=== PATIENT | female | born 1975 | race Caucasian/White ===

== ENCOUNTER → 2017-05-27 | Outpatient (CLI) | payer OTHER ==
[2014-06-23 10:00] VITALS: BP 110/68
[~2017-05-27] MED LIST: LANS30CA66 PO; METH-37 PO; OXYC-328 PO; TIZA4TAB PO
--- NOTE | 2017-05-27 13:50 | RAD ---
MRCP, 05/27/2017: History: Abdominal pain postcholecystectomy Imaging was performed in axial and coronal planes utilizing a variety of imaging sequences including T2 weighted, fat suppressed T2 weighted and opposed phase gradient echo sequences. 2-D and 3-D MRCP sequences were also performed with 3-D reconstructions produced. The gallbladder is surgically absent. The bile ducts are not dilated. There is no evidence of a common duct calculus. The distal common bile duct tapers normally at the ampulla. The pancreatic duct shows no abnormality. No hepatic abnormality is detected. The pancreas is unremarkable. No splenic or renal abnormality is identified. IMPRESSION: 1. Status post cholecystectomy. 2. No significant biliary tract abnormality is identified.
== END | disposition home or self-care (01) ==
LOC: MRI 11:41
PROVIDERS: ATTEND Internal Medicine Gastroenterology
DX: R10.9 Unspecified abdominal pain (principal); Z90.49 Acquired absence of other specified parts of digestive tract
CPT/HCPCS: 74181

== ENCOUNTER 2018-12-27 05:54 | Inpatient (IN) | payer MEDICAID, OTHER ==
[2018-12-27] VITALS (19 sets, daily range): BP systolic 90–113; BP diastolic 57–86
[~2018-12-27] VITALS: Ht 167.6 cm; Wt 69.9 kg
[~2018-12-27 05:54] MED LIST changes: -OXYC-328 PO; +OXYC1TAB22 PO
[2018-12-27] MEDS ORDERED: IV NORMAL SALINE 500ML BAG 500 ML IV ONE ×2 (06:30→17:30)
--- NOTE | 2018-12-27 06:46 | PDOC ---
Provider Note Provider Note [id number] acute resp fail acute bronchitis encephalopathy see orders REYNALDO PETERS MD Dec 27, 2018 06:46
--- NOTE | 2018-12-27 07:00 | NUR ---
Pt transferred to room 105 from [facility] ER. Pt intubated/sedated. Dr. Kc called for admit orders. Dr. Mckay here to see pt. Chest Xray seen by Dr. Mckay and confirmed ETTube placement and OG tube placement. Vent settings Ac 20, tv 500, peep 5, 80%. Unger to dd, placed at [facility] with clear yellow urine. was not present at admit, was at [facility]. Full history not obtained.
--- NOTE | 2018-12-27 07:58 | CONS ---
DATE OF CONSULTATION: 12/27/2018 I was asked to see this 43-year-old lady for acute respiratory failure. HISTORY OF PRESENT ILLNESS: The patient is currently on the ventilator and is sedated. All of the information was obtained from chart and nursing staff. She has significant history of smoking. She had fever and chills. She took pain medication and drench went to bed. Per , she has had a fever and cough for the past few days. She has chronic back pain and is on narcotics. She was taken to [facility]. She was intubated for airway protection. She was not responsive. ABG: pH 7.24, pCO2 of 56, pO2 44 on arrival on room air. She is currently on assist control rate of 20, tidal volume 500, PEEP of 5, FiO2 80% with O2 saturation of 100%. She is intubated and sedated on propofol. PAST MEDICAL HISTORY: Seizure, back pain, bronchitis. ALLERGIES: BUPRENORPHINE, TEGASEROD. MEDICATIONS: Currently, she is on Rocephin, azithromycin, Solu-Medrol and Propofol. SOCIAL HISTORY: Significant history of smoking. Details are not known. REVIEW OF SYSTEMS: Unable to obtain. The patient is on the ventilator and sedated. REVIEW OF SYSTEMS: As mentioned as above. I have discussed the patient with RN, other systems otherwise negative. PHYSICAL EXAMINATION: GENERAL: A well-developed lady. VITAL SIGNS: Her O2 saturation on 80% FiO2 is 100%, respiratory rate 20, heart rate 82, blood pressure 99/67, temperature 98.6. HEENT: Normocephalic, atraumatic. Pupils equal, round, reactive to light. Throat, she is orally intubated. Nose is clear. NECK: There is no JVD, lymphadenopathy or thyromegaly. CARDIOVASCULAR: Regular rate and rhythm. PMI is nondisplaced. CHEST: Inspection is normal. LUNGS: Clear to auscultation and percussion is within normal limit. ABDOMEN: Soft. Bowel sounds are good. There is no mass. EXTREMITIES: There is no edema. LYMPHATICS: There is no lymphadenopathy. NEUROLOGIC: Sedated on the ventilator. SKIN: Warm. I reviewed the following lab data: ABG as mentioned as above was before intubation in [place], WBC 11.3, hemoglobin 14.6, platelet 246. Urine drug screen positive for opioids. INR 0.9, BUN 10, creatinine 1. Total bilirubin 0.3, AST 43, ALT 30. Sodium 139, potassium 4.2. Troponin less than 0.01. BNP is 644. Lactic acid 0.8. IMPRESSION: 1. Acute hypoxemic hypercarbic respiratory failure secondary to over sedation, acute bronchitis versus pneumonia, cannot rule out sepsis versus others. 2. Acute bronchitis. 3. Smoking, probable chronic obstructive pulmonary disease. 4. Encephalopathy. 5. History of fever? sepsis. 6. Tobacco habituation. PLAN AND RECOMMENDATIONS: 1. Titrate FiO2 to keep O2 saturation 94%. 2. Stat ABG and portable chest x-ray. 3. Continue Rocephin and azithromycin. 4. Sputum for Gram stain and culture. 5. Nasal swab for influenza A and B. 6. Blood cultures done at [facility]. 7. Continue Rocephin and azithromycin. 8. Continue Solu-Medrol. 9. Lactic acid. 10. Procalcitonin. 11. Review labs when available. 12. Lovenox for DVT prophylaxis. 13. Pepcid for stress ulcer prophylaxis. 14. Monitor respiratory status very closely in ICU. 15. Elevate head of bed. 16. The findings and recommendations were discussed with RN. Thank you very much for allowing me to participate in care of this very nice lady. REYNALDO PETERS M.D. : KATIE/dyana JOB#: [id number] / [id number]
--- NOTE | 2018-12-27 08:01 | RAD ---
PORTABLE CHEST 1V Clinical History: POST INTUBATION, OG TUBE PLACEMENT Technique: AP view of the chest was obtained at 12/27/2018 6:42 AM. Comparison: 3:45 AM. Findings: The cardiomediastinal silhouette is normal. The pulmonary vasculature is normal. Linear opacities in the left lung base are likely discoid atelectasis. The intrarenal tube and NG tube are well placed and unchanged. Impression: Stable appearance of the chest. Electronically signed by: Bradley Harding III, MD (12/27/2018 7:58 AM) [facility]
[2018-12-27] MEDS: MULTIVIT INFUSN,ADULT 4,VIT K 10 ML, THIAMINE INJ 100 MG, FOLIC ACID INJ 1 MG in IV NOR... IV SCH (08:18)
[2018-12-27] MEDS: FAMOTIDINE 20 MG/2 ML VIAL IVP SCH ×2 (08:19→20:45)
[2018-12-27] MEDS: ENOXAPARIN 40 MG/0.4 ML SYRINGE. SQ SCH (08:20)
[2018-12-27] MEDS: IV NORMAL SALINE 1000ML BAG 1,000 ML IV SCH ×2 (08:23→20:45)
[2018-12-27 09:02] LABS: BASE EXCESS ABG 0 mmol/L (-3-3); HCO3 ABG 23 mmol/L (21-28); PCO2 ABG 31 mmHg (35-46); PO2 ABG 109 mmHg (75-108); SAT O2 ABG 98 % (92-99)
[2018-12-27] MEDS: PROPOFOL 100 ML IV PRN ×2 (09:16→17:00)
--- NOTE | 2018-12-27 10:48 | HP ---
ADMIT DATE: 12/27/2018 HISTORY OF PRESENT ILLNESS: The patient is a 43-year-old female patient who was seen at the Emergency Room of [facility] with a complaint of altered mental status. She apparently has cold, started having fevers and chills. She apparently took a couple of pain medication and also a couple of alcohol drinks and by the time she arrived to the Emergency Room, she appeared to be over sedated. She has bilateral rhonchi and crackles and she was hypoxic on room air and it was felt that she has an overdose of her pain medication with alcohol. She also had a fever with 3-4 days of cough per her . She does continue to smoke; however, she requires noxious stimuli to respond and according to her , she continues to smoke and is known to have chronic back pain and an attempt was made to treat her with the BiPAP but apparently according to the ER physician, continued to be hypoxic and she ended up being intubated. As her blood gases showed worsening of her acidosis, the pH of 7.26, pCO2 of 56, pO2 44 and oxygen saturation was 72% and therefore, she was intubated, sedated and was transferred to [facility] ICU to continue with mechanical ventilation, wean as tolerated. While at [facility], she did receive IV Zithromax and Rocephin. PAST MEDICAL HISTORY: Significant for COPD and seizure disorder as well as chronic back pain since as well as essential tremors. PAST SURGICAL HISTORY: Significant for cholecystectomy and left shoulder surgery. ALLERGIES: She is allergic to BUPRENORPHINE and TEGASEROD. MEDICATIONS: She apparently was on following medications: She is on methocarbamol (Robaxin) 500 mg every 8 hours, tizanidine 4 mg every 8 hours, oxycodone/APAP 10/325 one tablet every 6 hours and lansoprazole (Prevacid) 30 mg once a day. FAMILY HISTORY: Unobtainable. SOCIAL HISTORY: She is and lives with her . She apparently continued to smoke and drinks alcohol. No other information available. REVIEW OF SYSTEMS: Unobtainable. PHYSICAL EXAMINATION: GENERAL: When I saw her in the ICU, she was intubated, mechanically ventilated and sedated. VITAL SIGNS: Her heart rate was 86, blood pressure was 95/67, temperature was 98.6, respiratory rate was 20 and oxygen saturation 100% and FiO2 of 80%. HEAD, EARS, NOSE AND THROAT: Normocephalic, atraumatic. She has orotracheal and orogastric tube in place. NECK: Supple. HEART: Showed normal first and second sounds without murmur. CHEST: Clear to auscultation. No crepitation or rhonchi. ABDOMEN: Distended, soft and nontender. NEUROLOGICAL: She is sedated, intubated and mechanically ventilated. LABORATORY DATA: On arrival to the Emergency Room showed her white cell count of 11,300; hemoglobin 14.6; hematocrit 43.8; MCV 102 and platelet count of 246,000 with normal manual differential. Her arterial blood gases showed a pH of 7.26, pCO2 of 56, pO2 of 44, bicarbonate 26 and oxygen saturation was 72% on FiO2 of 21%. ASSESSMENT AND PLAN: In summary, this is a 43-year-old female patient who was seen at [facility] with altered mental status and said that she probably overdosed on her chronic pain medication as well as alcohol and was found to be in acute hypoxic hypercapnic respiratory failure and in an attempt to use bilevel positive airway pressure is her hypoxia worsened and she ended up being intubated, mechanically ventilated and was transferred to [facility] to continue with mechanical ventilation and wean as tolerated. The patient is known to have chronic back pain. She is known to have chronic obstructive pulmonary disease and apparently continued to smoke and drink alcohol. The plan is obviously to continue with mechanical ventilation, wean as tolerated. Continue with steroids and IV antibiotic. Continue with bronchodilator. Her chemistry showed that her serum sodium was 139, potassium 4.2, chloride 102, bicarbonate 30, anion gap of 7, glucose was 109, BUN 10, creatinine 1 and estimated GFR was 60 mL per minute. Her sodium was 139 and potassium 4.2. Total bilirubin, AST, ALT, alkaline phosphatase are all normal. CK was 332. Troponin was less than 0.017. Her prothrombin time was 9.3, INR of 1 and aPTT was 27. D-dimer was 0.75 mg/dL. We will obviously consult the it administrative assistant. We will also start her on alcohol withdrawal protocol, although her toxic screen showed that her blood alcohol level was only 10 mg/dL and she was positive for opiates and negative for all other drugs. TEODORO THAPA MD DR: Galindo JOB#: [id number] / [id number]
[2018-12-27 10:56] LABS: ALBUMIN 2.8 g/dL (3.4-5.0); ALBUMIN/GLOBULIN RATIO 0.8 (1.0-1.7); CALCIUM 8.2 mg/dL (8.5-10.1); CREATININE 0.8 mg/dL (0.6-1.0); GFR 77.9; POTASSIUM 4.1 mmol/L (3.5-5.1); TOTAL BILIRUBIN 0.1 mg/dL (0.2-1.0); TOTAL PROTEIN 6.2 g/dL (6.4-8.2)
[2018-12-27 11:03] LABS: HEMATOCRIT 40.3 % (36.0-47.0); HEMOGLOBIN 13.1 g/dL (12.0-15.5); RED BLOOD COUNT 3.95 x10^6/uL (3.50-5.40); RED CELL DISTRIBUTION WIDTH 13.5 % (11.5-14.5)
[2018-12-27 11:14] LABS: U PREG PATIENT NEGATIVE (NEG)
[2018-12-27 11:54] LABS: INFLUENZA A PATIENT NEGATIVE (NEGATIVE); INFLUENZA B PATIENT NEGATIVE (NEGATIVE)
[2018-12-27] MEDS: methylPREDNISolone SOD SUCC PF 40 MG/ML VIAL. IV SCH ×2 (14:00→21:33)
[2018-12-27] MEDS ORDERED: ACETAMINOPHEN 650 MG/20.3 ML SOLUTION. PEG PRN (19:15)
[2018-12-28] VITALS (24 sets, daily range): BP systolic 87–137; BP diastolic 58–80
[2018-12-28] MEDS: PROPOFOL 100 ML IV PRN ×4 (02:26→23:28)
[2018-12-28] MEDS: IV NORMAL SALINE 1000ML BAG 1,000 ML IV SCH ×3 (03:13→16:46)
[2018-12-28] MEDS ORDERED: IV NORMAL SALINE 500ML BAG 500 ML IV ONE (03:15)
[2018-12-28] MEDS: methylPREDNISolone SOD SUCC PF 40 MG/ML VIAL. IV SCH ×2 (06:01→21:21)
[2018-12-28 06:44] LABS: HEMATOCRIT 37.4 % (36.0-47.0); HEMOGLOBIN 12.6 g/dL (12.0-15.5); RED BLOOD COUNT 3.68 x10^6/uL (3.50-5.40); RED CELL DISTRIBUTION WIDTH 13.7 % (11.5-14.5); WHITE BLOOD COUNT 7.3 x10^3/uL (4.0-11.0)
[2018-12-28 06:57] LABS: ALBUMIN 2.6 g/dL (3.4-5.0); ALBUMIN/GLOBULIN RATIO 0.8 (1.0-1.7); CALCIUM 7.5 mg/dL (8.5-10.1); CREATININE 0.6 mg/dL (0.6-1.0); GFR 108.6; POTASSIUM 3.2 mmol/L (3.5-5.1); TOTAL BILIRUBIN 0.1 mg/dL (0.2-1.0); TOTAL PROTEIN 5.9 g/dL (6.4-8.2)
[2018-12-28 08:31] LABS: BASE EXCESS ABG -6 mmol/L (-3-3); HCO3 ABG 19 mmol/L (21-28); PCO2 ABG 34 mmHg (35-46); PO2 ABG 63 mmHg (75-108); SAT O2 ABG 92 % (92-99)
[2018-12-28 08:33] LABS: FIO2 ABG 40
[2018-12-28] MEDS: AZITHROMYCIN 250 MG in IV NORMAL SALINE 250ML 250 ML IV SCH (08:52)
[2018-12-28] MEDS: FAMOTIDINE 20 MG/2 ML VIAL IVP SCH ×2 (08:52→21:21)
[2018-12-28] MEDS: ENOXAPARIN 40 MG/0.4 ML SYRINGE. SQ SCH (08:52)
[2018-12-28] MEDS: cefTRIAXone IV Push 1 GM VIAL. IVP SCH (08:52)
[2018-12-28] MEDS: MULTIVIT INFUSN,ADULT 4,VIT K 10 ML, THIAMINE INJ 100 MG, FOLIC ACID INJ 1 MG in IV NOR... IV SCH (08:53)
[2018-12-28] MEDS: POTASSIUM CHLORIDE 20 MEQ/15 ML ORAL LIQUID. PEG SCH ×2 (09:14→21:21)
[2018-12-28] MEDS ORDERED: POTASSIUM CHLORIDE 20 MEQ/15 ML ORAL LIQUID. PEG ONE (09:30)
--- NOTE | 2018-12-28 09:41 | PDOC ---
PULMONARY PROGRESS NOTES Subjective Pt. remains on vent. at 40 %overnight without asynchrony. nursing reports minimal white secretions. Pt. is afebrile overnight. Pt. is currently sedated but opening eyes. Vitals Laboratory Tests Test 12/27/18 11:00 12/27/18 11:15 12/28/18 06:15 12/28/18 08:00 Urine Test Negative Influenza Type A Antigen Negative Influenza Type B Antigen Negative White Blood Count 7.3 x10^3/uL Red Blood Count 3.68 x10^6/uL Hemoglobin 12.6 g/dL Hematocrit 37.4 % Mean Corpuscular Volume 102 fL Mean Corpuscular Hemoglobin 34 pg Mean Corpuscular Hemoglobin Concent 34 g/dL Red Cell Distribution Width 13.7 % Platelet Count 214 x10^3/uL Sodium Level 142 mmol/L Potassium Level 3.2 mmol/L Chloride Level 110 mmol/L Carbon Dioxide Level 22 mmol/L Anion Gap 10 Blood Urea Nitrogen 9 mg/dL Creatinine 0.6 mg/dL Estimated GFR (Cockcroft-Gault) 108.6 BUN/Creatinine Ratio 15 Glucose Level 132 mg/dL Calcium Level 7.5 mg/dL Total Bilirubin 0.1 mg/dL Aspartate Amino Transf (AST/SGOT) 17 U/L Alanine Aminotransferase (ALT/SGPT) 31 U/L Alkaline Phosphatase 104 U/L Total Protein 5.9 g/dL Albumin 2.6 g/dL Albumin/Globulin Ratio 0.8 O2 Saturation 92 % Arterial Blood pH 7.36 Arterial Blood pCO2 at Patient Temp 34 mmHg Arterial Blood pO2 at Patient Temp 63 mmHg Arterial Blood HCO3 19 mmol/L Arterial Blood Base Excess -6 mmol/L FiO2 40 Current Medications Medications (Trade) Dose Ordered Sig/Orion Route PRN Reason Start Time Stop Time Status Last Admin Dose Admin Sodium Chloride 500 ml @ 500 mls/hr 1X ONCE IV 12/27/18 06:30 12/27/18 07:29 DC 12/27/18 06:39 Multivitamins 10 ml/Thiamine HCl 100 mg/Folic Acid 1 mg/Sodium Chloride 1,011.2 ml @ 125 mls/ hr DAILY IV 12/27/18 09:00 12/31/18 17:06 12/28/18 08:53 Methylprednisolone Sodium Succinate (SOLU-Medrol 40MG VIAL) 40 mg Q8HRS IV 12/27/18 14:00 12/28/18 06:01 Ceftriaxone Sodium (Rocephin) 1 gm Q24H IVP 12/28/18 09:00 12/28/18 08:52 Azithromycin 250 mg/Sodium Chloride 250 ml @ 250 mls/hr Q24H IV 12/28/18 09:00 12/28/18 08:52 Sodium Chloride 1,000 ml @ 150 mls/hr Q6H40M IV 12/27/18 11:00 12/28/18 09:09 Propofol 100 ml @ 1.041 mls/ hr CONT PRN IV SEE I/O RECORD 12/27/18 06:45 12/28/18 08:54 Enoxaparin Sodium (Lovenox 40mg Syringe) 40 mg Q24H SQ 12/27/18 09:00 12/28/18 08:52 Famotidine (Pepcid Vial) 20 mg BID IVP 12/27/18 09:00 12/28/18 08:52 Fentanyl Citrate 30 ml @ 0 mls/hr CONT PRN PRN IV PER PROTOCOL 12/27/18 08:15 12/28/18 00:29 Sodium Chloride 500 ml @ 500 mls/hr 1X ONCE IV 12/27/18 17:30 12/27/18 18:29 DC 12/27/18 17:08 Nystatin (Nystatin Oral Susp) 5 ml Q6HRS SWSW 12/28/18 19:00 Acetaminophen (Tylenol) 650 mg PRN Q6HRS PRN PEG MILD PAIN / TEMP 12/27/18 19:15 Sodium Chloride 500 ml @ 500 mls/hr 1X ONCE IV 12/28/18 03:15 12/28/18 04:14 DC 12/28/18 03:21 Potassium Chloride (KCl Oral Soln) 40 meq BID PEG 12/28/18 09:00 12/28/18 09:14 Vital Signs Date Time Temp Pulse Resp B/P (MAP) Pulse Ox O2 Delivery O2 Flow Rate FiO2 12/28/18 09:00 49 16 125/68 (87) 97 Ventilator 12/28/18 07:00 98.4 98.4 Comments unable to obtain ROS Pt. is intubated/sedated General: Alert HEENT: Other (pupils 4mm) Lungs: Clear Cardiovascular: S1 Abdomen: Non-tender Extremities: No Edema Skin: Warm, Dry, No Rashes Impression Labs Laboratory Tests Test 12/27/18 11:00 12/27/18 11:15 12/28/18 06:15 12/28/18 08:00 Urine Test Negative Influenza Type A Antigen Negative Influenza Type B Antigen Negative White Blood Count 7.3 x10^3/uL Red Blood Count 3.68 x10^6/uL Hemoglobin 12.6 g/dL Hematocrit 37.4 % Mean Corpuscular Volume 102 fL Mean Corpuscular Hemoglobin 34 pg Mean Corpuscular Hemoglobin Concent 34 g/dL Red Cell Distribution Width 13.7 % Platelet Count 214 x10^3/uL Sodium Level 142 mmol/L Potassium Level 3.2 mmol/L Chloride Level 110 mmol/L Carbon Dioxide Level 22 mmol/L Anion Gap 10 Blood Urea Nitrogen 9 mg/dL Creatinine 0.6 mg/dL Estimated GFR (Cockcroft-Gault) 108.6 BUN/Creatinine Ratio 15 Glucose Level 132 mg/dL Calcium Level 7.5 mg/dL Total Bilirubin 0.1 mg/dL Aspartate Amino Transf (AST/SGOT) 17 U/L Alanine Aminotransferase (ALT/SGPT) 31 U/L Alkaline Phosphatase 104 U/L Total Protein 5.9 g/dL Albumin 2.6 g/dL Albumin/Globulin Ratio 0.8 O2 Saturation 92 % Arterial Blood pH 7.36 Arterial Blood pCO2 at Patient Temp 34 mmHg Arterial Blood pO2 at Patient Temp 63 mmHg Arterial Blood HCO3 19 mmol/L Arterial Blood Base Excess -6 mmol/L FiO2 40 Current Medications Medications (Trade) Dose Ordered Sig/Orion Route PRN Reason Start Time Stop Time Status Last Admin Dose Admin Sodium Chloride 500 ml @ 500 mls/hr 1X ONCE IV 12/27/18 06:30 12/27/18 07:29 DC 12/27/18 06:39 Multivitamins 10 ml/Thiamine HCl 100 mg/Folic Acid 1 mg/Sodium Chloride 1,011.2 ml @ 125 mls/ hr DAILY IV 12/27/18 09:00 12/31/18 17:06 12/28/18 08:53 Methylprednisolone Sodium Succinate (SOLU-Medrol 40MG VIAL) 40 mg Q8HRS IV 12/27/18 14:00 12/28/18 06:01 Ceftriaxone Sodium (Rocephin) 1 gm Q24H IVP 12/28/18 09:00 12/28/18 08:52 Azithromycin 250 mg/Sodium Chloride 250 ml @ 250 mls/hr Q24H IV 12/28/18 09:00 12/28/18 08:52 Sodium Chloride 1,000 ml @ 150 mls/hr Q6H40M IV 12/27/18 11:00 12/28/18 09:09 Propofol 100 ml @ 1.041 mls/ hr CONT PRN IV SEE I/O RECORD 12/27/18 06:45 12/28/18 08:54 Enoxaparin Sodium (Lovenox 40mg Syringe) 40 mg Q24H SQ 12/27/18 09:00 12/28/18 08:52 Famotidine (Pepcid Vial) 20 mg BID IVP 12/27/18 09:00 12/28/18 08:52 Fentanyl Citrate 30 ml @ 0 mls/hr CONT PRN PRN IV PER PROTOCOL 12/27/18 08:15 12/28/18 00:29 Sodium Chloride 500 ml @ 500 mls/hr 1X ONCE IV 12/27/18 17:30 12/27/18 18:29 DC 12/27/18 17:08 Nystatin (Nystatin Oral Susp) 5 ml Q6HRS SWSW 12/28/18 19:00 Acetaminophen (Tylenol) 650 mg PRN Q6HRS PRN PEG MILD PAIN / TEMP 12/27/18 19:15 Sodium Chloride 500 ml @ 500 mls/hr 1X ONCE IV 12/28/18 03:15 12/28/18 04:14 DC 12/28/18 03:21 Potassium Chloride (KCl Oral Soln) 40 meq BID PEG 12/28/18 09:00 12/28/18 09:14 Laboratory Tests Test 12/27/18 07:30 12/27/18 09:00 12/27/18 11:00 12/27/18 11:15 White Blood Count 12.0 x10^3/uL (4.0-11.0) Red Blood Count 3.95 x10^6/uL (3.50-5.40) Hemoglobin 13.1 g/dL (12.0-15.5) Hematocrit 40.3 % (36.0-47.0) Mean Corpuscular Volume 102 fL (79-100) Mean Corpuscular Hemoglobin 33 pg (25-35) Mean Corpuscular Hemoglobin Concent 33 g/dL (31-37) Red Cell Distribution Width 13.5 % (11.5-14.5) Platelet Count 207 x10^3/uL (140-400) Sodium Level 135 mmol/L (136-145) Potassium Level 4.1 mmol/L (3.5-5.1) Chloride Level 105 mmol/L (98-107) Carbon Dioxide Level 25 mmol/L (21-32) Anion Gap 5 (6-14) Blood Urea Nitrogen 10 mg/dL (7-20) Creatinine 0.8 mg/dL (0.6-1.0) Estimated GFR (Cockcroft-Gault) 77.9 BUN/Creatinine Ratio 13 (6-20) Glucose Level 118 mg/dL (70-99) Lactic Acid Level 1.8 mmol/L (0.4-2.0) Calcium Level 8.2 mg/dL (8.5-10.1) Total Bilirubin 0.1 mg/dL (0.2-1.0) Aspartate Amino Transf (AST/SGOT) 31 U/L (15-37) Alanine Aminotransferase (ALT/SGPT) 31 U/L (14-59) Alkaline Phosphatase 115 U/L (46-116) Total Protein 6.2 g/dL (6.4-8.2) Albumin 2.8 g/dL (3.4-5.0) Albumin/Globulin Ratio 0.8 (1.0-1.7) Procalcitonin < 0.10 ng/mL (0.00-0.10) O2 Saturation 98 % (92-99) Arterial Blood pH 7.48 (7.35-7.45) Arterial Blood pCO2 at Patient Temp 31 mmHg (35-46) Arterial Blood pO2 at Patient Temp 109 mmHg (75-108) Arterial Blood HCO3 23 mmol/L (21-28) Arterial Blood Base Excess 0 mmol/L (-3-3) FiO2 80% vent Urine Test Negative (NEG) Influenza Type A Antigen Negative (NEGATIVE) Influenza Type B Antigen Negative (NEGATIVE) Test 12/28/18 06:15 12/28/18 08:00 White Blood Count 7.3 x10^3/uL (4.0-11.0) Red Blood Count 3.68 x10^6/uL (3.50-5.40) Hemoglobin 12.6 g/dL (12.0-15.5) Hematocrit 37.4 % (36.0-47.0) Mean Corpuscular Volume 102 fL (79-100) Mean Corpuscular Hemoglobin 34 pg (25-35) Mean Corpuscular Hemoglobin Concent 34 g/dL (31-37) Red Cell Distribution Width 13.7 % (11.5-14.5) Platelet Count 214 x10^3/uL (140-400) Sodium Level 142 mmol/L (136-145) Potassium Level 3.2 mmol/L (3.5-5.1) Chloride Level 110 mmol/L (98-107) Carbon Dioxide Level 22 mmol/L (21-32) Anion Gap 10 (6-14) Blood Urea Nitrogen 9 mg/dL (7-20) Creatinine 0.6 mg/dL (0.6-1.0) Estimated GFR (Cockcroft-Gault) 108.6 BUN/Creatinine Ratio 15 (6-20) Glucose Level 132 mg/dL (70-99) Calcium Level 7.5 mg/dL (8.5-10.1) Total Bilirubin 0.1 mg/dL (0.2-1.0) Aspartate Amino Transf (AST/SGOT) 17 U/L (15-37) Alanine Aminotransferase (ALT/SGPT) 31 U/L (14-59) Alkaline Phosphatase 104 U/L (46-116) Total Protein 5.9 g/dL (6.4-8.2) Albumin 2.6 g/dL (3.4-5.0) Albumin/Globulin Ratio 0.8 (1.0-1.7) O2 Saturation 92 % (92-99) Arterial Blood pH 7.36 (7.35-7.45) Arterial Blood pCO2 at Patient Temp 34 mmHg (35-46) Arterial Blood pO2 at Patient Temp 63 mmHg (75-108) Arterial Blood HCO3 19 mmol/L (21-28) Arterial Blood Base Excess -6 mmol/L (-3-3) FiO2 40 Laboratory Tests Test 12/27/18 11:00 12/27/18 11:15 12/28/18 06:15 12/28/18 08:00 Urine Test Negative (NEG) Influenza Type A Antigen Negative (NEGATIVE) Influenza Type B Antigen Negative (NEGATIVE) White Blood Count 7.3 x10^3/uL (4.0-11.0) Red Blood Count 3.68 x10^6/uL (3.50-5.40) Hemoglobin 12.6 g/dL (12.0-15.5) Hematocrit 37.4 % (36.0-47.0) Mean Corpuscular Volume 102 fL (79-100) Mean Corpuscular Hemoglobin 34 pg (25-35) Mean Corpuscular Hemoglobin Concent 34 g/dL (31-37) Red Cell Distribution Width 13.7 % (11.5-14.5) Platelet Count 214 x10^3/uL (140-400) Sodium Level 142 mmol/L (136-145) Potassium Level 3.2 mmol/L (3.5-5.1) Chloride Level 110 mmol/L (98-107) Carbon Dioxide Level 22 mmol/L (21-32) Anion Gap 10 (6-14) Blood Urea Nitrogen 9 mg/dL (7-20) Creatinine 0.6 mg/dL (0.6-1.0) Estimated GFR (Cockcroft-Gault) 108.6 BUN/Creatinine Ratio 15 (6-20) Glucose Level 132 mg/dL (70-99) Calcium Level 7.5 mg/dL (8.5-10.1) Total Bilirubin 0.1 mg/dL (0.2-1.0) Aspartate Amino Transf (AST/SGOT) 17 U/L (15-37) Alanine Aminotransferase (ALT/SGPT) 31 U/L (14-59) Alkaline Phosphatase 104 U/L (46-116) Total Protein 5.9 g/dL (6.4-8.2) Albumin 2.6 g/dL (3.4-5.0) Albumin/Globulin Ratio 0.8 (1.0-1.7) O2 Saturation 92 % (92-99) Arterial Blood pH 7.36 (7.35-7.45) Arterial Blood pCO2 at Patient Temp 34 mmHg (35-46) Arterial Blood pO2 at Patient Temp 63 mmHg (75-108) Arterial Blood HCO3 19 mmol/L (21-28) Arterial Blood Base Excess -6 mmol/L (-3-3) FiO2 40 Medications Active Scripts Medications Dose Route/Sig Max Daily Dose Days Date Category Robaxin (Methocarbamol) 500 Mg Tablet 500 Mg PO Q8HRS PRN 10/15/14 Reported Tizanidine Hcl 4 Mg Tablet 4 Mg PO Q8HRS PRN 06/22/14 Reported Prevacid (Lansoprazole) 30 Mg Capsule.dr 30 Mg PO DAILY 06/22/14 Reported Percocet 10-325 Mg Tablet (Oxycodone/Acetaminophen) 1 Each Tablet 1 Tab PO Q6HRS 06/22/14 Reported Active Scripts Medications Dose Route/Sig Max Daily Dose Days Date Category Robaxin (Methocarbamol) 500 Mg Tablet 500 Mg PO Q8HRS PRN 06/22/14 Reported Tizanidine Hcl 4 Mg Tablet 4 Mg PO Q8HRS PRN 06/22/14 Reported Prevacid (Lansoprazole) 30 Mg Capsule.dr 30 Mg PO DAILY 06/22/14 Reported Percocet 10-325 Mg Tablet (Oxycodone/Acetaminophen) 1 Each Tablet 1 Tab PO Q6HRS 06/22/14 Reported Impression . Acute Hypoxic/hypercarbic respiratory Failure:improving Unintentional Overdose Tobaccoism Alcoholism Hypokalemia Plan . plan for sedation vacation SBT PS 5/5 planned for this afternoon Supplemental Titrate FiO2 to keep O2 saturation 92%. Follow ABG/CXR Continue Rocephin and azithromycin, plan to deescalate Procalcitonin low Replace potassium, monitor PT/OT/ST follow cultures Continue Solu-Medrol with taper Monitor respiratory status very closely in ICU. Elevate head of bed 30 degrees The findings and recommendations were discussed with RN. CCT 30 MIN CHELLE MELVIN MD Dec 28, 2018 09:41
--- NOTE | 2018-12-28 11:15 | NUR ---
pt o2 sat in the high 80's. suctioned pt with only a small amout of salmeron sputum. pt placed on 100% for 2 minutes and sat went to 93% but then drifted back to the 80's. rt working with pt and o2% increased to 45%. dr arreola aware.
--- NOTE | 2018-12-28 13:04 | RAD ---
Portable chest x-ray compared to similar study dated 12/27/2018 for respiratory failure. FINDINGS: Endotracheal tubes and enteric tubes are unchanged. Lungs remain well aerated. Left retrocardiac density is less conspicuous today, and may reflect a hiatal hernia. PA and lateral chest x-ray when clinically feasible is advised. No new lung parenchymal abnormalities. Heart size within normal limits. IMPRESSION: 1. Stable chest x-ray. There is a left retrocardiac density which may reflect a small hiatal hernia. This could be better evaluated with PA and lateral chest x-ray when clinically feasible. Electronically signed by: Sander Edwards MD (12/28/2018 1:01 PM) [id number]
[2018-12-28] MEDS ORDERED: TOPI100T8 PO (13:40)
[2018-12-28] MEDS ORDERED: DULO30CA2 PO (13:40)
[2018-12-28] MEDS ORDERED: OLAN5TAB9 PO (13:40)
[2018-12-28] MEDS ORDERED: LINZESS290 MCG PO (13:40)
[2018-12-28] MEDS ORDERED: RANI300C PO (13:40)
[2018-12-28] MEDS ORDERED: GABA300C9 PO (13:51)
[2018-12-28] MEDS ORDERED: RIZA10TA PO (13:51)
[2018-12-28] MEDS ORDERED: ALBU2.5V8 INH (13:51)
[2018-12-28] MEDS ORDERED: LIDO700A39 TP (13:51)
[2018-12-28] MEDS ORDERED: CHOL10003 PO (13:51)
[2018-12-28] MEDS ORDERED: BUDE10.2 IH (13:51)
[2018-12-28] MEDS ORDERED: VIT100TA2 PO (13:51)
[2018-12-28] MEDS ORDERED: POTA10TA17 PO (13:53)
--- NOTE | 2018-12-28 16:05 | NUR ---
SS following for discharge planning. SS reviewed pt chart. Pt is from home with spouse and is currently on the vent. No discharge needs noted at this time. SS will continue to follow for pending discharge needs.
[2018-12-28] MEDS: NYSTATIN 100,000 UNITS/ML 5 ML ORAL.SUSP. SWSW SCH (17:33)
[2018-12-29] VITALS (24 sets, daily range): BP systolic 90–140; BP diastolic 59–82
[2018-12-29] MEDS: NYSTATIN 100,000 UNITS/ML 5 ML ORAL.SUSP. SWSW SCH ×5 (00:24→23:40)
--- NOTE | 2018-12-29 03:16 | PN ---
DATE: 12/28/2018 SUBJECTIVE: The patient is resting, slightly propped up, continued to be sedated, intubated and mechanically ventilated. She is on propofol and fentanyl. PHYSICAL EXAMINATION: GENERAL: When I examined her, she looked pale, but no jaundice, cyanosis, or thyromegaly. No jugular venous distention. No lower limb edema. VITAL SIGNS: Her heart rate was 48, blood pressure 137/80, temperature was 98.4, respiratory rate was 16, and oxygen saturation was 96% on FiO2 of 40%. HEAD, EYES, EARS, NOSE AND THROAT: Showed normocephalic, atraumatic. She has orotracheal and orogastric tube in place. NECK: Supple. HEART: Showed normal first and second heart sounds. No gallop, rub or murmur. CHEST: Clear to auscultation. No crepitation or rhonchi. ABDOMEN: Distended, soft, nontender. NEUROLOGIC: She is obviously heavily sedated. Her intake and output are incompletely recorded. LABORATORY DATA: Showed her blood gases with a pH of 7.36, pCO2 of 34, pO2 of 63, bicarbonate 19 and oxygen saturation was 92% on FiO2 of 40%. Her white cell count is down to 7300, hemoglobin 13, hematocrit 37, MCV 102 and platelet count 214,000. Her chemistry showed a serum sodium 142, potassium 3.2, chloride 110, bicarbonate 22, anion gap of 10, BUN 9, creatinine 0.6, estimated GFR was 180 mL per minute. Her glucose 132, calcium was 7.1. Total bilirubin, AST, ALT, alkaline phosphatase were normal. Total protein was 5.9, albumin was 2.6. ASSESSMENT: 1. Acute altered mental status, probably an overdose in her chronic pain medication as well as alcohol. 2. Acute hypoxic hypercapnic respiratory failure. Initiate attempt to treat with BiPAP; however, her hypoxia worsened and she was intubated, mechanically ventilated, the patient was transferred to [facility]. Other medical problems include hypokalemia with potassium of 3.2. PLAN: To continue with mechanical ventilation, wean as tolerated. Continue with IV fluid, continue with the banana bag and alcohol withdrawal protocol. We will replenish her potassium and started on 40 mEq per the NG tube twice a day and continue with IV antibiotic as well as steroids. TEODORO THAPA MD DR: Galindo JOB#: [id number] / [id number]
[2018-12-29 06:32] LABS: CALCIUM 7.3 mg/dL (8.5-10.1); CREATININE 0.5 mg/dL (0.6-1.0)
[2018-12-29] MEDS: PROPOFOL 100 ML IV PRN ×2 (07:55→13:47)
[2018-12-29] MEDS: POTASSIUM CHLORIDE 20 MEQ/15 ML ORAL LIQUID. PEG SCH ×2 (08:04→21:03)
[2018-12-29] MEDS: ENOXAPARIN 40 MG/0.4 ML SYRINGE. SQ SCH (08:05)
[2018-12-29] MEDS: methylPREDNISolone SOD SUCC PF 40 MG/ML VIAL. IV SCH ×2 (08:05→21:04)
[2018-12-29] MEDS: FAMOTIDINE 20 MG/2 ML VIAL IVP SCH ×2 (08:05→21:04)
[2018-12-29] MEDS: MULTIVIT INFUSN,ADULT 4,VIT K 10 ML, THIAMINE INJ 100 MG, FOLIC ACID INJ 1 MG in IV NOR... IV SCH ×2 (08:06→09:30)
[2018-12-29] MEDS: cefTRIAXone IV Push 1 GM VIAL. IVP SCH (08:06)
[2018-12-29 08:47] LABS: BASE EXCESS ABG -8 mmol/L (-3-3); HCO3 ABG 18 mmol/L (21-28); PCO2 ABG 36 mmHg (35-46); PO2 ABG 62 mmHg (75-108); SAT O2 ABG 90 % (92-99)
[2018-12-29 08:53] LABS: FIO2 ABG 40
[2018-12-29] MEDS ORDERED: IV NORMAL SALINE 500ML BAG 500 ML IV PRN (09:00)
[2018-12-29] MEDS ORDERED: ATROPINE 0.5 MG/5 ML DISP.SYRINGE. IV PRN (09:00)
--- NOTE | 2018-12-29 09:22 | RAD ---
CHEST AP ONLY History: ET TUBE. Comparison with December 28, 2018. Endotracheal tube identified with tip about 4 cm above the rosa. The endogastric tube is stable in position extending to the left upper quadrant. Mild opacity in the left lung base medially is again seen. Cardiomediastinal silhouette stable. No evidence of pneumothorax, pleural effusion or infiltrate. Regional skeleton appears grossly intact. IMPRESSION: Stable exam, no new consolidating infiltrate. Electronically signed by: Alek Hallman MD (12/29/2018 9:19 AM) [id number]
[2018-12-29] MEDS: DEXMEDETOMIDINE 200 MCG in IV NORMAL SALINE 50ML 48 ML IV PRN ×2 (09:30→18:35)
[2018-12-29] MEDS ORDERED: MAGNESIUM SULFATE 1GM 100 ML IV ONE (09:30)
--- NOTE | 2018-12-29 09:37 | PDOC ---
PULMONARY PROGRESS NOTES Subjective Pt. remains on vent. at 40 %overnight without asynchrony. nursing reports minimal white secretions. Pt. is afebrile overnight. Pt. is agitated this am, and has pulled he ET tube. Nursing reports she is hard to sedated. Vitals Laboratory Tests Test 12/29/18 05:45 12/29/18 07:40 Sodium Level 146 mmol/L Potassium Level 4.0 mmol/L Chloride Level 114 mmol/L Carbon Dioxide Level 20 mmol/L Anion Gap 12 Blood Urea Nitrogen 12 mg/dL Creatinine 0.5 mg/dL Estimated GFR (Cockcroft-Gault) 134.0 Glucose Level 121 mg/dL Calcium Level 7.3 mg/dL O2 Saturation 90 % Arterial Blood pH 7.31 Arterial Blood pCO2 at Patient Temp 36 mmHg Arterial Blood pO2 at Patient Temp 62 mmHg Arterial Blood HCO3 18 mmol/L Arterial Blood Base Excess -8 mmol/L FiO2 40 Current Medications Medications (Trade) Dose Ordered Sig/Orion Route PRN Reason Start Time Stop Time Status Last Admin Dose Admin Sodium Chloride 500 ml @ 500 mls/hr 1X ONCE IV 12/27/18 06:30 12/27/18 07:29 DC 12/27/18 06:39 Multivitamins 10 ml/Thiamine HCl 100 mg/Folic Acid 1 mg/Sodium Chloride 1,011.2 ml @ 125 mls/ hr DAILY IV 12/27/18 09:00 12/31/18 17:06 12/29/18 08:06 Methylprednisolone Sodium Succinate (SOLU-Medrol 40MG VIAL) 40 mg Q8HRS IV 12/27/18 14:00 12/28/18 09:45 DC 12/28/18 06:01 Ceftriaxone Sodium (Rocephin) 1 gm Q24H IVP 12/28/18 09:00 12/29/18 08:06 Azithromycin 250 mg/Sodium Chloride 250 ml @ 250 mls/hr Q24H IV 12/28/18 09:00 12/28/18 08:52 Sodium Chloride 1,000 ml @ 75 mls/hr [id number] IV 12/27/18 11:00 12/29/18 08:51 DC 12/28/18 16:46 Propofol 100 ml @ 1.041 mls/ hr CONT PRN IV SEE I/O RECORD 12/27/18 06:45 12/29/18 07:55 Enoxaparin Sodium (Lovenox 40mg Syringe) 40 mg Q24H SQ 12/27/18 09:00 12/29/18 08:05 Famotidine (Pepcid Vial) 20 mg BID IVP 12/27/18 09:00 12/29/18 08:05 Fentanyl Citrate 30 ml @ 0 mls/hr CONT PRN PRN IV PER PROTOCOL 12/27/18 08:15 12/29/18 06:48 Sodium Chloride 500 ml @ 500 mls/hr 1X ONCE IV 12/27/18 17:30 12/27/18 18:29 DC 12/27/18 17:08 Nystatin (Nystatin Oral Susp) 5 ml Q6HRS SWSW 12/28/18 19:00 12/29/18 05:59 Acetaminophen (Tylenol) 650 mg PRN Q6HRS PRN PEG MILD PAIN / TEMP 12/27/18 19:15 Sodium Chloride 500 ml @ 500 mls/hr 1X ONCE IV 12/28/18 03:15 12/28/18 04:14 DC 12/28/18 03:21 Potassium Chloride (KCl Oral Soln) 40 meq BID PEG 12/28/18 09:00 12/29/18 08:04 Potassium Chloride (KCl Oral Soln) 40 meq 1X ONCE PEG 12/28/18 09:30 12/28/18 09:31 UNV Methylprednisolone Sodium Succinate (SOLU-Medrol 40MG VIAL) 30 mg Q12HR IV 12/28/18 21:00 12/29/18 08:05 Potassium Chloride/Dextrose/ Sod Cl 1,000 ml @ 75 mls/hr [id number] IV 12/29/18 09:30 Dexmedetomidine HCl 200 mcg/ Sodium Chloride 50 ml @ 0 mls/hr CONT PRN IV PER PROTOCOL 12/29/18 09:00 Sodium Chloride 500 ml @ 500 mls/hr 1X PRN PRN IV SEE COMMENTS 12/29/18 09:00 Atropine Sulfate (ATROPINE 0.5mg SYRINGE) 0.5 mg PRN Q5MIN PRN IV SEE COMMENTS 12/29/18 09:00 Magnesium Sulfate/ Dextrose 100 ml @ 100 mls/hr 1X ONCE IV 12/29/18 09:30 12/29/18 10:29 Vital Signs Date Time Temp Pulse Resp B/P (MAP) Pulse Ox O2 Delivery O2 Flow Rate FiO2 12/29/18 08:00 Mechanical Ventilator 12/29/18 06:48 16 12/29/18 06:00 48 104/74 (84) 100 12/29/18 04:00 99.7 99.7 Comments unable to obtain ROS Pt. is intubated/sedated HEENT: Other (pupils 4mm) Lungs: Clear Cardiovascular: S1 Abdomen: Non-tender Extremities: No Edema Skin: Warm, Dry, No Rashes Impression Labs Laboratory Tests Test 12/29/18 05:45 12/29/18 07:40 Sodium Level 146 mmol/L Potassium Level 4.0 mmol/L Chloride Level 114 mmol/L Carbon Dioxide Level 20 mmol/L Anion Gap 12 Blood Urea Nitrogen 12 mg/dL Creatinine 0.5 mg/dL Estimated GFR (Cockcroft-Gault) 134.0 Glucose Level 121 mg/dL Calcium Level 7.3 mg/dL O2 Saturation 90 % Arterial Blood pH 7.31 Arterial Blood pCO2 at Patient Temp 36 mmHg Arterial Blood pO2 at Patient Temp 62 mmHg Arterial Blood HCO3 18 mmol/L Arterial Blood Base Excess -8 mmol/L FiO2 40 Current Medications Medications (Trade) Dose Ordered Sig/Orion Route PRN Reason Start Time Stop Time Status Last Admin Dose Admin Sodium Chloride 500 ml @ 500 mls/hr 1X ONCE IV 12/27/18 06:30 12/27/18 07:29 DC 12/27/18 06:39 Multivitamins 10 ml/Thiamine HCl 100 mg/Folic Acid 1 mg/Sodium Chloride 1,011.2 ml @ 125 mls/ hr DAILY IV 12/27/18 09:00 12/31/18 17:06 12/29/18 08:06 Methylprednisolone Sodium Succinate (SOLU-Medrol 40MG VIAL) 40 mg Q8HRS IV 12/27/18 14:00 12/28/18 09:45 DC 12/28/18 06:01 Ceftriaxone Sodium (Rocephin) 1 gm Q24H IVP 12/28/18 09:00 12/29/18 08:06 Azithromycin 250 mg/Sodium Chloride 250 ml @ 250 mls/hr Q24H IV 12/28/18 09:00 12/28/18 08:52 Sodium Chloride 1,000 ml @ 75 mls/hr [id number] IV 12/27/18 11:00 12/29/18 08:51 DC 12/28/18 16:46 Propofol 100 ml @ 1.041 mls/ hr CONT PRN IV SEE I/O RECORD 12/27/18 06:45 12/29/18 07:55 Enoxaparin Sodium (Lovenox 40mg Syringe) 40 mg Q24H SQ 12/27/18 09:00 12/29/18 08:05 Famotidine (Pepcid Vial) 20 mg BID IVP 12/27/18 09:00 12/29/18 08:05 Fentanyl Citrate 30 ml @ 0 mls/hr CONT PRN PRN IV PER PROTOCOL 12/27/18 08:15 12/29/18 06:48 Sodium Chloride 500 ml @ 500 mls/hr 1X ONCE IV 12/27/18 17:30 12/27/18 18:29 DC 12/27/18 17:08 Nystatin (Nystatin Oral Susp) 5 ml Q6HRS SWSW 12/28/18 19:00 12/29/18 05:59 Acetaminophen (Tylenol) 650 mg PRN Q6HRS PRN PEG MILD PAIN / TEMP 12/27/18 19:15 Sodium Chloride 500 ml @ 500 mls/hr 1X ONCE IV 12/28/18 03:15 12/28/18 04:14 DC 12/28/18 03:21 Potassium Chloride (KCl Oral Soln) 40 meq BID PEG 12/28/18 09:00 12/29/18 08:04 Potassium Chloride (KCl Oral Soln) 40 meq 1X ONCE PEG 12/28/18 09:30 12/28/18 09:31 UNV Methylprednisolone Sodium Succinate (SOLU-Medrol 40MG VIAL) 30 mg Q12HR IV 12/28/18 21:00 12/29/18 08:05 Potassium Chloride/Dextrose/ Sod Cl 1,000 ml @ 75 mls/hr [id number] IV 12/29/18 09:30 Dexmedetomidine HCl 200 mcg/ Sodium Chloride 50 ml @ 0 mls/hr CONT PRN IV PER PROTOCOL 12/29/18 09:00 Sodium Chloride 500 ml @ 500 mls/hr 1X PRN PRN IV SEE COMMENTS 12/29/18 09:00 Atropine Sulfate (ATROPINE 0.5mg SYRINGE) 0.5 mg PRN Q5MIN PRN IV SEE COMMENTS 12/29/18 09:00 Magnesium Sulfate/ Dextrose 100 ml @ 100 mls/hr 1X ONCE IV 12/29/18 09:30 12/29/18 10:29 Laboratory Tests Test 12/27/18 11:00 12/27/18 11:15 12/28/18 06:15 12/28/18 08:00 Urine Test Negative (NEG) Influenza Type A Antigen Negative (NEGATIVE) Influenza Type B Antigen Negative (NEGATIVE) White Blood Count 7.3 x10^3/uL (4.0-11.0) Red Blood Count 3.68 x10^6/uL (3.50-5.40) Hemoglobin 12.6 g/dL (12.0-15.5) Hematocrit 37.4 % (36.0-47.0) Mean Corpuscular Volume 102 fL (79-100) Mean Corpuscular Hemoglobin 34 pg (25-35) Mean Corpuscular Hemoglobin Concent 34 g/dL (31-37) Red Cell Distribution Width 13.7 % (11.5-14.5) Platelet Count 214 x10^3/uL (140-400) Sodium Level 142 mmol/L (136-145) Potassium Level 3.2 mmol/L (3.5-5.1) Chloride Level 110 mmol/L (98-107) Carbon Dioxide Level 22 mmol/L (21-32) Anion Gap 10 (6-14) Blood Urea Nitrogen 9 mg/dL (7-20) Creatinine 0.6 mg/dL (0.6-1.0) Estimated GFR (Cockcroft-Gault) 108.6 BUN/Creatinine Ratio 15 (6-20) Glucose Level 132 mg/dL (70-99) Calcium Level 7.5 mg/dL (8.5-10.1) Magnesium Level 1.7 mg/dL (1.8-2.4) Total Bilirubin 0.1 mg/dL (0.2-1.0) Aspartate Amino Transf (AST/SGOT) 17 U/L (15-37) Alanine Aminotransferase (ALT/SGPT) 31 U/L (14-59) Alkaline Phosphatase 104 U/L (46-116) Total Protein 5.9 g/dL (6.4-8.2) Albumin 2.6 g/dL (3.4-5.0) Albumin/Globulin Ratio 0.8 (1.0-1.7) O2 Saturation 92 % (92-99) Arterial Blood pH 7.36 (7.35-7.45) Arterial Blood pCO2 at Patient Temp 34 mmHg (35-46) Arterial Blood pO2 at Patient Temp 63 mmHg (75-108) Arterial Blood HCO3 19 mmol/L (21-28) Arterial Blood Base Excess -6 mmol/L (-3-3) FiO2 40 Test 12/29/18 05:45 12/29/18 07:40 Sodium Level 146 mmol/L (136-145) Potassium Level 4.0 mmol/L (3.5-5.1) Chloride Level 114 mmol/L (98-107) Carbon Dioxide Level 20 mmol/L (21-32) Anion Gap 12 (6-14) Blood Urea Nitrogen 12 mg/dL (7-20) Creatinine 0.5 mg/dL (0.6-1.0) Estimated GFR (Cockcroft-Gault) 134.0 Glucose Level 121 mg/dL (70-99) Calcium Level 7.3 mg/dL (8.5-10.1) O2 Saturation 90 % (92-99) Arterial Blood pH 7.31 (7.35-7.45) Arterial Blood pCO2 at Patient Temp 36 mmHg (35-46) Arterial Blood pO2 at Patient Temp 62 mmHg (75-108) Arterial Blood HCO3 18 mmol/L (21-28) Arterial Blood Base Excess -8 mmol/L (-3-3) FiO2 40 Laboratory Tests Test 12/29/18 05:45 12/29/18 07:40 Sodium Level 146 mmol/L (136-145) Potassium Level 4.0 mmol/L (3.5-5.1) Chloride Level 114 mmol/L (98-107) Carbon Dioxide Level 20 mmol/L (21-32) Anion Gap 12 (6-14) Blood Urea Nitrogen 12 mg/dL (7-20) Creatinine 0.5 mg/dL (0.6-1.0) Estimated GFR (Cockcroft-Gault) 134.0 Glucose Level 121 mg/dL (70-99) Calcium Level 7.3 mg/dL (8.5-10.1) O2 Saturation 90 % (92-99) Arterial Blood pH 7.31 (7.35-7.45) Arterial Blood pCO2 at Patient Temp 36 mmHg (35-46) Arterial Blood pO2 at Patient Temp 62 mmHg (75-108) Arterial Blood HCO3 18 mmol/L (21-28) Arterial Blood Base Excess -8 mmol/L (-3-3) FiO2 40 Medications Active Scripts Medications Dose Route/Sig Max Daily Dose Days Date Category Potassium Citrate 10 Meq Tablet.er 99 Mg PO DAILY 12/28/18 Reported Sm Natural Balanced B-100 Tab (Vit B Complex 100 Cmb #2/Herbs) 100 Mg Tablet 100 Mg PO DAILY 12/28/18 Reported Vitamin D3 (Cholecalciferol (Vitamin D3)) 1,000 Unit Tablet 1,250 Mg PO DAILY 12/28/18 Reported Proair Hfa Inhaler (Albuterol Sulfate) 8.5 Gm Hfa.aer.ad 1 Puff INH PRN Q6HRS PRN 12/28/18 Reported Gabapentin 300 Mg Capsule 600 Mg PO TID 12/28/18 Reported Symbicort 160-4.5 Mcg Inhaler (Budesonide/Formoterol Fumarate) 10.2 Gm Hfa.aer.ad 2 Puff IH BID 12/28/18 Reported Maxalt (Rizatriptan Benzoate) 10 Mg Tablet 10 Mg PO PRN PRN 12/28/18 Reported Lidocaine 1 Each Adh..patch 1 Each TP PRN DAILY PRN 12/28/18 Reported Topiramate 100 Mg Tablet 1 Tab PO BID 12/28/18 Reported Linzess (Linaclotide) 290 Mcg Capsule 290 Mcg PO DAILY07 12/28/18 Reported Cymbalta (Duloxetine Hcl) 30 Mg Capsule.dr 1 Cap PO DAILY 12/28/18 Reported Ranitidine Hcl 300 Mg Capsule 1 Cap PO DAILY 12/28/18 Reported Olanzapine 5 Mg Tablet 1 Tab PO QHS 12/28/18 Reported Robaxin (Methocarbamol) 500 Mg Tablet 750 Mg PO TID PRN 06/22/14 Reported Tizanidine Hcl 4 Mg Tablet 4 Mg PO TID PRN 06/22/14 Reported Percocet 10-325 Mg Tablet (Oxycodone/Acetaminophen) 1 Each Tablet 1 Tab PO TID 06/22/14 Reported Active Scripts Medications Dose Route/Sig Max Daily Dose Days Date Category Robaxin (Methocarbamol) 500 Mg Tablet 500 Mg PO Q8HRS PRN 06/22/14 Reported Tizanidine Hcl 4 Mg Tablet 4 Mg PO Q8HRS PRN 06/22/14 Reported Prevacid (Lansoprazole) 30 Mg Capsule.dr 30 Mg PO DAILY 06/22/14 Reported Percocet 10-325 Mg Tablet (Oxycodone/Acetaminophen) 1 Each Tablet 1 Tab PO Q6HRS 06/22/14 Reported Active Scripts Medications Dose Route/Sig Max Daily Dose Days Date Category Robaxin (Methocarbamol) 500 Mg Tablet 500 Mg PO Q8HRS PRN 06/22/14 Reported Tizanidine Hcl 4 Mg Tablet 4 Mg PO Q8HRS PRN 06/22/14 Reported Prevacid (Lansoprazole) 30 Mg Capsule.dr 30 Mg PO DAILY 06/22/14 Reported Percocet 10-325 Mg Tablet (Oxycodone/Acetaminophen) 1 Each Tablet 1 Tab PO Q6HRS 06/22/14 Reported Impression . Acute Hypoxic/hypercarbic respiratory Failure:improving Unintentional Overdose Tobaccoism Alcoholism Hypokalemia Plan . Acute Hypoxic/hypercarbic respiratory Failure * Supplemental Titrate FiO2 to keep O2 saturation 92%. * start Precedex for sedation * mixed acidosis, will monitor for increase metabolic acidosis * follow ABG/CXR * cont. bronchodilators/steroids with taper * Continue Rocephin and azithromycin, plan to deescalate Procalcitonin low Unintentional Overdose * on chronic pain medications * cont. to monitor Tobaccoism * encourage cessation Alcoholism * MVI * banana bag X5 days Hypokalemia:resolved Hypomagnesemia * replace * monitor Bradycardia * ECHO, consider cardiology consult if not improved * atropine if needed * caution with sedation * monitor closely The findings and recommendations were discussed with MEHUL. CHELLE MELVIN MD Dec 29, 2018 09:36
[2018-12-29] MEDS: AZITHROMYCIN 250 MG in IV NORMAL SALINE 250ML 250 ML IV SCH (10:00)
[2018-12-29] MEDS: POTASSIUM CL 20MEQ D5-0.2%NACL 1,000 ML IV SCH ×2 (10:01→23:38)
--- NOTE | 2018-12-29 13:21 | CARD ---
MR#: [id number] Date of Study: 12/29/2018 Ordering Physician: CHELLE MELVIN, Referring Physician: TEODORO THAPA Tech: Akiko Brady RDCS APPROVED REPORT EXAM: Two-dimensional and M-mode echocardiogram with Doppler and color Doppler. Other Information Quality : Good INDICATION Bradycardia 2D DIMENSIONS RVDd2.1 (2.9-3.5cm)Left Atrium(2D)2.8 (1.6-4.0cm) IVSd0.8 (0.7-1.1cm)Aortic Root(2D)2.7 (2.0-3.7cm) LVDd4.4 (3.9-5.9cm)LVOT Diameter2.0 (1.8-2.4cm) PWd0.8 (0.7-1.1cm)LVDs3.2 (2.5-4.0cm) FS (%) 28.6 %SV49.7 ml LVEF(%)55.4 (>50%) Aortic Valve AoV Peak Santos.141.6cm/sAoV VTI34.7cm AO Peak GR.8.0mmHgLVOT VTI 17.25cm AO Mean GR.4mmHg Mitral Valve MV E Xylvchum25.9cm/sMV DECEL [id number] MV A Jmsnykof42.1cm/sE/A Ratio1.6 TDI Lateral E' P. V5.02cm/sMedial E' P. V4.93cm/s E/Lateral E'17.9E/Medial E'18.2 Tricuspid Valve TR P. [id number]/sRAP [id number] TR Peak Gr.82etUyPPYC55qjRz Pulmonary Vein S1 Oovrimzp56.2cm/sS2 Eyorfbtu88.55cm/s D2 Fzcxpboq50.6cm/s LEFT VENTRICLE The left ventricle is normal size. There is normal left ventricular wall thickness. The left ventricu lar systolic function is normal. The Ejection Fraction is 55-60%. There is normal LV segmental wall m otion. The left ventricular diastolic function and filling is normal for age. RIGHT VENTRICLE The right ventricle is normal size. The right ventricular systolic function is normal. ATRIA The left atrium size is normal. The right atrium size is normal. The interatrial septum is intact wit h no evidence for an atrial septal defect or patent foramen ovale as noted on 2-D or Doppler imaging. AORTIC VALVE The aortic valve is normal in structure and function. Doppler and Color Flow revealed trace aortic re gurgitation. There is no significant aortic valvular stenosis. MITRAL VALVE The mitral valve is normal in structure and function. There is no evidence of mitral valve prolapse. There is no mitral valve stenosis. Doppler and Color-flow revealed mild mitral regurgitation. TRICUSPID VALVE The tricuspid valve is normal in structure and function. Doppler and Color Flow revealed mild tricusp id regurgitation. The PA pressure was estimated at 30 mmHg. There is no tricuspid valve stenosis. PULMONIC VALVE The pulmonic valve is not well visualized. Doppler and Color Flow revealed no pulmonic valvular regur gitation. There is no pulmonic valvular stenosis. GREAT VESSELS The aortic root is normal in size. The ascending aorta is normal in size. The IVC is normal in size a nd collapses >50% with inspiration. PERICARDIAL EFFUSION There is no evidence of significant pericardial effusion. Critical Notification Critical Value: No <Conclusion> The left ventricular systolic function is normal. The Ejection Fraction is 55-60%. There is normal LV segmental wall motion. Mild mitral regurgitation. Mild tricuspid regurgitation. The PA pressure was estimated at 30 mmHg. There is no evidence of significant pericardial effusion. Signed by : Omar Martinez, Electronically Approved : 12/29/2018 13:21:12
--- NOTE | 2018-12-29 18:36 | NUR ---
This morning patient was very restless and constantly moving. Patient was moving head restlessly as well. A new chest x ray was ordered and per Astrid WYNN with Dr. Michel to confirm placement of ET tube. It was recommended that ET tube be advanced 1 centimeter. Et tube was advanced 1 cm by RT. Precedex was also added to EMAR to releive patient's anxiety. After addition of precedex, patient was able to rest peacefully for the duration of the shift.
--- NOTE | 2018-12-29 21:42 | PN ---
DATE: 12/29/2018 SUBJECTIVE: The patient is resting, slightly propped up, still intubated, sedated, mechanically ventilated, though she is restless. OBJECTIVE: GENERAL: On examining her, she looked well and was clearly in no apparent respiratory distress. No pallor, jaundice, cyanosis or thyromegaly. No jugular venous distension. No lower limb edema. VITAL SIGNS: Her heart rate was 110, blood pressure is 108/68, temperature was 96.4, respiratory rate was 16 and oxygen saturation was 100% on FiO2 of 40%. HEAD, EYES, EARS, NOSE AND THROAT: Normocephalic and atraumatic. She has orogastric and/or orotracheal tube. NECK: Supple. HEART: Showed normal first and second heart sounds. No gallop or murmur. CHEST: Clear to auscultation. No crepitation or rhonchi. ABDOMEN: Distended, soft and nontender. NEUROLOGICAL: She is sedated, somewhat restless. She is already on fentanyl and propofol. Her intake over the last 24 hours was 4900 and output was 1772. LABORATORY DATA: This morning showed a serum sodium 146, potassium 4, chloride 114, bicarbonate 20, anion gap 12, BUN 12, creatinine 0.5, estimated GFR was 134 mL per minute, her glucose 121, calcium was 7.3 and magnesium was 1.7. Her white cell count was 7300; hemoglobin 13; hematocrit 37; MCV 102 and platelet count 214,000. ASSESSMENT: 1. Altered mental status, probably an overdose on her chronic pain medication as well as alcohol. 2. Acute hypoxic hypercapnic respiratory failure for which she is intubated, mechanically ventilated and sedated. 3. She has multiple other medical problems including: A. Chronic back pain. B. Chronic obstructive pulmonary disease. C. Seizure disorder. D. Essential tremors. PLAN: To continue with mechanical ventilation, wean as tolerated. Continue with the pain management. She continued with alcohol withdrawal protocol. Her potassium has improved from 3.2 to 4 mEq, however, his sodium is up. We will increase her water flushes. TEODORO THAPA MD DR: MARY JANE/dyana JOB#: [id number] / [id number]
[2018-12-30] VITALS (24 sets, daily range): BP systolic 112–154; BP diastolic 44–88
[2018-12-30] MEDS: PROPOFOL 100 ML IV PRN ×2 (01:58→10:19)
[2018-12-30] MEDS: NYSTATIN 100,000 UNITS/ML 5 ML ORAL.SUSP. SWSW SCH ×3 (05:43→18:04)
[2018-12-30 05:52] LABS: HEMATOCRIT 39.5 % (36.0-47.0); HEMOGLOBIN 12.7 g/dL (12.0-15.5); RED BLOOD COUNT 3.87 x10^6/uL (3.50-5.40); RED CELL DISTRIBUTION WIDTH 13.8 % (11.5-14.5); WHITE BLOOD COUNT 11.4 x10^3/uL (4.0-11.0)
[2018-12-30 06:02] LABS: CALCIUM 8.1 mg/dL (8.5-10.1); CREATININE 0.5 mg/dL (0.6-1.0); POTASSIUM 4.3 mmol/L (3.5-5.1)
[2018-12-30] MEDS: FAMOTIDINE 20 MG/2 ML VIAL IVP SCH ×2 (08:02→20:45)
[2018-12-30] MEDS: methylPREDNISolone SOD SUCC PF 40 MG/ML VIAL. IV SCH ×2 (08:02→20:45)
[2018-12-30] MEDS: ENOXAPARIN 40 MG/0.4 ML SYRINGE. SQ SCH (08:03)
[2018-12-30] MEDS: POTASSIUM CHLORIDE 20 MEQ/15 ML ORAL LIQUID. PEG SCH (08:03)
[2018-12-30] MEDS: DEXMEDETOMIDINE 200 MCG in IV NORMAL SALINE 50ML 48 ML IV PRN ×5 (08:17→20:45)
[2018-12-30 08:58] LABS: BASE EXCESS ABG -4 mmol/L (-3-3); HCO3 ABG 21 mmol/L (21-28); PCO2 ABG 40 mmHg (35-46); PO2 ABG 62 mmHg (75-108); SAT O2 ABG 91 % (92-99)
[2018-12-30] MEDS: AZITHROMYCIN 250 MG in IV NORMAL SALINE 250ML 250 ML IV SCH (09:15)
[2018-12-30] MEDS: cefTRIAXone IV Push 1 GM VIAL. IVP SCH (09:19)
[2018-12-30] MEDS ORDERED: fentaNYL PF VIAL 100 MCG/2 ML VIAL ONE (10:17)
--- NOTE | 2018-12-30 10:30 | NUR ---
Prop and Fent turned off for waening trial and precedex increased however pt bebame very restless and Duran decreased to 85 on CPAP trial. Trial lasted about 20 min then back on vent incomplete. Fent inj given since gtt had been off with good results. ETTube retaped.
--- NOTE | 2018-12-30 10:53 | PDOC ---
PULMONARY PROGRESS NOTES Subjective DID NOT DO WELL ON TRIAL THIS AM RE SEDATED Vitals Vital Signs Date Time Temp Pulse Resp B/P (MAP) Pulse Ox O2 Delivery O2 Flow Rate FiO2 12/30/18 10:23 96 12/30/18 09:00 48 16 139/85 (103) Ventilator 12/30/18 04:00 99.9 99.9 Comments unable to obtain ROS Pt. is intubated/sedated HEENT: Other (pupils 4mm) Lungs: Clear Cardiovascular: S1 Abdomen: Non-tender Extremities: No Edema Skin: Warm, Dry, No Rashes Impression Labs Laboratory Tests Test 12/29/18 05:45 12/29/18 07:40 12/30/18 05:15 Sodium Level 146 mmol/L (136-145) 139 mmol/L (136-145) Potassium Level 4.0 mmol/L (3.5-5.1) 4.3 mmol/L (3.5-5.1) Chloride Level 114 mmol/L (98-107) 110 mmol/L (98-107) Carbon Dioxide Level 20 mmol/L (21-32) 21 mmol/L (21-32) Anion Gap 12 (6-14) 8 (6-14) Blood Urea Nitrogen 12 mg/dL (7-20) 11 mg/dL (7-20) Creatinine 0.5 mg/dL (0.6-1.0) 0.5 mg/dL (0.6-1.0) Estimated GFR (Cockcroft-Gault) 134.0 134.0 Glucose Level 121 mg/dL (70-99) 174 mg/dL (70-99) Calcium Level 7.3 mg/dL (8.5-10.1) 8.1 mg/dL (8.5-10.1) O2 Saturation 90 % (92-99) Arterial Blood pH 7.31 (7.35-7.45) Arterial Blood pCO2 at Patient Temp 36 mmHg (35-46) Arterial Blood pO2 at Patient Temp 62 mmHg (75-108) Arterial Blood HCO3 18 mmol/L (21-28) Arterial Blood Base Excess -8 mmol/L (-3-3) FiO2 40 White Blood Count 11.4 x10^3/uL (4.0-11.0) Red Blood Count 3.87 x10^6/uL (3.50-5.40) Hemoglobin 12.7 g/dL (12.0-15.5) Hematocrit 39.5 % (36.0-47.0) Mean Corpuscular Volume 102 fL (79-100) Mean Corpuscular Hemoglobin 33 pg (25-35) Mean Corpuscular Hemoglobin Concent 32 g/dL (31-37) Red Cell Distribution Width 13.8 % (11.5-14.5) Platelet Count 232 x10^3/uL (140-400) Magnesium Level 2.0 mg/dL (1.8-2.4) Laboratory Tests Test 12/30/18 05:15 White Blood Count 11.4 x10^3/uL (4.0-11.0) Red Blood Count 3.87 x10^6/uL (3.50-5.40) Hemoglobin 12.7 g/dL (12.0-15.5) Hematocrit 39.5 % (36.0-47.0) Mean Corpuscular Volume 102 fL (79-100) Mean Corpuscular Hemoglobin 33 pg (25-35) Mean Corpuscular Hemoglobin Concent 32 g/dL (31-37) Red Cell Distribution Width 13.8 % (11.5-14.5) Platelet Count 232 x10^3/uL (140-400) Sodium Level 139 mmol/L (136-145) Potassium Level 4.3 mmol/L (3.5-5.1) Chloride Level 110 mmol/L (98-107) Carbon Dioxide Level 21 mmol/L (21-32) Anion Gap 8 (6-14) Blood Urea Nitrogen 11 mg/dL (7-20) Creatinine 0.5 mg/dL (0.6-1.0) Estimated GFR (Cockcroft-Gault) 134.0 Glucose Level 174 mg/dL (70-99) Calcium Level 8.1 mg/dL (8.5-10.1) Magnesium Level 2.0 mg/dL (1.8-2.4) Medications Active Scripts Medications Dose Route/Sig Max Daily Dose Days Date Category Potassium Citrate 10 Meq Tablet.er 99 Mg PO DAILY 12/28/18 Reported Sm Natural Balanced B-100 Tab (Vit B Complex 100 Cmb #2/Herbs) 100 Mg Tablet 100 Mg PO DAILY 12/28/18 Reported Vitamin D3 (Cholecalciferol (Vitamin D3)) 1,000 Unit Tablet 1,250 Mg PO DAILY 12/28/18 Reported Proair Hfa Inhaler (Albuterol Sulfate) 8.5 Gm Hfa.aer.ad 1 Puff INH PRN Q6HRS PRN 12/28/18 Reported Gabapentin 300 Mg Capsule 600 Mg PO TID 12/28/18 Reported Symbicort 160-4.5 Mcg Inhaler (Budesonide/Formoterol Fumarate) 10.2 Gm Hfa.aer.ad 2 Puff IH BID 12/28/18 Reported Maxalt (Rizatriptan Benzoate) 10 Mg Tablet 10 Mg PO PRN PRN 12/28/18 Reported Lidocaine 1 Each Adh..patch 1 Each TP PRN DAILY PRN 12/28/18 Reported Topiramate 100 Mg Tablet 1 Tab PO BID 12/28/18 Reported Linzess (Linaclotide) 290 Mcg Capsule 290 Mcg PO DAILY07 12/28/18 Reported Cymbalta (Duloxetine Hcl) 30 Mg Capsule. 1 Cap PO DAILY 12/28/18 Reported Ranitidine Hcl 300 Mg Capsule 1 Cap PO DAILY 12/28/18 Reported Olanzapine 5 Mg Tablet 1 Tab PO QHS 12/28/18 Reported Robaxin (Methocarbamol) 500 Mg Tablet 750 Mg PO TID PRN 06/22/14 Reported Tizanidine Hcl 4 Mg Tablet 4 Mg PO TID PRN 06/22/14 Reported Percocet 10-325 Mg Tablet (Oxycodone/Acetaminophen) 1 Each Tablet 1 Tab PO TID 06/22/14 Reported Active Scripts Medications Dose Route/Sig Max Daily Dose Days Date Category Robaxin (Methocarbamol) 500 Mg Tablet 500 Mg PO Q8HRS PRN 06/22/14 Reported Tizanidine Hcl 4 Mg Tablet 4 Mg PO Q8HRS PRN 06/22/14 Reported Prevacid (Lansoprazole) 30 Mg Capsule.dr 30 Mg PO DAILY 06/22/14 Reported Percocet 10-325 Mg Tablet (Oxycodone/Acetaminophen) 1 Each Tablet 1 Tab PO Q6HRS 06/22/14 Reported Active Scripts Medications Dose Route/Sig Max Daily Dose Days Date Category Robaxin (Methocarbamol) 500 Mg Tablet 500 Mg PO Q8HRS PRN 06/22/14 Reported Tizanidine Hcl 4 Mg Tablet 4 Mg PO Q8HRS PRN 06/22/14 Reported Prevacid (Lansoprazole) 30 Mg Capsule.dr 30 Mg PO DAILY 06/22/14 Reported Percocet 10-325 Mg Tablet (Oxycodone/Acetaminophen) 1 Each Tablet 1 Tab PO Q6HRS 06/22/14 Reported Impression . Acute Hypoxic/hypercarbic respiratory Failure:improving Unintentional Overdose Tobaccoism Alcoholism Hypokalemia Plan . Acute Hypoxic/hypercarbic respiratory Failure DID NOT DO WELL ON TRIAL THIS AM MAY NEED ADDITIONAL 2 DAY PRIOR TO EXTUBATION * Supplemental Titrate FiO2 to keep O2 saturation 92%. * start Precedex for sedation WILL ADD HALDOL * mixed acidosis, will monitor for increase metabolic acidosis * follow ABG/CXR * cont. bronchodilators/steroids with taper * Continue Rocephin and azithromycin, plan to deescalate Procalcitonin low Unintentional Overdose * on chronic pain medications * cont. to monitor Tobaccoism * encourage cessation Alcoholism * MVI * banana bag X5 days Hypokalemia:resolved Hypomagnesemia * replace * monitor Bradycardia * ECHO, consider cardiology consult if not improved * atropine if needed * caution with sedation * monitor closely D/W AND RN CCT 30 MIN CHELLE MELVIN MD Dec 30, 2018 10:53
--- NOTE | 2018-12-30 12:04 | RAD ---
Portable chest compared to similar study dated 12/29/2018 for intubation, respiratory failure. FINDINGS: Endotracheal tube and enteric tubes are appropriately positioned and unchanged. Opacity in left lung base appears worse, and may reflect atelectasis and/or infiltrate with superimposed pleural effusion. Right lung remains clear. Heart size within normal limits. IMPRESSION: 1. Worsening airspace disease and associated layering effusion at the left lung base. Electronically signed by: Sander Edwards MD (12/30/2018 12:01 PM) [id number]
[2018-12-30] MEDS: POTASSIUM CL 20MEQ D5-0.2%NACL 1,000 ML IV SCH (13:21)
--- NOTE | 2018-12-30 14:04 | PN ---
DATE: 12/30/2018 SUBJECTIVE: The patient continues to be sedated, intubated and mechanically ventilated. She apparently continues to be somewhat relatively hypoxic with oxygen saturation of 92% on FiO2 of 40%. PHYSICAL EXAMINATION: GENERAL: When I examined her, she looked pale, but no jaundice, cyanosis or thyromegaly. No jugular venous distention. No limb edema. VITAL SIGNS: Her heart rate was 43, blood pressure was 129/80, temperature was 99.9, respiratory rate was 16, and oxygen saturation was 98%. HEAD, EYES, EARS, NOSE AND THROAT: Showed normocephalic, atraumatic. She has orotracheal and orogastric tube in place. NECK: Supple. HEART: Showed normal first and second heart sounds. No gallop, rub or murmur. CHEST: Clear to auscultation. No crepitation or rhonchi. ABDOMEN: Distended, soft, nontender. No guarding or rigidity. No organomegaly. All hernial orifices intact. Bowel sounds normal. NEUROLOGIC: She was sedated. She does move her extremities spontaneously. INS AND OUTS: Her intake over the last 24 hours was 5940, output was 645. LABORATORY DATA: This morning showed a serum sodium 139, potassium 4.3, chloride 110, bicarbonate 21, anion gap of 8, BUN 11, creatinine was 0.5, estimated GFR was 134 mL per minute, her glucose 174, calcium was 8, magnesium was 2. Her white cell count was 11,400, hemoglobin 12.7, hematocrit 39, MCV 102 and platelet count of 232,000. So far her sputum culture has shown no growth after 48 hours. Her chest x-ray showed that she has mild opacity in the left lung base medially. Today's report of chest x-ray is still pending at the time of this dictation. ASSESSMENT: 1. Altered mental status, probably an overdose of her chronic pain medication as well as alcohol. 2. Acute hypoxic hypercapnic respiratory failure for which she is intubated, mechanically ventilated and continues to be sedated. 3. She has multiple other medical problems including: A. Chronic back pain. B. Chronic obstructive pulmonary disease. C. Seizure disorder. D. Essential tremors. PLAN: To continue mechanical ventilation, wean as tolerated. Continue with pain management. Continue with alcohol withdrawal protocol. Her potassium has finally improved as well as her sodium as we have increased her water flushes. TEODORO THAPA MD DR: MARY JANE/dyana JOB#: [id number] / [id number]
--- NOTE | 2018-12-30 14:33 | NUR ---
Tried weaning trial earlier this shift. Patient did not do well. She become extremely anxious, and repeatedly tried to self-extubate. O2 sats stayed in low 80's. For large amount of weaning trial.
[2018-12-30 14:35] LABS: FIO2 ABG 40
[2018-12-31] VITALS (25 sets, daily range): BP systolic 102–182; BP diastolic 47–110
[2018-12-31] MEDS: NYSTATIN 100,000 UNITS/ML 5 ML ORAL.SUSP. SWSW SCH ×5 (00:40→22:18)
[2018-12-31] MEDS: PROPOFOL 100 ML IV PRN ×2 (00:58→05:31)
[2018-12-31] MEDS: POTASSIUM CL 20MEQ D5-0.2%NACL 1,000 ML IV SCH (03:18)
[2018-12-31 04:32] LABS: HEMATOCRIT 37.9 % (36.0-47.0); HEMOGLOBIN 12.6 g/dL (12.0-15.5); RED BLOOD COUNT 3.74 x10^6/uL (3.50-5.40); RED CELL DISTRIBUTION WIDTH 13.9 % (11.5-14.5); WHITE BLOOD COUNT 9.2 x10^3/uL (4.0-11.0)
[2018-12-31] MEDS: DEXMEDETOMIDINE 200 MCG in IV NORMAL SALINE 50ML 48 ML IV PRN ×8 (04:33→22:18)
[2018-12-31 04:43] LABS: CALCIUM 8.2 mg/dL (8.5-10.1); CREATININE 0.5 mg/dL (0.6-1.0); POTASSIUM 4.4 mmol/L (3.5-5.1)
--- NOTE | 2018-12-31 06:00 | NUR ---
At approx 0300, pt was noted flailing arms and that ET tube had been displaced to 22cm at the lip. RN paged RT. RT replaced tube back to 25 cm at the lip and secured ET tube in jenkins. Pts VSS, SPO2 98%. Pt was given a bolus of Propofol for sedation. LCTA. No further concerns to report at this time.
[2018-12-31 07:08] LABS: BASE EXCESS ABG 0 mmol/L (-3-3); HCO3 ABG 24 mmol/L (21-28); PCO2 ABG 38 mmHg (35-46); PO2 ABG 71 mmHg (75-108); SAT O2 ABG 94 % (92-99)
[2018-12-31] MEDS: HALOPERIDOL LACTATE 5 MG/ML VIAL. IVP PRN (08:09)
[2018-12-31 08:10] LABS: FIO2 ABG 40%
[2018-12-31] MEDS: ENOXAPARIN 40 MG/0.4 ML SYRINGE. SQ SCH (08:10)
[2018-12-31] MEDS: cefTRIAXone IV Push 1 GM VIAL. IVP SCH (08:10)
[2018-12-31] MEDS: methylPREDNISolone SOD SUCC PF 40 MG/ML VIAL. IV SCH ×2 (08:14→22:15)
[2018-12-31] MEDS: FAMOTIDINE 20 MG/2 ML VIAL IVP SCH ×2 (08:15→22:15)
[2018-12-31] MEDS: MULTIVIT INFUSN,ADULT 4,VIT K 10 ML, THIAMINE INJ 100 MG, FOLIC ACID INJ 1 MG in IV NOR... IV SCH (09:10)
--- NOTE | 2018-12-31 09:15 | PDOC ---
PULMONARY PROGRESS NOTES Subjective DID NOT DO WELL ON TRIAL THIS AM RE SEDATED Vitals Vital Signs Date Time Temp Pulse Resp B/P (MAP) Pulse Ox O2 Delivery O2 Flow Rate FiO2 12/31/18 09:00 57 16 116/75 (89) 97 Ventilator 12/31/18 08:00 99.3 99.3 Comments unable to obtain ROS Pt. is intubated/sedated HEENT: Other Lungs: Clear Cardiovascular: S1, S2 Abdomen: Soft, Non-tender Extremities: No Edema Skin: Warm, Dry, No Rashes Impression Labs Laboratory Tests Test 12/30/18 05:15 12/30/18 08:50 12/31/18 04:10 12/31/18 07:05 White Blood Count 11.4 x10^3/uL (4.0-11.0) 9.2 x10^3/uL (4.0-11.0) Red Blood Count 3.87 x10^6/uL (3.50-5.40) 3.74 x10^6/uL (3.50-5.40) Hemoglobin 12.7 g/dL (12.0-15.5) 12.6 g/dL (12.0-15.5) Hematocrit 39.5 % (36.0-47.0) 37.9 % (36.0-47.0) Mean Corpuscular Volume 102 fL (79-100) 101 fL (79-100) Mean Corpuscular Hemoglobin 33 pg (25-35) 34 pg (25-35) Mean Corpuscular Hemoglobin Concent 32 g/dL (31-37) 33 g/dL (31-37) Red Cell Distribution Width 13.8 % (11.5-14.5) 13.9 % (11.5-14.5) Platelet Count 232 x10^3/uL (140-400) 225 x10^3/uL (140-400) Sodium Level 139 mmol/L (136-145) 146 mmol/L (136-145) Potassium Level 4.3 mmol/L (3.5-5.1) 4.4 mmol/L (3.5-5.1) Chloride Level 110 mmol/L (98-107) 111 mmol/L (98-107) Carbon Dioxide Level 21 mmol/L (21-32) 25 mmol/L (21-32) Anion Gap 8 (6-14) 10 (6-14) Blood Urea Nitrogen 11 mg/dL (7-20) 12 mg/dL (7-20) Creatinine 0.5 mg/dL (0.6-1.0) 0.5 mg/dL (0.6-1.0) Estimated GFR (Cockcroft-Gault) 134.0 134.0 Glucose Level 174 mg/dL (70-99) 137 mg/dL (70-99) Calcium Level 8.1 mg/dL (8.5-10.1) 8.2 mg/dL (8.5-10.1) Magnesium Level 2.0 mg/dL (1.8-2.4) O2 Saturation 91 % (92-99) 94 % (92-99) Arterial Blood pH 7.34 (7.35-7.45) 7.43 (7.35-7.45) Arterial Blood pCO2 at Patient Temp 40 mmHg (35-46) 38 mmHg (35-46) Arterial Blood pO2 at Patient Temp 62 mmHg (75-108) 71 mmHg (75-108) Arterial Blood HCO3 21 mmol/L (21-28) 24 mmol/L (21-28) Arterial Blood Base Excess -4 mmol/L (-3-3) 0 mmol/L (-3-3) FiO2 40 40% Laboratory Tests Test 12/31/18 04:10 12/31/18 07:05 White Blood Count 9.2 x10^3/uL (4.0-11.0) Red Blood Count 3.74 x10^6/uL (3.50-5.40) Hemoglobin 12.6 g/dL (12.0-15.5) Hematocrit 37.9 % (36.0-47.0) Mean Corpuscular Volume 101 fL (79-100) Mean Corpuscular Hemoglobin 34 pg (25-35) Mean Corpuscular Hemoglobin Concent 33 g/dL (31-37) Red Cell Distribution Width 13.9 % (11.5-14.5) Platelet Count 225 x10^3/uL (140-400) Sodium Level 146 mmol/L (136-145) Potassium Level 4.4 mmol/L (3.5-5.1) Chloride Level 111 mmol/L (98-107) Carbon Dioxide Level 25 mmol/L (21-32) Anion Gap 10 (6-14) Blood Urea Nitrogen 12 mg/dL (7-20) Creatinine 0.5 mg/dL (0.6-1.0) Estimated GFR (Cockcroft-Gault) 134.0 Glucose Level 137 mg/dL (70-99) Calcium Level 8.2 mg/dL (8.5-10.1) O2 Saturation 94 % (92-99) Arterial Blood pH 7.43 (7.35-7.45) Arterial Blood pCO2 at Patient Temp 38 mmHg (35-46) Arterial Blood pO2 at Patient Temp 71 mmHg (75-108) Arterial Blood HCO3 24 mmol/L (21-28) Arterial Blood Base Excess 0 mmol/L (-3-3) FiO2 40% Medications Active Scripts Medications Dose Route/Sig Max Daily Dose Days Date Category Potassium Citrate 10 Meq Tablet.er 99 Mg PO DAILY 12/28/18 Reported Sm Natural Balanced B-100 Tab (Vit B Complex 100 Cmb #2/Herbs) 100 Mg Tablet 100 Mg PO DAILY 12/28/18 Reported Vitamin D3 (Cholecalciferol (Vitamin D3)) 1,000 Unit Tablet 1,250 Mg PO DAILY 12/28/18 Reported Proair Hfa Inhaler (Albuterol Sulfate) 8.5 Gm Hfa.aer.ad 1 Puff INH PRN Q6HRS PRN 12/28/18 Reported Gabapentin 300 Mg Capsule 600 Mg PO TID 12/28/18 Reported Symbicort 160-4.5 Mcg Inhaler (Budesonide/Formoterol Fumarate) 10.2 Gm Hfa.aer.ad 2 Puff IH BID 12/28/18 Reported Maxalt (Rizatriptan Benzoate) 10 Mg Tablet 10 Mg PO PRN PRN 12/28/18 Reported Lidocaine 1 Each Adh..patch 1 Each TP PRN DAILY PRN 12/28/18 Reported Topiramate 100 Mg Tablet 1 Tab PO BID 12/28/18 Reported Linzess (Linaclotide) 290 Mcg Capsule 290 Mcg PO DAILY07 12/28/18 Reported Cymbalta (Duloxetine Hcl) 30 Mg Capsule.dr 1 Cap PO DAILY 12/28/18 Reported Ranitidine Hcl 300 Mg Capsule 1 Cap PO DAILY 12/28/18 Reported Olanzapine 5 Mg Tablet 1 Tab PO QHS 12/28/18 Reported Robaxin (Methocarbamol) 500 Mg Tablet 750 Mg PO TID PRN 06/22/14 Reported Tizanidine Hcl 4 Mg Tablet 4 Mg PO TID PRN 06/22/14 Reported Percocet 10-325 Mg Tablet (Oxycodone/Acetaminophen) 1 Each Tablet 1 Tab PO TID 06/22/14 Reported Active Scripts Medications Dose Route/Sig Max Daily Dose Days Date Category Robaxin (Methocarbamol) 500 Mg Tablet 500 Mg PO Q8HRS PRN 06/22/14 Reported Tizanidine Hcl 4 Mg Tablet 4 Mg PO Q8HRS PRN 06/22/14 Reported Prevacid (Lansoprazole) 30 Mg Capsule.dr 30 Mg PO DAILY 06/22/14 Reported Percocet 10-325 Mg Tablet (Oxycodone/Acetaminophen) 1 Each Tablet 1 Tab PO Q6HRS 06/22/14 Reported Active Scripts Medications Dose Route/Sig Max Daily Dose Days Date Category Robaxin (Methocarbamol) 500 Mg Tablet 500 Mg PO Q8HRS PRN 06/22/14 Reported Tizanidine Hcl 4 Mg Tablet 4 Mg PO Q8HRS PRN 06/22/14 Reported Prevacid (Lansoprazole) 30 Mg Capsule.dr 30 Mg PO DAILY 06/22/14 Reported Percocet 10-325 Mg Tablet (Oxycodone/Acetaminophen) 1 Each Tablet 1 Tab PO Q6HRS 06/22/14 Reported Impression . Acute Hypoxic/hypercarbic respiratory Failure:improving Unintentional Overdose Tobaccoism Alcoholism Hypokalemia Pneumonia POA gram negative suspected <Conclusion> The left ventricular systolic function is normal. The Ejection Fraction is 55-60%. There is normal LV segmental wall motion. Mild mitral regurgitation. Mild tricuspid regurgitation. The PA pressure was estimated at 30 mmHg. There is no evidence of significant pericardial effusion. Plan . Acute Hypoxic/hypercarbic respiratory Failure DID NOT DO WELL ON TRIAL SPOKE WITH AT BEDSIDE * Supplemental Titrate FiO2 to keep O2 saturation 92%. * start Precedex for sedation WILL ADD HALDOL * mixed acidosis, will monitor for increase metabolic acidosis * follow ABG/CXR * cont. bronchodilators/steroids with taper * Continue Rocephin Unintentional Overdose * on chronic pain medications * cont. to monitor Tobaccoism * encourage cessation Alcoholism * MVI * banana bag Hypokalemia:resolved Hypomagnesemia * replace * monitor Bradycardia * ECHO REPORT NOTED D/W AND RN CCT 30 MIN CHELLE MELVIN MD Dec 31, 2018 09:15
--- NOTE | 2018-12-31 11:00 | NUR ---
SS following up with discharge planning. Pt continues on the vent. Weaning trials being attempted. Pt unstable at this time. SS will continue to follow for discharge planning.
--- NOTE | 2018-12-31 11:02 | RAD ---
Examination: PORTABLE CHEST 1V History: respiratory failure Comparison/Correlation: 12/30/2018 AP view of the chest Findings: Portable semiupright frontal view chest was obtained. Endotracheal tube terminates approximately 1 cm from the rosa. Enteric tube in place. Heart size is normal. Left infrahilar retrocardiac opacification again seen. Decreased left pleural effusion suggested but this may be due to differences in positioning. Pulmonary vasculature congestion noted. No pneumothorax. Impression: Decreased left basilar effusion. Left infrahilar and retrocardiac infiltrates are improving interval. Electronically signed by: Elan Garcia MD (12/31/2018 10:59 AM) [facility]
--- NOTE | 2018-12-31 11:56 | NUR ---
9 am. Tried weaning patient this AM. Patient could not stay calm and O2 sats kept dropping. We turned up precedex to try to stabilize patient. She is now alert and following commands. We are trying a weaning trial again shortly.
--- NOTE | 2018-12-31 17:20 | PN ---
DATE: 12/31/2018 SUBJECTIVE: The patient continues to be sedated, intubated and mechanically ventilated. She failed her weaning trial this morning and very restless, agitated. By the time I saw her, her sedation was restarted, and she was resting slightly propped up in bed, in no apparent respiratory distress. OBJECTIVE: GENERAL: She was slightly pale, but no jaundice, cyanosis or thyromegaly. No jugular venous distension. No lower limb edema. VITAL SIGNS: Her heart rate was 50, blood pressure 112/69, temperature was 99.3, respiratory rate was 16 and oxygen saturation was 98%. HEAD, EYES, EARS, NOSE AND THROAT: Showed normocephalic, atraumatic, with orotracheal and orogastric tube in place. NECK: Supple. CARDIAC: Normal first and second heart sounds. No gallop, rub or murmur. CHEST: Clear to auscultation. No crepitation or rhonchi. ABDOMEN: Distended, soft, nontender. NEUROLOGIC: She is sedated; however, she does move all her extremities spontaneously. Her intake over the last 24 hours was 7300, output was 2775. LABORATORY DATA: Her chemistry showed a serum sodium 146, potassium 4.4, chloride 111, bicarbonate 25, anion gap of 10, BUN 12, creatinine 0.5, estimated GFR was 134 mL per minute. Her glucose 137, calcium was 8.2. Her white cell count was 9200, hemoglobin 12.6, hematocrit 37.9, MCV 101, and platelet count of 225,000. Her blood gas this morning showed a pH of 7.43, pCO2 of 37, pO2 of 71, bicarbonate 24 and oxygen saturation was 94% on FiO2 of 50%. ASSESSMENT: 1. Altered mental status, probably an overdose of her chronic pain medication as well as alcohol. 2. Acute hypoxic hypercapnic respiratory failure, for which she continues to be intubated, mechanically ventilated. Continue to require sedation. She failed her weaning trial this morning. 3. She has multiple other medical problems including: A. Chronic back pain. B. Chronic obstructive pulmonary disease. C. Seizure disorder. D. Essential tremors. PLAN: To continue with mechanical ventilation, wean as tolerated. Continue with pain management, continue with alcohol withdrawal protocol. We will increase her water flushes as her sodium is going up. TEODORO THAPA MD DR: Galindo JOB#: [id number] / [id number]
--- NOTE | 2018-12-31 20:30 | NUR ---
noted patient having a seizure. arms stiff and shaking, eyes rolling. Called Dr Kc- orders received for Ativan. Keppra and neuro consult. Dr Oneal called received orders for a CT head. All orders completed
[2018-12-31] MEDS: levETIRAcetam 500 MG in IV DEXTROSE 5% 100ML 100 ML IV SCH (20:46)
--- NOTE | 2018-12-31 21:59 | RAD ---
CT Head W/O Contrast: History: seizure Comparison: February 23, 2018 Axial images were obtained without contrast. The stap[place] and white matter appears normal and symmetrical for the patients age. There is no mass effect, extraaxial fluid collections or hydrocephalus. There is no gross bleed. There is hyperattenuation the stap[place] and white matter of the parasagittal parietal lobes posteriorly left worse than right. This was not present previously. There is fluid in the ethmoid air cells and mid comparison thickening posteriorly in the maxillary sinuses. Impression: 1. Posterior parasagittal parietal lobe lesions bilaterally were not present previously and suggests subacute or old strokes. 2. Mild sinus disease not seen previously. PQRS Compliance Statement: One or more of the following individualized dose reduction techniques were utilized for this examination: 1. Automated exposure control 2. Adjustment of the mA and/or kV according to patient size 3. Use of iterative reconstruction technique Electronically signed by: Bradley Harding III, MD (12/31/2018 9:57 PM) [facility]
[2019-01-01] VITALS (24 sets, daily range): BP systolic 103–168; BP diastolic 59–92
[2019-01-01] MEDS: DEXMEDETOMIDINE 200 MCG in IV NORMAL SALINE 50ML 48 ML IV PRN ×11 (00:39→22:38)
[2019-01-01] MEDS: NYSTATIN 100,000 UNITS/ML 5 ML ORAL.SUSP. SWSW SCH ×4 (05:50→18:00)
[2019-01-01 06:08] LABS: CALCIUM 8.5 mg/dL (8.5-10.1); CREATININE 0.6 mg/dL (0.6-1.0); GFR 108.6; POTASSIUM 3.5 mmol/L (3.5-5.1)
[2019-01-01] MEDS ORDERED: MAGNESIUM SULFATE 2GM 50 ML IV ONE (07:45)
[2019-01-01] MEDS: methylPREDNISolone SOD SUCC PF 40 MG/ML VIAL. IV SCH ×2 (08:24→20:41)
[2019-01-01] MEDS: cefTRIAXone IV Push 1 GM VIAL. IVP SCH (08:25)
[2019-01-01] MEDS: levETIRAcetam 500 MG in IV DEXTROSE 5% 100ML 100 ML IV SCH ×2 (08:25→20:41)
[2019-01-01] MEDS: FAMOTIDINE 20 MG/2 ML VIAL IVP SCH ×2 (08:25→20:40)
[2019-01-01] MEDS: ENOXAPARIN 40 MG/0.4 ML SYRINGE. SQ SCH (08:28)
--- NOTE | 2019-01-01 08:41 | RAD ---
Examination: PORTABLE CHEST 1V History: VENT Comparison/Correlation: 12/31/2018 portable chest x-ray exam Findings: Portable upright frontal view chest was obtained. Endotracheal tube terminates 1.6 cm from the rosa. Heart size is normal. No pneumothorax. Minimal retrocardiac linear atelectasis is present. Impression: No new infiltrate. Mild improvement in the retrocardiac region suggested. Electronically signed by: Elan Garcia MD (01/01/2019 8:38 AM) [facility]
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
[2019-01-01] MEDS ORDERED: ACETAMINOPHEN 325 MG TABLET. PO PRN (08:45)
[2019-01-01] MEDS ORDERED: ASPIRIN RECTAL 300 MG SUPP. PR PRN (08:45)
[2019-01-01] MEDS ORDERED: ACETAMINOPHEN 650 MG SUPP.RECT. PR PRN (08:45)
[2019-01-01 09:04] LABS: BASE EXCESS ABG 3 mmol/L (-3-3); HCO3 ABG 26 mmol/L (21-28); PCO2 ABG 31 mmHg (35-46); PO2 ABG 70 mmHg (75-108); SAT O2 ABG 95 % (92-99)
[2019-01-01 09:05] LABS: FIO2 ABG 40
[2019-01-01] MEDS: ASPIRIN ENTERIC COATED 325 MG TABLET.DR. PO SCH (09:31)
--- NOTE | 2019-01-01 10:35 | NUR ---
Unable to preform NIH scale. Patient sedated on vent.
--- NOTE | 2019-01-01 11:41 | PDOC ---
PULMONARY PROGRESS NOTES Subjective BEING EVALUATED FOR SEIZURES SEDATED Vitals Vital Signs Date Time Temp Pulse Resp B/P (MAP) Pulse Ox O2 Delivery O2 Flow Rate FiO2 01/01/19 11:24 93 Ventilator 01/01/19 11:00 73 16 123/91 (102) 01/01/19 08:00 98.4 98.4 Comments unable to obtain ROS Pt. is intubated/sedated HEENT: Other Lungs: Clear Cardiovascular: S1, S2 Abdomen: Soft, Non-tender Extremities: No Edema Skin: Warm, Dry, No Rashes Impression Labs Laboratory Tests Test 12/31/18 04:10 12/31/18 07:05 01/01/19 05:15 01/01/19 09:00 White Blood Count 9.2 x10^3/uL (4.0-11.0) Red Blood Count 3.74 x10^6/uL (3.50-5.40) Hemoglobin 12.6 g/dL (12.0-15.5) Hematocrit 37.9 % (36.0-47.0) Mean Corpuscular Volume 101 fL (79-100) Mean Corpuscular Hemoglobin 34 pg (25-35) Mean Corpuscular Hemoglobin Concent 33 g/dL (31-37) Red Cell Distribution Width 13.9 % (11.5-14.5) Platelet Count 225 x10^3/uL (140-400) Sodium Level 146 mmol/L (136-145) 138 mmol/L (136-145) Potassium Level 4.4 mmol/L (3.5-5.1) 3.5 mmol/L (3.5-5.1) Chloride Level 111 mmol/L (98-107) 101 mmol/L (98-107) Carbon Dioxide Level 25 mmol/L (21-32) 28 mmol/L (21-32) Anion Gap 10 (6-14) 9 (6-14) Blood Urea Nitrogen 12 mg/dL (7-20) 11 mg/dL (7-20) Creatinine 0.5 mg/dL (0.6-1.0) 0.6 mg/dL (0.6-1.0) Estimated GFR (Cockcroft-Gault) 134.0 108.6 Glucose Level 137 mg/dL (70-99) 170 mg/dL (70-99) Calcium Level 8.2 mg/dL (8.5-10.1) 8.5 mg/dL (8.5-10.1) O2 Saturation 94 % (92-99) 95 % (92-99) Arterial Blood pH 7.43 (7.35-7.45) 7.53 (7.35-7.45) Arterial Blood pCO2 at Patient Temp 38 mmHg (35-46) 31 mmHg (35-46) Arterial Blood pO2 at Patient Temp 71 mmHg (75-108) 70 mmHg (75-108) Arterial Blood HCO3 24 mmol/L (21-28) 26 mmol/L (21-28) Arterial Blood Base Excess 0 mmol/L (-3-3) 3 mmol/L (-3-3) FiO2 40% 40 Magnesium Level 1.6 mg/dL (1.8-2.4) Laboratory Tests Test 01/01/19 05:15 01/01/19 09:00 Sodium Level 138 mmol/L (136-145) Potassium Level 3.5 mmol/L (3.5-5.1) Chloride Level 101 mmol/L (98-107) Carbon Dioxide Level 28 mmol/L (21-32) Anion Gap 9 (6-14) Blood Urea Nitrogen 11 mg/dL (7-20) Creatinine 0.6 mg/dL (0.6-1.0) Estimated GFR (Cockcroft-Gault) 108.6 Glucose Level 170 mg/dL (70-99) Calcium Level 8.5 mg/dL (8.5-10.1) Magnesium Level 1.6 mg/dL (1.8-2.4) O2 Saturation 95 % (92-99) Arterial Blood pH 7.53 (7.35-7.45) Arterial Blood pCO2 at Patient Temp 31 mmHg (35-46) Arterial Blood pO2 at Patient Temp 70 mmHg (75-108) Arterial Blood HCO3 26 mmol/L (21-28) Arterial Blood Base Excess 3 mmol/L (-3-3) FiO2 40 Medications Active Scripts Medications Dose Route/Sig Max Daily Dose Days Date Category Potassium Citrate 10 Meq Tablet.er 99 Mg PO DAILY 12/28/18 Reported Sm Natural Balanced B-100 Tab (Vit B Complex 100 Cmb #2/Herbs) 100 Mg Tablet 100 Mg PO DAILY 12/28/18 Reported Vitamin D3 (Cholecalciferol (Vitamin D3)) 1,000 Unit Tablet 1,250 Mg PO DAILY 12/28/18 Reported Proair Hfa Inhaler (Albuterol Sulfate) 8.5 Gm Hfa.aer.ad 1 Puff INH PRN Q6HRS PRN 12/28/18 Reported Gabapentin 300 Mg Capsule 600 Mg PO TID 12/28/18 Reported Symbicort 160-4.5 Mcg Inhaler (Budesonide/Formoterol Fumarate) 10.2 Gm Hfa.aer.ad 2 Puff IH BID 12/28/18 Reported Maxalt (Rizatriptan Benzoate) 10 Mg Tablet 10 Mg PO PRN PRN 12/28/18 Reported Lidocaine 1 Each Adh..patch 1 Each TP PRN DAILY PRN 12/28/18 Reported Topiramate 100 Mg Tablet 1 Tab PO BID 12/28/18 Reported Linzess (Linaclotide) 290 Mcg Capsule 290 Mcg PO DAILY07 12/28/18 Reported Cymbalta (Duloxetine Hcl) 30 Mg Capsule. 1 Cap PO DAILY 12/28/18 Reported Ranitidine Hcl 300 Mg Capsule 1 Cap PO DAILY 12/28/18 Reported Olanzapine 5 Mg Tablet 1 Tab PO QHS 12/28/18 Reported Robaxin (Methocarbamol) 500 Mg Tablet 750 Mg PO TID PRN 06/22/14 Reported Tizanidine Hcl 4 Mg Tablet 4 Mg PO TID PRN 06/22/14 Reported Percocet 10-325 Mg Tablet (Oxycodone/Acetaminophen) 1 Each Tablet 1 Tab PO TID 06/22/14 Reported Active Scripts Medications Dose Route/Sig Max Daily Dose Days Date Category Robaxin (Methocarbamol) 500 Mg Tablet 500 Mg PO Q8HRS PRN 06/22/14 Reported Tizanidine Hcl 4 Mg Tablet 4 Mg PO Q8HRS PRN 06/22/14 Reported Prevacid (Lansoprazole) 30 Mg Capsule. 30 Mg PO DAILY 06/22/14 Reported Percocet 10-325 Mg Tablet (Oxycodone/Acetaminophen) 1 Each Tablet 1 Tab PO Q6HRS 06/22/14 Reported Active Scripts Medications Dose Route/Sig Max Daily Dose Days Date Category Robaxin (Methocarbamol) 500 Mg Tablet 500 Mg PO Q8HRS PRN 06/22/14 Reported Tizanidine Hcl 4 Mg Tablet 4 Mg PO Q8HRS PRN 06/22/14 Reported Prevacid (Lansoprazole) 30 Mg Capsule.dr 30 Mg PO DAILY 06/22/14 Reported Percocet 10-325 Mg Tablet (Oxycodone/Acetaminophen) 1 Each Tablet 1 Tab PO Q6HRS 06/22/14 Reported Impression . 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 The Ejection Fraction is 55-60%. There is normal LV segmental wall motion. Mild mitral regurgitation. Mild tricuspid regurgitation. The PA pressure was estimated at 30 mmHg. There is no evidence of significant pericardial effusion. Plan . FOLLOW NEURO INPUT NOT SURE OF ETIOLOGY OF RPLS, MAG WAS LOW SPOKE WITH AT BEDSIDE CONTINUE SUPPORT FOR NOW REVIEWED LABS CCT 30 MIN CHELLE MELVIN MD Jan 01, 2019 11:41
[2019-01-01] MEDS ORDERED: VECURONIUM BOLUS 10 MG VIAL. IV ONE (11:45)
--- NOTE | 2019-01-01 13:30 | RAD ---
MRI of the brain without contrast 01/01/2019 Clinical History: Seizures. Low-attenuation areas seen on CT scan of the head. MRI was recommended for further evaluation. Technique: Unenhanced T1-weighted sagittal and axial, T2-weighted axial and coronal and FLAIR, gradient echo and diffusion-weighted axial images of the brain were obtained. Findings: Comparison is made to patient's CT scan of the head dated 12/31/2018. The ventricles are within normal limits in size and configuration. Fairly symmetric areas of vasogenic edema are seen involving the occipital and parietal lobes extending to involve the frontoparietal lobes bilaterally along with the left cerebellar hemisphere. This appearance is consistent most likely with posterior reversible encephalopathy syndrome (PRES). No focal area of hemorrhage is seen. There is no MRI evidence of acute ischemia/infarction. A 4 cm arachnoid cyst is seen posterior to the cerebellar vermis. There is no significant mass effect. No acute extra-axial fluid collection is seen. Moderate mucosal thickening is seen scattered throughout the paranasal sinuses. A small fluid level seen involving the sphenoid sinus. Moderate bilateral mastoid effusions are seen. Normal flow voids are seen within the major vascular structures surrounding the brain parenchyma. 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 The patient's nurse was notified of this finding. Electronically signed by: Duane Mason MD (01/01/2019 1:27 PM) [id number]
[2019-01-01] MEDS: PROPOFOL 100 ML IV PRN ×2 (17:02→22:38)
[2019-01-02] VITALS (24 sets, daily range): BP systolic 116–163; BP diastolic 63–87
[2019-01-02] MEDS: NYSTATIN 100,000 UNITS/ML 5 ML ORAL.SUSP. SWSW SCH ×5 (00:18→23:14)
[2019-01-02] MEDS: DEXMEDETOMIDINE 200 MCG in IV NORMAL SALINE 50ML 48 ML IV PRN ×7 (00:19→23:16)
--- NOTE | 2019-01-02 02:12 | PN ---
DATE: 01/01/2019 SUBJECTIVE: The patient continues to be sedated with Precedex and fentanyl. She is intubated, mechanically ventilated and apparently had had what seemed to be tonic-clonic seizures last night and I did start her on Keppra 500 mg IV twice a day. She apparently had a CT scan of the head, which showed that she had posterior parasagittal parietal lobe lesion bilaterally, were not present previously and suggests a subacute or old stroke. She has mild sinus disease, not seen previously. The stapleton and white matter appeared normal and symmetrical for the patient's age. There is no mass effect, extraaxial fluid collection or hydrocephalus. There is no gross bleeding. There is fluid in the ethmoid air cells and mild thickening of the medullary sinuses. PHYSICAL EXAMINATION: GENERAL: When I examined her this morning, she was resting slightly propped up in bed, in no apparent distress. She was pale, not jaundiced or cyanosed from thyromegaly. No jugular venous distention. No limb edema. VITAL SIGNS: Her heart rate was 64, blood pressure 152/81, temperature was 98.6, respiratory rate was 16 and oxygen saturation was 100% on FiO2 of 40%. HEAD, EYES, EARS, NOSE AND THROAT: Showed normocephalic, atraumatic. NECK: Supple. HEART: Normal first and second sounds. No gallop, rub or murmur. CHEST: Clear to auscultation. No crepitation or rhonchi. ABDOMEN: Distended, soft, nontender. NEUROLOGIC: She is heavily sedated and her intake over the last 24 hours was 7427 and output was 3625. LABORATORY DATA: Her lab work as of this morning showed a serum sodium 138, potassium 3.5, chloride 101, bicarbonate 28, anion gap of 9, BUN 11, creatinine 0.6, estimated GFR was 108 mL per minute. Her glucose was 170, calcium was 8.5, magnesium was 1.6. ASSESSMENT: 1. Altered mental status, probably an overdose of her chronic pain medication as well as alcohol. 2. Acute hypoxic hypercapnic respiratory failure, which the patient continues to be intubated, mechanically ventilated. She can continue to be on Precedex and fentanyl. She has failed weaning trial yesterday morning. 3. She has multiple other medical problems including: A. Chronic back pain. B. Chronic obstructive pulmonary disease. C. Seizure disorder. D. Essential tremors. 4. She had had breakthrough seizures yesterday for which I did start her on Keppra and we did consult the neurologist for evaluation and treatment. PLAN: My plan is to obviously continue with Keppra for now and await the neurologist evaluation. Continue with nutritional support in the form of tube feeding. Continue with the Precedex as well as fentanyl. Continue with IV antibiotic. Continue DVT prophylaxis. TEODORO THAPA MD DR: MARY JANE/dyana JOB#: [id number] / [id number]
[2019-01-02] MEDS: PROPOFOL 100 ML IV PRN ×3 (04:58→20:56)
[2019-01-02 05:08] LABS: HEMOGLOBIN 11.5 g/dL (12.0-15.5); RED BLOOD COUNT 3.51 x10^6/uL (3.50-5.40); RED CELL DISTRIBUTION WIDTH 13.3 % (11.5-14.5); WHITE BLOOD COUNT 11.4 x10^3/uL (4.0-11.0)
[2019-01-02 05:32] LABS: CALCIUM 8.4 mg/dL (8.5-10.1); CREATININE 0.5 mg/dL (0.6-1.0); POTASSIUM 3.9 mmol/L (3.5-5.1)
[2019-01-02 05:49] LABS: CHOLESTEROL/HDL RATIO 4.3
[2019-01-02] MEDS: FAMOTIDINE 20 MG/2 ML VIAL IVP SCH ×2 (07:44→20:55)
[2019-01-02] MEDS: methylPREDNISolone SOD SUCC PF 40 MG/ML VIAL. IV SCH ×2 (07:44→20:55)
[2019-01-02] MEDS: ASPIRIN ENTERIC COATED 325 MG TABLET.DR. PO SCH (07:44)
[2019-01-02] MEDS: levETIRAcetam 500 MG in IV DEXTROSE 5% 100ML 100 ML IV SCH ×2 (07:45→20:56)
[2019-01-02] MEDS: ENOXAPARIN 40 MG/0.4 ML SYRINGE. SQ SCH (07:45)
[2019-01-02] MEDS: cefTRIAXone IV Push 1 GM VIAL. IVP SCH (07:45)
[2019-01-02 08:45] LABS: BASE EXCESS ABG 5 mmol/L (-3-3); HCO3 ABG 29 mmol/L (21-28); PCO2 ABG 42 mmHg (35-46); PO2 ABG 77 mmHg (75-108); SAT O2 ABG 95 % (92-99)
[2019-01-02 08:54] LABS: FIO2 ABG 60
--- NOTE | 2019-01-02 08:59 | RAD ---
Carotid doppler ultrasound History: CVA Multiple grayscale, color, and duplex spectral analysis waveform sonographic images were acquired of the carotid, subclavian, and vertebral arteries. Comparison: None Findings: RIGHT: PSV cm/sec EDV cm/sec Common carotid artery 93 22 Maximal internal carotid artery 75 23 External carotid artery 119 Vertebral artery 38 ICA/CCA ratio 0.81 LEFT: PSV cm/sec EDV cm/sec Common carotid artery 91 26 Maximum internal carotid artery 69 30 External carotid artery 92 Vertebral artery 51 ICA/CCA ratio 0.76 Velocities used to determine stenosis are known to correlate with NASCET angiographic criteria. There is antegrade flow in the bilateral vertebral arteries. There is minimal eccentric plaque of the carotid bifurcations bilaterally. No significant focal stenosis is demonstrated on grayscale or color images. Impression: 1. There is no evidence of a hemodynamically significant stenosis. Electronically signed by: Estrada Swain MD (01/02/2019 8:56 AM) [facility]
--- NOTE | 2019-01-02 11:13 | PDOC ---
PULMONARY PROGRESS NOTES Subjective NO SEIZURES OVERNIGHT SEDATED Vitals Vital Signs Date Time Temp Pulse Resp B/P (MAP) Pulse Ox O2 Delivery O2 Flow Rate FiO2 01/02/19 10:00 49 16 163/80 (107) 95 Ventilator 01/02/19 08:00 97.6 97.6 Comments unable to obtain ROS Pt. is intubated/sedated Lungs: Clear Cardiovascular: S1, S2 Abdomen: Soft, Non-tender Extremities: No Edema Skin: Warm, Dry, No Rashes Impression Labs Laboratory Tests Test 01/01/19 05:15 01/01/19 09:00 01/02/19 04:30 01/02/19 08:45 Sodium Level 138 mmol/L (136-145) 140 mmol/L (136-145) Potassium Level 3.5 mmol/L (3.5-5.1) 3.9 mmol/L (3.5-5.1) Chloride Level 101 mmol/L (98-107) 102 mmol/L (98-107) Carbon Dioxide Level 28 mmol/L (21-32) 33 mmol/L (21-32) Anion Gap 9 (6-14) 5 (6-14) Blood Urea Nitrogen 11 mg/dL (7-20) 16 mg/dL (7-20) Creatinine 0.6 mg/dL (0.6-1.0) 0.5 mg/dL (0.6-1.0) Estimated GFR (Cockcroft-Gault) 108.6 134.0 Glucose Level 170 mg/dL (70-99) 140 mg/dL (70-99) Calcium Level 8.5 mg/dL (8.5-10.1) 8.4 mg/dL (8.5-10.1) Magnesium Level 1.6 mg/dL (1.8-2.4) 2.0 mg/dL (1.8-2.4) O2 Saturation 95 % (92-99) 95 % (92-99) Arterial Blood pH 7.53 (7.35-7.45) 7.46 (7.35-7.45) Arterial Blood pCO2 at Patient Temp 31 mmHg (35-46) 42 mmHg (35-46) Arterial Blood pO2 at Patient Temp 70 mmHg (75-108) 77 mmHg (75-108) Arterial Blood HCO3 26 mmol/L (21-28) 29 mmol/L (21-28) Arterial Blood Base Excess 3 mmol/L (-3-3) 5 mmol/L (-3-3) FiO2 40 60 White Blood Count 11.4 x10^3/uL (4.0-11.0) Red Blood Count 3.51 x10^6/uL (3.50-5.40) Hemoglobin 11.5 g/dL (12.0-15.5) Hematocrit 35.0 % (36.0-47.0) Mean Corpuscular Volume 100 fL (79-100) Mean Corpuscular Hemoglobin 33 pg (25-35) Mean Corpuscular Hemoglobin Concent 33 g/dL (31-37) Red Cell Distribution Width 13.3 % (11.5-14.5) Platelet Count 232 x10^3/uL (140-400) Triglycerides Level 161 mg/dL (0-150) Cholesterol Level 153 mg/dL (0-200) LDL Cholesterol, Calculated 85 mg/dL (0-100) VLDL Cholesterol, Calculated 32 mg/dL (0-40) Non-HDL Cholesterol Calculated 117 mg/dL (0-129) HDL Cholesterol 36 mg/dL (40-60) Cholesterol/HDL Ratio 4.3 Laboratory Tests Test 01/02/19 04:30 01/02/19 08:45 White Blood Count 11.4 x10^3/uL (4.0-11.0) Red Blood Count 3.51 x10^6/uL (3.50-5.40) Hemoglobin 11.5 g/dL (12.0-15.5) Hematocrit 35.0 % (36.0-47.0) Mean Corpuscular Volume 100 fL (79-100) Mean Corpuscular Hemoglobin 33 pg (25-35) Mean Corpuscular Hemoglobin Concent 33 g/dL (31-37) Red Cell Distribution Width 13.3 % (11.5-14.5) Platelet Count 232 x10^3/uL (140-400) Sodium Level 140 mmol/L (136-145) Potassium Level 3.9 mmol/L (3.5-5.1) Chloride Level 102 mmol/L (98-107) Carbon Dioxide Level 33 mmol/L (21-32) Anion Gap 5 (6-14) Blood Urea Nitrogen 16 mg/dL (7-20) Creatinine 0.5 mg/dL (0.6-1.0) Estimated GFR (Cockcroft-Gault) 134.0 Glucose Level 140 mg/dL (70-99) Calcium Level 8.4 mg/dL (8.5-10.1) Magnesium Level 2.0 mg/dL (1.8-2.4) Triglycerides Level 161 mg/dL (0-150) Cholesterol Level 153 mg/dL (0-200) LDL Cholesterol, Calculated 85 mg/dL (0-100) VLDL Cholesterol, Calculated 32 mg/dL (0-40) Non-HDL Cholesterol Calculated 117 mg/dL (0-129) HDL Cholesterol 36 mg/dL (40-60) Cholesterol/HDL Ratio 4.3 O2 Saturation 95 % (92-99) Arterial Blood pH 7.46 (7.35-7.45) Arterial Blood pCO2 at Patient Temp 42 mmHg (35-46) Arterial Blood pO2 at Patient Temp 77 mmHg (75-108) Arterial Blood HCO3 29 mmol/L (21-28) Arterial Blood Base Excess 5 mmol/L (-3-3) FiO2 60 Medications Active Scripts Medications Dose Route/Sig Max Daily Dose Days Date Category Potassium Citrate 10 Meq Tablet.er 99 Mg PO DAILY 12/28/18 Reported Sm Natural Balanced B-100 Tab (Vit B Complex 100 Cmb #2/Herbs) 100 Mg Tablet 100 Mg PO DAILY 12/28/18 Reported Vitamin D3 (Cholecalciferol (Vitamin D3)) 1,000 Unit Tablet 1,250 Mg PO DAILY 12/28/18 Reported Proair Hfa Inhaler (Albuterol Sulfate) 8.5 Gm Hfa.aer.ad 1 Puff INH PRN Q6HRS PRN 12/28/18 Reported Gabapentin 300 Mg Capsule 600 Mg PO TID 12/28/18 Reported Symbicort 160-4.5 Mcg Inhaler (Budesonide/Formoterol Fumarate) 10.2 Gm Hfa.aer.ad 2 Puff IH BID 12/28/18 Reported Maxalt (Rizatriptan Benzoate) 10 Mg Tablet 10 Mg PO PRN PRN 12/28/18 Reported Lidocaine 1 Each Adh..patch 1 Each TP PRN DAILY PRN 12/28/18 Reported Topiramate 100 Mg Tablet 1 Tab PO BID 12/28/18 Reported Linzess (Linaclotide) 290 Mcg Capsule 290 Mcg PO DAILY07 12/28/18 Reported Cymbalta (Duloxetine Hcl) 30 Mg Capsule.dr 1 Cap PO DAILY 12/28/18 Reported Ranitidine Hcl 300 Mg Capsule 1 Cap PO DAILY 12/28/18 Reported Olanzapine 5 Mg Tablet 1 Tab PO QHS 12/28/18 Reported Robaxin (Methocarbamol) 500 Mg Tablet 750 Mg PO TID PRN 06/22/14 Reported Tizanidine Hcl 4 Mg Tablet 4 Mg PO TID PRN 06/22/14 Reported Percocet 10-325 Mg Tablet (Oxycodone/Acetaminophen) 1 Each Tablet 1 Tab PO TID 06/22/14 Reported Active Scripts Medications Dose Route/Sig Max Daily Dose Days Date Category Robaxin (Methocarbamol) 500 Mg Tablet 500 Mg PO Q8HRS PRN 06/22/14 Reported Tizanidine Hcl 4 Mg Tablet 4 Mg PO Q8HRS PRN 06/22/14 Reported Prevacid (Lansoprazole) 30 Mg Capsule.dr 30 Mg PO DAILY 06/22/14 Reported Percocet 10-325 Mg Tablet (Oxycodone/Acetaminophen) 1 Each Tablet 1 Tab PO Q6HRS 06/22/14 Reported Active Scripts Medications Dose Route/Sig Max Daily Dose Days Date Category Robaxin (Methocarbamol) 500 Mg Tablet 500 Mg PO Q8HRS PRN 06/22/14 Reported Tizanidine Hcl 4 Mg Tablet 4 Mg PO Q8HRS PRN 06/22/14 Reported Prevacid (Lansoprazole) 30 Mg Capsule. 30 Mg PO DAILY 06/22/14 Reported Percocet 10-325 Mg Tablet (Oxycodone/Acetaminophen) 1 Each Tablet 1 Tab PO Q6HRS 06/22/14 Reported Impression . 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 The Ejection Fraction is 55-60%. There is normal LV segmental wall motion. Mild mitral regurgitation. Mild tricuspid regurgitation. The PA pressure was estimated at 30 mmHg. There is no evidence of significant pericardial effusion. Plan . AC MODE FOR NOW NO WEANING BANANA BAG TUBE FEEDING FOLLOW NEURO INPUT NOT SURE OF ETIOLOGY OF RPLS, MAG WAS LOW SPOKE WITH AT BEDSIDE CONTINUE SUPPORT FOR NOW REVIEWED LABS CCT 30 MIN CHELLE MELVIN MD Jan 02, 2019 11:13
--- NOTE | 2019-01-02 15:14 | PDOC ---
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 Carotid Doppler studies Echocardiogram Aspirin Rehabilitation evaluations Subjective intubated Objective Vital Signs Date Time Temp Pulse Resp B/P (MAP) Pulse Ox O2 Delivery O2 Flow Rate FiO2 01/02/19 15:00 55 16 146/83 (104) 96 Ventilator 01/02/19 12:00 97.7 97.7 Intake and Output 01/02/19 07:00 Intake Total 4936.44 ml Output Total 4950 ml Balance -13.56 ml IV Total 1123.44 ml Tube Feeding 3513 ml Other 300 ml Output Urine Total 4950 ml PHYSICAL EXAM Physical Examination General: intubated HEENT: Normocephalic andatraumatic. Temporal arteriespulsatile and nontender. Neck: Supple without bruit, no meningismus Neurological: Mental Status: Intubated and sedated in the intensive care unit. Cranial Nerves:Pupils equal and reactive to light, extraocular movements areintact, There is no facial asymmetry. Vestibulo-ocular reflex is intact. Palate elevates and tongue protrudes in midline. All other cranial related problems are negative except as mentioned before.Reflexes:2+ and symmetric with flexor plantar responses. Motor:Moves all extremities, normal tone and bulk. Coordination:Not able. Gait:Not tested. Review of Relevant I have reviewed the following items katherine (where applicable) has been applied. Labs Laboratory Tests Test 01/01/19 05:15 01/01/19 09:00 01/02/19 04:30 01/02/19 08:45 Sodium Level 138 mmol/L (136-145) 140 mmol/L (136-145) Potassium Level 3.5 mmol/L (3.5-5.1) 3.9 mmol/L (3.5-5.1) Chloride Level 101 mmol/L (98-107) 102 mmol/L (98-107) Carbon Dioxide Level 28 mmol/L (21-32) 33 mmol/L (21-32) Anion Gap 9 (6-14) 5 (6-14) Blood Urea Nitrogen 11 mg/dL (7-20) 16 mg/dL (7-20) Creatinine 0.6 mg/dL (0.6-1.0) 0.5 mg/dL (0.6-1.0) Estimated GFR (Cockcroft-Gault) 108.6 134.0 Glucose Level 170 mg/dL (70-99) 140 mg/dL (70-99) Calcium Level 8.5 mg/dL (8.5-10.1) 8.4 mg/dL (8.5-10.1) Magnesium Level 1.6 mg/dL (1.8-2.4) 2.0 mg/dL (1.8-2.4) O2 Saturation 95 % (92-99) 95 % (92-99) Arterial Blood pH 7.53 (7.35-7.45) 7.46 (7.35-7.45) Arterial Blood pCO2 at Patient Temp 31 mmHg (35-46) 42 mmHg (35-46) Arterial Blood pO2 at Patient Temp 70 mmHg (75-108) 77 mmHg (75-108) Arterial Blood HCO3 26 mmol/L (21-28) 29 mmol/L (21-28) Arterial Blood Base Excess 3 mmol/L (-3-3) 5 mmol/L (-3-3) FiO2 40 60 White Blood Count 11.4 x10^3/uL (4.0-11.0) Red Blood Count 3.51 x10^6/uL (3.50-5.40) Hemoglobin 11.5 g/dL (12.0-15.5) Hematocrit 35.0 % (36.0-47.0) Mean Corpuscular Volume 100 fL (79-100) Mean Corpuscular Hemoglobin 33 pg (25-35) Mean Corpuscular Hemoglobin Concent 33 g/dL (31-37) Red Cell Distribution Width 13.3 % (11.5-14.5) Platelet Count 232 x10^3/uL (140-400) Triglycerides Level 161 mg/dL (0-150) Cholesterol Level 153 mg/dL (0-200) LDL Cholesterol, Calculated 85 mg/dL (0-100) VLDL Cholesterol, Calculated 32 mg/dL (0-40) Non-HDL Cholesterol Calculated 117 mg/dL (0-129) HDL Cholesterol 36 mg/dL (40-60) Cholesterol/HDL Ratio 4.3 Laboratory Tests Test 01/02/19 04:30 01/02/19 08:45 White Blood Count 11.4 x10^3/uL (4.0-11.0) Red Blood Count 3.51 x10^6/uL (3.50-5.40) Hemoglobin 11.5 g/dL (12.0-15.5) Hematocrit 35.0 % (36.0-47.0) Mean Corpuscular Volume 100 fL (79-100) Mean Corpuscular Hemoglobin 33 pg (25-35) Mean Corpuscular Hemoglobin Concent 33 g/dL (31-37) Red Cell Distribution Width 13.3 % (11.5-14.5) Platelet Count 232 x10^3/uL (140-400) Sodium Level 140 mmol/L (136-145) Potassium Level 3.9 mmol/L (3.5-5.1) Chloride Level 102 mmol/L (98-107) Carbon Dioxide Level 33 mmol/L (21-32) Anion Gap 5 (6-14) Blood Urea Nitrogen 16 mg/dL (7-20) Creatinine 0.5 mg/dL (0.6-1.0) Estimated GFR (Cockcroft-Gault) 134.0 Glucose Level 140 mg/dL (70-99) Calcium Level 8.4 mg/dL (8.5-10.1) Magnesium Level 2.0 mg/dL (1.8-2.4) Triglycerides Level 161 mg/dL (0-150) Cholesterol Level 153 mg/dL (0-200) LDL Cholesterol, Calculated 85 mg/dL (0-100) VLDL Cholesterol, Calculated 32 mg/dL (0-40) Non-HDL Cholesterol Calculated 117 mg/dL (0-129) HDL Cholesterol 36 mg/dL (40-60) Cholesterol/HDL Ratio 4.3 O2 Saturation 95 % (92-99) Arterial Blood pH 7.46 (7.35-7.45) Arterial Blood pCO2 at Patient Temp 42 mmHg (35-46) Arterial Blood pO2 at Patient Temp 77 mmHg (75-108) Arterial Blood HCO3 29 mmol/L (21-28) Arterial Blood Base Excess 5 mmol/L (-3-3) FiO2 60 Microbiology 12/27/18 - Final, Complete 12/27/18 - Final, Complete 12/27/18 - Final, Complete 12/27/18 Gram Stain Evaluation - Final, Complete 12/27/18 Sputum Culture - Final, Complete 12/27/18 Sputum Result 1 - Final, Complete Medications Current Medications Sodium Chloride 500 ml @ 500 mls/hr 1X ONCE IV Last administered on 12/27/18at 06:39; Start 12/27/18 at 06:30; Stop 12/27/18 at 07:29; Status DC Multivitamins 10 ml/Thiamine HCl 100 mg/Folic Acid 1 mg/Sodium Chloride 1,011.2 ml @ 125 mls/ hr DAILY IV Last administered on 12/31/18at 09:10; Start 12/27/18 at 09:00; Stop 12/31/18 at 17:06; Status DC Methylprednisolone Sodium Succinate (SOLU-Medrol 40MG VIAL) 40 mg Q8HRS IV Last administered on 12/28/18at 06:01; Start 12/27/18 at 14:00; Stop 12/28/18 at 09:45; Status DC Ceftriaxone Sodium (Rocephin) 1 gm Q24H IVP Last administered on 01/02/19at 07:45; Start 12/28/18 at 09:00 Azithromycin 250 mg/Sodium Chloride 250 ml @ 250 mls/hr Q24H IV Last administered on 12/30/18at 09:15; Start 12/28/18 at 09:00; Stop 12/31/18 at 08:47; Status DC Sodium Chloride 1,000 ml @ 75 mls/hr [id number] IV Last administered on 12/28/18at 16:46; Start 12/27/18 at 11:00; Stop 12/29/18 at 08:51; Status DC Propofol 100 ml @ 1.041 mls/ hr CONT PRN IV SEE I/O RECORD Last administered on 01/02/19at 10:59; Start 12/27/18 at 06:45 Enoxaparin Sodium (Lovenox 40mg Syringe) 40 mg Q24H SQ Last administered on 01/02/19at 07:45; Start 12/27/18 at 09:00 Famotidine (Pepcid Vial) 20 mg BID IVP Last administered on 01/02/19at 07:44; Start 12/27/18 at 09:00 Fentanyl Citrate 30 ml @ 0 mls/hr CONT PRN PRN IV PER PROTOCOL Last administered on 01/02/19at 12:58; Start 12/27/18 at 08:15 Sodium Chloride 500 ml @ 500 mls/hr 1X ONCE IV Last administered on 12/27/18at 17:08; Start 12/27/18 at 17:30; Stop 12/27/18 at 18:29; Status DC Nystatin (Nystatin Oral Susp) 5 ml Q6HRS SWSW Last administered on 01/02/19at 12:41; Start 12/28/18 at 19:00 Acetaminophen (Tylenol) 650 mg PRN Q6HRS PRN PEG MILD PAIN / TEMP; Start 12/27/18 at 19:15 Sodium Chloride 500 ml @ 500 mls/hr 1X ONCE IV Last administered on 12/28/18at 03:21; Start 12/28/18 at 03:15; Stop 12/28/18 at 04:14; Status DC Potassium Chloride (KCl Oral Soln) 40 meq BID PEG Last administered on 12/30/18at 08:03; Start 12/28/18 at 09:00; Stop 12/30/18 at 14:56; Status DC Potassium Chloride (KCl Oral Soln) 40 meq 1X ONCE PEG ; Start 12/28/18 at 09:30; Stop 12/28/18 at 09:31; Status UNV Methylprednisolone Sodium Succinate (SOLU-Medrol 40MG VIAL) 30 mg Q12HR IV Last administered on 01/02/19at 07:44; Start 12/28/18 at 21:00 Potassium Chloride/Dextrose/ Sod Cl 1,000 ml @ 75 mls/hr [id number] IV Last administered on 12/31/18at 03:18; Start 12/29/18 at 09:30; Stop 12/31/18 at 08:47; Status DC Dexmedetomidine HCl 200 mcg/ Sodium Chloride 50 ml @ 0 mls/hr CONT PRN IV PER PROTOCOL Last administered on 01/02/19at 10:34; Start 12/29/18 at 09:00 Sodium Chloride 500 ml @ 500 mls/hr 1X PRN PRN IV SEE COMMENTS; Start 12/29/18 at 09:00 Atropine Sulfate (ATROPINE 0.5mg SYRINGE) 0.5 mg PRN Q5MIN PRN IV SEE COMMENTS; Start 12/29/18 at 09:00 Magnesium Sulfate/ Dextrose 100 ml @ 100 mls/hr 1X ONCE IV Last administered on 12/29/18 10:01; Start 12/29/18 at 09:30; Stop 12/29/18 at 10:29; Status DC Fentanyl Citrate (Fentanyl 2ml Vial) 100 mcg STK-MED ONCE .ROUTE ; Start 12/30/18 at 10:17; Stop 12/30/18 at 10:18; Status DC Haloperidol Lactate (Haldol Inj) 5 mg PRN Q6HRS PRN IVP AGITATION Last administered on 12/31/18 08:09; Start 12/30/18 at 16:30 Lorazepam (Ativan) 2 mg PRN Q2HR PRN IV ANXIETY. Last administered on 12/31/18at 20:46; Start 12/31/18 at 20:30 Levetiracetam 500 mg/Dextrose 105 ml @ 420 mls/hr Q12HR IV Last administered on 01/02/19 07:45; Start 12/31/18 at 21:00 Magnesium Sulfate 50 ml @ 25 mls/hr 1X ONCE IV Last administered on 01/01/19at 08:26; Start 01/01/19 at 07:45; Stop 01/01/19 at 09:44; Status DC Acetaminophen (Tylenol) 650 mg PRN Q6HRS PRN PO TEMP > 100.4F; Start 01/01/19 at 08:45 Acetaminophen (Tylenol Supp) 650 mg PRN Q4HRS PRN GA TEMP > 100.4F; Start 01/01/19 at 08:45 Aspirin (Ecotrin) 325 mg [id number] PO Last administered on 01/02/19at 07:44; Start 01/01/19 at 09:00 Aspirin (Aspirin) 300 mg PRN DAILY PRN GA IF UNABLE TO TAKE PO; Start 01/01/19 at 08:45 Vecuronium [place] (Norcuron Bolus) 10 mg 1X ONCE IV Last administered on 01/01/19at 11:47; Start 01/01/19 at 11:45; Stop 01/01/19 at 11:46; Status DC Multivitamins 10 ml/Thiamine HCl 100 mg/Folic Acid 1 mg/Sodium Chloride 1,011.2 ml @ 100 mls/ hr DAILY IV ; Start 01/02/19 at 15:30; Stop 01/06/19 at 19:07 Active Scripts Active Reported Potassium Citrate 10 Meq Tablet.er 99 Mg PO DAILY Sm Natural Balanced B-100 Tab (Vit B Complex 100 Cmb #2/Herbs) 100 Mg Tablet 100 Mg PO DAILY Vitamin D3 (Cholecalciferol (Vitamin D3)) 1,000 Unit Tablet 1,250 Mg PO DAILY Proair Hfa Inhaler (Albuterol Sulfate) 8.5 Gm Hfa.aer.ad 1 Puff INH PRN Q6HRS PRN Gabapentin 300 Mg Capsule 600 Mg PO TID Symbicort 160-4.5 Mcg Inhaler (Budesonide/Formoterol Fumarate) 10.2 Gm Hfa.aer.ad 2 Puff IH BID Maxalt (Rizatriptan Benzoate) 10 Mg Tablet 10 Mg PO PRN PRN Lidocaine 1 Each Adh..patch 1 Each TP PRN DAILY PRN Topiramate 100 Mg Tablet 1 Tab PO BID Linzess (Linaclotide) 290 Mcg Capsule 290 Mcg PO DAILY07 Cymbalta (Duloxetine Hcl) 30 Mg Capsule.dr 1 Cap PO DAILY Ranitidine Hcl 300 Mg Capsule 1 Cap PO DAILY Olanzapine 5 Mg Tablet 1 Tab PO QHS Robaxin (Methocarbamol) 500 Mg Tablet 750 Mg PO TID PRN Tizanidine Hcl 4 Mg Tablet 4 Mg PO TID PRN Percocet 10-325 Mg Tablet (Oxycodone/Acetaminophen) 1 Each Tablet 1 Tab PO TID Vitals/I & O Vital Sign - Last 24 Hours 01/01/19 01/01/19 01/01/19 01/01/19 16:00 16:00 17:00 17:15 Temp 99.4 99.4 Pulse 83 83 Resp 16 16 16 B/P (MAP) 114/70 (85) 147/83 (104) Pulse Ox 93 94 94 O2 Delivery Ventilator Mechanical Ventilator Ventilator Ventilator 01/01/19 01/01/19 01/01/19 01/01/19 17:39 18:00 19:00 19:57 Pulse 56 66 Resp 16 17 B/P (MAP) 125/72 (89) 143/78 (99) Pulse Ox 98 95 94 98 O2 Delivery Ventilator Ventilator Ventilator Ventilator 01/01/19 01/01/19 01/01/19 01/01/19 20:00 20:00 21:00 22:00 Temp 99.1 99.1 Pulse 76 56 76 Resp 17 17 17 B/P (MAP) 111/67 (82) 136/77 (96) 119/76 (90) Pulse Ox 94 94 94 O2 Delivery Ventilator Mechanical Ventilator Ventilator Ventilator 01/01/19 01/01/19 01/01/19 01/01/19 22:39 23:00 23:40 23:59 Temp 99.3 99.3 Pulse 55 55 Resp 20 17 17 B/P (MAP) 126/79 (95) 147/84 (105) Pulse Ox 94 94 98 95 O2 Delivery Ventilator Ventilator Ventilator Ventilator 01/01/19 01/01/19 01/02/19 01/02/19 23:59 23:59 01:00 01:03 Pulse 57 Resp 17 B/P (MAP) 150/87 (108) Pulse Ox 95 94 O2 Delivery Mechanical Ventilator Mechanical Ventilator Ventilator Ventilator 01/02/19 01/02/19 01/02/19 01/02/19 02:00 03:00 03:32 04:00 Temp 99.0 99.0 Pulse 54 54 59 Resp 17 17 17 B/P (MAP) 133/78 (96) 133/78 (96) 124/78 (93) Pulse Ox 95 95 95 94 O2 Delivery Ventilator Ventilator Ventilator Ventilator 01/02/19 01/02/19 01/02/19 01/02/19 04:00 05:00 05:43 06:00 Pulse 54 53 Resp 17 17 B/P (MAP) 133/79 (97) 145/81 (102) Pulse Ox 95 92 93 O2 Delivery Mechanical Ventilator Ventilator Ventilator Ventilator 01/02/19 01/02/19 01/02/19 01/02/19 07:00 07:43 08:00 08:00 Temp 97.6 97.6 Pulse 48 56 Resp 16 16 B/P (MAP) 149/82 (104) 138/80 (99) Pulse Ox 94 95 94 O2 Delivery Ventilator Ventilator Ventilator Mechanical Ventilator 01/02/19 01/02/19 01/02/19 01/02/19 09:00 09:28 10:00 11:00 Pulse 47 49 54 Resp 16 16 16 B/P (MAP) 116/63 (80) 163/80 (107) 154/71 (98) Pulse Ox 96 95 95 97 O2 Delivery Ventilator Ventilator Ventilator Ventilator 01/02/19 01/02/19 01/02/19 01/02/19 11:35 12:00 12:00 12:58 Temp 97.7 97.7 Pulse 50 Resp 16 16 B/P (MAP) 163/84 (110) Pulse Ox 96 96 96 O2 Delivery Ventilator Mechanical Ventilator Ventilator 01/02/19 01/02/19 01/02/19 01/02/19 13:00 13:28 14:00 15:00 Pulse 52 54 55 Resp 16 16 16 16 B/P (MAP) 137/70 (92) 146/83 (104) 146/83 (104) Pulse Ox 96 96 96 96 O2 Delivery Ventilator Ventilator Ventilator Ventilator Intake and Output 01/01/19 01/01/19 01/02/19 15:00 23:00 07:00 Intake Total 755 ml 1922.88 ml 2258.56 ml Output Total 2210 ml 1020 ml 1720 ml Balance -1455 ml 902.88 ml 538.56 ml MARS POST MD Jan 02, 2019 15:14
[2019-01-02] MEDS: MULTIVIT INFUSN,ADULT 4,VIT K 10 ML, THIAMINE INJ 100 MG, FOLIC ACID INJ 1 MG in IV NOR... IV SCH (17:30)
[2019-01-03] VITALS (23 sets, daily range): BP systolic 97–184; BP diastolic 64–87
[2019-01-03] MEDS: PROPOFOL 100 ML IV PRN ×5 (01:58→21:14)
[2019-01-03] MEDS: DEXMEDETOMIDINE 200 MCG in IV NORMAL SALINE 50ML 48 ML IV PRN ×8 (01:58→22:22)
[2019-01-03] MEDS: NYSTATIN 100,000 UNITS/ML 5 ML ORAL.SUSP. SWSW SCH ×4 (05:12→23:54)
[2019-01-03 05:24] LABS: HEMATOCRIT 34.4 % (36.0-47.0); HEMOGLOBIN 11.5 g/dL (12.0-15.5); RED BLOOD COUNT 3.4 x10^6/uL (3.50-5.40); RED CELL DISTRIBUTION WIDTH 13.3 % (11.5-14.5); WHITE BLOOD COUNT 15.3 x10^3/uL (4.0-11.0)
--- NOTE | 2019-01-03 05:41 | PN ---
DATE: SUBJECTIVE: The patient is resting slightly propped up in bed, continued to be sedated, intubated and mechanically ventilated. She apparently has had no more seizures. Nursing staff did not voice any concern and stated that she continued to require mechanical ventilation and sedation and anti-seizure medication. PHYSICAL EXAMINATION: GENERAL: When I examined her, she looked pale. No jaundice, cyanosis or thyromegaly. No jugular venous distention. No limb edema. VITAL SIGNS: Her heart rate was 52, blood pressure 137/70, temperature was 97.7, respiratory rate was 16, and oxygen saturation was 96% on FiO2 of 60%. HEAD, EYES, EARS, NOSE AND THROAT: Showed normocephalic, atraumatic. She has orotracheal and orogastric tube in place. NECK: Supple. HEART: Normal first and second heart sounds with no gallop, rub or murmur. CHEST: Clear to auscultation. No crepitation or rhonchi. ABDOMEN: Distended, soft, nontender. No guarding or rigidity. No organomegaly. All hernial orifices intact. Bowel sounds normal. NEUROLOGIC: She is heavily sedated. Her intake was 4936. Output was 5100. LABORATORY DATA: Her lab work [place] [address], hemoglobin 11.5, hematocrit 35, MCV 100, and platelet count 150441. Her serum sodium 140, potassium 3.9, chloride 102, bicarbonate 33, anion gap of 5, BUN 16, creatinine 0.5, estimated GFR was 134 mL per minute. Her calcium was 8.4, magnesium 2. ASSESSMENT: 1. Altered mental status, probably an overdose of her chronic pain medication, as well as alcohol. 2. Acute hypoxic hypercapnic respiratory failure. The patient continues to be mechanically ventilated. She is now on Precedex and propofol. She has failed weaning trials. 3. She has multiple other medical problems including: A. Chronic back pain B. Chronic obstructive pulmonary disease. C. Seizure disorder D. Essential tremors. 4. She had had breakthrough seizure yesterday, for which we started her on Keppra. We did consult the neurologist for evaluation and treatment. She apparently had brain MRI, which showed multiple areas of vasogenic edema, involving the occipito-parietal and frontoparietal lobes bilaterally along with the left cerebellar hemisphere consistent most likely with posterior reversible encephalopathy syndrome. PLAN: To continue with mechanical ventilation and wean as tolerated. Continue nutritional support. Continue with antiepileptic medication, continue the IV antibiotic, as well as IV steroids. TEODORO THAPA MD DR: MARY JANE/dyana JOB#: [id number] / [id number]
[2019-01-03 05:52] LABS: ALBUMIN 2.3 g/dL (3.4-5.0); ALBUMIN/GLOBULIN RATIO 0.7 (1.0-1.7); CALCIUM 8.4 mg/dL (8.5-10.1); CREATININE 0.4 mg/dL (0.6-1.0); GFR 173.4; POTASSIUM 3.8 mmol/L (3.5-5.1); TOTAL BILIRUBIN 0.2 mg/dL (0.2-1.0); TOTAL PROTEIN 5.8 g/dL (6.4-8.2)
[2019-01-03] MEDS: ENOXAPARIN 40 MG/0.4 ML SYRINGE. SQ SCH (07:57)
[2019-01-03] MEDS: levETIRAcetam 500 MG in IV DEXTROSE 5% 100ML 100 ML IV SCH ×2 (07:58→21:12)
[2019-01-03] MEDS: methylPREDNISolone SOD SUCC PF 40 MG/ML VIAL. IV SCH ×2 (07:58→21:10)
[2019-01-03] MEDS: cefTRIAXone IV Push 1 GM VIAL. IVP SCH (07:58)
[2019-01-03] MEDS: FAMOTIDINE 20 MG/2 ML VIAL IVP SCH ×2 (07:58→21:18)
[2019-01-03] MEDS: ASPIRIN ENTERIC COATED 325 MG TABLET.DR. PO SCH (07:58)
[2019-01-03 08:38] LABS: BASE EXCESS ABG 4 mmol/L (-3-3); HCO3 ABG 29 mmol/L (21-28); PCO2 ABG 44 mmHg (35-46); PO2 ABG 72 mmHg (75-108); SAT O2 ABG 93 % (92-99)
[2019-01-03 08:56] LABS: FIO2 ABG 60
[2019-01-03] MEDS: MULTIVIT INFUSN,ADULT 4,VIT K 10 ML, THIAMINE INJ 100 MG, FOLIC ACID INJ 1 MG in IV NOR... IV SCH (09:17)
--- NOTE | 2019-01-03 14:02 | PDOC ---
PULMONARY PROGRESS NOTES Subjective NO SEIZURES OVERNIGHT SEDATED ON AC MODE Vitals Vital Signs Date Time Temp Pulse Resp B/P (MAP) Pulse Ox O2 Delivery O2 Flow Rate FiO2 01/03/19 13:00 97.8 55 16 117/68 (84) 93 Ventilator 97.8 Comments unable to obtain ROS Pt. is intubated/sedated Lungs: Clear Cardiovascular: S1, S2 Abdomen: Soft, Non-tender Extremities: No Edema Skin: Warm, Dry, No Rashes Impression Labs Laboratory Tests Test 01/02/19 04:30 01/02/19 08:45 01/03/19 04:44 01/03/19 08:00 White Blood Count 11.4 x10^3/uL (4.0-11.0) 15.3 x10^3/uL (4.0-11.0) Red Blood Count 3.51 x10^6/uL (3.50-5.40) 3.40 x10^6/uL (3.50-5.40) Hemoglobin 11.5 g/dL (12.0-15.5) 11.5 g/dL (12.0-15.5) Hematocrit 35.0 % (36.0-47.0) 34.4 % (36.0-47.0) Mean Corpuscular Volume 100 fL (79-100) 101 fL (79-100) Mean Corpuscular Hemoglobin 33 pg (25-35) 34 pg (25-35) Mean Corpuscular Hemoglobin Concent 33 g/dL (31-37) 34 g/dL (31-37) Red Cell Distribution Width 13.3 % (11.5-14.5) 13.3 % (11.5-14.5) Platelet Count 232 x10^3/uL (140-400) 234 x10^3/uL (140-400) Sodium Level 140 mmol/L (136-145) 143 mmol/L (136-145) Potassium Level 3.9 mmol/L (3.5-5.1) 3.8 mmol/L (3.5-5.1) Chloride Level 102 mmol/L (98-107) 105 mmol/L (98-107) Carbon Dioxide Level 33 mmol/L (21-32) 31 mmol/L (21-32) Anion Gap 5 (6-14) 7 (6-14) Blood Urea Nitrogen 16 mg/dL (7-20) 18 mg/dL (7-20) Creatinine 0.5 mg/dL (0.6-1.0) 0.4 mg/dL (0.6-1.0) Estimated GFR (Cockcroft-Gault) 134.0 173.4 Glucose Level 140 mg/dL (70-99) 179 mg/dL (70-99) Calcium Level 8.4 mg/dL (8.5-10.1) 8.4 mg/dL (8.5-10.1) Magnesium Level 2.0 mg/dL (1.8-2.4) Triglycerides Level 161 mg/dL (0-150) Cholesterol Level 153 mg/dL (0-200) LDL Cholesterol, Calculated 85 mg/dL (0-100) VLDL Cholesterol, Calculated 32 mg/dL (0-40) Non-HDL Cholesterol Calculated 117 mg/dL (0-129) HDL Cholesterol 36 mg/dL (40-60) Cholesterol/HDL Ratio 4.3 O2 Saturation 95 % (92-99) 93 % (92-99) Arterial Blood pH 7.46 (7.35-7.45) 7.44 (7.35-7.45) Arterial Blood pCO2 at Patient Temp 42 mmHg (35-46) 44 mmHg (35-46) Arterial Blood pO2 at Patient Temp 77 mmHg (75-108) 72 mmHg (75-108) Arterial Blood HCO3 29 mmol/L (21-28) 29 mmol/L (21-28) Arterial Blood Base Excess 5 mmol/L (-3-3) 4 mmol/L (-3-3) FiO2 60 60 BUN/Creatinine Ratio 45 (6-20) Total Bilirubin 0.2 mg/dL (0.2-1.0) Aspartate Amino Transf (AST/SGOT) 20 U/L (15-37) Alanine Aminotransferase (ALT/SGPT) 45 U/L (14-59) Alkaline Phosphatase 89 U/L (46-116) Total Protein 5.8 g/dL (6.4-8.2) Albumin 2.3 g/dL (3.4-5.0) Albumin/Globulin Ratio 0.7 (1.0-1.7) Laboratory Tests Test 01/03/19 04:44 01/03/19 08:00 White Blood Count 15.3 x10^3/uL (4.0-11.0) Red Blood Count 3.40 x10^6/uL (3.50-5.40) Hemoglobin 11.5 g/dL (12.0-15.5) Hematocrit 34.4 % (36.0-47.0) Mean Corpuscular Volume 101 fL (79-100) Mean Corpuscular Hemoglobin 34 pg (25-35) Mean Corpuscular Hemoglobin Concent 34 g/dL (31-37) Red Cell Distribution Width 13.3 % (11.5-14.5) Platelet Count 234 x10^3/uL (140-400) Sodium Level 143 mmol/L (136-145) Potassium Level 3.8 mmol/L (3.5-5.1) Chloride Level 105 mmol/L (98-107) Carbon Dioxide Level 31 mmol/L (21-32) Anion Gap 7 (6-14) Blood Urea Nitrogen 18 mg/dL (7-20) Creatinine 0.4 mg/dL (0.6-1.0) Estimated GFR (Cockcroft-Gault) 173.4 BUN/Creatinine Ratio 45 (6-20) Glucose Level 179 mg/dL (70-99) Calcium Level 8.4 mg/dL (8.5-10.1) Total Bilirubin 0.2 mg/dL (0.2-1.0) Aspartate Amino Transf (AST/SGOT) 20 U/L (15-37) Alanine Aminotransferase (ALT/SGPT) 45 U/L (14-59) Alkaline Phosphatase 89 U/L (46-116) Total Protein 5.8 g/dL (6.4-8.2) Albumin 2.3 g/dL (3.4-5.0) Albumin/Globulin Ratio 0.7 (1.0-1.7) O2 Saturation 93 % (92-99) Arterial Blood pH 7.44 (7.35-7.45) Arterial Blood pCO2 at Patient Temp 44 mmHg (35-46) Arterial Blood pO2 at Patient Temp 72 mmHg (75-108) Arterial Blood HCO3 29 mmol/L (21-28) Arterial Blood Base Excess 4 mmol/L (-3-3) FiO2 60 Medications Active Scripts Medications Dose Route/Sig Max Daily Dose Days Date Category Potassium Citrate 10 Meq Tablet.er 99 Mg PO DAILY 12/28/18 Reported Sm Natural Balanced B-100 Tab (Vit B Complex 100 Cmb #2/Herbs) 100 Mg Tablet 100 Mg PO DAILY 12/28/18 Reported Vitamin D3 (Cholecalciferol (Vitamin D3)) 1,000 Unit Tablet 1,250 Mg PO DAILY 12/28/18 Reported Proair Hfa Inhaler (Albuterol Sulfate) 8.5 Gm Hfa.aer.ad 1 Puff INH PRN Q6HRS PRN 12/28/18 Reported Gabapentin 300 Mg Capsule 600 Mg PO TID 12/28/18 Reported Symbicort 160-4.5 Mcg Inhaler (Budesonide/Formoterol Fumarate) 10.2 Gm Hfa.aer.ad 2 Puff IH BID 12/28/18 Reported Maxalt (Rizatriptan Benzoate) 10 Mg Tablet 10 Mg PO PRN PRN 12/28/18 Reported Lidocaine 1 Each Adh..patch 1 Each TP PRN DAILY PRN 12/28/18 Reported Topiramate 100 Mg Tablet 1 Tab PO BID 12/28/18 Reported Linzess (Linaclotide) 290 Mcg Capsule 290 Mcg PO DAILY07 12/28/18 Reported Cymbalta (Duloxetine Hcl) 30 Mg Capsule. 1 Cap PO DAILY 12/28/18 Reported Ranitidine Hcl 300 Mg Capsule 1 Cap PO DAILY 12/28/18 Reported Olanzapine 5 Mg Tablet 1 Tab PO QHS 12/28/18 Reported Robaxin (Methocarbamol) 500 Mg Tablet 750 Mg PO TID PRN 06/22/14 Reported Tizanidine Hcl 4 Mg Tablet 4 Mg PO TID PRN 06/22/14 Reported Percocet 10-325 Mg Tablet (Oxycodone/Acetaminophen) 1 Each Tablet 1 Tab PO TID 06/22/14 Reported Active Scripts Medications Dose Route/Sig Max Daily Dose Days Date Category Robaxin (Methocarbamol) 500 Mg Tablet 500 Mg PO Q8HRS PRN 06/22/14 Reported Tizanidine Hcl 4 Mg Tablet 4 Mg PO Q8HRS PRN 06/22/14 Reported Prevacid (Lansoprazole) 30 Mg Capsule. 30 Mg PO DAILY 06/22/14 Reported Percocet 10-325 Mg Tablet (Oxycodone/Acetaminophen) 1 Each Tablet 1 Tab PO Q6HRS 06/22/14 Reported Active Scripts Medications Dose Route/Sig Max Daily Dose Days Date Category Robaxin (Methocarbamol) 500 Mg Tablet 500 Mg PO Q8HRS PRN 06/22/14 Reported Tizanidine Hcl 4 Mg Tablet 4 Mg PO Q8HRS PRN 06/22/14 Reported Prevacid (Lansoprazole) 30 Mg Capsule.dr 30 Mg PO DAILY 06/22/14 Reported Percocet 10-325 Mg Tablet (Oxycodone/Acetaminophen) 1 Each Tablet 1 Tab PO Q6HRS 06/22/14 Reported Impression . 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 The Ejection Fraction is 55-60%. There is normal LV segmental wall motion. Mild mitral regurgitation. Mild tricuspid regurgitation. The PA pressure was estimated at 30 mmHg. There is no evidence of significant pericardial effusion. Plan . HOLD SEDATION IN AM AND POSSIBLE TRIAL AC MODE BANANA BAG TUBE FEEDING FOLLOW NEURO INPUT NOT SURE OF ETIOLOGY OF RPLS, MAG WAS LOW SEVERAL DAYS AGO REPLACED CONTINUE SUPPORT FOR NOW REVIEWED LABS CCT 30 MIN CHELLE MELVIN MD Jan 03, 2019 14:02
--- NOTE | 2019-01-03 15:51 | PDOC ---
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 Carotid Doppler studies no evidence of a hemodynamically significant stenosis. Echocardiogram normal EF Aspirin continue medical management Subjective Intubated sedated. Objective Vital Signs Date Time Temp Pulse Resp B/P (MAP) Pulse Ox O2 Delivery O2 Flow Rate FiO2 01/03/19 15:38 96 Ventilator 01/03/19 15:00 52 16 152/78 (102) 01/03/19 13:00 97.8 97.8 Intake and Output 01/03/19 07:00 Intake Total 3529 ml Output Total 1680 ml Balance 1849 ml IV Total 2049 ml Tube Feeding 1480 ml Output Urine Total 1680 ml # Bowel Movements 1 PHYSICAL EXAM General: intubated HEENT: Normocephalic andatraumatic. Temporal arteriespulsatile and nontender. Neck: Supple without bruit, no meningismus Neurological: Mental Status: Intubated and sedated in the intensive care unit. Cranial Nerves:Pupils equal and reactive to light, extraocular movements areintact, There is no facial asymmetry. Vestibulo-ocular reflex is intact. Palate elevates and tongue protrudes in midline. All other cranial related problems are negative except as mentioned before. Reflexes:2+ and symmetric with flexor plantar responses. Motor:limited by sedation, normal tone and bulk. Coordination:Not able. Gait:Not able Review of Relevant I have reviewed the following items katherine (where applicable) has been applied. Labs Laboratory Tests Test 01/02/19 04:30 01/02/19 08:45 01/03/19 04:44 01/03/19 08:00 White Blood Count 11.4 x10^3/uL (4.0-11.0) 15.3 x10^3/uL (4.0-11.0) Red Blood Count 3.51 x10^6/uL (3.50-5.40) 3.40 x10^6/uL (3.50-5.40) Hemoglobin 11.5 g/dL (12.0-15.5) 11.5 g/dL (12.0-15.5) Hematocrit 35.0 % (36.0-47.0) 34.4 % (36.0-47.0) Mean Corpuscular Volume 100 fL (79-100) 101 fL (79-100) Mean Corpuscular Hemoglobin 33 pg (25-35) 34 pg (25-35) Mean Corpuscular Hemoglobin Concent 33 g/dL (31-37) 34 g/dL (31-37) Red Cell Distribution Width 13.3 % (11.5-14.5) 13.3 % (11.5-14.5) Platelet Count 232 x10^3/uL (140-400) 234 x10^3/uL (140-400) Sodium Level 140 mmol/L (136-145) 143 mmol/L (136-145) Potassium Level 3.9 mmol/L (3.5-5.1) 3.8 mmol/L (3.5-5.1) Chloride Level 102 mmol/L (98-107) 105 mmol/L (98-107) Carbon Dioxide Level 33 mmol/L (21-32) 31 mmol/L (21-32) Anion Gap 5 (6-14) 7 (6-14) Blood Urea Nitrogen 16 mg/dL (7-20) 18 mg/dL (7-20) Creatinine 0.5 mg/dL (0.6-1.0) 0.4 mg/dL (0.6-1.0) Estimated GFR (Cockcroft-Gault) 134.0 173.4 Glucose Level 140 mg/dL (70-99) 179 mg/dL (70-99) Calcium Level 8.4 mg/dL (8.5-10.1) 8.4 mg/dL (8.5-10.1) Magnesium Level 2.0 mg/dL (1.8-2.4) Triglycerides Level 161 mg/dL (0-150) Cholesterol Level 153 mg/dL (0-200) LDL Cholesterol, Calculated 85 mg/dL (0-100) VLDL Cholesterol, Calculated 32 mg/dL (0-40) Non-HDL Cholesterol Calculated 117 mg/dL (0-129) HDL Cholesterol 36 mg/dL (40-60) Cholesterol/HDL Ratio 4.3 O2 Saturation 95 % (92-99) 93 % (92-99) Arterial Blood pH 7.46 (7.35-7.45) 7.44 (7.35-7.45) Arterial Blood pCO2 at Patient Temp 42 mmHg (35-46) 44 mmHg (35-46) Arterial Blood pO2 at Patient Temp 77 mmHg (75-108) 72 mmHg (75-108) Arterial Blood HCO3 29 mmol/L (21-28) 29 mmol/L (21-28) Arterial Blood Base Excess 5 mmol/L (-3-3) 4 mmol/L (-3-3) FiO2 60 60 BUN/Creatinine Ratio 45 (6-20) Total Bilirubin 0.2 mg/dL (0.2-1.0) Aspartate Amino Transf (AST/SGOT) 20 U/L (15-37) Alanine Aminotransferase (ALT/SGPT) 45 U/L (14-59) Alkaline Phosphatase 89 U/L (46-116) Total Protein 5.8 g/dL (6.4-8.2) Albumin 2.3 g/dL (3.4-5.0) Albumin/Globulin Ratio 0.7 (1.0-1.7) Laboratory Tests Test 01/03/19 04:44 01/03/19 08:00 White Blood Count 15.3 x10^3/uL (4.0-11.0) Red Blood Count 3.40 x10^6/uL (3.50-5.40) Hemoglobin 11.5 g/dL (12.0-15.5) Hematocrit 34.4 % (36.0-47.0) Mean Corpuscular Volume 101 fL (79-100) Mean Corpuscular Hemoglobin 34 pg (25-35) Mean Corpuscular Hemoglobin Concent 34 g/dL (31-37) Red Cell Distribution Width 13.3 % (11.5-14.5) Platelet Count 234 x10^3/uL (140-400) Sodium Level 143 mmol/L (136-145) Potassium Level 3.8 mmol/L (3.5-5.1) Chloride Level 105 mmol/L (98-107) Carbon Dioxide Level 31 mmol/L (21-32) Anion Gap 7 (6-14) Blood Urea Nitrogen 18 mg/dL (7-20) Creatinine 0.4 mg/dL (0.6-1.0) Estimated GFR (Cockcroft-Gault) 173.4 BUN/Creatinine Ratio 45 (6-20) Glucose Level 179 mg/dL (70-99) Calcium Level 8.4 mg/dL (8.5-10.1) Total Bilirubin 0.2 mg/dL (0.2-1.0) Aspartate Amino Transf (AST/SGOT) 20 U/L (15-37) Alanine Aminotransferase (ALT/SGPT) 45 U/L (14-59) Alkaline Phosphatase 89 U/L (46-116) Total Protein 5.8 g/dL (6.4-8.2) Albumin 2.3 g/dL (3.4-5.0) Albumin/Globulin Ratio 0.7 (1.0-1.7) O2 Saturation 93 % (92-99) Arterial Blood pH 7.44 (7.35-7.45) Arterial Blood pCO2 at Patient Temp 44 mmHg (35-46) Arterial Blood pO2 at Patient Temp 72 mmHg (75-108) Arterial Blood HCO3 29 mmol/L (21-28) Arterial Blood Base Excess 4 mmol/L (-3-3) FiO2 60 Microbiology 12/27/18 - Final, Complete 12/27/18 - Final, Complete 12/27/18 - Final, Complete 12/27/18 Gram Stain Evaluation - Final, Complete 12/27/18 Sputum Culture - Final, Complete 12/27/18 Sputum Result 1 - Final, Complete Medications Current Medications Sodium Chloride 500 ml @ 500 mls/hr 1X ONCE IV Last administered on 12/27/18at 06:39; Start 12/27/18 at 06:30; Stop 12/27/18 at 07:29; Status DC Multivitamins 10 ml/Thiamine HCl 100 mg/Folic Acid 1 mg/Sodium Chloride 1,011.2 ml @ 125 mls/ hr DAILY IV Last administered on 12/31/18at 09:10; Start 12/27/18 at 09:00; Stop 12/31/18 at 17:06; Status DC Methylprednisolone Sodium Succinate (SOLU-Medrol 40MG VIAL) 40 mg Q8HRS IV Last administered on 12/28/18at 06:01; Start 12/27/18 at 14:00; Stop 12/28/18 at 09:45; Status DC Ceftriaxone Sodium (Rocephin) 1 gm Q24H IVP Last administered on 01/03/19at 07:58; Start 12/28/18 at 09:00 Azithromycin 250 mg/Sodium Chloride 250 ml @ 250 mls/hr Q24H IV Last administered on 12/30/18 09:15; Start 12/28/18 at 09:00; Stop 12/31/18 at 08:47; Status DC Sodium Chloride 1,000 ml @ 75 mls/hr [id number] IV Last administered on 12/28/18at 16:46; Start 12/27/18 at 11:00; Stop 12/29/18 at 08:51; Status DC Propofol 100 ml @ 1.041 mls/ hr CONT PRN IV SEE I/O RECORD Last administered on 01/03/19at 15:32; Start 12/27/18 at 06:45 Enoxaparin Sodium (Lovenox 40mg Syringe) 40 mg Q24H SQ Last administered on 01/03/19 07:57; Start 12/27/18 at 09:00 Famotidine (Pepcid Vial) 20 mg BID IVP Last administered on 01/03/19 07:58; Start 12/27/18 at 09:00 Fentanyl Citrate 30 ml @ 0 mls/hr CONT PRN PRN IV PER PROTOCOL Last administered on 01/03/19 09:58; Start 12/27/18 at 08:15 Sodium Chloride 500 ml @ 500 mls/hr 1X ONCE IV Last administered on 12/27/18 17:08; Start 12/27/18 at 17:30; Stop 12/27/18 at 18:29; Status DC Nystatin (Nystatin Oral Susp) 5 ml Q6HRS SWSW Last administered on 01/03/19at 13:38; Start 12/28/18 at 19:00 Acetaminophen (Tylenol) 650 mg PRN Q6HRS PRN PEG MILD PAIN / TEMP; Start 12/27/18 at 19:15 Sodium Chloride 500 ml @ 500 mls/hr 1X ONCE IV Last administered on 12/28/18 03:21; Start 12/28/18 at 03:15; Stop 12/28/18 at 04:14; Status DC Potassium Chloride (KCl Oral Soln) 40 meq BID PEG Last administered on 12/30/18 08:03; Start 12/28/18 at 09:00; Stop 12/30/18 at 14:56; Status DC Potassium Chloride (KCl Oral Soln) 40 meq 1X ONCE PEG ; Start 12/28/18 at 09:30; Stop 12/28/18 at 09:31; Status UNV Methylprednisolone Sodium Succinate (SOLU-Medrol 40MG VIAL) 30 mg Q12HR IV Last administered on 01/03/19 07:58; Start 12/28/18 at 21:00 Potassium Chloride/Dextrose/ Sod Cl 1,000 ml @ 75 mls/hr [id number] IV Last administered on 12/31/18 03:18; Start 12/29/18 at 09:30; Stop 12/31/18 at 08:47 ; Status DC Dexmedetomidine HCl 200 mcg/ Sodium Chloride 50 ml @ 0 mls/hr CONT PRN IV PER PROTOCOL Last administered on 01/03/19 13:38; Start 12/29/18 at 09:00 Sodium Chloride 500 ml @ 500 mls/hr 1X PRN PRN IV SEE COMMENTS; Start 12/29/18 at 09:00 Atropine Sulfate (ATROPINE 0.5mg SYRINGE) 0.5 mg PRN Q5MIN PRN IV SEE COMMENTS; Start 12/29/18 at 09:00 Magnesium Sulfate/ Dextrose 100 ml @ 100 mls/hr 1X ONCE IV Last administered on 12/29/18at 10:01; Start 12/29/18 at 09:30; Stop 12/29/18 at 10:29; Status DC Fentanyl Citrate (Fentanyl 2ml Vial) 100 mcg STK-MED ONCE .ROUTE ; Start 12/30/18 at 10:17; Stop 12/30/18 at 10:18; Status DC Haloperidol Lactate (Haldol Inj) 5 mg PRN Q6HRS PRN IVP AGITATION Last administered on 12/31/18 08:09; Start 12/30/18 at 16:30 Lorazepam (Ativan) 2 mg PRN Q2HR PRN IV ANXIETY. Last administered on 12/31/18 20:46; Start 12/31/18 at 20:30 Levetiracetam 500 mg/Dextrose 105 ml @ 420 mls/hr Q12HR IV Last administered on 01/03/19 07:58; Start 12/31/18 at 21:00 Magnesium Sulfate 50 ml @ 25 mls/hr 1X ONCE IV Last administered on 01/01/19 08:26; Start 01/01/19 at 07:45; Stop 01/01/19 at 09:44; Status DC Acetaminophen (Tylenol) 650 mg PRN Q6HRS PRN PO TEMP > 100.4F; Start 01/01/19 at 08:45 Acetaminophen (Tylenol Supp) 650 mg PRN Q4HRS PRN [place] TEMP > 100.4F; Start 01/01/19 at 08:45 Aspirin (Ecotrin) 325 mg [id number] PO Last administered on 01/03/19at 07:58; Start 01/01/19 at 09:00 Aspirin (Aspirin) 300 mg PRN DAILY PRN [place] IF UNABLE TO TAKE PO; Start 01/01/19 at 08:45 Vecuronium [place] (Norcuron Bolus) 10 mg 1X ONCE IV Last administered on 01/01/19at 11:47; Start 01/01/19 at 11:45; Stop 01/01/19 at 11:46; Status DC Multivitamins 10 ml/Thiamine HCl 100 mg/Folic Acid 1 mg/Sodium Chloride 1,011.2 ml @ 100 mls/ hr DAILY IV Last administered on 01/03/19at 09:17; Start 01/02/19 at 15:30; Stop 01/06/19 at 19:07 Active Scripts Active Reported Potassium Citrate 10 Meq Tablet.er 99 Mg PO DAILY Sm Natural Balanced B-100 Tab (Vit B Complex 100 Cmb #2/Herbs) 100 Mg Tablet 100 Mg PO DAILY Vitamin D3 (Cholecalciferol (Vitamin D3)) 1,000 Unit Tablet 1,250 Mg PO DAILY Proair Hfa Inhaler (Albuterol Sulfate) 8.5 Gm Hfa.aer.ad 1 Puff INH PRN Q6HRS PRN Gabapentin 300 Mg Capsule 600 Mg PO TID Symbicort 160-4.5 Mcg Inhaler (Budesonide/Formoterol Fumarate) 10.2 Gm Hfa.aer.ad 2 Puff IH BID Maxalt (Rizatriptan Benzoate) 10 Mg Tablet 10 Mg PO PRN PRN Lidocaine 1 Each Adh..patch 1 Each TP PRN DAILY PRN Topiramate 100 Mg Tablet 1 Tab PO BID Linzess (Linaclotide) 290 Mcg Capsule 290 Mcg PO DAILY07 Cymbalta (Duloxetine Hcl) 30 Mg Capsule.dr 1 Cap PO DAILY Ranitidine Hcl 300 Mg Capsule 1 Cap PO DAILY Olanzapine 5 Mg Tablet 1 Tab PO QHS Robaxin (Methocarbamol) 500 Mg Tablet 750 Mg PO TID PRN Tizanidine Hcl 4 Mg Tablet 4 Mg PO TID PRN Percocet 10-325 Mg Tablet (Oxycodone/Acetaminophen) 1 Each Tablet 1 Tab PO TID Vitals/I & O Vital Sign - Last 24 Hours 01/02/19 01/02/19 01/02/19 01/02/19 16:00 16:00 17:00 17:40 Temp 97.7 97.7 Pulse 53 51 Resp 16 16 B/P (MAP) 121/75 (90) 135/79 (97) Pulse Ox 93 93 93 O2 Delivery Mechanical Ventilator Ventilator Ventilator Ventilator 01/02/19 01/02/19 01/02/19 01/02/19 18:00 19:00 19:30 20:00 Temp 98.8 98.8 Pulse 53 77 59 Resp 16 16 16 B/P (MAP) 121/75 (90) 133/74 (93) 120/80 (93) Pulse Ox 95 97 96 97 O2 Delivery Ventilator Ventilator Ventilator Ventilator 01/02/19 01/02/19 01/02/19 01/02/19 20:00 21:00 22:00 22:32 Pulse 55 50 Resp 16 16 B/P (MAP) 143/82 (102) 151/85 (107) Pulse Ox 97 97 90 O2 Delivery Mechanical Ventilator Ventilator Ventilator Ventilator 01/02/19 01/02/19 01/02/19 01/02/19 23:00 23:17 23:47 23:59 Temp 98.7 98.7 Pulse 56 56 Resp 16 20 16 B/P (MAP) 147/81 (103) 131/82 (98) Pulse Ox 97 97 97 O2 Delivery Ventilator Ventilator Ventilator Ventilator 01/02/19 01/03/19 01/03/19 01/03/19 23:59 01:00 01:35 02:00 Pulse 51 87 Resp 16 16 B/P (MAP) 114/67 (83) 138/79 (98) Pulse Ox 97 96 97 O2 Delivery Mechanical Ventilator Ventilator Ventilator Ventilator 01/03/19 01/03/19 01/03/19 01/03/19 03:00 03:10 04:00 04:00 Temp 99.0 99.0 Pulse 52 57 Resp 16 16 B/P (MAP) 97/67 (77) 110/75 (87) Pulse Ox 96 94 97 O2 Delivery Ventilator Ventilator Mechanical Ventilator Ventilator 01/03/19 01/03/19 01/03/19 01/03/19 05:00 05:25 06:00 07:00 Pulse 50 48 47 Resp 16 16 16 B/P (MAP) 104/64 (77) 142/78 (99) 142/76 (98) Pulse Ox 96 97 99 97 O2 Delivery Ventilator Ventilator Ventilator Ventilator 01/03/19 01/03/19 01/03/19 01/03/19 08:00 08:00 08:21 09:00 Temp 97.7 97.7 Pulse 45 53 Resp 16 16 B/P (MAP) 131/68 (89) 127/71 (89) Pulse Ox 95 92 96 O2 Delivery Mechanical Ventilator Ventilator Ventilator Ventilator 01/03/19 01/03/19 01/03/19 01/03/19 09:58 10:00 10:28 11:00 Pulse 46 53 Resp 20 16 16 16 B/P (MAP) 147/82 (103) 155/82 (106) Pulse Ox 96 96 96 93 O2 Delivery Ventilator Ventilator 01/03/19 01/03/19 01/03/19 01/03/19 12:00 12:00 12:53 13:00 Temp 97.8 97.8 Pulse 56 55 Resp 16 16 B/P (MAP) 154/77 (102) 117/68 (84) Pulse Ox 95 95 93 O2 Delivery Ventilator Mechanical Ventilator Ventilator Ventilator 01/03/19 01/03/19 01/03/19 14:00 15:00 15:38 Pulse 62 52 Resp 16 16 B/P (MAP) 121/71 (88) 152/78 (102) Pulse Ox 96 96 96 O2 Delivery Ventilator Ventilator Ventilator Intake and Output 01/02/19 01/02/19 01/03/19 15:00 23:00 07:00 Intake Total 490 ml 991 ml 2048 ml Output Total 580 ml 550 ml 550 ml Balance -90 ml 441 ml 1498 ml MARS POST MD Jan 03, 2019 15:51
[2019-01-04] VITALS (25 sets, daily range): BP systolic 109–158; BP diastolic 57–100
[2019-01-04] MEDS: PROPOFOL 100 ML IV PRN ×2 (01:48→07:01)
[2019-01-04] MEDS: DEXMEDETOMIDINE 200 MCG in IV NORMAL SALINE 50ML 48 ML IV PRN ×4 (02:25→22:08)
[2019-01-04 05:24] LABS: HEMATOCRIT 40.6 % (36.0-47.0); HEMOGLOBIN 13.2 g/dL (12.0-15.5); RED BLOOD COUNT 4.01 x10^6/uL (3.50-5.40); WHITE BLOOD COUNT 11.1 x10^3/uL (4.0-11.0)
[2019-01-04] MEDS: NYSTATIN 100,000 UNITS/ML 5 ML ORAL.SUSP. SWSW SCH ×2 (05:29→11:54)
[2019-01-04 06:00] LABS: ALBUMIN 2.7 g/dL (3.4-5.0); ALBUMIN/GLOBULIN RATIO 0.7 (1.0-1.7); CALCIUM 9.1 mg/dL (8.5-10.1); CREATININE 0.5 mg/dL (0.6-1.0); POTASSIUM 4.1 mmol/L (3.5-5.1); TOTAL BILIRUBIN 0.3 mg/dL (0.2-1.0); TOTAL PROTEIN 6.7 g/dL (6.4-8.2)
--- NOTE | 2019-01-04 07:41 | PN ---
DATE: 01/03/2019 SUBJECTIVE: The patient continues to be sedated, intubated and mechanically ventilated, has had no further seizures. PHYSICAL EXAMINATION: GENERAL: When I examined her, she looked well and was clearly in no apparent respiratory distress, pale, but no jaundice, cyanosis or thyromegaly. No jugular venous distension. No lower limb edema. VITAL SIGNS: Her heart rate was 47, blood pressure was 142/76, temperature was 99, respiratory rate was 16 and oxygen saturation was 97% on FiO2 of 60%. HEAD, EYES, EARS, NOSE AND THROAT: Showed normocephalic, atraumatic. NECK: She has an orotracheal and orogastric tube in place. NECK: Supple. CARDIOVASCULAR: Showed normal first and second heart sounds. No gallop, rub or murmur. CHEST: Clear to auscultation. No crepitation or rhonchi. ABDOMEN: Distended, soft, nontender. NEUROLOGIC: She was heavily sedated. Her intake was 4900, output was 5100. LABORATORY DATA: As of this morning, her white cell count was 15,300, hemoglobin 11.5, hematocrit 34, MCV 101 and platelet count 234,000. Her chemistry showed a serum sodium 143, potassium 3.8, chloride 105, bicarbonate 31, anion gap of 7, BUN 18, creatinine 0.4, estimated GFR was 173 mL per minute. Her glucose was 179, calcium was 8.4. Total bilirubin, AST, ALT, alkaline phosphatase were normal. Total protein was 5.8, albumin 2.3. Her serum triglycerides 161, total cholesterol 153, LDL was 85, VLDL was 32, HDL cholesterol was 36 and the ratio was 4.3. 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 ASSESSMENT: 1. Altered mental status, felt initially to be due to an overdose of her chronic pain medication as well as alcohol. However, the MRI showed that she has a posterior reversible cerebral encephalopathy. 2. Acute hypoxic hypercapnic respiratory failure. The patient continued to be mechanically ventilated. She is now on Precedex, propofol and fentanyl 3. She has multiple other medical problems including: A. Chronic back pain. B. Chronic obstructive pulmonary disease. C. Seizure disorder. D. Essential tremors. 4. She had had breakthrough seizure, for which we started her on Keppra. PLAN: To obviously continue with mechanical ventilation, wean as tolerated. Continue nutritional support. Continue with the Keppra. Continue with steroids as well as IV ceftriaxone. TEODORO THAPA MD DR: MARY JANE/dyana JOB#: [id number] / [id number]
[2019-01-04 08:10] LABS: BASE EXCESS ABG 6 mmol/L (-3-3); HCO3 ABG 31 mmol/L (21-28); PCO2 ABG 46 mmHg (35-46); PO2 ABG 71 mmHg (75-108); SAT O2 ABG 94 % (92-99)
[2019-01-04 08:11] LABS: FIO2 ABG 60
[2019-01-04] MEDS: methylPREDNISolone SOD SUCC PF 40 MG/ML VIAL. IV SCH ×2 (08:33→20:45)
[2019-01-04] MEDS: FAMOTIDINE 20 MG/2 ML VIAL IVP SCH ×2 (08:33→20:44)
[2019-01-04] MEDS: ASPIRIN ENTERIC COATED 325 MG TABLET.DR. PO SCH (08:33)
[2019-01-04] MEDS: levETIRAcetam 500 MG in IV DEXTROSE 5% 100ML 100 ML IV SCH ×2 (08:34→20:46)
[2019-01-04] MEDS: ENOXAPARIN 40 MG/0.4 ML SYRINGE. SQ SCH (08:34)
[2019-01-04] MEDS: MULTIVIT INFUSN,ADULT 4,VIT K 10 ML, THIAMINE INJ 100 MG, FOLIC ACID INJ 1 MG in IV NOR... IV SCH (08:34)
[2019-01-04] MEDS: cefTRIAXone IV Push 1 GM VIAL. IVP SCH (08:34)
--- NOTE | 2019-01-04 09:25 | PDOC ---
PULMONARY PROGRESS NOTES Subjective PT DID WELL ON PS TRIAL AND T TUBE AWAKE AND ALERT Vitals Vital Signs Date Time Temp Pulse Resp B/P (MAP) Pulse Ox O2 Delivery O2 Flow Rate FiO2 01/04/19 07:45 98 Ventilator 01/04/19 06:00 68 16 138/82 (100) 01/04/19 04:00 98.6 98.6 General: Alert Lungs: Clear Cardiovascular: S1, S2 Abdomen: Soft, Non-tender Neuro Exam: Alert Extremities: No Edema Skin: Warm, Dry, No Rashes Impression Labs Laboratory Tests Test 01/03/19 04:44 01/03/19 08:00 01/04/19 04:30 01/04/19 08:00 White Blood Count 15.3 x10^3/uL (4.0-11.0) 11.1 x10^3/uL (4.0-11.0) Red Blood Count 3.40 x10^6/uL (3.50-5.40) 4.01 x10^6/uL (3.50-5.40) Hemoglobin 11.5 g/dL (12.0-15.5) 13.2 g/dL (12.0-15.5) Hematocrit 34.4 % (36.0-47.0) 40.6 % (36.0-47.0) Mean Corpuscular Volume 101 fL (79-100) 101 fL (79-100) Mean Corpuscular Hemoglobin 34 pg (25-35) 33 pg (25-35) Mean Corpuscular Hemoglobin Concent 34 g/dL (31-37) 33 g/dL (31-37) Red Cell Distribution Width 13.3 % (11.5-14.5) 14.0 % (11.5-14.5) Platelet Count 234 x10^3/uL (140-400) 302 x10^3/uL (140-400) Sodium Level 143 mmol/L (136-145) 146 mmol/L (136-145) Potassium Level 3.8 mmol/L (3.5-5.1) 4.1 mmol/L (3.5-5.1) Chloride Level 105 mmol/L (98-107) 105 mmol/L (98-107) Carbon Dioxide Level 31 mmol/L (21-32) 33 mmol/L (21-32) Anion Gap 7 (6-14) 8 (6-14) Blood Urea Nitrogen 18 mg/dL (7-20) 15 mg/dL (7-20) Creatinine 0.4 mg/dL (0.6-1.0) 0.5 mg/dL (0.6-1.0) Estimated GFR (Cockcroft-Gault) 173.4 134.0 BUN/Creatinine Ratio 45 (6-20) 30 (6-20) Glucose Level 179 mg/dL (70-99) 129 mg/dL (70-99) Calcium Level 8.4 mg/dL (8.5-10.1) 9.1 mg/dL (8.5-10.1) Total Bilirubin 0.2 mg/dL (0.2-1.0) 0.3 mg/dL (0.2-1.0) Aspartate Amino Transf (AST/SGOT) 20 U/L (15-37) 16 U/L (15-37) Alanine Aminotransferase (ALT/SGPT) 45 U/L (14-59) 47 U/L (14-59) Alkaline Phosphatase 89 U/L (46-116) 98 U/L (46-116) Total Protein 5.8 g/dL (6.4-8.2) 6.7 g/dL (6.4-8.2) Albumin 2.3 g/dL (3.4-5.0) 2.7 g/dL (3.4-5.0) Albumin/Globulin Ratio 0.7 (1.0-1.7) 0.7 (1.0-1.7) O2 Saturation 93 % (92-99) 94 % (92-99) Arterial Blood pH 7.44 (7.35-7.45) 7.45 (7.35-7.45) Arterial Blood pCO2 at Patient Temp 44 mmHg (35-46) 46 mmHg (35-46) Arterial Blood pO2 at Patient Temp 72 mmHg (75-108) 71 mmHg (75-108) Arterial Blood HCO3 29 mmol/L (21-28) 31 mmol/L (21-28) Arterial Blood Base Excess 4 mmol/L (-3-3) 6 mmol/L (-3-3) FiO2 60 60 Laboratory Tests Test 01/04/19 04:30 01/04/19 08:00 White Blood Count 11.1 x10^3/uL (4.0-11.0) Red Blood Count 4.01 x10^6/uL (3.50-5.40) Hemoglobin 13.2 g/dL (12.0-15.5) Hematocrit 40.6 % (36.0-47.0) Mean Corpuscular Volume 101 fL (79-100) Mean Corpuscular Hemoglobin 33 pg (25-35) Mean Corpuscular Hemoglobin Concent 33 g/dL (31-37) Red Cell Distribution Width 14.0 % (11.5-14.5) Platelet Count 302 x10^3/uL (140-400) Sodium Level 146 mmol/L (136-145) Potassium Level 4.1 mmol/L (3.5-5.1) Chloride Level 105 mmol/L (98-107) Carbon Dioxide Level 33 mmol/L (21-32) Anion Gap 8 (6-14) Blood Urea Nitrogen 15 mg/dL (7-20) Creatinine 0.5 mg/dL (0.6-1.0) Estimated GFR (Cockcroft-Gault) 134.0 BUN/Creatinine Ratio 30 (6-20) Glucose Level 129 mg/dL (70-99) Calcium Level 9.1 mg/dL (8.5-10.1) Total Bilirubin 0.3 mg/dL (0.2-1.0) Aspartate Amino Transf (AST/SGOT) 16 U/L (15-37) Alanine Aminotransferase (ALT/SGPT) 47 U/L (14-59) Alkaline Phosphatase 98 U/L (46-116) Total Protein 6.7 g/dL (6.4-8.2) Albumin 2.7 g/dL (3.4-5.0) Albumin/Globulin Ratio 0.7 (1.0-1.7) O2 Saturation 94 % (92-99) Arterial Blood pH 7.45 (7.35-7.45) Arterial Blood pCO2 at Patient Temp 46 mmHg (35-46) Arterial Blood pO2 at Patient Temp 71 mmHg (75-108) Arterial Blood HCO3 31 mmol/L (21-28) Arterial Blood Base Excess 6 mmol/L (-3-3) FiO2 60 Medications Active Scripts Medications Dose Route/Sig Max Daily Dose Days Date Category Potassium Citrate 10 Meq Tablet.er 99 Mg PO DAILY 12/28/18 Reported Sm Natural Balanced B-100 Tab (Vit B Complex 100 Cmb #2/Herbs) 100 Mg Tablet 100 Mg PO DAILY 12/28/18 Reported Vitamin D3 (Cholecalciferol (Vitamin D3)) 1,000 Unit Tablet 1,250 Mg PO DAILY 12/28/18 Reported Proair Hfa Inhaler (Albuterol Sulfate) 8.5 Gm Hfa.aer.ad 1 Puff INH PRN Q6HRS PRN 12/28/18 Reported Gabapentin 300 Mg Capsule 600 Mg PO TID 12/28/18 Reported Symbicort 160-4.5 Mcg Inhaler (Budesonide/Formoterol Fumarate) 10.2 Gm Hfa.aer.ad 2 Puff IH BID 12/28/18 Reported Maxalt (Rizatriptan Benzoate) 10 Mg Tablet 10 Mg PO PRN PRN 12/28/18 Reported Lidocaine 1 Each Adh..patch 1 Each TP PRN DAILY PRN 12/28/18 Reported Topiramate 100 Mg Tablet 1 Tab PO BID 12/28/18 Reported Linzess (Linaclotide) 290 Mcg Capsule 290 Mcg PO DAILY07 12/28/18 Reported Cymbalta (Duloxetine Hcl) 30 Mg Capsule. 1 Cap PO DAILY 12/28/18 Reported Ranitidine Hcl 300 Mg Capsule 1 Cap PO DAILY 12/28/18 Reported Olanzapine 5 Mg Tablet 1 Tab PO QHS 12/28/18 Reported Robaxin (Methocarbamol) 500 Mg Tablet 750 Mg PO TID PRN 06/22/14 Reported Tizanidine Hcl 4 Mg Tablet 4 Mg PO TID PRN 06/22/14 Reported Percocet 10-325 Mg Tablet (Oxycodone/Acetaminophen) 1 Each Tablet 1 Tab PO TID 06/22/14 Reported Active Scripts Medications Dose Route/Sig Max Daily Dose Days Date Category Robaxin (Methocarbamol) 500 Mg Tablet 500 Mg PO Q8HRS PRN 06/22/14 Reported Tizanidine Hcl 4 Mg Tablet 4 Mg PO Q8HRS PRN 06/22/14 Reported Prevacid (Lansoprazole) 30 Mg Capsule. 30 Mg PO DAILY 06/22/14 Reported Percocet 10-325 Mg Tablet (Oxycodone/Acetaminophen) 1 Each Tablet 1 Tab PO Q6HRS 10/15/14 Reported Active Scripts Medications Dose Route/Sig Max Daily Dose Days Date Category Robaxin (Methocarbamol) 500 Mg Tablet 500 Mg PO Q8HRS PRN 06/22/14 Reported Tizanidine Hcl 4 Mg Tablet 4 Mg PO Q8HRS PRN 06/22/14 Reported Prevacid (Lansoprazole) 30 Mg Capsule.dr 30 Mg PO DAILY 06/22/14 Reported Percocet 10-325 Mg Tablet (Oxycodone/Acetaminophen) 1 Each Tablet 1 Tab PO Q6HRS 06/22/14 Reported Impression . 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 The Ejection Fraction is 55-60%. There is normal LV segmental wall motion. Mild mitral regurgitation. Mild tricuspid regurgitation. The PA pressure was estimated at 30 mmHg. There is no evidence of significant pericardial effusion. Plan . EXTUBATE NEEDS SPEECH EVALUATION PRIOR TO FEEDING BANANA BAG FOLLOW NEURO INPUT NOT SURE OF ETIOLOGY OF RPLS, MAG WAS LOW SEVERAL DAYS AGO REPLACED CONTINUE SUPPORT FOR NOW REVIEWED LABS D/W AND RT CCT 30 MIN CHELLE MELVIN MD Jan 04, 2019 09:25
--- NOTE | 2019-01-04 09:31 | PDOC ---
PROGRESS NOTES Assessment Ingestion of pain pills and alcohol in combination Seizures, provoked, possible prior epilepsy, negative EEG last year, no clinical seizures now PRES Negative echo and carotids Toxic and metabolic encephalopathy, improving Chronic low back pain Migraines, takes topiramate Plan Continue levetiracetam, plan to switch back to her topiramate when taking orally Aspirin Hold on repeat EEG Continue medical management Discussed with Subjective Indicates no pain Objective Vital Signs Date Time Temp Pulse Resp B/P (MAP) Pulse Ox O2 Delivery O2 Flow Rate FiO2 01/04/19 07:45 98 Ventilator 01/04/19 06:00 68 16 138/82 (100) 01/04/19 04:00 98.6 98.6 Intake and Output 01/04/19 06:59 Intake Total 4063 ml Output Total 2775 ml Balance 1288 ml IV Total 2028 ml Tube Feeding 1735 ml Other 300 ml Output Urine Total 2775 ml # Bowel Movements 1 PHYSICAL EXAM Alert. Intubate, nods appropriate answers to question PERRL. EOMI. CN: no focal findings. Muscle tone: normal. Muscle strength: moves all extremities DTR: 1+ Plantar reflex: flexor Gait: not examined in bed. Sensory exam: no abnormal findings. Cerebellar: not cooperative Review of Relevant I have reviewed the following items katherine (where applicable) has been applied. Labs Laboratory Tests Test 01/03/19 04:44 01/03/19 08:00 01/04/19 04:30 01/04/19 08:00 White Blood Count 15.3 x10^3/uL (4.0-11.0) 11.1 x10^3/uL (4.0-11.0) Red Blood Count 3.40 x10^6/uL (3.50-5.40) 4.01 x10^6/uL (3.50-5.40) Hemoglobin 11.5 g/dL (12.0-15.5) 13.2 g/dL (12.0-15.5) Hematocrit 34.4 % (36.0-47.0) 40.6 % (36.0-47.0) Mean Corpuscular Volume 101 fL (79-100) 101 fL (79-100) Mean Corpuscular Hemoglobin 34 pg (25-35) 33 pg (25-35) Mean Corpuscular Hemoglobin Concent 34 g/dL (31-37) 33 g/dL (31-37) Red Cell Distribution Width 13.3 % (11.5-14.5) 14.0 % (11.5-14.5) Platelet Count 234 x10^3/uL (140-400) 302 x10^3/uL (140-400) Sodium Level 143 mmol/L (136-145) 146 mmol/L (136-145) Potassium Level 3.8 mmol/L (3.5-5.1) 4.1 mmol/L (3.5-5.1) Chloride Level 105 mmol/L (98-107) 105 mmol/L (98-107) Carbon Dioxide Level 31 mmol/L (21-32) 33 mmol/L (21-32) Anion Gap 7 (6-14) 8 (6-14) Blood Urea Nitrogen 18 mg/dL (7-20) 15 mg/dL (7-20) Creatinine 0.4 mg/dL (0.6-1.0) 0.5 mg/dL (0.6-1.0) Estimated GFR (Cockcroft-Gault) 173.4 134.0 BUN/Creatinine Ratio 45 (6-20) 30 (6-20) Glucose Level 179 mg/dL (70-99) 129 mg/dL (70-99) Calcium Level 8.4 mg/dL (8.5-10.1) 9.1 mg/dL (8.5-10.1) Total Bilirubin 0.2 mg/dL (0.2-1.0) 0.3 mg/dL (0.2-1.0) Aspartate Amino Transf (AST/SGOT) 20 U/L (15-37) 16 U/L (15-37) Alanine Aminotransferase (ALT/SGPT) 45 U/L (14-59) 47 U/L (14-59) Alkaline Phosphatase 89 U/L (46-116) 98 U/L (46-116) Total Protein 5.8 g/dL (6.4-8.2) 6.7 g/dL (6.4-8.2) Albumin 2.3 g/dL (3.4-5.0) 2.7 g/dL (3.4-5.0) Albumin/Globulin Ratio 0.7 (1.0-1.7) 0.7 (1.0-1.7) O2 Saturation 93 % (92-99) 94 % (92-99) Arterial Blood pH 7.44 (7.35-7.45) 7.45 (7.35-7.45) Arterial Blood pCO2 at Patient Temp 44 mmHg (35-46) 46 mmHg (35-46) Arterial Blood pO2 at Patient Temp 72 mmHg (75-108) 71 mmHg (75-108) Arterial Blood HCO3 29 mmol/L (21-28) 31 mmol/L (21-28) Arterial Blood Base Excess 4 mmol/L (-3-3) 6 mmol/L (-3-3) FiO2 60 60 Laboratory Tests Test 01/04/19 04:30 01/04/19 08:00 White Blood Count 11.1 x10^3/uL (4.0-11.0) Red Blood Count 4.01 x10^6/uL (3.50-5.40) Hemoglobin 13.2 g/dL (12.0-15.5) Hematocrit 40.6 % (36.0-47.0) Mean Corpuscular Volume 101 fL (79-100) Mean Corpuscular Hemoglobin 33 pg (25-35) Mean Corpuscular Hemoglobin Concent 33 g/dL (31-37) Red Cell Distribution Width 14.0 % (11.5-14.5) Platelet Count 302 x10^3/uL (140-400) Sodium Level 146 mmol/L (136-145) Potassium Level 4.1 mmol/L (3.5-5.1) Chloride Level 105 mmol/L (98-107) Carbon Dioxide Level 33 mmol/L (21-32) Anion Gap 8 (6-14) Blood Urea Nitrogen 15 mg/dL (7-20) Creatinine 0.5 mg/dL (0.6-1.0) Estimated GFR (Cockcroft-Gault) 134.0 BUN/Creatinine Ratio 30 (6-20) Glucose Level 129 mg/dL (70-99) Calcium Level 9.1 mg/dL (8.5-10.1) Total Bilirubin 0.3 mg/dL (0.2-1.0) Aspartate Amino Transf (AST/SGOT) 16 U/L (15-37) Alanine Aminotransferase (ALT/SGPT) 47 U/L (14-59) Alkaline Phosphatase 98 U/L (46-116) Total Protein 6.7 g/dL (6.4-8.2) Albumin 2.7 g/dL (3.4-5.0) Albumin/Globulin Ratio 0.7 (1.0-1.7) O2 Saturation 94 % (92-99) Arterial Blood pH 7.45 (7.35-7.45) Arterial Blood pCO2 at Patient Temp 46 mmHg (35-46) Arterial Blood pO2 at Patient Temp 71 mmHg (75-108) Arterial Blood HCO3 31 mmol/L (21-28) Arterial Blood Base Excess 6 mmol/L (-3-3) FiO2 60 Microbiology 12/27/18 - Final, Complete 12/27/18 - Final, Complete 12/27/18 - Final, Complete 12/27/18 Gram Stain Evaluation - Final, Complete 12/27/18 Sputum Culture - Final, Complete 12/27/18 Sputum Result 1 - Final, Complete Medications Current Medications Sodium Chloride 500 ml @ 500 mls/hr 1X ONCE IV Last administered on 12/27/18at 06:39; Start 12/27/18 at 06:30; Stop 12/27/18 at 07:29; Status DC Multivitamins 10 ml/Thiamine HCl 100 mg/Folic Acid 1 mg/Sodium Chloride 1,011.2 ml @ 125 mls/ hr DAILY IV Last administered on 12/31/18at 09:10; Start 12/27/18 at 09:00; Stop 12/31/18 at 17:06; Status DC Methylprednisolone Sodium Succinate (SOLU-Medrol 40MG VIAL) 40 mg Q8HRS IV Last administered on 12/28/18at 06:01; Start 12/27/18 at 14:00; Stop 12/28/18 at 09:45; Status DC Ceftriaxone Sodium (Rocephin) 1 gm Q24H IVP Last administered on 01/04/19at 08:34; Start 12/28/18 at 09:00 Azithromycin 250 mg/Sodium Chloride 250 ml @ 250 mls/hr Q24H IV Last administered on 12/30/18at 09:15; Start 12/28/18 at 09:00; Stop 12/31/18 at 08:47; Status DC Sodium Chloride 1,000 ml @ 75 mls/hr [id number] IV Last administered on 12/28/18at 16:46; Start 12/27/18 at 11:00; Stop 12/29/18 at 08:51; Status DC Propofol 100 ml @ 1.041 mls/ hr CONT PRN IV SEE I/O RECORD Last administered on 01/04/19 07:01; Start 12/27/18 at 06:45 Enoxaparin Sodium (Lovenox 40mg Syringe) 40 mg Q24H SQ Last administered on 08:34; Start 12/27/18 at 09:00 Famotidine (Pepcid Vial) 20 mg BID IVP Last administered on 01/04/19 08:33; Start 12/27/18 at 09:00 Fentanyl Citrate 30 ml @ 0 mls/hr CONT PRN PRN IV PER PROTOCOL Last administered on 01/03/19 21:16; Start 12/27/18 at 08:15 Sodium Chloride 500 ml @ 500 mls/hr 1X ONCE IV Last administered on 12/27/18 17:08; Start 12/27/18 at 17:30; Stop 12/27/18 at 18:29; Status DC Nystatin (Nystatin Oral Susp) 5 ml Q6HRS SWSW Last administered on 01/04/19at 05:29; Start 12/28/18 at 19:00 Acetaminophen (Tylenol) 650 mg PRN Q6HRS PRN PEG MILD PAIN / TEMP; Start 12/27/18 at 19:15 Sodium Chloride 500 ml @ 500 mls/hr 1X ONCE IV Last administered on 12/28/18 03:21; Start 12/28/18 at 03:15; Stop 12/28/18 at 04:14; Status DC Potassium Chloride (KCl Oral Soln) 40 meq BID PEG Last administered on 12/30/18 08:03; Start 12/28/18 at 09:00; Stop 12/30/18 at 14:56; Status DC Potassium Chloride (KCl Oral Soln) 40 meq 1X ONCE PEG ; Start 12/28/18 at 09:30; Stop 12/28/18 at 09:31; Status UNV Methylprednisolone Sodium Succinate (SOLU-Medrol 40MG VIAL) 30 mg Q12HR IV Last administered on 01/04/19 08:33; Start 12/28/18 at 21:00 Potassium Chloride/Dextrose/ Sod Cl 1,000 ml @ 75 mls/hr [id number] IV Last administered on 12/31/18at 03:18; Start 12/29/18 at 09:30; Stop 12/31/18 at 08:47; Status DC Dexmedetomidine HCl 200 mcg/ Sodium Chloride 50 ml @ 0 mls/hr CONT PRN IV PER PROTOCOL Last administered on 01/04/19at 08:43; Start 12/29/18 at 09:00 Sodium Chloride 500 ml @ 500 mls/hr 1X PRN PRN IV SEE COMMENTS; Start 12/29/18 at 09:00 Atropine Sulfate (ATROPINE 0.5mg SYRINGE) 0.5 mg PRN Q5MIN PRN IV SEE COMMENTS; Start 12/29/18 at 09:00 Magnesium Sulfate/ Dextrose 100 ml @ 100 mls/hr 1X ONCE IV Last administered on 12/29/18at 10:01; Start 12/29/18 at 09:30; Stop 12/29/18 at 10:29; Status DC Fentanyl Citrate (Fentanyl 2ml Vial) 100 mcg STK-MED ONCE .ROUTE ; Start 12/08 12/25 at 10:17; Stop 12/30/18 at 10:18; Status DC Haloperidol Lactate (Haldol Inj) 5 mg PRN Q6HRS PRN IVP AGITATION Last admini stered on 12/31/18at 08:09; Start 12/30/18 at 16:30 Lorazepam (Ativan) 2 mg PRN Q2HR PRN IV ANXIETY. Last administered on 12/31/18at 20:46; Start 12/31/18 at 20:30 Levetiracetam 500 mg/Dextrose 105 ml @ 420 mls/hr Q12HR IV Last administered on 01/04/19at 08:34; Start 12/31/18 at 21:00 Magnesium Sulfate 50 ml @ 25 mls/hr 1X ONCE IV Last administered on 01/01/19at 08:26; Start 01/01/19 at 07:45; Stop 01/01/19 at 09:44; Status DC Acetaminophen (Tylenol) 650 mg PRN Q6HRS PRN PO TEMP > 100.4F; Start 01/01/19 at 08:45 Acetaminophen (Tylenol Supp) 650 mg PRN Q4HRS PRN MI TEMP > 100.4F; Start 01/01/19 at 08:45 Aspirin (Ecotrin) 325 mg [id number] PO Last administered on 01/04/19at 08:33; Start 01/01/19 at 09:00 Aspirin (Aspirin) 300 mg PRN DAILY PRN MI IF UNABLE TO TAKE PO; Start 01/01/19 at 08:45 Vecuronium [place] (Norcuron Bolus) 10 mg 1X ONCE IV Last administered on 01/01/19at 11:47; Start 01/01/19 at 11:45; Stop 01/01/19 at 11:46; Status DC Multivitamins 10 ml/Thiamine HCl 100 mg/Folic Acid 1 mg/Sodium Chloride 1,011.2 ml @ 100 mls/ hr DAILY IV Last administered on 01/04/19at 08:34; Start 01/02/19 at 15:30; Stop 01/06/19 at 19:07 Active Scripts Active Reported Potassium Citrate 10 Meq Tablet.er 99 Mg PO DAILY Sm Natural Balanced B-100 Tab (Vit B Complex 100 Cmb #2/Herbs) 100 Mg Tablet 100 Mg PO DAILY Vitamin D3 (Cholecalciferol (Vitamin D3)) 1,000 Unit Tablet 1,250 Mg PO DAILY Proair Hfa Inhaler (Albuterol Sulfate) 8.5 Gm Hfa.aer.ad 1 Puff INH PRN Q6HRS PRN Gabapentin 300 Mg Capsule 600 Mg PO TID Symbicort 160-4.5 Mcg Inhaler (Budesonide/Formoterol Fumarate) 10.2 Gm Hfa.aer.ad 2 Puff IH BID Maxalt (Rizatriptan Benzoate) 10 Mg Tablet 10 Mg PO PRN PRN Lidocaine 1 Each Adh..patch 1 Each TP PRN DAILY PRN Topiramate 100 Mg Tablet 1 Tab PO BID Linzess (Linaclotide) 290 Mcg Capsule 290 Mcg PO DAILY07 Cymbalta (Duloxetine Hcl) 30 Mg Capsule.dr 1 Cap PO DAILY Ranitidine Hcl 300 Mg Capsule 1 Cap PO DAILY Olanzapine 5 Mg Tablet 1 Tab PO QHS Robaxin (Methocarbamol) 500 Mg Tablet 750 Mg PO TID PRN Tizanidine Hcl 4 Mg Tablet 4 Mg PO TID PRN Percocet 10-325 Mg Tablet (Oxycodone/Acetaminophen) 1 Each Tablet 1 Tab PO TID Vitals/I & O Vital Sign - Last 24 Hours 01/03/19 01/03/19 01/03/19 01/03/19 09:58 10:00 10:35 11:00 Pulse 46 53 Resp 20 16 16 B/P (MAP) 147/82 (103) 155/82 (106) Pulse Ox 96 96 98 93 O2 Delivery Ventilator Ventilator Ventilator 01/03/19 01/03/19 01/03/19 01/03/19 12:00 12:00 12:53 13:00 Temp 97.8 97.8 Pulse 56 55 Resp 16 16 B/P (MAP) 154/77 (102) 117/68 (84) Pulse Ox 95 95 93 O2 Delivery Ventilator Mechanical Ventilator Ventilator Ventilator 01/03/19 01/03/19 01/03/19 01/03/19 14:00 15:00 15:38 16:00 Temp 98.5 98.5 Pulse 62 52 53 Resp 16 16 16 B/P (MAP) 121/71 (88) 152/78 (102) 152/79 (103) Pulse Ox 96 96 96 97 O2 Delivery Ventilator Ventilator Ventilator Ventilator 01/03/19 01/03/19 01/03/19 01/03/19 16:00 17:00 17:57 18:00 Pulse 48 50 Resp 16 16 B/P (MAP) 155/81 (105) 153/79 (103) Pulse Ox 97 96 98 O2 Delivery Mechanical Ventilator Ventilator Ventilator Ventilator 01/03/19 01/03/19 01/03/19 01/03/19 19:00 19:35 20:00 20:00 Temp 97.8 97.8 Pulse 48 47 Resp 16 16 B/P (MAP) 179/86 (117) 184/85 (118) Pulse Ox 98 97 97 O2 Delivery Ventilator Ventilator Ventilator Mechanical Ventilator 01/03/19 01/03/19 01/03/19 01/03/19 21:00 21:16 21:46 22:00 Pulse 49 48 Resp 16 16 16 16 B/P (MAP) 182/87 (118) 148/66 (93) Pulse Ox 96 97 96 96 O2 Delivery Ventilator Ventilator Ventilator Ventilator 01/03/19 01/03/19 01/03/19 01/04/19 23:00 23:46 23:59 00:00 Temp 97.8 97.8 Pulse 49 51 Resp 16 16 B/P (MAP) 161/76 (104) 158/84 (108) Pulse Ox 95 94 94 O2 Delivery Ventilator Ventilator Mechanical Ventilator Ventilator 01/04/19 01/04/19 01/04/19 01/04/19 01:00 02:00 02:52 03:00 Pulse 50 51 68 Resp 16 16 16 B/P (MAP) 156/86 (109) 149/86 (107) 113/74 (87) Pulse Ox 96 98 94 98 O2 Delivery Ventilator Ventilator Ventilator Ventilator 01/04/19 01/04/19 01/04/19 01/04/19 04:00 04:00 04:00 05:00 Temp 98.6 98.6 Pulse 73 62 Resp 16 16 B/P (MAP) 113/74 (87) 125/80 (95) Pulse Ox 95 94 O2 Delivery Mechanical Ventilator Ventilator Ventilator 01/04/19 01/04/19 01/04/19 05:14 06:00 07:45 Pulse 68 Resp 16 B/P (MAP) 138/82 (100) Pulse Ox 94 98 98 O2 Delivery Ventilator Ventilator Ventilator Intake and Output 01/03/19 01/03/19 01/04/19 14:59 22:59 06:59 Intake Total 465 ml 2143 ml 1455 ml Output Total 720 ml 815 ml 1240 ml Balance -255 ml 1328 ml 215 ml MAGDI LANGSTON MD Jan 04, 2019 09:31
[2019-01-04 11:28] LABS: BASE EXCESS ABG 7 mmol/L (-3-3); HCO3 ABG 32 mmol/L (21-28); PCO2 ABG 48 mmHg (35-46); PO2 ABG 68 mmHg (75-108); SAT O2 ABG 93 % (92-99)
[2019-01-04 11:29] LABS: FIO2 ABG 60
--- NOTE | 2019-01-04 13:24 | NUR ---
Spontaneous breathing trial started at 1030, PS 10. ABG drawn, paged to Dr. Michel. 1300: Dr. Michel on unit, wanting pt placed on T tube trial. Pt on T-tube trial from [id number]. 1320: Pt extubated, placed on 50% mask. O2 sat 95%.
[2019-01-04] MEDS: fentaNYL PF VIAL 100 MCG/2 ML VIAL IV PRN ×2 (15:03→19:18)
[2019-01-04] MEDS: HALOPERIDOL LACTATE 5 MG/ML VIAL. IVP PRN (18:18)
[2019-01-04] MEDS ORDERED: diphenhydrAMINE 50 MG/ML VIAL IVP PRN (20:30)
[2019-01-04] MEDS ORDERED: HALOPERIDOL LACTATE 5 MG/ML VIAL. IVP ONE (21:00)
--- NOTE | 2019-01-04 22:30 | NUR ---
Patient pulling of Venti mask and oxygen saturation in the 70's, heart rate in the 140's. physician notified, orders for Bipap received. Patient continues to pull of Bipap mask and saturation dropping to 80's. Patient pulled out I.V and kicks nurse multiple times. Patient placed on Precedex at this time.
[2019-01-05] VITALS (24 sets, daily range): BP systolic 109–149; BP diastolic 59–92
--- NOTE | 2019-01-05 00:47 | PN ---
DATE: 01/04/2019 SUBJECTIVE: The patient is resting, slightly propped up, definitely more awake, alert; opens her eyes, tracks and follows command. Her sedation is being cut down. She is maintaining her oxygen saturations at 97% on FiO2 of 60%, with a plan to extubate her today. PHYSICAL EXAMINATION: GENERAL: When I saw her, she looked well and was clearly in no apparent respiratory distress, slightly pale, not jaundiced or cyanosed from thyromegaly. No jugular venous distention. No lower limb edema. VITAL SIGNS: Her heart rate was 68, blood pressure was 138/82, temperature was 98.6, respiratory rate was 16 and oxygen saturation was 98% on FiO2 of 60%. HEENT: Examination of the head, eyes, ears, nose and throat shows she is normocephalic, atraumatic. She has orotracheal and orogastric tube in place. NECK: Supple. CARDIAC: Normal first and second heart sounds. No gallop, rub or murmur. CHEST: Clear to auscultation. No crepitation or rhonchi. ABDOMEN: Distended, soft and nontender. No guarding or rigidity. No organomegaly. All hernial orifices intact and bowel sounds normal. NEUROLOGIC: She was definitely more awake, alert, opens eyes, tracks and moves her extremities without difficulty. She is following commands. Her intake over the last 24 hours was 3500, output was 1770. LABORATORY DATA: As of this morning, her white cell count was 11,000, hemoglobin 13, hematocrit 41, MCV 101 and platelet count 302,000. Her serum sodium 146, potassium 4.1, chloride 105, bicarbonate 33, anion gap of 8, BUN 15, creatinine 0.5, estimated GFR was 134 mL per minute, glucose 129 and calcium was 9.1. Total bilirubin, AST, ALT and alkaline phosphatase were normal. Total protein was 6.7. Albumin was 2.7. ASSESSMENT: 1. Altered mental status, felt initially to be due to overdose of her chronic pain medication as well as alcohol. However, MRI showed that she has reversible cerebral encephalopathy. 2. Acute hypoxic hypercapnic respiratory failure. The patient continued to be mechanically ventilated on Precedex, propofol and fentanyl. She is scheduled to be extubated today. 3. She has multiple other medical problems including: A. Chronic back pain. B. Chronic obstructive pulmonary disease. C. Seizure disorder. D. Essential tremors. 4. She has had breakthrough seizures for which she is now on Keppra. PLAN: The plan is to continue mechanical ventilation, wean as tolerated; continue with nutritional support; continue with Keppra and continue with steroids as well as IV ceftriaxone. TEODORO THAPA MD DR: MARY JANE/dyana JOB#: [id number] / [id number]
[2019-01-05] MEDS: fentaNYL PF VIAL 100 MCG/2 ML VIAL IV PRN ×4 (00:48→22:18)
[2019-01-05] MEDS: DEXMEDETOMIDINE 200 MCG in IV NORMAL SALINE 50ML 48 ML IV PRN ×2 (00:49→03:54)
[2019-01-05] MEDS: HALOPERIDOL LACTATE 5 MG/ML VIAL. IVP SCH ×3 (05:53→20:23)
[2019-01-05] MEDS: ASPIRIN ENTERIC COATED 325 MG TABLET.DR. PO SCH (08:00)
[2019-01-05] MEDS: MULTIVIT INFUSN,ADULT 4,VIT K 10 ML, THIAMINE INJ 100 MG, FOLIC ACID INJ 1 MG in IV NOR... IV SCH (09:04)
[2019-01-05] MEDS: cefTRIAXone IV Push 1 GM VIAL. IVP SCH (09:04)
[2019-01-05] MEDS: methylPREDNISolone SOD SUCC PF 40 MG/ML VIAL. IV SCH ×2 (09:04→20:23)
[2019-01-05] MEDS: FAMOTIDINE 20 MG/2 ML VIAL IVP SCH ×2 (09:04→20:22)
[2019-01-05] MEDS: ENOXAPARIN 40 MG/0.4 ML SYRINGE. SQ SCH (09:05)
[2019-01-05] MEDS: levETIRAcetam 500 MG in IV DEXTROSE 5% 100ML 100 ML IV SCH ×2 (09:05→20:23)
--- NOTE | 2019-01-05 09:13 | PDOC ---
PULMONARY PROGRESS NOTES Subjective EXTUBATED 01/04 NOW ON N/C Vitals Vital Signs Date Time Temp Pulse Resp B/P (MAP) Pulse Ox O2 Delivery O2 Flow Rate FiO2 01/05/19 06:00 67 36 126/76 (93) 100 BiPAP/CPAP 01/05/19 04:00 98.6 98.6 01/05/19 00:48 15.0 General: Alert Lungs: Clear Cardiovascular: S1, S2 Abdomen: Soft, Non-tender Neuro Exam: Alert Extremities: No Edema Skin: Warm, Dry, No Rashes Impression Labs Laboratory Tests Test 01/04/19 04:30 01/04/19 08:00 01/04/19 11:15 White Blood Count 11.1 x10^3/uL (4.0-11.0) Red Blood Count 4.01 x10^6/uL (3.50-5.40) Hemoglobin 13.2 g/dL (12.0-15.5) Hematocrit 40.6 % (36.0-47.0) Mean Corpuscular Volume 101 fL (79-100) Mean Corpuscular Hemoglobin 33 pg (25-35) Mean Corpuscular Hemoglobin Concent 33 g/dL (31-37) Red Cell Distribution Width 14.0 % (11.5-14.5) Platelet Count 302 x10^3/uL (140-400) Sodium Level 146 mmol/L (136-145) Potassium Level 4.1 mmol/L (3.5-5.1) Chloride Level 105 mmol/L (98-107) Carbon Dioxide Level 33 mmol/L (21-32) Anion Gap 8 (6-14) Blood Urea Nitrogen 15 mg/dL (7-20) Creatinine 0.5 mg/dL (0.6-1.0) Estimated GFR (Cockcroft-Gault) 134.0 BUN/Creatinine Ratio 30 (6-20) Glucose Level 129 mg/dL (70-99) Calcium Level 9.1 mg/dL (8.5-10.1) Total Bilirubin 0.3 mg/dL (0.2-1.0) Aspartate Amino Transf (AST/SGOT) 16 U/L (15-37) Alanine Aminotransferase (ALT/SGPT) 47 U/L (14-59) Alkaline Phosphatase 98 U/L (46-116) Total Protein 6.7 g/dL (6.4-8.2) Albumin 2.7 g/dL (3.4-5.0) Albumin/Globulin Ratio 0.7 (1.0-1.7) O2 Saturation 94 % (92-99) 93 % (92-99) Arterial Blood pH 7.45 (7.35-7.45) 7.45 (7.35-7.45) Arterial Blood pCO2 at Patient Temp 46 mmHg (35-46) 48 mmHg (35-46) Arterial Blood pO2 at Patient Temp 71 mmHg (75-108) 68 mmHg (75-108) Arterial Blood HCO3 31 mmol/L (21-28) 32 mmol/L (21-28) Arterial Blood Base Excess 6 mmol/L (-3-3) 7 mmol/L (-3-3) FiO2 60 60 Laboratory Tests Test 01/04/19 11:15 O2 Saturation 93 % (92-99) Arterial Blood pH 7.45 (7.35-7.45) Arterial Blood pCO2 at Patient Temp 48 mmHg (35-46) Arterial Blood pO2 at Patient Temp 68 mmHg (75-108) Arterial Blood HCO3 32 mmol/L (21-28) Arterial Blood Base Excess 7 mmol/L (-3-3) FiO2 60 Medications Active Scripts Medications Dose Route/Sig Max Daily Dose Days Date Category Potassium Citrate 10 Meq Tablet.er 99 Mg PO DAILY 12/28/18 Reported Sm Natural Balanced B-100 Tab (Vit B Complex 100 Cmb #2/Herbs) 100 Mg Tablet 100 Mg PO DAILY 12/28/18 Reported Vitamin D3 (Cholecalciferol (Vitamin D3)) 1,000 Unit Tablet 1,250 Mg PO DAILY 12/28/18 Reported Proair Hfa Inhaler (Albuterol Sulfate) 8.5 Gm Hfa.aer.ad 1 Puff INH PRN Q6HRS PRN 12/28/18 Reported Gabapentin 300 Mg Capsule 600 Mg PO TID 12/28/18 Reported Symbicort 160-4.5 Mcg Inhaler (Budesonide/Formoterol Fumarate) 10.2 Gm Hfa.aer.ad 2 Puff IH BID 12/28/18 Reported Maxalt (Rizatriptan Benzoate) 10 Mg Tablet 10 Mg PO PRN PRN 12/28/18 Reported Lidocaine 1 Each Adh..patch 1 Each TP PRN DAILY PRN 12/28/18 Reported Topiramate 100 Mg Tablet 1 Tab PO BID 12/28/18 Reported Linzess (Linaclotide) 290 Mcg Capsule 290 Mcg PO DAILY07 12/28/18 Reported Cymbalta (Duloxetine Hcl) 30 Mg Capsule. 1 Cap PO DAILY 12/28/18 Reported Ranitidine Hcl 300 Mg Capsule 1 Cap PO DAILY 12/28/18 Reported Olanzapine 5 Mg Tablet 1 Tab PO QHS 12/28/18 Reported Robaxin (Methocarbamol) 500 Mg Tablet 750 Mg PO TID PRN 06/22/14 Reported Tizanidine Hcl 4 Mg Tablet 4 Mg PO TID PRN 06/22/14 Reported Percocet 10-325 Mg Tablet (Oxycodone/Acetaminophen) 1 Each Tablet 1 Tab PO TID 06/22/14 Reported Active Scripts Medications Dose Route/Sig Max Daily Dose Days Date Category Robaxin (Methocarbamol) 500 Mg Tablet 500 Mg PO Q8HRS PRN 06/22/14 Reported Tizanidine Hcl 4 Mg Tablet 4 Mg PO Q8HRS PRN 06/22/14 Reported Prevacid (Lansoprazole) 30 Mg Capsule. 30 Mg PO DAILY 06/22/14 Reported Percocet 10-325 Mg Tablet (Oxycodone/Acetaminophen) 1 Each Tablet 1 Tab PO Q6HRS 06/22/14 Reported Active Scripts Medications Dose Route/Sig Max Daily Dose Days Date Category Robaxin (Methocarbamol) 500 Mg Tablet 500 Mg PO Q8HRS PRN 06/22/14 Reported Tizanidine Hcl 4 Mg Tablet 4 Mg PO Q8HRS PRN 06/22/14 Reported Prevacid (Lansoprazole) 30 Mg Capsule. 30 Mg PO DAILY 06/22/14 Reported Percocet 10-325 Mg Tablet (Oxycodone/Acetaminophen) 1 Each Tablet 1 Tab PO Q6HRS 06/22/14 Reported Impression . 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 The Ejection Fraction is 55-60%. There is normal LV segmental wall motion. Mild mitral regurgitation. Mild tricuspid regurgitation. The PA pressure was estimated at 30 mmHg. There is no evidence of significant pericardial effusion. Plan . PT /O PRN BIPAP SPEECH BANANA BAG FOLLOW NEURO INPUT NOT SURE OF ETIOLOGY OF RPLS, MAG WAS LOW SEVERAL DAYS AGO REPLACED CONTINUE SUPPORT FOR NOW REVIEWED LABS D/W AND RT CCT 30 MIN CHELLE MELVIN MD Jan 05, 2019 09:13
--- NOTE | 2019-01-05 10:18 | PDOC ---
PROGRESS NOTES Assessment Ingestion of pain pills and alcohol in combination Seizures, provoked, possible prior epilepsy, negative EEG last year, no clinical seizures now PRES Negative echo and carotids Toxic and metabolic encephalopathy, improving Chronic low back pain Migraines, takes topiramate Still combative, needing Precedex and Haldol Plan Continue levetiracetam, plan to switch back to her topiramate when taking orally Aspirin Hold on repeat EEG Continue medical management Subjective Has a mild headache Objective Vital Signs Date Time Temp Pulse Resp B/P (MAP) Pulse Ox O2 Delivery O2 Flow Rate FiO2 01/05/19 06:00 67 36 126/76 (93) 100 BiPAP/CPAP 01/05/19 04:00 98.6 98.6 01/05/19 00:48 15.0 Intake and Output 01/05/19 07:00 Intake Total 1519 ml Output Total 4835 ml Balance -3316 ml IV Total 1104 ml Tube Feeding 415 ml Output Urine Total 4835 ml Gastric Drainage Total 0 ml # Bowel Movements 2 PHYSICAL EXAM Alert. Extubated, answers questions and follows commands, does not know the date, knows that she's in the hospital [facility]. EOMI. CN: no focal findings. Muscle tone: normal. Muscle strength: moves all extremities, hands in mittens DTR: 1+ Plantar reflex: flexor Gait: not examined in bed. Sensory exam: no abnormal findings. Cerebellar: not cooperative Review of Relevant I have reviewed the following items katherine (where applicable) has been applied. Labs Laboratory Tests Test 01/04/19 04:30 01/04/19 08:00 01/04/19 11:15 White Blood Count 11.1 x10^3/uL (4.0-11.0) Red Blood Count 4.01 x10^6/uL (3.50-5.40) Hemoglobin 13.2 g/dL (12.0-15.5) Hematocrit 40.6 % (36.0-47.0) Mean Corpuscular Volume 101 fL (79-100) Mean Corpuscular Hemoglobin 33 pg (25-35) Mean Corpuscular Hemoglobin Concent 33 g/dL (31-37) Red Cell Distribution Width 14.0 % (11.5-14.5) Platelet Count 302 x10^3/uL (140-400) Sodium Level 146 mmol/L (136-145) Potassium Level 4.1 mmol/L (3.5-5.1) Chloride Level 105 mmol/L (98-107) Carbon Dioxide Level 33 mmol/L (21-32) Anion Gap 8 (6-14) Blood Urea Nitrogen 15 mg/dL (7-20) Creatinine 0.5 mg/dL (0.6-1.0) Estimated GFR (Cockcroft-Gault) 134.0 BUN/Creatinine Ratio 30 (6-20) Glucose Level 129 mg/dL (70-99) Calcium Level 9.1 mg/dL (8.5-10.1) Total Bilirubin 0.3 mg/dL (0.2-1.0) Aspartate Amino Transf (AST/SGOT) 16 U/L (15-37) Alanine Aminotransferase (ALT/SGPT) 47 U/L (14-59) Alkaline Phosphatase 98 U/L (46-116) Total Protein 6.7 g/dL (6.4-8.2) Albumin 2.7 g/dL (3.4-5.0) Albumin/Globulin Ratio 0.7 (1.0-1.7) O2 Saturation 94 % (92-99) 93 % (92-99) Arterial Blood pH 7.45 (7.35-7.45) 7.45 (7.35-7.45) Arterial Blood pCO2 at Patient Temp 46 mmHg (35-46) 48 mmHg (35-46) Arterial Blood pO2 at Patient Temp 71 mmHg (75-108) 68 mmHg (75-108) Arterial Blood HCO3 31 mmol/L (21-28) 32 mmol/L (21-28) Arterial Blood Base Excess 6 mmol/L (-3-3) 7 mmol/L (-3-3) FiO2 60 60 Laboratory Tests Test 01/04/19 11:15 O2 Saturation 93 % (92-99) Arterial Blood pH 7.45 (7.35-7.45) Arterial Blood pCO2 at Patient Temp 48 mmHg (35-46) Arterial Blood pO2 at Patient Temp 68 mmHg (75-108) Arterial Blood HCO3 32 mmol/L (21-28) Arterial Blood Base Excess 7 mmol/L (-3-3) FiO2 60 Microbiology 12/27/18 - Final, Complete 12/27/18 - Final, Complete 12/27/18 - Final, Complete 12/27/18 Gram Stain Evaluation - Final, Complete 12/27/18 Sputum Culture - Final, Complete 12/27/18 Sputum Result 1 - Final, Complete Medications Current Medications Sodium Chloride 500 ml @ 500 mls/hr 1X ONCE IV Last administered on 12/27/18at 06:39; Start 12/27/18 at 06:30; Stop 12/27/18 at 07:29; Status DC Multivitamins 10 ml/Thiamine HCl 100 mg/Folic Acid 1 mg/Sodium Chloride 1,011.2 ml @ 125 mls/ hr DAILY IV Last administered on 12/31/18at 09:10; Start 12/27/18 at 09:00; Stop 12/31/18 at 17:06; Status DC Methylprednisolone Sodium Succinate (SOLU-Medrol 40MG VIAL) 40 mg Q8HRS IV Last administered on 12/28/18at 06:01; Start 12/27/18 at 14:00; Stop 12/28/18 at 09:45; Status DC Ceftriaxone Sodium (Rocephin) 1 gm Q24H IVP Last administered on 01/05/19 09:04; Start 12/28/18 at 09:00 Azithromycin 250 mg/Sodium Chloride 250 ml @ 250 mls/hr Q24H IV Last administered on 12/30/18at 09:15; Start 12/28/18 at 09:00; Stop 12/31/18 at 08: 47; Status DC Sodium Chloride 1,000 ml @ 75 mls/hr [id number] IV Last administered on 12/28/18at 16:46; Start 12/27/18 at 11:00; Stop 12/29/18 at 08:51; Status DC Propofol 100 ml @ 1.041 mls/ hr CONT PRN IV SEE I/O RECORD Last administered on 01/04/19 07:01; Start 12/27/18 at 06:45; Stop 01/04/19 at 16:52; Status DC Enoxaparin Sodium (Lovenox 40mg Syringe) 40 mg Q24H SQ Last administered on 01/05/19at 09:05; Start 12/27/18 at 09:00 Famotidine (Pepcid Vial) 20 mg BID IVP Last administered on 01/05/19 09:04; Start 12/27/18 at 09:00 Fentanyl Citrate 30 ml @ 0 mls/hr CONT PRN PRN IV PER PROTOCOL Last administered on 01/03/19 21:16; Start 12/27/18 at 08:15; Stop 01/04/19 at 16:52; Status DC Sodium Chloride 500 ml @ 500 mls/hr 1X ONCE IV Last administered on 12/27/18at 17:08; Start 12/27/18 at 17:30; Stop 12/27/18 at 18:29; Status DC Nystatin (Nystatin Oral Susp) 5 ml Q6HRS SWSW Last administered on 01/04/19at 11:54; Start 12/28/18 at 19:00; Stop 01/04/19 at 16:52; Status DC Acetaminophen (Tylenol) 650 mg PRN Q6HRS PRN PEG MILD PAIN / TEMP; Start 12/27/18 at 19:15 Sodium Chloride 500 ml @ 500 mls/hr 1X ONCE IV Last administered on 12/28/18at 03:21; Start 12/28/18 at 03:15; Stop 12/28/18 at 04:14; Status DC Potassium Chloride (KCl Oral Soln) 40 meq BID PEG Last administered on 12/30/18at 08:03; Start 12/28/18 at 09:00; Stop 12/30/18 at 14:56; Status DC Potassium Chloride (KCl Oral Soln) 40 meq 1X ONCE PEG ; Start 12/28/18 at 09:30; Stop 12/28/18 at 09:31; Status UNV Methylprednisolone Sodium Succinate (SOLU-Medrol 40MG VIAL) 30 mg Q12HR IV Last administered on 01/05/19at 09:04; Start 12/28/18 at 21:00 Potassium Chloride/Dextrose/ Sod Cl 1,000 ml @ 75 mls/hr [id number] IV Last administered on 12/31/18 03:18; Start 12/29/18 at 09:30; Stop 12/31/18 at 08:47; Status DC Dexmedetomidine HCl 200 mcg/ Sodium Chloride 50 ml @ 0 mls/hr CONT PRN IV PER PROTOCOL Last administered on 01/05/19at 03:54; Start 12/29/18 at 09:00 Sodium Chloride 500 ml @ 500 mls/hr 1X PRN PRN IV SEE COMMENTS; Start 12/29/18 at 09:00 Atropine Sulfate (ATROPINE 0.5mg SYRINGE) 0.5 mg PRN Q5MIN PRN IV SEE COMMENTS; Start 12/29/18 at 09:00 Magnesium Sulfate/ Dextrose 100 ml @ 100 mls/hr 1X ONCE IV Last administered on 12/29/18at 10:01; Start 12/29/18 at 09:30; Stop 12/29/18 at 10:29; Status DC Fentanyl Citrate (Fentanyl 2ml Vial) 100 mcg STK-MED ONCE .ROUTE ; Start 12/30/18 at 10:17; Stop 12/30/18 at 10:18; Status DC Haloperidol Lactate (Haldol Inj) 5 mg PRN Q6HRS PRN IVP AGITATION Last administered on 01/04/19 18:18; Start 12/30/18 at 16:30 Lorazepam (Ativan) 2 mg PRN Q2HR PRN IV ANXIETY. Last administered on 01/05/19 03:55; Start 12/31/18 at 20:30 Levetiracetam 500 mg/Dextrose 105 ml @ 420 mls/hr Q12HR IV Last administered on 01/05/19 09:05; Start 12/31/18 at 21:00 Magnesium Sulfate 50 ml @ 25 mls/hr 1X ONCE IV Last administered on 01/01/19 08:26; Start 01/01/19 at 07:45; Stop 01/01/19 at 09:44; Status DC Acetaminophen (Tylenol) 650 mg PRN Q6HRS PRN PO TEMP > 100.4F; Start 01/01/19 at 08:45 Acetaminophen (Tylenol Supp) 650 mg PRN Q4HRS PRN MO TEMP > 100.4F; Start 01/01/19 at 08:45 Aspirin (Ecotrin) 325 mg [id number] PO Last administered on 01/04/19at 08:33; Start 01/01/19 at 09:00 Aspirin (Aspirin) 300 mg PRN DAILY PRN MO IF UNABLE TO TAKE PO Last administered on 01/05/19 09:03; Start 01/01/19 at 08:45 Vecuronium [place] (Norcuron Bolus) 10 mg 1X ONCE IV Last administered on 01/01/19at 11:47; Start 01/01/19 at 11:45; Stop 01/01/19 at 11:46; Status DC Multivitamins 10 ml/Thiamine HCl 100 mg/Folic Acid 1 mg/Sodium Chloride 1,011.2 ml @ 100 mls/ hr DAILY IV Last administered on 01/05/19at 09:04; Start 01/02/19 at 15:30; Stop 01/06/19 at 19:07 Fentanyl Citrate (Fentanyl 2ml Vial) 50 mcg PRN Q3HRS PRN IV PAIN Last administered on 01/05/19at 03:59; Start 01/04/19 at 15:00 Haloperidol Lactate (Haldol Inj) 10 mg Q8HRS IVP Last administered on 01/05/19at 05:53; Start 01/05/19 at 06:00 Haloperidol Lactate (Haldol Inj) 5 mg 1X ONCE IVP Last administered on 01/04/19at 20:45; Start 01/04/19 at 21:00; Stop 01/04/19 at 21:01; Status DC Diphenhydramine HCl (Benadryl) 25 mg PRN Q6HRS PRN IVP EPS symptoms Last administered on 01/04/19at 22:20; Start 01/04/19 at 20:30 Active Scripts Active Reported Potassium Citrate 10 Meq Tablet.er 99 Mg PO DAILY Sm Natural Balanced B-100 Tab (Vit B Complex 100 Cmb #2/Herbs) 100 Mg Tablet 100 Mg PO DAILY Vitamin D3 (Cholecalciferol (Vitamin D3)) 1,000 Unit Tablet 1,250 Mg PO DAILY Proair Hfa Inhaler (Albuterol Sulfate) 8.5 Gm Hfa.aer.ad 1 Puff INH PRN Q6HRS PRN Gabapentin 300 Mg Capsule 600 Mg PO TID Symbicort 160-4.5 Mcg Inhaler (Budesonide/Formoterol Fumarate) 10.2 Gm Hfa.aer.ad 2 Puff IH BID Maxalt (Rizatriptan Benzoate) 10 Mg Tablet 10 Mg PO PRN PRN Lidocaine 1 Each Adh..patch 1 Each TP PRN DAILY PRN Topiramate 100 Mg Tablet 1 Tab PO BID Linzess (Linaclotide) 290 Mcg Capsule 290 Mcg PO DAILY07 Cymbalta (Duloxetine Hcl) 30 Mg Capsule.dr 1 Cap PO DAILY Ranitidine Hcl 300 Mg Capsule 1 Cap PO DAILY Olanzapine 5 Mg Tablet 1 Tab PO QHS Robaxin (Methocarbamol) 500 Mg Tablet 750 Mg PO TID PRN Tizanidine Hcl 4 Mg Tablet 4 Mg PO TID PRN Percocet 10-325 Mg Tablet (Oxycodone/Acetaminophen) 1 Each Tablet 1 Tab PO TID Vitals/I & O Vital Sign - Last 24 Hours 01/04/19 01/04/19 01/04/19 01/04/19 10:30 11:00 11:25 12:00 Pulse 107 Resp 26 B/P (MAP) 128/68 (88) Pulse Ox 94 96 O2 Delivery Ventilator Ventilator Ventilator Mechanical Ventilator 01/04/19 01/04/19 01/04/19 01/04/19 12:00 12:05 13:00 13:00 Temp 99.5 99.5 Pulse 107 110 Resp 23 B/P (MAP) 121/76 (91) 146/86 (106) Pulse Ox 97 97 93 O2 Delivery Ventilator Ventilator Venturi Mask T-Tube O2 Flow Rate 10.0 01/04/19 01/04/19 01/04/19 01/04/19 13:22 14:00 15:00 15:03 Pulse 116 114 Resp B/P (MAP) 135/70 (91) 124/69 (87) Pulse Ox 95 96 97 O2 Delivery Aerosol Mask Venturi Mask Venturi Mask Venturi Mask O2 Flow Rate 10.0 01/04/19 01/04/19 01/04/19 01/04/19 16:00 16:00 17:00 18:00 Temp 98.6 98.6 Pulse 114 104 95 Resp 19 B/P (MAP) 132/73 (92) 140/77 (98) 121/82 (95) Pulse Ox 93 96 99 O2 Delivery Venturi Mask Venturi Mask Venturi Mask Venturi Mask O2 Flow Rate 15.0 01/04/19 01/04/19 01/04/19 01/04/19 19:00 19:18 19:48 20:00 Temp 98.8 98.8 Pulse 123 130 Resp 23 B/P (MAP) 119/57 (77) 138/69 (92) Pulse Ox 94 99 89 O2 Delivery Venturi Mask Venturi Mask Venturi Mask O2 Flow Rate 15.0 15.0 01/04/19 01/04/19 01/04/19 01/04/19 20:00 20:48 21:00 22:00 Pulse 124 115 Resp 33 36 B/P (MAP) 119/71 (87) 122/91 (101) Pulse Ox 94 94 94 O2 Delivery Venturi Mask BiPAP/CPAP Venturi Mask BiPAP/CPAP O2 Flow Rate 15.0 01/04/19 01/04/19 01/04/19 01/04/19 23:00 23:41 23:59 23:59 Temp 97.8 97.8 Pulse 125 94 Resp 21 21 B/P (MAP) 131/100 (110) 109/61 (77) Pulse Ox 97 96 97 O2 Delivery BiPAP/CPAP BiPAP/CPAP BiPAP/CPAP Bi-pap O2 Flow Rate 01/05/19 01/05/19 01/05/19 01/05/19 00:48 01:00 01:40 02:00 Pulse 75 72 Resp 20 21 36 B/P (MAP) 109/61 (77) 116/67 (83) Pulse Ox 97 100 100 98 O2 Delivery Venturi Mask BiPAP/CPAP BiPAP/CPAP BiPAP/CPAP O2 Flow Rate 15.0 01/05/19 01/05/19 01/05/19 01/05/19 03:00 03:30 03:59 04:00 Temp 98.6 98.6 Pulse 72 72 Resp 36 20 36 B/P (MAP) 123/71 (88) 121/67 (85) Pulse Ox 99 100 100 96 O2 Delivery BiPAP/CPAP BiPAP/CPAP BiPAP/CPAP BiPAP/CPAP 01/05/19 01/05/19 01/05/19 01/05/19 04:00 04:29 05:00 06:00 Pulse 62 67 Resp 18 36 36 B/P (MAP) 133/78 (96) 126/76 (93) Pulse Ox 96 99 100 O2 Delivery Bi-pap BiPAP/CPAP BiPAP/CPAP BiPAP/CPAP Intake and Output 01/04/19 01/04/19 01/05/19 15:00 23:00 07:00 Intake Total 520 ml 829 ml 170 ml Output Total 1785 ml 1620 ml 1430 ml Balance -1265 ml -791 ml -1260 ml MAGDI LANGSTON MD Jan 05, 2019 10:18
--- NOTE | 2019-01-05 13:13 | NUR ---
SW following. Pt is not ready for discharge today, has been extubated, and more alert. SW will continue to follow for discharge planning needs.
[2019-01-05] MEDS: diphenhydrAMINE 50 MG/ML VIAL IVP SCH ×2 (14:34→18:02)
[2019-01-05] MEDS: LACTOBACILLUS RHAMNOSUS GG 1 CAPSULE. PO SCH (20:23)
[2019-01-06] VITALS (16 sets, daily range): BP systolic 104–169; BP diastolic 69–105
[2019-01-06] MEDS: diphenhydrAMINE 50 MG/ML VIAL IVP SCH ×4 (00:55→18:31)
[2019-01-06 04:41] LABS: HEMATOCRIT 34.2 % (36.0-47.0); RED BLOOD COUNT 3.38 x10^6/uL (3.50-5.40); RED CELL DISTRIBUTION WIDTH 13.7 % (11.5-14.5); WHITE BLOOD COUNT 18.7 x10^3/uL (4.0-11.0)
[2019-01-06] MEDS: HALOPERIDOL LACTATE 5 MG/ML VIAL. IVP SCH ×3 (05:26→23:14)
[2019-01-06 05:36] LABS: ALBUMIN 3.4 g/dL (3.4-5.0); CALCIUM 9.1 mg/dL (8.5-10.1); CREATININE 0.5 mg/dL (0.6-1.0); POTASSIUM 3.6 mmol/L (3.5-5.1); TOTAL BILIRUBIN 0.5 mg/dL (0.2-1.0); TOTAL PROTEIN 6.7 g/dL (6.4-8.2)
[2019-01-06] MEDS: ASPIRIN ENTERIC COATED 325 MG TABLET.DR. PO SCH (08:00)
[2019-01-06] MEDS: LACTOBACILLUS RHAMNOSUS GG 1 CAPSULE. PO SCH ×2 (08:06→21:32)
[2019-01-06] MEDS: FAMOTIDINE 20 MG/2 ML VIAL IVP SCH ×2 (08:14→23:14)
[2019-01-06] MEDS: cefTRIAXone IV Push 1 GM VIAL. IVP SCH (08:15)
[2019-01-06] MEDS: ENOXAPARIN 40 MG/0.4 ML SYRINGE. SQ SCH (08:15)
[2019-01-06] MEDS: methylPREDNISolone SOD SUCC PF 40 MG/ML VIAL. IV SCH ×2 (08:15→23:13)
[2019-01-06] MEDS: levETIRAcetam 500 MG in IV DEXTROSE 5% 100ML 100 ML IV SCH ×2 (08:22→23:14)
[2019-01-06] MEDS: MULTIVIT INFUSN,ADULT 4,VIT K 10 ML, THIAMINE INJ 100 MG, FOLIC ACID INJ 1 MG in IV NOR... IV SCH (08:26)
[2019-01-06] MEDS: fentaNYL PF VIAL 100 MCG/2 ML VIAL IV PRN (09:24)
--- NOTE | 2019-01-06 10:13 | NUR ---
SS following up with discharge planning. Pt is from home and is currently requiring oxygen. PT/OT ordered. SS will await PT/OT evaluations and recommendations and will proceed accordingly with discharge planning.
--- NOTE | 2019-01-06 10:47 | PDOC ---
PROGRESS NOTES Assessment Ingestion of pain pills and alcohol in combination Seizures, provoked, possible prior epilepsy, negative EEG last year, no clinical seizures now PRES Negative echo and carotids Toxic and metabolic encephalopathy, improving Chronic low back pain Migraines, takes topiramate Still combative, off Precedex though Still NPO Plan Continue levetiracetam, plan to switch back to her topiramate when taking orally Aspirin Hold on repeat EEG Continue medical management D/C saba Transfer to floor Subjective No complaints, denies headache Objective Vital Signs Date Time Temp Pulse Resp B/P (MAP) Pulse Ox O2 Delivery O2 Flow Rate FiO2 01/06/19 09:24 94 Nasal Cannula 2.0 01/06/19 09:00 116 23 151/75 (100) 01/06/19 08:00 99.4 99.4 Intake and Output 01/06/19 06:59 Intake Total 841 ml Output Total 3350 ml Balance -2509 ml IV Total 841 ml Output Urine Total 3350 ml PHYSICAL EXAM Alert. Answers questions and follows commands, does not know the date, knows that she's in the hospital PER[facility]. EOMI. CN: no focal findings. Muscle tone: normal. Muscle strength: moves all extremities, hands in mittens DTR: 1+ Plantar reflex: flexor Gait: not examined in bed. Sensory exam: no abnormal findings. Cerebellar: not cooperative Review of Relevant I have reviewed the following items katherine (where applicable) has been applied. Labs Laboratory Tests Test 01/04/19 11:15 01/06/19 03:10 O2 Saturation 93 % (92-99) Arterial Blood pH 7.45 (7.35-7.45) Arterial Blood pCO2 at Patient Temp 48 mmHg (35-46) Arterial Blood pO2 at Patient Temp 68 mmHg (75-108) Arterial Blood HCO3 32 mmol/L (21-28) Arterial Blood Base Excess 7 mmol/L (-3-3) FiO2 60 White Blood Count 18.7 x10^3/uL (4.0-11.0) Red Blood Count 3.38 x10^6/uL (3.50-5.40) Hemoglobin 11.0 g/dL (12.0-15.5) Hematocrit 34.2 % (36.0-47.0) Mean Corpuscular Volume 101 fL (79-100) Mean Corpuscular Hemoglobin 33 pg (25-35) Mean Corpuscular Hemoglobin Concent 32 g/dL (31-37) Red Cell Distribution Width 13.7 % (11.5-14.5) Platelet Count 335 x10^3/uL (140-400) Sodium Level 144 mmol/L (136-145) Potassium Level 3.6 mmol/L (3.5-5.1) Chloride Level 103 mmol/L (98-107) Carbon Dioxide Level 29 mmol/L (21-32) Anion Gap 12 (6-14) Blood Urea Nitrogen 14 mg/dL (7-20) Creatinine 0.5 mg/dL (0.6-1.0) Estimated GFR (Cockcroft-Gault) 134.0 BUN/Creatinine Ratio 28 (6-20) Glucose Level 120 mg/dL (70-99) Calcium Level 9.1 mg/dL (8.5-10.1) Total Bilirubin 0.5 mg/dL (0.2-1.0) Aspartate Amino Transf (AST/SGOT) 31 U/L (15-37) Alanine Aminotransferase (ALT/SGPT) 48 U/L (14-59) Alkaline Phosphatase 97 U/L (46-116) Total Protein 6.7 g/dL (6.4-8.2) Albumin 3.4 g/dL (3.4-5.0) Albumin/Globulin Ratio 1.0 (1.0-1.7) Laboratory Tests Test 01/06/19 03:10 White Blood Count 18.7 x10^3/uL (4.0-11.0) Red Blood Count 3.38 x10^6/uL (3.50-5.40) Hemoglobin 11.0 g/dL (12.0-15.5) Hematocrit 34.2 % (36.0-47.0) Mean Corpuscular Volume 101 fL (79-100) Mean Corpuscular Hemoglobin 33 pg (25-35) Mean Corpuscular Hemoglobin Concent 32 g/dL (31-37) Red Cell Distribution Width 13.7 % (11.5-14.5) Platelet Count 335 x10^3/uL (140-400) Sodium Level 144 mmol/L (136-145) Potassium Level 3.6 mmol/L (3.5-5.1) Chloride Level 103 mmol/L (98-107) Carbon Dioxide Level 29 mmol/L (21-32) Anion Gap 12 (6-14) Blood Urea Nitrogen 14 mg/dL (7-20) Creatinine 0.5 mg/dL (0.6-1.0) Estimated GFR (Cockcroft-Gault) 134.0 BUN/Creatinine Ratio 28 (6-20) Glucose Level 120 mg/dL (70-99) Calcium Level 9.1 mg/dL (8.5-10.1) Total Bilirubin 0.5 mg/dL (0.2-1.0) Aspartate Amino Transf (AST/SGOT) 31 U/L (15-37) Alanine Aminotransferase (ALT/SGPT) 48 U/L (14-59) Alkaline Phosphatase 97 U/L (46-116) Total Protein 6.7 g/dL (6.4-8.2) Albumin 3.4 g/dL (3.4-5.0) Albumin/Globulin Ratio 1.0 (1.0-1.7) Microbiology 12/27/18 - Final, Complete 12/27/18 - Final, Complete 12/27/18 - Final, Complete 12/27/18 Gram Stain Evaluation - Final, Complete 12/27/18 Sputum Culture - Final, Complete 12/27/18 Sputum Result 1 - Final, Complete Medications Current Medications Sodium Chloride 500 ml @ 500 mls/hr 1X ONCE IV Last administered on 12/27/18at 06:39; Start 12/27/18 at 06:30; Stop 12/27/18 at 07:29; Status DC Multivitamins 10 ml/Thiamine HCl 100 mg/Folic Acid 1 mg/Sodium Chloride 1,011.2 ml @ 125 mls/ hr DAILY IV Last administered on 12/31/18at 09:10; Start 12/27/18 at 09:00; Stop 12/31/18 at 17:06; Status DC Methylprednisolone Sodium Succinate (SOLU-Medrol 40MG VIAL) 40 mg Q8HRS IV Last administered on 12/28/18at 06:01; Start 12/27/18 at 14:00; Stop 12/28/18 at 09:45; Status DC Ceftriaxone Sodium (Rocephin) 1 gm Q24H IVP Last administered on 01/06/19at 08:15; Start 12/28/18 at 09:00 Azithromycin 250 mg/Sodium Chloride 250 ml @ 250 mls/hr Q24H IV Last administered on 12/30/18 09:15; Start 12/28/18 at 09:00; Stop 12/31/18 at 08:47; Status DC Sodium Chloride 1,000 ml @ 75 mls/hr [id number] IV Last administered on 12/28/18 16:46; Start 12/27/18 at 11:00; Stop 12/29/18 at 08:51; Status DC Propofol 100 ml @ 1.041 mls/ hr CONT PRN IV SEE I/O RECORD Last administered on 01/04/19 07:01; Start 12/27/18 at 06:45; Stop 01/04/19 at 16:52; Status DC Enoxaparin Sodium (Lovenox 40mg Syringe) 40 mg Q24H SQ Last administered on 01/06/19 08:15; Start 12/27/18 at 09:00 Famotidine (Pepcid Vial) 20 mg BID IVP Last administered on 01/06/19 08:14; Start 12/27/18 at 09:00 Fentanyl Citrate 30 ml @ 0 mls/hr CONT PRN PRN IV PER PROTOCOL Last administered on 01/03/19 21:16; Start 12/27/18 at 08:15; Stop 01/04/19 at 16:52; Status DC Sodium Chloride 500 ml @ 500 mls/hr 1X ONCE IV Last administered on 12/27/18 17:08; Start 12/27/18 at 17:30; Stop 12/27/18 at 18:29; Status DC Nystatin (Nystatin Oral Susp) 5 ml Q6HRS SWSW Last administered on 01/04/19at 11:54; Start 12/28/18 at 19:00; Stop 01/04/19 at 16:52; Status DC Acetaminophen (Tylenol) 650 mg PRN Q6HRS PRN PEG MILD PAIN / TEMP; Start 12/27/18 at 19:15 Sodium Chloride 500 ml @ 500 mls/hr 1X ONCE IV Last administered on 12/28/18 03:21; Start 12/28/18 at 03:15; Stop 12/28/18 at 04:14; Status DC Potassium Chloride (KCl Oral Soln) 40 meq BID PEG Last administered on 12/30/18 08:03; Start 12/28/18 at 09:00; Stop 12/30/18 at 14:56; Status DC Potassium Chloride (KCl Oral Soln) 40 meq 1X ONCE PEG ; Start 12/28/18 at 09:30; Stop 12/28/18 at 09:31; Status UNV Methylprednisolone Sodium Succinate (SOLU-Medrol 40MG VIAL) 30 mg Q12HR IV Last administered on 01/06/19 08:15; Start 12/28/18 at 21:00 Potassium Chloride/Dextrose/ Sod Cl 1,000 ml @ 75 mls/hr [id number] IV Last administered on 12/31/18 03:18; Start 12/29/18 at 09:30; Stop 12/31/18 at 08:47; Status DC Dexmedetomidine HCl 200 mcg/ Sodium Chloride 50 ml @ 0 mls/hr CONT PRN IV PER PROTOCOL Last administered on 01/05/19 03:54; Start 12/29/18 at 09:00 Sodium Chloride 500 ml @ 500 mls/hr 1X PRN PRN IV SEE COMMENTS; Start 12/29/18 at 09:00 Atropine Sulfate (ATROPINE 0.5mg SYRINGE) 0.5 mg PRN Q5MIN PRN IV SEE COMMENTS; Start 12/29/18 at 09:00 Magnesium Sulfate/ Dextrose 100 ml @ 100 mls/hr 1X ONCE IV Last administered on 12/29/18at 10:01; Start 12/29/18 at 09:30; Stop 12/29/18 at 10:29; Status DC Fentanyl Citrate (Fentanyl 2ml Vial) 100 mcg STK-MED ONCE .ROUTE ; Start 12/30/18 at 10:17; Stop 12/30/18 at 10:18; Status DC Haloperidol Lactate (Haldol Inj) 5 mg PRN Q6HRS PRN IVP AGITATION Last administered on 01/04/19 18:18; Start 12/30/18 at 16:30 Lorazepam (Ativan) 2 mg PRN Q2HR PRN IV ANXIETY. Last administered on 01/05/19 22:18; Start 12/31/18 at 20:30 Levetiracetam 500 mg/Dextrose 105 ml @ 420 mls/hr Q12HR IV Last administered on 01/06/19 08:22; Start 12/31/18 at 21:00 Magnesium Sulfate 50 ml @ 25 mls/hr 1X ONCE IV Last administered on 01/01/19 08:26; Start 01/01/19 at 07:45; Stop 01/01/19 at 09:44; Status DC Acetaminophen (Tylenol) 650 mg PRN Q6HRS PRN PO TEMP > 100.4F; Start 01/01/19 at 08:45 Acetaminophen (Tylenol Supp) 650 mg PRN Q4HRS PRN RI TEMP > 100.4F; Start 01/01/19 at 08:45 Aspirin (Ecotrin) 325 mg [id number] PO Last administered on 01/04/19 08:33; Start 01/01/19 at 09:00 Aspirin (Aspirin) 300 mg PRN DAILY PRN RI IF UNABLE TO TAKE PO Last administered on 01/05/19 09:03; Start 01/01/19 at 08:45 Vecuronium [place] (Norcuron Bolus) 10 mg 1X ONCE IV Last administered on 01/01/19 11:47; Start 01/01/19 at 11:45; Stop 01/01/19 at 11:46; Status DC Multivitamins 10 ml/Thiamine HCl 100 mg/Folic Acid 1 mg/Sodium Chloride 1,011.2 ml @ 100 mls/ hr DAILY IV Last administered on 01/06/19 08:26; Start 01/02/19 at 15:30; Stop 01/06/19 at 19:07 Fentanyl Citrate (Fentanyl 2ml Vial) 50 mcg PRN Q3HRS PRN IV PAIN Last administered on 01/06/19 09:24; Start 01/04/19 at 15:00 Haloperidol Lactate (Haldol Inj) 10 mg Q8HRS IVP Last administered on 01/06/19 05:26; Start 01/05/19 at 06:00 Haloperidol Lactate (Haldol Inj) 5 mg 1X ONCE IVP Last administered on 01/04/19at 20:45; Start 01/04/19 at 21:00; Stop 01/04/19 at 21:01; Status DC Diphenhydramine HCl (Benadryl) 25 mg PRN Q6HRS PRN IVP EPS symptoms Last administered on 01/04/19at 22:20; Start 01/04/19 at 20:30; Stop 01/05/19 at 14:09; Status DC Diphenhydramine HCl (Benadryl) 25 mg Q6HRS IVP Last administered on 01/06/19at 05:26; Start 01/05/19 at 14:30 Lactobacillus Rhamnosus (Culturelle) 1 cap BID PO ; Start 01/05/19 at 21:00 Active Scripts Active Reported Potassium Citrate 10 Meq Tablet.er 99 Mg PO DAILY Sm Natural Balanced B-100 Tab (Vit B Complex 100 Cmb #2/Herbs) 100 Mg Tablet 100 Mg PO DAILY Vitamin D3 (Cholecalciferol (Vitamin D3)) 1,000 Unit Tablet 1,250 Mg PO DAILY Proair Hfa Inhaler (Albuterol Sulfate) 8.5 Gm Hfa.aer.ad 1 Puff INH PRN Q6HRS PRN Gabapentin 300 Mg Capsule 600 Mg PO TID Symbicort 160-4.5 Mcg Inhaler (Budesonide/Formoterol Fumarate) 10.2 Gm Hfa.aer.ad 2 Puff IH BID Maxalt (Rizatriptan Benzoate) 10 Mg Tablet 10 Mg PO PRN PRN Lidocaine 1 Each Adh..patch 1 Each TP PRN DAILY PRN Topiramate 100 Mg Tablet 1 Tab PO BID Linzess (Linaclotide) 290 Mcg Capsule 290 Mcg PO DAILY07 Cymbalta (Duloxetine Hcl) 30 Mg Capsule.dr 1 Cap PO DAILY Ranitidine Hcl 300 Mg Capsule 1 Cap PO DAILY Olanzapine 5 Mg Tablet 1 Tab PO QHS Robaxin (Methocarbamol) 500 Mg Tablet 750 Mg PO TID PRN Tizanidine Hcl 4 Mg Tablet 4 Mg PO TID PRN Percocet 10-325 Mg Tablet (Oxycodone/Acetaminophen) 1 Each Tablet 1 Tab PO TID Vitals/I & O Vital Sign - Last 24 Hours 01/05/19 01/05/19 01/05/19 01/05/19 11:00 12:00 12:00 12:00 Temp 98.7 98.7 Pulse 102 130 Resp 23 26 B/P (MAP) 143/79 (100) 137/68 (91) Pulse Ox 98 95 O2 Delivery Nasal Cannula Nasal Cannula Nasal Cannula O2 Flow Rate 3.0 2.0 2.0 2.0 01/05/19 01/05/19 01/05/19 01/05/19 12:19 13:00 14:00 15:00 Pulse 132 130 140 Resp 24 31 B/P (MAP) 114/71 (85) 131/78 (95) 127/76 (93) Pulse Ox 94 95 96 96 O2 Delivery Nasal Cannula Nasal Cannula Nasal Cannula Nasal Cannula O2 Flow Rate 2.0 2.0 2.0 2.0 01/05/19 01/05/19 01/05/19 01/05/19 16:00 16:00 16:00 17:00 Temp 98.6 98.6 Pulse 123 127 Resp 13 B/P (MAP) 126/59 (81) 137/76 (96) Pulse Ox 97 96 O2 Delivery Nasal Cannula Nasal Cannula Nasal Cannula O2 Flow Rate 2.0 2.0 2.0 2.0 01/05/19 01/05/19 01/05/19 01/05/19 18:00 19:00 20:00 20:00 Temp 98.3 98.3 Pulse 125 126 123 Resp B/P (MAP) 133/87 (102) 121/62 (81) 149/73 (98) Pulse Ox 94 96 96 O2 Delivery Nasal Cannula Nasal Cannula Nasal Cannula O2 Flow Rate 2.0 2.0 2.0 2.0 01/05/19 01/05/19 01/05/19 01/05/19 20:00 21:00 22:00 22:18 Pulse 131 131 Resp 20 B/P (MAP) 133/74 (93) 130/70 (90) Pulse Ox 97 97 97 O2 Delivery Nasal Cannula Nasal Cannula Nasal Cannula Nasal Cannula O2 Flow Rate 2.0 2.0 2.0 2.0 01/05/19 01/05/19 01/05/19 01/05/19 22:48 23:00 23:40 23:59 Pulse 109 Resp B/P (MAP) 149/70 (96) Pulse Ox 97 100 98 O2 Delivery Nasal Cannula Nasal Cannula BiPAP/CPAP Nasal Cannula O2 Flow Rate 2.0 2.0 2.0 01/05/19 01/06/19 01/06/19 01/06/19 23:59 00:56 01:00 02:00 Temp 98.4 98.4 Pulse 132 109 119 Resp 28 B/P (MAP) 129/92 (104) 129/92 (104) 153/74 (100) Pulse Ox 100 95 96 O2 Delivery Nasal Cannula Nasal Cannula Nasal Cannula O2 Flow Rate 2.0 2.0 2.0 2.0 01/06/19 01/06/19 01/06/19 01/06/19 03:00 04:00 04:00 04:00 Temp 98.0 98.0 Pulse 117 114 Resp B/P (MAP) 167/95 (119) 169/86 (113) Pulse Ox 96 96 O2 Delivery Nasal Cannula Nasal Cannula Nasal Cannula O2 Flow Rate 2.0 2.0 2.0 2.0 01/06/19 01/06/19 01/06/19 01/06/19 05:00 06:00 07:00 08:00 Pulse 130 125 104 Resp B/P (MAP) 153/105 (121) 108/69 (82) 104/93 (97) Pulse Ox 92 94 93 O2 Delivery Nasal Cannula Nasal Cannula Nasal Cannula Nasal Cannula O2 Flow Rate 2.0 2.0 2.0 2.0 01/06/19 01/06/19 01/06/19 08:00 09:00 09:24 Temp 99.4 99.4 Pulse 109 116 Resp B/P (MAP) 142/71 (94) 151/75 (100) Pulse Ox 96 94 94 O2 Delivery Nasal Cannula Nasal Cannula Nasal Cannula O2 Flow Rate 2.0 2.0 Intake and Output 01/05/19 01/05/19 01/06/19 14:59 22:59 06:59 Intake Total 841 ml Output Total 1240 ml 1210 ml 900 ml Balance -1240 ml -369 ml -900 ml MAGDI LANGSTON MD January 06, 2019 10:47
[2019-01-06] MEDS ORDERED: BARIUM SULFATE 40% (APPLE) 148 GM PWD. PO ONE (12:15)
--- NOTE | 2019-01-06 13:23 | RAD ---
Video dysphasia study, 01/06/2019: History: Dysphasia The swallowing mechanism was examined fluoroscopically in the lateral projection with the patient ingested a variety of food materials mixed with barium. 1.8 minutes of fluoroscopy time was utilized. One video fluoroscopic loop was recorded by a member of the speech Department. When ingesting the thin liquids there was one episode of laryngeal penetration with minimal lata aspiration. This did not elicit a cough reflex. When the nectar consistency and honey thickened liquids were utilized the laryngeal penetration abated. No further aspiration occurred. The patient ingested the pudding consistency material and the barium coated solids without difficulty. There was very little vallecular or pyriform sinus residue. IMPRESSION: Minimal intermittent aspiration of the thin liquid material which abated when the thicker materials were utilized.
--- NOTE | 2019-01-06 14:00 | NUR ---
Have received patient to room 532. Patient to bed, rails up. No visitors with patient at this time.
--- NOTE | 2019-01-06 14:35 | NUR ---
has called to check on patient, call also transfered to patient room, pt given phone, was able to speak with him.
--- NOTE | 2019-01-06 14:53 | PDOC ---
PULMONARY PROGRESS NOTES Subjective EXTUBATED 01/04 NOW ON N/C Vitals Vital Signs Date Time Temp Pulse Resp B/P (MAP) Pulse Ox O2 Delivery O2 Flow Rate FiO2 01/06/19 13:55 99.0 113 18 136/87 (103) 96 Nasal Cannula 2.0 99.0 General: Alert Lungs: Clear Cardiovascular: S1, S2 Abdomen: Soft, Non-tender Neuro Exam: Alert Extremities: No Edema Skin: Warm, Dry, No Rashes Impression Labs Laboratory Tests Test 01/06/19 03:10 White Blood Count 18.7 x10^3/uL (4.0-11.0) Red Blood Count 3.38 x10^6/uL (3.50-5.40) Hemoglobin 11.0 g/dL (12.0-15.5) Hematocrit 34.2 % (36.0-47.0) Mean Corpuscular Volume 101 fL (79-100) Mean Corpuscular Hemoglobin 33 pg (25-35) Mean Corpuscular Hemoglobin Concent 32 g/dL (31-37) Red Cell Distribution Width 13.7 % (11.5-14.5) Platelet Count 335 x10^3/uL (140-400) Sodium Level 144 mmol/L (136-145) Potassium Level 3.6 mmol/L (3.5-5.1) Chloride Level 103 mmol/L (98-107) Carbon Dioxide Level 29 mmol/L (21-32) Anion Gap 12 (6-14) Blood Urea Nitrogen 14 mg/dL (7-20) Creatinine 0.5 mg/dL (0.6-1.0) Estimated GFR (Cockcroft-Gault) 134.0 BUN/Creatinine Ratio 28 (6-20) Glucose Level 120 mg/dL (70-99) Calcium Level 9.1 mg/dL (8.5-10.1) Total Bilirubin 0.5 mg/dL (0.2-1.0) Aspartate Amino Transf (AST/SGOT) 31 U/L (15-37) Alanine Aminotransferase (ALT/SGPT) 48 U/L (14-59) Alkaline Phosphatase 97 U/L (46-116) Total Protein 6.7 g/dL (6.4-8.2) Albumin 3.4 g/dL (3.4-5.0) Albumin/Globulin Ratio 1.0 (1.0-1.7) Laboratory Tests Test 01/06/19 03:10 White Blood Count 18.7 x10^3/uL (4.0-11.0) Red Blood Count 3.38 x10^6/uL (3.50-5.40) Hemoglobin 11.0 g/dL (12.0-15.5) Hematocrit 34.2 % (36.0-47.0) Mean Corpuscular Volume 101 fL (79-100) Mean Corpuscular Hemoglobin 33 pg (25-35) Mean Corpuscular Hemoglobin Concent 32 g/dL (31-37) Red Cell Distribution Width 13.7 % (11.5-14.5) Platelet Count 335 x10^3/uL (140-400) Sodium Level 144 mmol/L (136-145) Potassium Level 3.6 mmol/L (3.5-5.1) Chloride Level 103 mmol/L (98-107) Carbon Dioxide Level 29 mmol/L (21-32) Anion Gap 12 (6-14) Blood Urea Nitrogen 14 mg/dL (7-20) Creatinine 0.5 mg/dL (0.6-1.0) Estimated GFR (Cockcroft-Gault) 134.0 BUN/Creatinine Ratio 28 (6-20) Glucose Level 120 mg/dL (70-99) Calcium Level 9.1 mg/dL (8.5-10.1) Total Bilirubin 0.5 mg/dL (0.2-1.0) Aspartate Amino Transf (AST/SGOT) 31 U/L (15-37) Alanine Aminotransferase (ALT/SGPT) 48 U/L (14-59) Alkaline Phosphatase 97 U/L (46-116) Total Protein 6.7 g/dL (6.4-8.2) Albumin 3.4 g/dL (3.4-5.0) Albumin/Globulin Ratio 1.0 (1.0-1.7) Medications Active Scripts Medications Dose Route/Sig Max Daily Dose Days Date Category Potassium Citrate 10 Meq Tablet.er 99 Mg PO DAILY 12/28/18 Reported Sm Natural Balanced B-100 Tab (Vit B Complex 100 Cmb #2/Herbs) 100 Mg Tablet 100 Mg PO DAILY 12/28/18 Reported Vitamin D3 (Cholecalciferol (Vitamin D3)) 1,000 Unit Tablet 1,250 Mg PO DAILY 12/28/18 Reported Proair Hfa Inhaler (Albuterol Sulfate) 8.5 Gm Hfa.aer.ad 1 Puff INH PRN Q6HRS PRN 12/28/18 Reported Gabapentin 300 Mg Capsule 600 Mg PO TID 12/28/18 Reported Symbicort 160-4.5 Mcg Inhaler (Budesonide/Formoterol Fumarate) 10.2 Gm Hfa.aer.ad 2 Puff IH BID 12/28/18 Reported Maxalt (Rizatriptan Benzoate) 10 Mg Tablet 10 Mg PO PRN PRN 12/28/18 Reported Lidocaine 1 Each Adh..patch 1 Each TP PRN DAILY PRN 12/28/18 Reported Topiramate 100 Mg Tablet 1 Tab PO BID 12/28/18 Reported Linzess (Linaclotide) 290 Mcg Capsule 290 Mcg PO DAILY07 12/28/18 Reported Cymbalta (Duloxetine Hcl) 30 Mg Capsule. 1 Cap PO DAILY 12/28/18 Reported Ranitidine Hcl 300 Mg Capsule 1 Cap PO DAILY 12/28/18 Reported Olanzapine 5 Mg Tablet 1 Tab PO QHS 12/28/18 Reported Robaxin (Methocarbamol) 500 Mg Tablet 750 Mg PO TID PRN 06/22/14 Reported Tizanidine Hcl 4 Mg Tablet 4 Mg PO TID PRN 06/22/14 Reported Percocet 10-325 Mg Tablet (Oxycodone/Acetaminophen) 1 Each Tablet 1 Tab PO TID 06/22/14 Reported Active Scripts Medications Dose Route/Sig Max Daily Dose Days Date Category Robaxin (Methocarbamol) 500 Mg Tablet 500 Mg PO Q8HRS PRN 06/22/14 Reported Tizanidine Hcl 4 Mg Tablet 4 Mg PO Q8HRS PRN 06/22/14 Reported Prevacid (Lansoprazole) 30 Mg Capsule.dr 30 Mg PO DAILY 06/22/14 Reported Percocet 10-325 Mg Tablet (Oxycodone/Acetaminophen) 1 Each Tablet 1 Tab PO Q6HRS 06/22/14 Reported Active Scripts Medications Dose Route/Sig Max Daily Dose Days Date Category Robaxin (Methocarbamol) 500 Mg Tablet 500 Mg PO Q8HRS PRN 06/22/14 Reported Tizanidine Hcl 4 Mg Tablet 4 Mg PO Q8HRS PRN 06/22/14 Reported Prevacid (Lansoprazole) 30 Mg Capsule.dr 30 Mg PO DAILY 06/22/14 Reported Percocet 10-325 Mg Tablet (Oxycodone/Acetaminophen) 1 Each Tablet 1 Tab PO Q6HRS 06/22/14 Reported Impression . 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 The Ejection Fraction is 55-60%. There is normal LV segmental wall motion. Mild mitral regurgitation. Mild tricuspid regurgitation. The PA pressure was estimated at 30 mmHg. There is no evidence of significant pericardial effusion. Plan . TRANSFER PT/OT PRN BIPAP SPEECH VIDEO TODAY BANANA BAG FOLLOW NEURO INPUT NOT SURE OF ETIOLOGY OF RPLS, MAG WAS LOW SEVERAL DAYS AGO REPLACED CONTINUE SUPPORT FOR NOW REVIEWED LABS D/W CHELLE COOK MD January 06, 2019 14:53
--- NOTE | 2019-01-06 15:32 | PN ---
DATE: 01/05/2019 SUBJECTIVE: The patient is resting slightly propped up in bed, somewhat restless. She was successfully extubated yesterday and she did very well up until around 6:00 in the evening when her left and she became very restless, agitated. She is still on Precedex and Haldol. She is on BiPAP machine, maintaining her oxygen saturation 100%. PHYSICAL EXAMINATION: GENERAL: When I examined her, she was pale, but no jaundice, cyanosis, or thyromegaly. No jugular venous distension. No lower limb edema. VITAL SIGNS: Her heart rate was 67, blood pressure 126/76, temperature was 98.6, respiratory rate was 36 and oxygen saturation was 100%. HEAD, EYES, EARS, NOSE AND THROAT: Normocephalic, atraumatic. NECK: Supple. HEART: Showed normal first and second heart sounds. No gallop, rub or murmur. CHEST: Clear to auscultation. No crepitation or rhonchi. ABDOMEN: Distended, soft, nontender. NEUROLOGIC: She is sleepy, but arousable. All her cranial nerves intact. She moves extremities without difficulty. Her intake over the last 24 hours was 4000, output was 2775. LABORATORY DATA: No lab work was done this morning. ASSESSMENT: 1. 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 2. Acute hypoxic hypercapnic respiratory failure. The patient was successfully extubated yesterday. 3. She has multiple other medical problems including: a. Chronic back pain. b. Chronic obstructive pulmonary disease. c. Seizure disorder. d. Essential tremors. 4. The patient has had breakthrough seizure for which she is now on Keppra and continue to monitor her oxygen. Continue with BiPAP machine and oxygen by nasal cannula. Continue with Keppra, continue IV ceftriaxone. We will consult speech therapist for swallowing evaluation as well as physical and occupational therapy. TEODORO THAPA MD DR: MARY JANE/dyana JOB#: [id number] / [id number]
--- NOTE | 2019-01-06 15:57 | NUR ---
Therapy has worked with patient, patient now up in chair with call light and phone in lap. Banana bag has been resumed. Patient appears to be in good spirits. Personal alarm in place.
[2019-01-07] MEDS: diphenhydrAMINE 50 MG/ML VIAL IVP SCH ×4 (00:13→17:46)
--- NOTE | 2019-01-07 00:42 | PN ---
DATE: 01/06/2019 SUBJECTIVE: The patient is resting, slightly propped up in bed, no apparent distress. She was successfully extubated. She is now on 2 liters of oxygen by nasal cannula, maintaining her oxygen saturation at 94%. Awake, alert, complaining of being thirsty. She is scheduled for video swallowing evaluation. Nursing staff did not voice any concern and stated that she had an uneventful night. PHYSICAL EXAMINATION: GENERAL: When I examined her, she looked pale, no jaundice, cyanosis, or thyromegaly. No jugular venous distension. No lower limb edema. VITAL SIGNS: Her heart rate was 107, blood pressure was 153/81, temperature was 99.4, respiratory rate was 19 and oxygen saturation was 99% on 2 liters of oxygen by nasal cannula. HEAD, EYES, EARS, NOSE AND THROAT: Showed normocephalic, atraumatic. NECK: Supple. HEART: Showed normal first and second heart sounds. No gallop, rub or murmur. CHEST: Clear to auscultation. No crepitation or rhonchi. ABDOMEN: Distended, soft, nontender. NEUROLOGIC: She is definitely more awake, alert, responding appropriately. All cranial nerves intact. She moves extremities without difficulty. Her intake over the last 24 hours was 1500, output was 4985. LABORATORY DATA: As of this morning, her white cell count is up to 18,700, hemoglobin 11, hematocrit 34, MCV 101 and platelet count 335,000. Her chemistry; however, showed a serum sodium 144, potassium 3.6, chloride 103, bicarbonate 29, anion gap of 12, BUN 14, creatinine 0.5, estimated GFR was 134 mL per minute. Her glucose was 120, calcium was 9.1. Total bilirubin, AST, ALT, alkaline phosphatase were normal. Her total protein was 6.7, albumin was 3.4. ASSESSMENT: 1. Altered mental status, felt initially to be due to overdose of her chronic pain medication as well as alcohol; however, MRI showed that she has reversible posterior cerebral encephalopathy. The patient is much improved. She is awake, alert, responding appropriately. 2. Acute hypoxic, hypercapnic, respiratory failure. The patient was successfully extubated, maintaining her oxygen saturations at 94% on 2 liters of oxygen by nasal cannula. 3. She has multiple other medical problems including: a. Chronic back pain. b. Chronic obstructive pulmonary disease. c. Seizure disorder. d. Essential tremors. 4. She did have a breakthrough seizure for which she is now on Keppra. PLAN: To continue with oxygen supplementation. The patient is scheduled for video swallowing evaluation. Continue with ceftriaxone and steroids. We will consult Physical and Occupational therapy and the patient can be transferred to a monitored bed if need be. TEODORO THAPA MD DR: MARY JANE/dyana JOB#: [id number] / [id number]
[2019-01-07 03:00] VITALS: BP 157/85
--- NOTE | 2019-01-07 05:28 | NUR ---
At 0400, fashion design professor found patient on floor reported she was lying on her back. Staff already present in room when this nurse returned from lunch. Patient on floor covered in loose yellow BM. Provided cares, change gown and linen. Assessment and vital signs completed. Patient noted to have an abrasion and bruising on her left elbow. Cleaned abrasion with saline and chlorhexidine swab then covered with foam. Notified melt house supervisor, Dr. Kc and patient's .
[2019-01-07] MEDS: HALOPERIDOL LACTATE 5 MG/ML VIAL. IVP SCH ×3 (06:14→22:34)
[2019-01-07 07:00] VITALS: BP 171/75
[2019-01-07 07:55] LABS: CREATININE 0.5 mg/dL (0.6-1.0); POTASSIUM 3.1 mmol/L (3.5-5.1)
[2019-01-07 07:58] LABS: HEMATOCRIT 34.3 % (36.0-47.0); HEMOGLOBIN 11.5 g/dL (12.0-15.5); RED BLOOD COUNT 3.39 x10^6/uL (3.50-5.40); RED CELL DISTRIBUTION WIDTH 13.4 % (11.5-14.5); WHITE BLOOD COUNT 15.3 x10^3/uL (4.0-11.0)
[2019-01-07] MEDS: ENOXAPARIN 40 MG/0.4 ML SYRINGE. SQ SCH (08:40)
[2019-01-07] MEDS: cefTRIAXone IV Push 1 GM VIAL. IVP SCH (08:40)
[2019-01-07] MEDS: FAMOTIDINE 20 MG/2 ML VIAL IVP SCH ×2 (08:41→20:32)
[2019-01-07] MEDS: methylPREDNISolone SOD SUCC PF 40 MG/ML VIAL. IV SCH (08:41)
[2019-01-07] MEDS: levETIRAcetam 500 MG in IV DEXTROSE 5% 100ML 100 ML IV SCH (08:42)
[2019-01-07] MEDS: ASPIRIN ENTERIC COATED 325 MG TABLET.DR. PO SCH (08:42)
[2019-01-07] MEDS: LACTOBACILLUS RHAMNOSUS GG 1 CAPSULE. PO SCH ×2 (09:00→20:32)
[2019-01-07 11:10] VITALS: BP 163/93
[2019-01-07] MEDS: fentaNYL PF VIAL 100 MCG/2 ML VIAL IV PRN ×3 (12:48→19:33)
[2019-01-07] MEDS: POTASSIUM CL 40MEQ D5-0.45NACL 1,000 ML IV SCH (12:49)
--- NOTE | 2019-01-07 14:11 | RAD ---
Portable chest, 01/07/2019: HISTORY: Shortness of breath Comparison is made to a study from 01/01/2019. The ET tube and NG tube have been removed. The heart size is normal. No pulmonary consolidation is seen. There is minimal linear atelectasis in the right base laterally. No pleural fluid is evident. IMPRESSION: Minimal right basilar linear atelectasis. Electronically signed by: Devin Gomez MD (01/07/2019 2:08 PM) [facility]
--- NOTE | 2019-01-07 14:16 | PDOC ---
PROGRESS NOTES Assessment Ingestion of pain pills and alcohol in combination Seizures, provoked, possible prior epilepsy, negative EEG last year, no clinical seizures now PRES Negative echo and carotids Toxic and metabolic encephalopathy, improving Chronic low back pain Migraines, takes topiramate Not combative, off Precedex Taking diet Plan Discontinue levetiracetam,switch back to her topiramate 100 mg twice a day Aspirin Hold on repeat EEG Continue medical management Resume home psychotropic medications per PCP Subjective Denies pain, no complaints Objective Vital Signs Date Time Temp Pulse Resp B/P (MAP) Pulse Ox O2 Delivery O2 Flow Rate FiO2 01/07/19 11:10 99.1 82 18 163/93 (116) 90 Room Air 99.1 01/07/19 08:00 2.0 Intake and Output 01/07/19 07:00 Intake Total 1596.2 ml Output Total 560 ml Balance 1036.2 ml Intake Oral 480 ml IV Total 1116.2 ml Output Urine Total 560 ml # Bowel Movements 2 PHYSICAL EXAM Alert. Answers questions and follows commands, does not know the date, knows that she's in the hospital [facility]. EOMI. CN: no focal findings. Muscle tone: normal. Muscle strength: moves all extremities, hands in mittens DTR: 1+ Plantar reflex: flexor Gait: not examined in bed. Sensory exam: no abnormal findings. Cerebellar: not cooperative Review of Relevant I have reviewed the following items katherine (where applicable) has been applied. Labs Laboratory Tests Test 01/06/19 03:10 01/07/19 07:30 White Blood Count 18.7 x10^3/uL (4.0-11.0) 15.3 x10^3/uL (4.0-11.0) Red Blood Count 3.38 x10^6/uL (3.50-5.40) 3.39 x10^6/uL (3.50-5.40) Hemoglobin 11.0 g/dL (12.0-15.5) 11.5 g/dL (12.0-15.5) Hematocrit 34.2 % (36.0-47.0) 34.3 % (36.0-47.0) Mean Corpuscular Volume 101 fL (79-100) 101 fL (79-100) Mean Corpuscular Hemoglobin 33 pg (25-35) 34 pg (25-35) Mean Corpuscular Hemoglobin Concent 32 g/dL (31-37) 34 g/dL (31-37) Red Cell Distribution Width 13.7 % (11.5-14.5) 13.4 % (11.5-14.5) Platelet Count 335 x10^3/uL (140-400) 301 x10^3/uL (140-400) Sodium Level 144 mmol/L (136-145) 142 mmol/L (136-145) Potassium Level 3.6 mmol/L (3.5-5.1) 3.1 mmol/L (3.5-5.1) Chloride Level 103 mmol/L (98-107) 103 mmol/L (98-107) Carbon Dioxide Level 29 mmol/L (21-32) 28 mmol/L (21-32) Anion Gap 12 (6-14) 11 (6-14) Blood Urea Nitrogen 14 mg/dL (7-20) 15 mg/dL (7-20) Creatinine 0.5 mg/dL (0.6-1.0) 0.5 mg/dL (0.6-1.0) Estimated GFR (Cockcroft-Gault) 134.0 134.0 BUN/Creatinine Ratio 28 (6-20) Glucose Level 120 mg/dL (70-99) 114 mg/dL (70-99) Calcium Level 9.1 mg/dL (8.5-10.1) 9.0 mg/dL (8.5-10.1) Total Bilirubin 0.5 mg/dL (0.2-1.0) Aspartate Amino Transf (AST/SGOT) 31 U/L (15-37) Alanine Aminotransferase (ALT/SGPT) 48 U/L (14-59) Alkaline Phosphatase 97 U/L (46-116) Total Protein 6.7 g/dL (6.4-8.2) Albumin 3.4 g/dL (3.4-5.0) Albumin/Globulin Ratio 1.0 (1.0-1.7) Laboratory Tests Test 01/07/19 07:30 White Blood Count 15.3 x10^3/uL (4.0-11.0) Red Blood Count 3.39 x10^6/uL (3.50-5.40) Hemoglobin 11.5 g/dL (12.0-15.5) Hematocrit 34.3 % (36.0-47.0) Mean Corpuscular Volume 101 fL (79-100) Mean Corpuscular Hemoglobin 34 pg (25-35) Mean Corpuscular Hemoglobin Concent 34 g/dL (31-37) Red Cell Distribution Width 13.4 % (11.5-14.5) Platelet Count 301 x10^3/uL (140-400) Sodium Level 142 mmol/L (136-145) Potassium Level 3.1 mmol/L (3.5-5.1) Chloride Level 103 mmol/L (98-107) Carbon Dioxide Level 28 mmol/L (21-32) Anion Gap 11 (6-14) Blood Urea Nitrogen 15 mg/dL (7-20) Creatinine 0.5 mg/dL (0.6-1.0) Estimated GFR (Cockcroft-Gault) 134.0 Glucose Level 114 mg/dL (70-99) Calcium Level 9.0 mg/dL (8.5-10.1) Microbiology 12/27/18 - Final, Complete 12/27/18 - Final, Complete 12/27/18 - Final, Complete 12/27/18 Gram Stain Evaluation - Final, Complete 12/27/18 Sputum Culture - Final, Complete 12/27/18 Sputum Result 1 - Final, Complete Medications Current Medications Sodium Chloride 500 ml @ 500 mls/hr 1X ONCE IV Last administered on 12/27/18at 06:39; Start 12/27/18 at 06:30; Stop 12/27/18 at 07:29; Status DC Multivitamins 10 ml/Thiamine HCl 100 mg/Folic Acid 1 mg/Sodium Chloride 1,011.2 ml @ 125 mls/ hr DAILY IV Last administered on 12/31/18at 09:10; Start 12/27/18 at 09:00; Stop 12/31/18 at 17:06; Status DC Methylprednisolone Sodium Succinate (SOLU-Medrol 40MG VIAL) 40 mg Q8HRS IV Last administered on 12/28/18at 06:01; Start 12/27/18 at 14:00; Stop 12/28/18 at 09:45; Status DC Ceftriaxone Sodium (Rocephin) 1 gm Q24H IVP Last administered on 01/07/19at 08:40; Start 12/28/18 at 09:00 Azithromycin 250 mg/Sodium Chloride 250 ml @ 250 mls/hr Q24H IV Last administered on 12/30/18 09:15; Start 12/28/18 at 09:00; Stop 12/31/18 at 08:47; Status DC Sodium Chloride 1,000 ml @ 75 mls/hr [id number] IV Last administered on 12/28/18at 16:46; Start 12/27/18 at 11:00; Stop 12/29/18 at 08:51; Status DC Propofol 100 ml @ 1.041 mls/ hr CONT PRN IV SEE I/O RECORD Last administered on 01/04/19at 07:01; Start 12/27/18 at 06:45; Stop 01/04/19 at 16:52; Status DC Enoxaparin Sodium (Lovenox 40mg Syringe) 40 mg Q24H SQ Last administered on 01/07/19 08:40; Start 12/27/18 at 09:00 Famotidine (Pepcid Vial) 20 mg BID IVP Last administered on 01/07/19 08:41; Start 12/27/18 at 09:00 Fentanyl Citrate 30 ml @ 0 mls/hr CONT PRN PRN IV PER PROTOCOL Last administered on 01/03/19at 21:16; Start 12/27/18 at 08:15; Stop 01/04/19 at 16:52; Status DC Sodium Chloride 500 ml @ 500 mls/hr 1X ONCE IV Last administered on 12/27/18at 17:08; Start 12/27/18 at 17:30; Stop 12/27/18 at 18:29; Status DC Nystatin (Nystatin Oral Susp) 5 ml Q6HRS SWSW Last administered on 01/04/19at 11:54; Start 12/28/18 at 19:00; Stop 01/04/19 at 16:52; Status DC Acetaminophen (Tylenol) 650 mg PRN Q6HRS PRN PEG MILD PAIN / TEMP; Start 12/27/18 at 19:15 Sodium Chloride 500 ml @ 500 mls/hr 1X ONCE IV Last administered on 12/28/18at 03:21; Start 12/28/18 at 03:15; Stop 12/28/18 at 04:14; Status DC Potassium Chloride (KCl Oral Soln) 40 meq BID PEG Last administered on 12/30/18 08:03; Start 12/28/18 at 09:00; Stop 12/30/18 at 14:56; Status DC Potassium Chloride (KCl Oral Soln) 40 meq 1X ONCE PEG ; Start 12/28/18 at 09:30; Stop 12/28/18 at 09:31; Status UNV Methylprednisolone Sodium Succinate (SOLU-Medrol 40MG VIAL) 30 mg Q12HR IV Last administered on 01/07/19at 08:41; Start 12/28/18 at 21:00; Stop 01/07/19 at 11:59; Status DC Potassium Chloride/Dextrose/ Sod Cl 1,000 ml @ 75 mls/hr [id number] IV Last administered on 12/31/18 03:18; Start 12/29/18 at 09:30; Stop 12/31/18 at 08:47; Status DC Dexmedetomidine HCl 200 mcg/ Sodium Chloride 50 ml @ 0 mls/hr CONT PRN IV PER PROTOCOL Last administered on 01/05/19at 03:54; Start 12/29/18 at 09:00; Stop 01/06/19 at 14:33; Status DC Sodium Chloride 500 ml @ 500 mls/hr 1X PRN PRN IV SEE COMMENTS; Start 12/29/18 at 09:00 Atropine Sulfate (ATROPINE 0.5mg SYRINGE) 0.5 mg PRN Q5MIN PRN IV SEE COMMENTS; Start 12/29/18 at 09:00 Magnesium Sulfate/ Dextrose 100 ml @ 100 mls/hr 1X ONCE IV Last administered on 12/29/18at 10:01; Start 12/29/18 at 09:30; Stop 12/29/18 at 10:29; Status DC Fentanyl Citrate (Fentanyl 2ml Vial) 100 mcg STK-MED ONCE .ROUTE ; Start 12/30/18 at 10:17; Stop 12/30/18 at 10:18; Status DC Haloperidol Lactate (Haldol Inj) 5 mg PRN Q6HRS PRN IVP AGITATION Last administered on 01/04/19at 18:18; Start 12/30/18 at 16:30 Lorazepam (Ativan) 2 mg PRN Q2HR PRN IV ANXIETY. Last administered on 01/05/19at 22:18; Start 12/31/18 at 20:30 Levetiracetam 500 mg/Dextrose 105 ml @ 420 mls/hr Q12HR IV Last administered on 01/07/19 08:42; Start 12/31/18 at 21:00 Magnesium Sulfate 50 ml @ 25 mls/hr 1X ONCE IV Last administered on 01/01/19 08:26; Start 01/01/19 at 07:45; Stop 01/01/19 at 09:44; Status DC Acetaminophen (Tylenol) 650 mg PRN Q6HRS PRN PO TEMP > 100.4F Last administered on 01/07/19 10:26; Start 01/01/19 at 08:45 Acetaminophen (Tylenol Supp) 650 mg PRN Q4HRS PRN MN TEMP > 100.4F; Start 01/01/19 at 08:45 Aspirin (Ecotrin) 325 mg [id number] PO Last administered on 01/07/19 08:42; Start 01/01/19 at 09:00 Aspirin (Aspirin) 300 mg PRN DAILY PRN MN IF UNABLE TO TAKE PO Last administered on 01/05/19 09:03; Start 01/01/19 at 08:45 Vecuronium Hammond (Norcuron Bolus) 10 mg 1X ONCE IV Last administered on 01/01/19 11:47; Start 01/01/19 at 11:45; Stop 01/01/19 at 11:46; Status DC Multivitamins 10 ml/Thiamine HCl 100 mg/Folic Acid 1 mg/Sodium Chloride 1,011.2 ml @ 100 mls/ hr DAILY IV Last administered on 01/06/19 08:26; Start 01/02/19 at 15:30; Stop 01/06/19 at 19:07; Status DC Fentanyl Citrate (Fentanyl 2ml Vial) 50 mcg PRN Q3HRS PRN IV PAIN Last administered on 01/07/19 12:48; Start 01/04/19 at 15:00 Haloperidol Lactate (Haldol Inj) 10 mg Q8HRS IVP Last administered on 01/07/19 06:14; Start 01/05/19 at 06:00 Haloperidol Lactate (Haldol Inj) 5 mg 1X ONCE IVP Last administered on 01/04/19 20:45; Start 01/04/19 at 21:00; Stop 01/04/19 at 21:01; Status DC Diphenhydramine HCl (Benadryl) 25 mg PRN Q6HRS PRN IVP EPS symptoms Last ad ministered on 01/04/19at 22:20; Start 01/04/19 at 20:30; Stop 01/05/19 at 14:09; Status DC Diphenhydramine HCl (Benadryl) 25 mg Q6HRS IVP Last administered on 01/07/19at 12:48; Start 01/05/19 at 14:30 Lactobacillus Rhamnosus (Culturelle) 1 cap BID PO Last administered on 01/06/19at 21:32; Start 01/05/19 at 21:00 Barium Sulfate (Varibar Thin Liquid Apple) 148 gm 1X ONCE PO Last administered on 01/06/19at 12:15; Start 01/06/19 at 12:15; Stop 01/06/19 at 12:16; Status DC Methylprednisolone Sodium Succinate (SOLU-Medrol 40MG VIAL) 40 mg DAILY IV ; Start 01/08/19 at 09:00 Potassium Chloride/Dextrose/ Sod Cl 1,000 ml @ 75 mls/hr [id number] IV Last administered on 01/07/19at 12:49; Start 01/07/19 at 12:00 Lidocaine (Lidoderm) 2 patch DAILY TD ; Start 01/08/19 at 09:00 Active Scripts Active Reported Potassium Citrate 10 Meq Tablet.er 99 Mg PO DAILY Sm Natural Balanced B-100 Tab (Vit B Complex 100 Cmb #2/Herbs) 100 Mg Tablet 100 Mg PO DAILY Vitamin D3 (Cholecalciferol (Vitamin D3)) 1,000 Unit Tablet 1,250 Mg PO DAILY Proair Hfa Inhaler (Albuterol Sulfate) 8.5 Gm Hfa.aer.ad 1 Puff INH PRN Q6HRS PRN Gabapentin 300 Mg Capsule 600 Mg PO TID Symbicort 160-4.5 Mcg Inhaler (Budesonide/Formoterol Fumarate) 10.2 Gm Hfa.aer.ad 2 Puff IH BID Maxalt (Rizatriptan Benzoate) 10 Mg Tablet 10 Mg PO PRN PRN Lidocaine 1 Each Adh..patch 1 Each TP PRN DAILY PRN Topiramate 100 Mg Tablet 1 Tab PO BID Linzess (Linaclotide) 290 Mcg Capsule 290 Mcg PO DAILY07 Cymbalta (Duloxetine Hcl) 30 Mg Capsule.dr 1 Cap PO DAILY Ranitidine Hcl 300 Mg Capsule 1 Cap PO DAILY Olanzapine 5 Mg Tablet 1 Tab PO QHS Robaxin (Methocarbamol) 500 Mg Tablet 750 Mg PO TID PRN Tizanidine Hcl 4 Mg Tablet 4 Mg PO TID PRN Percocet 10-325 Mg Tablet (Oxycodone/Acetaminophen) 1 Each Tablet 1 Tab PO TI D Vitals/I & O Vital Sign - Last 24 Hours 01/06/19 01/06/19 01/06/19 01/06/19 16:00 19:00 20:00 22:48 Temp 97.7 99.8 99.2 97.7 99.8 99.2 Pulse 104 90 82 Resp 18 17 18 B/P (MAP) 151/95 (113) 146/76 (99) 149/91 (110) Pulse Ox 95 97 96 O2 Delivery Room Air Nasal Cannula Nasal Cannula Nasal Cannula O2 Flow Rate 2.0 2.0 2.0 2.0 01/07/19 01/07/19 01/07/19 01/07/19 03:00 07:00 08:00 11:10 Temp 99.4 99.0 99.1 99.4 99.0 99.1 Pulse 88 81 82 Resp 17 17 18 B/P (MAP) 157/85 (109) 171/75 (107) 163/93 (116) Pulse Ox 96 93 90 O2 Delivery Nasal Cannula Nasal Cannula Nasal Cannula Room Air O2 Flow Rate 2.0 2.0 2.0 Intake and Output 01/06/19 01/06/19 01/07/19 15:00 23:00 07:00 Intake Total 0 ml 1596.2 ml Output Total 210 ml 250 ml 100 ml Balance -210 ml -250 ml 1496.2 ml MAGDI LANGSTON MD January 07, 2019 14:16
--- NOTE | 2019-01-07 14:58 | PDOC ---
SUBJECTIVE Subjective Low back pain OBJECTIVE Objective 43yo female C/O low back pain after admission 5 days ago with altered mental status. She presented at the [facility] emergency department and required intubation because of her excessive sedation. She has a history of seizures and no history of stroke. Now extubated and C/O low back pain. Vital Signs Vital Signs Date Time Temp Pulse Resp B/P (MAP) Pulse Ox O2 Delivery O2 Flow Rate FiO2 01/07/19 11:10 99.1 82 18 163/93 (116) 90 Room Air 99.1 01/07/19 08:00 Nasal Cannula 2.0 01/07/19 07:00 99.0 81 17 171/75 (107) 93 Nasal Cannula 2.0 99.0 01/07/19 03:00 99.4 88 17 157/85 (109) 96 Nasal Cannula 2.0 99.4 01/06/19 22:48 99.2 82 18 149/91 (110) 96 Nasal Cannula 2.0 99.2 01/06/19 20:00 Nasal Cannula 2.0 01/06/19 19:00 99.8 90 17 146/76 (99) 97 Nasal Cannula 2.0 99.8 01/06/19 16:00 97.7 104 18 151/95 (113) 95 Room Air 2.0 97.7 I & O Intake and Output 01/07/19 06:59 Intake Total 1596.2 ml Output Total 630 ml Balance 966.2 ml Intake Oral 480 ml IV Total 1116.2 ml Output Urine Total 630 ml # Bowel Movements 3 ASSESSMENT/PLAN Assessment/Plan Pt without W/U for low back pain. Suspect etilolgy of extended recumbency while on ventilator, but will need lumbar MRI to fully evaluate. REC: Restart pt. home medication-Oxycodone 10mg tid. IV Fentanyl ok for severe pain for now. PT eval for posture,ROM,conditioning. PMR eval as well for buttermaker continuous churn treatment. COMMENT Lab Laboratory Tests Test 01/07/19 07:30 White Blood Count 15.3 x10^3/uL (4.0-11.0) Red Blood Count 3.39 x10^6/uL (3.50-5.40) Hemoglobin 11.5 g/dL (12.0-15.5) Hematocrit 34.3 % (36.0-47.0) Mean Corpuscular Volume 101 fL (79-100) Mean Corpuscular Hemoglobin 34 pg (25-35) Mean Corpuscular Hemoglobin Concent 34 g/dL (31-37) Red Cell Distribution Width 13.4 % (11.5-14.5) Platelet Count 301 x10^3/uL (140-400) Sodium Level 142 mmol/L (136-145) Potassium Level 3.1 mmol/L (3.5-5.1) Chloride Level 103 mmol/L (98-107) Carbon Dioxide Level 28 mmol/L (21-32) Anion Gap 11 (6-14) Blood Urea Nitrogen 15 mg/dL (7-20) Creatinine 0.5 mg/dL (0.6-1.0) Estimated GFR (Cockcroft-Gault) 134.0 Glucose Level 114 mg/dL (70-99) Calcium Level 9.0 mg/dL (8.5-10.1) SANDRA PICKARD MD January 07, 2019 14:58
[2019-01-07 15:00] VITALS: BP 121/97
--- NOTE | 2019-01-07 15:03 | PDOC ---
PULMONARY PROGRESS NOTES Subjective EXTUBATED 01/04 NOW ON N/C Vitals Vital Signs Date Time Temp Pulse Resp B/P (MAP) Pulse Ox O2 Delivery O2 Flow Rate FiO2 01/07/19 11:10 99.1 82 18 163/93 (116) 90 Room Air 99.1 01/07/19 08:00 2.0 General: Alert, No acute distress Lungs: Clear Cardiovascular: S1, S2 Abdomen: Soft, Non-tender Neuro Exam: Alert Extremities: No Edema Skin: Warm, Dry, No Rashes Impression Labs Laboratory Tests Test 01/06/19 03:10 01/07/19 07:30 White Blood Count 18.7 x10^3/uL (4.0-11.0) 15.3 x10^3/uL (4.0-11.0) Red Blood Count 3.38 x10^6/uL (3.50-5.40) 3.39 x10^6/uL (3.50-5.40) Hemoglobin 11.0 g/dL (12.0-15.5) 11.5 g/dL (12.0-15.5) Hematocrit 34.2 % (36.0-47.0) 34.3 % (36.0-47.0) Mean Corpuscular Volume 101 fL (79-100) 101 fL (79-100) Mean Corpuscular Hemoglobin 33 pg (25-35) 34 pg (25-35) Mean Corpuscular Hemoglobin Concent 32 g/dL (31-37) 34 g/dL (31-37) Red Cell Distribution Width 13.7 % (11.5-14.5) 13.4 % (11.5-14.5) Platelet Count 335 x10^3/uL (140-400) 301 x10^3/uL (140-400) Sodium Level 144 mmol/L (136-145) 142 mmol/L (136-145) Potassium Level 3.6 mmol/L (3.5-5.1) 3.1 mmol/L (3.5-5.1) Chloride Level 103 mmol/L (98-107) 103 mmol/L (98-107) Carbon Dioxide Level 29 mmol/L (21-32) 28 mmol/L (21-32) Anion Gap 12 (6-14) 11 (6-14) Blood Urea Nitrogen 14 mg/dL (7-20) 15 mg/dL (7-20) Creatinine 0.5 mg/dL (0.6-1.0) 0.5 mg/dL (0.6-1.0) Estimated GFR (Cockcroft-Gault) 134.0 134.0 BUN/Creatinine Ratio 28 (6-20) Glucose Level 120 mg/dL (70-99) 114 mg/dL (70-99) Calcium Level 9.1 mg/dL (8.5-10.1) 9.0 mg/dL (8.5-10.1) Total Bilirubin 0.5 mg/dL (0.2-1.0) Aspartate Amino Transf (AST/SGOT) 31 U/L (15-37) Alanine Aminotransferase (ALT/SGPT) 48 U/L (14-59) Alkaline Phosphatase 97 U/L (46-116) Total Protein 6.7 g/dL (6.4-8.2) Albumin 3.4 g/dL (3.4-5.0) Albumin/Globulin Ratio 1.0 (1.0-1.7) Laboratory Tests Test 01/07/19 07:30 White Blood Count 15.3 x10^3/uL (4.0-11.0) Red Blood Count 3.39 x10^6/uL (3.50-5.40) Hemoglobin 11.5 g/dL (12.0-15.5) Hematocrit 34.3 % (36.0-47.0) Mean Corpuscular Volume 101 fL (79-100) Mean Corpuscular Hemoglobin 34 pg (25-35) Mean Corpuscular Hemoglobin Concent 34 g/dL (31-37) Red Cell Distribution Width 13.4 % (11.5-14.5) Platelet Count 301 x10^3/uL (140-400) Sodium Level 142 mmol/L (136-145) Potassium Level 3.1 mmol/L (3.5-5.1) Chloride Level 103 mmol/L (98-107) Carbon Dioxide Level 28 mmol/L (21-32) Anion Gap 11 (6-14) Blood Urea Nitrogen 15 mg/dL (7-20) Creatinine 0.5 mg/dL (0.6-1.0) Estimated GFR (Cockcroft-Gault) 134.0 Glucose Level 114 mg/dL (70-99) Calcium Level 9.0 mg/dL (8.5-10.1) Medications Active Scripts Medications Dose Route/Sig Max Daily Dose Days Date Category Potassium Citrate 10 Meq Tablet.er 99 Mg PO DAILY 12/28/18 Reported Sm Natural Balanced B-100 Tab (Vit B Complex 100 Cmb #2/Herbs) 100 Mg Tablet 100 Mg PO DAILY 12/28/18 Reported Vitamin D3 (Cholecalciferol (Vitamin D3)) 1,000 Unit Tablet 1,250 Mg PO DAILY 12/28/18 Reported Proair Hfa Inhaler (Albuterol Sulfate) 8.5 Gm Hfa.aer.ad 1 Puff INH PRN Q6HRS PRN 12/28/18 Reported Gabapentin 300 Mg Capsule 600 Mg PO TID 12/28/18 Reported Symbicort 160-4.5 Mcg Inhaler (Budesonide/Formoterol Fumarate) 10.2 Gm Hfa.aer.ad 2 Puff IH BID 12/28/18 Reported Maxalt (Rizatriptan Benzoate) 10 Mg Tablet 10 Mg PO PRN PRN 12/28/18 Reported Lidocaine 1 Each Adh..patch 1 Each TP PRN DAILY PRN 12/28/18 Reported Topiramate 100 Mg Tablet 1 Tab PO BID 12/28/18 Reported Linzess (Linaclotide) 290 Mcg Capsule 290 Mcg PO DAILY07 12/28/18 Reported Cymbalta (Duloxetine Hcl) 30 Mg Capsule. 1 Cap PO DAILY 12/28/18 Reported Ranitidine Hcl 300 Mg Capsule 1 Cap PO DAILY 12/28/18 Reported Olanzapine 5 Mg Tablet 1 Tab PO QHS 12/28/18 Reported Robaxin (Methocarbamol) 500 Mg Tablet 750 Mg PO TID PRN 06/22/14 Reported Tizanidine Hcl 4 Mg Tablet 4 Mg PO TID PRN 06/22/14 Reported Percocet 10-325 Mg Tablet (Oxycodone/Acetaminophen) 1 Each Tablet 1 Tab PO TID 06/22/14 Reported Active Scripts Medications Dose Route/Sig Max Daily Dose Days Date Category Robaxin (Methocarbamol) 500 Mg Tablet 500 Mg PO Q8HRS PRN 06/22/14 Reported Tizanidine Hcl 4 Mg Tablet 4 Mg PO Q8HRS PRN 06/22/14 Reported Prevacid (Lansoprazole) 30 Mg Capsule.dr Mendez Mg PO DAILY 06/22/14 Reported Percocet 10-325 Mg Tablet (Oxycodone/Acetaminophen) 1 Each Tablet 1 Tab PO Q6HRS 06/22/14 Reported Active Scripts Medications Dose Route/Sig Max Daily Dose Days Date Category Robaxin (Methocarbamol) 500 Mg Tablet 500 Mg PO Q8HRS PRN 06/22/14 Reported Tizanidine Hcl 4 Mg Tablet 4 Mg PO Q8HRS PRN 06/22/14 Reported Prevacid (Lansoprazole) 30 Mg Capsule.dr 30 Mg PO DAILY 06/22/14 Reported Percocet 10-325 Mg Tablet (Oxycodone/Acetaminophen) 1 Each Tablet 1 Tab PO Q6HRS 06/22/14 Reported Impression . Acute Hypoxic/hypercarbic respiratory Failure:improved Unintentional Overdose Tobaccoism Alcoholism Hypokalemia Pneumonia POA gram negative suspected, ABNORMAL MRI OF BRAIN DYSPHAGIA <Conclusion> The left ventricular systolic function is normal. The Ejection Fraction is 55-60%. There is normal LV segmental wall motion. Mild mitral regurgitation. Mild tricuspid regurgitation. The PA pressure was estimated at 30 mmHg. There is no evidence of significant pericardial effusion. Plan . STABLE PULMONARY STATUS CLEAR CXR 5/2 PT/OT PRN BIPAP SPEECH F/U FOLLOW NEURO INPUT D/W WILL SEE NEEDED. MARS PEARSON MD January 07, 2019 15:03
[2019-01-07 19:00] VITALS: BP 166/89
[2019-01-07] MEDS: TOPIRAMATE 100 MG TABLET. PO SCH (20:32)
[2019-01-07 23:00] VITALS: BP 149/87
[2019-01-08] MEDS: diphenhydrAMINE 50 MG/ML VIAL IVP SCH ×4 (00:27→18:05)
[2019-01-08] MEDS: POTASSIUM CL 40MEQ D5-0.45NACL 1,000 ML IV SCH ×2 (02:01→21:35)
[2019-01-08 03:00] VITALS: BP 143/89
--- NOTE | 2019-01-08 04:43 | PN ---
DATE: 01/07/2019 SUBJECTIVE: The patient is sitting comfortably in her recliner, definitely more awake, alert, was able to walk with a walker with standby assist. She is complaining of back pain. She apparently was followed at [facility] and has had injections at regular frequency and has been on oxycodone. She rated her pain this morning at 10/10 in severity and the Tylenol is not helping. PHYSICAL EXAMINATION: GENERAL: When I examined her, she looked pale. No jaundice, cyanosis, or thyromegaly. No jugular venous distension. No limb edema. VITAL SIGNS: Her heart rate was 82, blood pressure was 163/93, temperature was 99.1, respiratory rate was 18, and oxygen saturation was 90%. HEAD, EYES, EARS, NOSE AND THROAT: Normocephalic, atraumatic. NECK: Supple. HEART: Showed normal first and second sounds. No gallop, rub or murmur. CHEST: Clear to auscultation. No crepitation or rhonchi. ABDOMEN: Distended, soft, nontender. No guarding or rigidity. No organomegaly. All hernial orifices intact. Bowel sounds normal. NEUROLOGIC: She is definitely more awake, alert, responding appropriately. All cranial nerves intact. She moves extremities without difficulty. Her intake was 841, output was 3350. LABORATORY DATA: Her lab work this morning showed white cell count 15,300, hemoglobin 11.5, hematocrit 34, MCV 101 and platelet count 301,000. Serum sodium 142, potassium 3.1, chloride 103, bicarbonate 28, anion gap of 11, BUN 15, creatinine 0.5, estimated GFR was 134 mL per minute. ASSESSMENT: 1. Altered mental status, felt initially to be due to overdose of her chronic pain medication as well as alcohol; however, MRI showed that she has also reversible posterior cerebral encephalopathy. The patient is much improved. She is awake, alert, responding appropriately. 2. Acute hypoxic-hypercapnic respiratory failure. The patient was successfully extubated, maintaining her oxygen saturation at 94% on 2 liters of oxygen by nasal cannula. 3. She has multiple other medical problems including: a). Chronic back pain. b). Chronic obstructive pulmonary disease. c). Seizure disorder. d). Essential tremors. 4. She did have breakthrough seizures for which she is now on Keppra. PLAN: To continue the oxygen supplementation. She was seen by the speech therapist and has had video swallowing evaluation, which showed that the patient has minimal intermittent aspiration of thin liquid material, which abated when the thicker material . I will also cut down her steroids. Repeat a chest x-ray and consult the [facility]. TEODORO THAPA MD DR: MARY JANE/dyana JOB#: [id number] / [id number]
[2019-01-08] MEDS: HALOPERIDOL LACTATE 5 MG/ML VIAL. IVP SCH ×4 (06:13→22:20)
[2019-01-08 06:15] LABS: CALCIUM 8.8 mg/dL (8.5-10.1); CREATININE 0.6 mg/dL (0.6-1.0); GFR 108.6
[2019-01-08 07:00] VITALS: BP 120/84
[2019-01-08] MEDS ORDERED: ALBUTEROL SULFATE 2.5 MG/3 ML NEBU. INH PRN ×2 (09:00→09:57)
[2019-01-08] MEDS ORDERED: LIDOCAINE TP PRN (09:00)
[2019-01-08] MEDS ORDERED: NON FORMULARY ITEM (Ranitidine Hcl 1 CAP) PO SCH (09:00)
[2019-01-08] MEDS: TOPIRAMATE 100 MG TABLET. PO SCH ×2 (09:07→21:21)
[2019-01-08] MEDS: ASPIRIN ENTERIC COATED 325 MG TABLET.DR. PO SCH (09:07)
[2019-01-08] MEDS: LACTOBACILLUS RHAMNOSUS GG 1 CAPSULE. PO SCH ×2 (09:08→21:21)
[2019-01-08] MEDS: FAMOTIDINE 20 MG/2 ML VIAL IVP SCH ×2 (09:08→21:22)
[2019-01-08] MEDS: cefTRIAXone IV Push 1 GM VIAL. IVP SCH ×2 (09:09→09:14)
[2019-01-08] MEDS: ENOXAPARIN 40 MG/0.4 ML SYRINGE. SQ SCH (09:10)
[2019-01-08] MEDS: methylPREDNISolone SOD SUCC PF 40 MG/ML VIAL. IV SCH (09:15)
--- NOTE | 2019-01-08 10:23 | PDOC ---
PROGRESS NOTES Assessment Ingestion of pain pills and alcohol in combination Seizures, provoked, possible prior epilepsy, negative EEG last year, no clinical seizures now PRES Negative echo and carotids Toxic and metabolic encephalopathy, improving Chronic low back pain Migraines, takes topiramate Not combative, off Precedex Taking diet Plan Discontinued levetiracetam,switched back to her topiramate 100 mg twice a day Aspirin Hold on repeat EEG Continue medical management I resumed home psychiatric medications, But omitted sedatives such as gabapentin and tizanidine Discontinue Unger Taper off steroids per Dr. Kc Subjective Denies pain Objective Vital Signs Date Time Temp Pulse Resp B/P (MAP) Pulse Ox O2 Delivery O2 Flow Rate FiO2 01/08/19 07:00 98.2 77 18 120/84 (96) 96 Nasal Cannula 2.0 98.2 Intake and Output 01/08/19 07:00 Intake Total 0 ml Output Total 1900 ml Balance -1900 ml Intake Oral 0 ml Output Urine Total 1900 ml # Bowel Movements 1 PHYSICAL EXAM Alert. Answers questions and follows commands, does not know the date, knows that she's in the hospital. Depressed affect PERRL. EOMI. CN: no focal findings. Muscle tone: normal. Muscle strength: moves all extremities, hands in mittens DTR: 1+ Plantar reflex: flexor Gait: not examined in bed. Sensory exam: no abnormal findings. Cerebellar: not cooperative Review of Relevant I have reviewed the following items katherine (where applicable) has been applied. Labs Laboratory Tests Test 01/07/19 07:30 01/08/19 05:08 White Blood Count 15.3 x10^3/uL (4.0-11.0) Red Blood Count 3.39 x10^6/uL (3.50-5.40) Hemoglobin 11.5 g/dL (12.0-15.5) Hematocrit 34.3 % (36.0-47.0) Mean Corpuscular Volume 101 fL (79-100) Mean Corpuscular Hemoglobin 34 pg (25-35) Mean Corpuscular Hemoglobin Concent 34 g/dL (31-37) Red Cell Distribution Width 13.4 % (11.5-14.5) Platelet Count 301 x10^3/uL (140-400) Sodium Level 142 mmol/L (136-145) 141 mmol/L (136-145) Potassium Level 3.1 mmol/L (3.5-5.1) 3.0 mmol/L (3.5-5.1) Chloride Level 103 mmol/L (98-107) 104 mmol/L (98-107) Carbon Dioxide Level 28 mmol/L (21-32) 28 mmol/L (21-32) Anion Gap 11 (6-14) 9 (6-14) Blood Urea Nitrogen 15 mg/dL (7-20) 12 mg/dL (7-20) Creatinine 0.5 mg/dL (0.6-1.0) 0.6 mg/dL (0.6-1.0) Estimated GFR (Cockcroft-Gault) 134.0 108.6 Glucose Level 114 mg/dL (70-99) 129 mg/dL (70-99) Calcium Level 9.0 mg/dL (8.5-10.1) 8.8 mg/dL (8.5-10.1) Laboratory Tests Test 01/08/19 05:08 Sodium Level 141 mmol/L (136-145) Potassium Level 3.0 mmol/L (3.5-5.1) Chloride Level 104 mmol/L (98-107) Carbon Dioxide Level 28 mmol/L (21-32) Anion Gap 9 (6-14) Blood Urea Nitrogen 12 mg/dL (7-20) Creatinine 0.6 mg/dL (0.6-1.0) Estimated GFR (Cockcroft-Gault) 108.6 Glucose Level 129 mg/dL (70-99) Calcium Level 8.8 mg/dL (8.5-10.1) Microbiology 12/27/18 - Final, Complete 12/27/18 - Final, Complete 12/27/18 - Final, Complete 12/27/18 Gram Stain Evaluation - Final, Complete 12/27/18 Sputum Culture - Final, Complete 12/27/18 Sputum Result 1 - Final, Complete Medications Current Medications Sodium Chloride 500 ml @ 500 mls/hr 1X ONCE IV Last administered on 12/27/18at 06:39; Start 12/27/18 at 06:30; Stop 12/27/18 at 07:29; Status DC Multivitamins 10 ml/Thiamine HCl 100 mg/Folic Acid 1 mg/Sodium Chloride 1,011.2 ml @ 125 mls/ hr DAILY IV Last administered on 12/31/18 09:10; Start 12/27/18 at 09:00; Stop 12/31/18 at 17:06; Status DC Methylprednisolone Sodium Succinate (SOLU-Medrol 40MG VIAL) 40 mg Q8HRS IV Last administered on 12/28/18 06:01; Start 12/27/18 at 14:00; Stop 12/28/18 at 09:45; Status DC Ceftriaxone Sodium (Rocephin) 1 gm Q24H IVP Last administered on 01/08/19 09:14; Start 12/28/18 at 09:00 Azithromycin 250 mg/Sodium Chloride 250 ml @ 250 mls/hr Q24H IV Last administered on 12/30/18 09:15; Start 12/28/18 at 09:00; Stop 12/31/18 at 08:47; Status DC Sodium Chloride 1,000 ml @ 75 mls/hr [id number] IV Last administered on 12/28/18 16:46; Start 12/27/18 at 11:00; Stop 12/29/18 at 08:51; Status DC Propofol 100 ml @ 1.041 mls/ hr CONT PRN IV SEE I/O RECORD Last administered on 01/04/19 07:01; Start 12/27/18 at 06:45; Stop 01/04/19 at 16:52; Status DC Enoxaparin Sodium (Lovenox 40mg Syringe) 40 mg Q24H SQ Last administered on 01/08/19 09:10; Start 12/27/18 at 09:00 Famotidine (Pepcid Vial) 20 mg BID IVP Last administered on 01/08/19 09:08; Start 12/27/18 at 09:00 Fentanyl Citrate 30 ml @ 0 mls/hr CONT PRN PRN IV PER PROTOCOL Last administered on 01/03/19 21:16; Start 12/27/18 at 08:15; Stop 01/04/19 at 16:52; Status DC Sodium Chloride 500 ml @ 500 mls/hr 1X ONCE IV Last administered on 12/27/18 17:08; Start 12/27/18 at 17:30; Stop 12/27/18 at 18:29; Status DC Nystatin (Nystatin Oral Susp) 5 ml Q6HRS SWSW Last administered on 4/29/19at 11:54; Start 12/28/18 at 19:00; Stop 01/04/19 at 16:52; Status DC Acetaminophen (Tylenol) 650 mg PRN Q6HRS PRN PEG MILD PAIN / TEMP; Start 12/27/18 at 19:15 Sodium Chloride 500 ml @ 500 mls/hr 1X ONCE IV Last administered on 12/28/18at 03:21; Start 12/28/18 at 03:15; Stop 12/28/18 at 04:14; Status DC Potassium Chloride (KCl Oral Soln) 40 meq BID PEG Last administered on 12/30/18at 08:03; Start 12/28/18 at 09:00; Stop 12/30/18 at 14:56; Status DC Potassium Chloride (KCl Oral Soln) 40 meq 1X ONCE PEG ; Start 12/28/18 at 09:30; Stop 12/28/18 at 09:31; Status UNV Methylprednisolone Sodium Succinate (SOLU-Medrol 40MG VIAL) 30 mg Q12HR IV Last administered on 01/07/19at 08:41; Start 12/28/18 at 21:00; Stop 01/07/19 at 11:59; Status DC Potassium Chloride/Dextrose/ Sod Cl 1,000 ml @ 75 mls/hr [id number] IV Last administered on 12/31/18at 03:18; Start 12/29/18 at 09:30; Stop 12/31/18 at 08:47; Status DC Dexmedetomidine HCl 200 mcg/ Sodium Chloride 50 ml @ 0 mls/hr CONT PRN IV PER PROTOCOL Last administered on 01/05/19at 03:54; Start 12/29/18 at 09:00; Stop 01/06/19 at 14:33; Status DC Sodium Chloride 500 ml @ 500 mls/hr 1X PRN PRN IV SEE COMMENTS; Start 12/29/18 at 09:00 Atropine Sulfate (ATROPINE 0.5mg SYRINGE) 0.5 mg PRN Q5MIN PRN IV SEE COMMENTS; Start 12/29/18 at 09:00 Magnesium Sulfate/ Dextrose 100 ml @ 100 mls/hr 1X ONCE IV Last administered on 12/29/18at 10:01; Start 12/29/18 at 09:30; Stop 12/29/18 at 10:29; Status DC Fentanyl Citrate (Fentanyl 2ml Vial) 100 mcg STK-MED ONCE .ROUTE ; Start 12/30/18 at 10:17; Stop 12/30/18 at 10:18; Status DC Haloperidol Lactate (Haldol Inj) 5 mg PRN Q6HRS PRN IVP AGITATION Last administered on 01/04/19 18:18; Start 12/30/18 at 16:30 Lorazepam (Ativan) 2 mg PRN Q2HR PRN IV ANXIETY. Last administered on 01/05/19 22:18; Start 12/31/18 at 20:30 Levetiracetam 500 mg/Dextrose 105 ml @ 420 mls/hr Q12HR IV Last administered on 01/07/19 08:42; Start 12/31/18 at 21:00; Stop 01/07/19 at 14:15; Status DC Magnesium Sulfate 50 ml @ 25 mls/hr 1X ONCE IV Last administered on 01/01/19 08:26; Start 01/01/19 at 07:45; Stop 01/01/19 at 09:44; Status DC Acetaminophen (Tylenol) 650 mg PRN Q6HRS PRN PO TEMP > 100.4F Last administered on 01/07/19 10:26; Start 01/01/19 at 08:45 Acetaminophen (Tylenol Supp) 650 mg PRN Q4HRS PRN MS TEMP > 100.4F; Start 01/01/19 at 08:45 Aspirin (Ecotrin) 325 mg [id number] PO Last administered on 01/08/19 09:07; Start 01/01/19 at 09:00 Aspirin (Aspirin) 300 mg PRN DAILY PRN MS IF UNABLE TO TAKE PO Last administered on 01/05/19 09:03; Start 01/01/19 at 08:45 Vecuronium [place] (Norcuron Bolus) 10 mg 1X ONCE IV Last administered on 01/01/19 11:47; Start 01/01/19 at 11:45; Stop 01/01/19 at 11:46; Status DC Multivitamins 10 ml/Thiamine HCl 100 mg/Folic Acid 1 mg/Sodium Chloride 1,011.2 ml @ 100 mls/ hr DAILY IV Last administered on 01/06/19 08:26; Start 01/02/19 at 15:30; Stop 01/06/19 at 19:07; Status DC Fentanyl Citrate (Fentanyl 2ml Vial) 50 mcg PRN Q3HRS PRN IV PAIN Last administered on 01/07/19 19:33; Start 01/04/19 at 15:00 Haloperidol Lactate (Haldol Inj) 10 mg Q8HRS IVP Last administered on 01/08/19 06:13; Start 01/05/19 at 06:00 Haloperidol Lactate (Haldol Inj) 5 mg 1X ONCE IVP Last administered on 01/04/19 20:45; Start 01/04/19 at 21:00; Stop 01/04/19 at 21:01; Status DC Diphenhydramine HCl (Benadryl) 25 mg PRN Q6HRS PRN IVP EPS symptoms Last administered on 01/04/19 22:20; Start 01/04/19 at 20:30; Stop 01/05/19 at 14:09; Status DC Diphenhydramine HCl (Benadryl) 25 mg Q6HRS IVP Last administered on 01/08/19 06:13; Start 01/05/19 at 14:30 Lactobacillus Rhamnosus (Culturelle) 1 cap BID PO Last administered on 01/08/19 09:08; Start 01/05/19 at 21:00 Barium Sulfate (Varibar Thin Liquid Apple) 148 gm 1X ONCE PO Last administered on 01/06/19 12:15; Start 01/06/19 at 12:15; Stop 01/06/19 at 12:16; Status DC Methylprednisolone Sodium Succinate (SOLU-Medrol 40MG VIAL) 40 mg DAILY IV Last administered on 01/08/19 09:15; Start 01/08/19 at 09:00 Potassium Chloride/Dextrose/ Sod Cl 1,000 ml @ 75 mls/hr [id number] IV Last administered on 01/08/19 02:01; Start 01/07/19 at 12:00 Lidocaine (Lidoderm) 2 patch DAILY TD ; Start 01/08/19 at 09:00 Topiramate (Topamax) 100 mg BID PO Last administered on 01/08/19 09:07; Start 01/07/19 at 21:00 Albuterol Sulfate (Ventolin Neb Soln) 40 mg PRN Q6HRS PRN INH SHORTNESS OF BREATH; Start 01/08/19 at 09:00; Stop 01/08/19 at 09:57; Status DC Vitamin D (Vitamin D3) 2,000 unit DAILY PO ; Start 01/08/19 at 10:00 Duloxetine HCl (Cymbalta) 30 mg DAILY PO ; Start 01/08/19 at 10:00 Non-Formulary Medication (Lidocaine ) 1 each PRN DAILY PRN TP PAIN; Start 01/08/19 at 09:00; Status UNV Non-Formulary Medication (Linaclotide (Linzess)) 290 mcg DAILY07 PO ; Start 01/09/19 at 07:00; Status UNV Olanzapine (ZyPREXA) 5 mg QHS PO ; Start 01/08/19 at 21:00 Non-Formulary Medication (Ranitidine Hcl ) 1 cap DAILY PO ; Start 01/08/19 at 09:00; Status UNV Sumatriptan Succinate (Imitrex) 100 mg PRN Q2HR PRN PO MIGRAINE HEADACHE; Start 01/08/19 at 09:15 Vitamin B Complex (Anthony B) 1 tab DAILY PO ; Start 01/08/19 at 10:00 Potassium Chloride (Klor-Con) 20 meq TIDWMEALS PO ; Start 01/08/19 at 10:00 Oxycodone HCl (Roxicodone) 10 mg TID PO ; Start 01/08/19 at 10:00 Albuterol Sulfate (Ventolin Neb Soln) 2.5 mg PRN Q6HRS PRN INH SHORTNESS OF BREATH; Start 01/08/19 at 09:57 Active Scripts Active Reported Potassium Citrate 10 Meq Tablet.er 99 Mg PO DAILY Sm Natural Balanced B-100 Tab (Vit B Complex 100 Cmb #2/Herbs) 100 Mg Tablet 100 Mg PO DAILY Vitamin D3 (Cholecalciferol (Vitamin D3)) 1,000 Unit Tablet 1,250 Mg PO DAILY Proair Hfa Inhaler (Albuterol Sulfate) 8.5 Gm Hfa.aer.ad 1 Puff INH PRN Q6HRS PRN Gabapentin 300 Mg Capsule 600 Mg PO TID Symbicort 160-4.5 Mcg Inhaler (Budesonide/Formoterol Fumarate) 10.2 Gm Hfa.aer.ad 2 Puff IH BID Maxalt (Rizatriptan Benzoate) 10 Mg Tablet 10 Mg PO PRN PRN Lidocaine 1 Each Adh..patch 1 Each TP PRN DAILY PRN Topiramate 100 Mg Tablet 1 Tab PO BID Linzess (Linaclotide) 290 Mcg Capsule 290 Mcg PO DAILY07 Cymbalta (Duloxetine Hcl) 30 Mg Capsule.dr 1 Cap PO DAILY Ranitidine Hcl 300 Mg Capsule 1 Cap PO DAILY Olanzapine 5 Mg Tablet 1 Tab PO QHS Robaxin (Methocarbamol) 500 Mg Tablet 750 Mg PO TID PRN Tizanidine Hcl 4 Mg Tablet 4 Mg PO TID PRN Percocet 10-325 Mg Tablet (Oxycodone/Acetaminophen) 1 Each Tablet 1 Tab PO TID Vitals/I & O Vital Sign - Last 24 Hours 01/07/19 01/07/19 01/07/19 01/07/19 11:10 15:00 19:00 19:33 Temp 99.1 98.8 98.4 99.1 98.8 98.4 Pulse 82 85 67 Resp 18 18 17 16 B/P (MAP) 163/93 (116) 121/97 (105) 166/89 (114) Pulse Ox 90 91 95 91 O2 Delivery Room Air Nasal Cannula Nasal Cannula Nasal Cannula O2 Flow Rate 2.0 2.0 01/07/19 01/07/19 01/07/19 01/08/19 20:00 20:15 23:00 03:00 Temp 98.2 98.2 98.2 98.2 Pulse 71 76 Resp 15 17 17 B/P (MAP) 149/87 (107) 143/89 (107) Pulse Ox 91 96 96 O2 Delivery Nasal Cannula Nasal Cannula Nasal Cannula Nasal Cannula O2 Flow Rate 2.0 2.0 2.0 2.0 01/08/19 07:00 Temp 98.2 98.2 Pulse 77 Resp 18 B/P (MAP) 120/84 (96) Pulse Ox 96 O2 Delivery Nasal Cannula O2 Flow Rate 2.0 Intake and Output 01/07/19 01/07/19 01/08/19 15:00 23:00 07:00 Intake Total 0 ml 0 ml Output Total 1200 ml 700 ml Balance -1200 ml 0 ml -700 ml MAGDI LANGSTON MD January 08, 2019 10:23
--- NOTE | 2019-01-08 10:56 | NUR ---
SW following pt. Spoke with Pt about PT/OT recommendation for acute rehab. Pt agreeable with [facility]. MARY KAY phoned and faxed referral to [facility]. Pt acceptance admission pending. Will continue to follow.
[2019-01-08 11:00] VITALS: BP 153/85
--- NOTE | 2019-01-08 12:58 | NUR ---
Pt has been accepted at [facility]. Insurance auth pending. Will continue to follow.
--- NOTE | 2019-01-08 13:00 | RAD ---
CT LUMBAR SPINE WO CONTRAST Indication: Back pain after fall Technique: Noncontrast CT imaging was performed of the lumbar spine, multiplanar reconstruction images submitted. One or more of the following individualized dose reduction techniques were utilized for this examination: 1. Automated exposure control 2. Adjustment of the mA and/or kV according to patient size 3. Use of iterative reconstruction technique. Comparison: None Findings: Lumbar vertebral body stature is maintained. There is mild grade 1 anterior spondylolisthesis L4-5. Intervertebral disc spaces are overall maintained. There is unfused apophysis on the right of L1. No acute lumbar spine fracture is identified. There is multilevel facet degenerative change greatest L4-5 and L5-S1. There is mild narrowing of the far lateral recesses bilaterally at L4-5. Lumbar neural foramina are not significantly narrowed. There is mild atherosclerotic calcification of the abdominal aorta and iliac arteries. IMPRESSION: 1. No acute lumbar spine fracture is identified. 2. There is grade 1 anterior spondylolisthesis L4-5 at which there is facet degenerative change. There is suspected mild narrowing of the far lateral recesses bilaterally at L4-5. Electronically signed by: Estrada Swain MD (01/08/2019 12:57 PM) [id number]
[2019-01-08] MEDS: LIDOCAINE (700MG/PATCH) PATCH. TD SCH (13:18)
[2019-01-08] MEDS: CHOLECALCIFEROL (VITAMIN D3) 1,000 UNIT TABLET PO SCH (13:19)
[2019-01-08] MEDS: VITAMIN B COMPLEX TABLET. PO SCH (13:20)
[2019-01-08] MEDS: oxyCODONE IR 5 MG TABLET PO SCH ×3 (13:20→21:22)
[2019-01-08] MEDS: POTASSIUM CHLORIDE 20 MEQ TABLET.ER. PO SCH ×3 (13:20→19:00)
[2019-01-08] MEDS: DULoxetine HCL 30 MG CAPSULE.DR PO SCH (13:21)
[2019-01-08 15:10] VITALS: BP 136/76
[2019-01-08 19:55] VITALS: BP 148/92
[2019-01-08] MEDS: OLANZapine 5 MG TABLET PO SCH (21:21)
[2019-01-08 22:37] VITALS: BP 137/85
--- NOTE | 2019-01-09 00:50 | PN ---
DATE: 01/08/2019 SUBJECTIVE: The patient is resting, slightly propped up in bed, no apparent distress, awake, alert. On questioning her, she stated her pain is slightly better. The nursing staff stated that she is refusing to eat and drink. Her potassium anything is lower, which was surprising, but the nursing staff said that she has no bowel movement. She has no diarrhea. She has not been vomiting. She is not on any diuretics that might explain the drop. She is already on D5 half normal with 40 mEq of potassium chloride. PHYSICAL EXAMINATION: GENERAL: When I examined her, she was pale, no jaundice, cyanosis or thyromegaly. No jugular venous distension. No lower limb edema. VITAL SIGNS: Her heart rate was 77, blood pressure was 120/84, temperature was 98.2, respiratory rate was 18 and oxygen saturation was 96% on 2 liters of oxygen. HEAD, EYES, EARS, NOSE AND THROAT: Showed normocephalic, atraumatic. NECK: Supple. HEART: Showed normal first and second heart sounds. No gallop, rub or murmur. CHEST: Clear to auscultation. No crepitation or rhonchi. ABDOMEN: Scaphoid, soft, nontender. NEUROLOGIC: She is awake, alert, responding appropriately. All cranial nerves intact. She moves extremities without difficulty, though she is mostly bed bound. Her intake over the last 24 hours was 1600, output was 630. LABORATORY DATA: As of this morning, her serum sodium was 141, potassium 3, chloride 104, bicarbonate 28, anion gap of 9, BUN 12, creatinine 0.6, estimated GFR was 108 mL per minute. Her calcium was 8.8. As of yesterday, her white cell count was 15,300, hemoglobin 11.5, hematocrit 34, MCV 101 and platelet count 301,000. ASSESSMENT: 1. Altered mental status, initiated with the overdose of her chronic pain medication as well as alcohol; however, MRI also showed that she has findings consistent with posterior reversible encephalopathy syndrome. 2. Acute hypoxic hypercapnic respiratory failure. The patient was successfully extubated, maintaining her oxygen saturation at 94% on 2 liters oxygen by nasal cannula. 3. She has multiple other medical problems including: A. Chronic back pain. B. Chronic obstructive pulmonary disease. C. Seizure disorder. D. Essential tremors. E. She did have breakthrough seizures, for which she is now on Keppra. PLAN: To continue with oxygen supplementation. She was seen also by the speech therapist and has had video swallowing evaluation, which showed the patient has minimal intermittent aspiration with thin liquid material, which abated when thicker material was used. I cut down her steroids. I did consult Dr. Viral Dorantes, and we will arrange for an MRI of her lumbar spine. TEODORO THAPA MD DR: MARY JANE/dyana JOB#: [id number] / [id number]
[2019-01-09 03:48] VITALS: BP 131/79
[2019-01-09] MEDS: POTASSIUM CL 40MEQ D5-0.45NACL 1,000 ML IV SCH (03:51)
--- NOTE | 2019-01-09 03:51 | NUR ---
Pt schedule 0400 D5 1/2 NS with 40 meq KCL was not administered at this time as the current bag is still infusing. Will continue to monitor pt closely.
[2019-01-09] MEDS: diphenhydrAMINE 50 MG/ML VIAL IVP SCH ×4 (05:26→17:45)
[2019-01-09] MEDS: HALOPERIDOL LACTATE 5 MG/ML VIAL. IVP SCH ×3 (05:27→23:02)
--- NOTE | 2019-01-09 05:55 | NUR ---
RN called and spoke with Dr. Kc to verified orders that was received from day shift RN. Pt has been calm and cooperate through the night, okay from Dr. Kc to just monitor pt closely for now. Pt is calm and sleeping in bed at this time. Will continue to monitor pt closely.
[2019-01-09 07:00] VITALS: BP 132/87
[2019-01-09] MEDS: NON FORMULARY ITEM (Linaclotide (Linzess) 290 MCG) PO SCH (07:00)
[2019-01-09] MEDS: LIDOCAINE (700MG/PATCH) PATCH. TD SCH (07:51)
[2019-01-09] MEDS: CHOLECALCIFEROL (VITAMIN D3) 1,000 UNIT TABLET PO SCH (07:51)
[2019-01-09] MEDS: oxyCODONE IR 5 MG TABLET PO SCH ×3 (07:52→21:03)
[2019-01-09] MEDS: LACTOBACILLUS RHAMNOSUS GG 1 CAPSULE. PO SCH ×2 (07:52→21:03)
[2019-01-09] MEDS: TOPIRAMATE 100 MG TABLET. PO SCH ×2 (07:52→21:03)
[2019-01-09] MEDS: POTASSIUM CHLORIDE 20 MEQ TABLET.ER. PO SCH ×3 (07:53→17:45)
[2019-01-09] MEDS: DULoxetine HCL 30 MG CAPSULE.DR PO SCH (07:53)
[2019-01-09] MEDS: ASPIRIN ENTERIC COATED 325 MG TABLET.DR. PO SCH (07:53)
[2019-01-09] MEDS: FAMOTIDINE 20 MG/2 ML VIAL IVP SCH ×2 (07:54→21:04)
[2019-01-09] MEDS: methylPREDNISolone SOD SUCC PF 40 MG/ML VIAL. IV SCH (07:54)
[2019-01-09] MEDS: ENOXAPARIN 40 MG/0.4 ML SYRINGE. SQ SCH (07:55)
[2019-01-09] MEDS: VITAMIN B COMPLEX TABLET. PO SCH (07:58)
[2019-01-09 11:00] VITALS: BP 172/108
[2019-01-09 11:48] LABS: HEMOGLOBIN 12.8 g/dL (12.0-15.5); RED BLOOD COUNT 3.88 x10^6/uL (3.50-5.40); RED CELL DISTRIBUTION WIDTH 13.6 % (11.5-14.5); WHITE BLOOD COUNT 10.5 x10^3/uL (4.0-11.0)
[2019-01-09 12:26] LABS: CALCIUM 9.3 mg/dL (8.5-10.1); CREATININE 0.5 mg/dL (0.6-1.0); POTASSIUM 4.1 mmol/L (3.5-5.1)
[2019-01-09 12:31] LABS: ALBUMIN 3.6 g/dL (3.4-5.0); ALBUMIN/GLOBULIN RATIO 0.9 (1.0-1.7); MAGNESIUM 1.8 mg/dL (1.8-2.4); TOTAL BILIRUBIN 0.5 mg/dL (0.2-1.0); TOTAL PROTEIN 7.5 g/dL (6.4-8.2)
[2019-01-09 15:00] VITALS: BP 138/92
[2019-01-09 19:00] VITALS: BP 130/87
[2019-01-09] MEDS: OLANZapine 5 MG TABLET PO SCH (21:03)
[2019-01-09 23:00] VITALS: BP 116/75
--- NOTE | 2019-01-10 00:03 | NUR ---
Patient's haldol scheduled for 2200, given at 2300, patient somnolent, 5 mg given instead of the 10 mg ordered, to monitor.
[2019-01-10] MEDS: diphenhydrAMINE 50 MG/ML VIAL IVP SCH ×2 (00:18→06:23)
--- NOTE | 2019-01-10 01:30 | PN ---
DATE: 01/09/2019 SUBJECTIVE: The patient is sitting comfortably in her chair, in no apparent respiratory distress. She is definitely more awake, alert and interactive. has improved, has been ambulating; however, her appetite continued to be extremely poor. PHYSICAL EXAMINATION: GENERAL: When I examined her, she looked pale, cachectic, but no jaundice, cyanosis or thyromegaly. No jugular venous distension. No limb edema. VITAL SIGNS: Her heart rate was 72, her blood pressure was 131/79, temperature was 97.7, respiratory rate was 20 and oxygen saturation was 98% on 2 liters of oxygen. HEAD, EYES, EARS, NOSE AND THROAT: Normocephalic and atraumatic. NECK: Supple. HEART: Showed normal first and second heart sounds with no gallop, rub or murmur. CHEST: Clear to auscultation. No crepitation or rhonchi. ABDOMEN: Distended, soft and nontender. No guarding or rigidity. No organomegaly. All hernial orifices intact. Bowel sounds normal. NEUROLOGICAL: She is definitely more awake, alert, responding appropriately. All cranial nerves are intact. She moves extremities without difficulty. She ambulates without difficulty. Her intake was incompletely recorded, output was 1900. LABORATORY DATA: As of yesterday, her serum sodium was 141, potassium 3, chloride 104, bicarbonate 28, anion gap of 9, BUN 12, creatinine 0.6, estimated GFR was 180 mL per minute, her glucose 129 and calcium was 8.8. Her most recent white cell count was 15,000; hemoglobin 11.5; hematocrit 34; MCV 101 and platelet count 301,000. Today's labs are still pending at the time of this dictation. ASSESSMENT: 1. Altered mental status initially felt to be due to an overdose of her chronic pain medication as well as alcohol; however, MRI showed that she has findings consistent with posterior reversible encephalopathy syndrome. 2. Acute hypoxic hypercapnic respiratory failure. The patient was successfully extubated, maintaining her oxygen saturation at 96% on 2 liters of oxygen by nasal cannula. 3. She has multiple other medical problems including: A. Chronic back pain. B. Chronic obstructive pulmonary disease. C. Seizure disorder. D. Essential tremor. E. She did have breakthrough seizures for which she is now on Keppra. F. She has also hypokalemia. PLAN: My plan is to continue the oxygen supplementation. Continue with the IV fluid. I ordered an MRI; however, she apparently had had a CT scan of the lumbar spine, which showed that there is a grade 1 anterior spondylolisthesis at L4-L5 at which there is facet degenerative changes. There is suspected mild narrowing of the far lateral recess bilaterally at the L4-L5. The patient's pain medication was resumed and she is now on oxycodone immediate release 10 mg 3 times a day together with Lidoderm patches. TEODORO THAPA MD DR: MARY JANE/dyana JOB#: [id number] / [id number]
[2019-01-10 03:00] VITALS: BP 105/75
[2019-01-10 05:53] LABS: CALCIUM 9.5 mg/dL (8.5-10.1); CREATININE 0.6 mg/dL (0.6-1.0); GFR 108.6
[2019-01-10] MEDS: HALOPERIDOL LACTATE 5 MG/ML VIAL. IVP SCH (06:23)
[2019-01-10 07:00] VITALS: BP 115/77
[2019-01-10] MEDS: NON FORMULARY ITEM (Linaclotide (Linzess) 290 MCG) PO SCH (07:00)
[2019-01-10] MEDS: oxyCODONE IR 5 MG TABLET PO SCH ×3 (09:34→21:08)
[2019-01-10] MEDS: LACTOBACILLUS RHAMNOSUS GG 1 CAPSULE. PO SCH ×2 (09:34→21:08)
[2019-01-10] MEDS: DULoxetine HCL 30 MG CAPSULE.DR PO SCH (09:34)
[2019-01-10] MEDS: TOPIRAMATE 100 MG TABLET. PO SCH ×2 (09:34→21:08)
[2019-01-10] MEDS: ENOXAPARIN 40 MG/0.4 ML SYRINGE. SQ SCH (09:35)
[2019-01-10] MEDS: CHOLECALCIFEROL (VITAMIN D3) 1,000 UNIT TABLET PO SCH (09:35)
[2019-01-10] MEDS: POTASSIUM CHLORIDE 20 MEQ TABLET.ER. PO SCH ×3 (09:35→17:00)
[2019-01-10] MEDS: ASPIRIN ENTERIC COATED 325 MG TABLET.DR. PO SCH (09:35)
[2019-01-10] MEDS: LIDOCAINE (700MG/PATCH) PATCH. TD SCH (09:36)
[2019-01-10] MEDS: cefTRIAXone IV Push 1 GM VIAL. IVP SCH (09:36)
[2019-01-10] MEDS: VITAMIN B COMPLEX TABLET. PO SCH (09:39)
[2019-01-10] MEDS: FAMOTIDINE 20 MG/2 ML VIAL IVP SCH (09:39)
[2019-01-10 11:00] VITALS: BP 129/99
--- NOTE | 2019-01-10 12:05 | NUR ---
Wound intervention complete: pinpoint red area, to elbow. skin intact. d/c wound intervention.
[2019-01-10] MEDS: SUMAtriptan SUCCINATE 100 MG TABLET PO PRN ×2 (14:45→19:44)
[2019-01-10 15:00] VITALS: BP 135/85
[2019-01-10 19:00] VITALS: BP 105/68
[2019-01-10] MEDS: FAMOTIDINE 20 MG TABLET. PO SCH (21:08)
[2019-01-10] MEDS: OLANZapine 5 MG TABLET PO SCH (21:09)
[2019-01-10 23:00] VITALS: BP 128/85
--- NOTE | 2019-01-10 23:06 | PN ---
DATE: 01/10/2019 SUBJECTIVE: The patient is resting slightly propped up in bed, in no apparent distress, awake, alert. On questioning her, denied any complaint. The nursing staff did not voice any concern except that she is excessively sedated that she is on Haldol, lorazepam as well as Benadryl and actually would discontinue all this medication. Her said that she has been able to walk and has been walking in the corridors without difficulty. Her intake has also improved. Her potassium has normalized. He also wanted her to be admitted to [facility] as they live nearby and did not like to send her to rehab hospital of [place]. PHYSICAL EXAMINATION: GENERAL: When I examined her this morning, she looked pale but no jaundice, cyanosis or thyromegaly. No jugular venous distension. No lower limb edema. VITAL SIGNS: Her heart rate was 84, blood pressure 105/75, temperature was 98.2, respiratory rate was 18 and oxygen saturation was 91% on 2 liters oxygen by nasal cannula. HEAD, EYES, EARS, NOSE AND THROAT: Showed normocephalic and atraumatic. NECK: Supple. HEART: Showed normal first and second sounds. No gallop or murmur. CHEST: Clear to auscultation. No crepitation or rhonchi. ABDOMEN: Distended, soft and nontender. NEUROLOGICAL: She is awake, alert, responding appropriately. Cranial nerves intact. She moves extremities without difficulty. She ambulates without assistance or assistive devices. Her intake was incompletely recorded and output was 2350 as of yet. LABORATORY DATA: As of this morning, her serum sodium was 143, potassium 4, chloride 107, bicarbonate 24, anion gap 12, BUN 16, creatinine 0.6 and estimated GFR was 180 mL per minute. Her glucose was 92 and calcium was 9.5. White cell count was 10,500; hemoglobin 12.8; hematocrit 39; MCV 100 and platelet count 328,000. ASSESSMENT: 1. Altered mental status, initially felt to be due to an overdose of her chronic pain medication as well as alcohol; however, MRI showed also has findings consistent with posterior reversible encephalopathy syndrome. The patient is definitely more awake, alert, responding appropriately. 2. Acute hypoxic hypercapnic respiratory failure for which the patient was intubated, mechanically ventilated; however, she was successfully extubated. She is now maintaining her oxygen saturation at 96% on 2 liters oxygen by nasal cannula. 3. She has multiple other medical problems including: A. Chronic back pain. B. Chronic obstructive pulmonary disease. C. Seizure disorder. D. Essential tremors. E. She did have breakthrough seizure for which she is now on Keppra and she has also hypokalemia that has resolved. Her potassium today was 4 mEq per liter. PLAN: To continue with oxygen supplementation to continue with nutritional support. Continue with physical and occupational therapy. We will arrange for her to be discharged to [place] tomorrow to continue with the process of rehabilitation. TEODORO THAPA MD DR: MARY JANE/dyana JOB#: [id number] / [id number]
[2019-01-11 03:00] VITALS: BP 124/85
[2019-01-11 07:00] VITALS: BP 119/89
[2019-01-11] MEDS: POTASSIUM CHLORIDE 20 MEQ TABLET.ER. PO SCH ×2 (08:56→12:00)
[2019-01-11] MEDS: DULoxetine HCL 30 MG CAPSULE.DR PO SCH (08:56)
[2019-01-11] MEDS: ASPIRIN ENTERIC COATED 325 MG TABLET.DR. PO SCH (08:56)
[2019-01-11] MEDS: LACTOBACILLUS RHAMNOSUS GG 1 CAPSULE. PO SCH (08:56)
[2019-01-11] MEDS: FAMOTIDINE 20 MG TABLET. PO SCH (08:57)
[2019-01-11] MEDS: oxyCODONE IR 5 MG TABLET PO SCH (08:57)
[2019-01-11] MEDS: VITAMIN B COMPLEX TABLET. PO SCH (08:57)
[2019-01-11] MEDS: TOPIRAMATE 100 MG TABLET. PO SCH (08:57)
[2019-01-11] MEDS: ENOXAPARIN 40 MG/0.4 ML SYRINGE. SQ SCH (08:58)
[2019-01-11] MEDS: CHOLECALCIFEROL (VITAMIN D3) 1,000 UNIT TABLET PO SCH (08:58)
[2019-01-11] MEDS: LIDOCAINE (700MG/PATCH) PATCH. TD SCH (09:00)
[2019-01-11] MEDS ORDERED: OXYC10TA PO (09:40)
--- NOTE | 2019-01-11 09:50 | SNU/HH DC ---
DISCHARGE WITH HOME HEALTH DISCHARGE INFORMATION: Condition on Discharge: Stable CODE STATUS: Code Status: Full HOME HEALTH: Face to Face: I certify this patient is under my care and that I, or a nurse practitioner or physician's personalized living assistant working with me, had a face to face encounter that meets the physician face to face encounter requirements with this patient on 01/11/2019 Medical Complications: Other RN For Eval/Treatment: Yes Physical Therapy For: Evalulation/Treatment Occupational Therapy For: Evaluation/Treatment Pt Meets Homebound Status: Poor coordination w/ amb. POST DISCHARGE ORDERS: Activity Instructions for Disc: No restrictions, Resume previous activity Weight Bearing Status after Di: No restrictions DIET AFTER DISCHARGE: Regular FOLLOW-UP: PCP to follow Home Health: pcp TREATMENT/EQUIPMENT ORDERS: Adaptive Equipment Issued: None CERTIFICATION STATEMENT: Certification Statement: Certification Statement: Based on the above finding, I certify that this patient is confined to the home and needs intermittent fdc care, physical therapy and/or speech therapy, or continues to need occupational therapy.~ This patient is under my care, and I have initiated the establishment of the plan of care.~ This patient will be followed by myself or a community physician who will periodically review the plan of care. Home Meds Reported Medications Potassium Citrate (POTASSIUM CITRATE) 10 Meq Tablet.er, 99 MG PO DAILY for supplement, TAB.SR 12/28/18 Vit B Complex 100 Cmb #2/Herbs (SM NATURAL BALANCED B-100 TAB) 100 Mg Tablet, 100 MG PO DAILY for supplement, TAB 12/28/18 Cholecalciferol (Vitamin D3) (VITAMIN D3) 1,000 Unit Tablet, 1250 MG PO DAILY for supplement, TAB 12/28/18 Albuterol Sulfate (PROAIR HFA INHALER) 8.5 Gm Hfa.aer.ad, 1 PUFF INH PRN Q6HRS PRN for SHORTNESS OF BREATH, INHALER 0 Refills 12/28/18 Gabapentin (Gabapentin) 300 Mg Capsule, 600 MG PO TID for spasms, CAP 12/28/18 Budesonide/Formoterol Fumarate (SYMBICORT 160-4.5 MCG INHALER) 10.2 Gm Hfa.aer.ad, 2 PUFF IH BID for breathing, #10.6 GM 3 Refills 12/28/18 Rizatriptan Benzoate (MAXALT) 10 Mg Tablet, 10 MG PO PRN PRN for PAIN, TAB 12/28/18 Lidocaine (Lidocaine) 1 Each Adh..patch, 1 EACH TP PRN DAILY PRN for PAIN, PATCH 12/28/18 Topiramate (TOPIRAMATE) 100 Mg Tablet, 1 TAB PO BID for seizures, #60 TAB 1 Refill 12/28/18 Linaclotide (LINZESS) 290 Mcg Capsule, 290 MCG PO DAILY07 for IRRITABLE BOWEL, CAP 12/28/18 Duloxetine Hcl (CYMBALTA) 30 Mg Capsule.dr, 1 CAP PO DAILY for nerves, #30 CAP 5 Refills 12/28/18 Ranitidine Hcl (RANITIDINE HCL) 300 Mg Capsule, 1 CAP PO DAILY for stomach, #30 CAP 3 Refills 12/28/18 Olanzapine (OLANZAPINE) 5 Mg Tablet, 1 TAB PO QHS for nerves, #30 TAB 2 Refills 12/28/18 Methocarbamol (ROBAXIN) 500 Mg Tablet, 750 MG PO TID PRN for MUSCLE SPASMS, TAB 06/22/14 Tizanidine Hcl (TIZANIDINE HCL) 4 Mg Tablet, 4 MG PO TID PRN for MUSCLE SPASMS, TAB 06/22/14 Oxycodone/Apap 10-325 (PERCOCET 10-325 MG TABLET ) 1 Each Tablet, 1 TAB PO TID for PAIN, TAB 06/22/14 TEODORO THAPA MD January 11, 2019 09:50
[2019-01-11 11:00] VITALS: BP 117/80
[2019-01-11] MEDS: SUMAtriptan SUCCINATE 100 MG TABLET PO PRN (11:54)
--- NOTE | 2019-01-11 11:56 | PDOC ---
PROGRESS NOTES Assessment Ingestion of pain pills and alcohol in combination Seizures, provoked, possible prior epilepsy, negative EEG last year, no clinical seizures now PRES Negative echo and carotids Toxic and metabolic encephalopathy, improving Chronic low back pain Migraines, takes topiramate Not combative, off Precedex Taking diet Chronic low back pain, note CT lumbar spine performed earlier in the hospitalization showed degenerative changes Plan Discontinued levetiracetam,switched back to her topiramate 100 mg twice a day Aspirin Hold on repeat EEG Continue medical management Home psychiatric medications, But omitted sedatives such as gabapentin and tizanidine Taper off steroids per Dr. Kc Patient and prefer that she go to rehab in [place], for instance [facility] Subjective No complaints Objective Vital Signs Date Time Temp Pulse Resp B/P (MAP) Pulse Ox O2 Delivery O2 Flow Rate FiO2 01/11/19 11:00 98.6 107 18 117/80 (92) 92 Room Air 98.6 01/11/19 03:00 2.0 Intake and Output 01/11/19 07:00 Intake Total 560 ml Balance 560 ml Intake Oral 560 ml # Voids 2 # Bowel Movements 3 PHYSICAL EXAM Alert. Answers questions and follows commands, knows the date, knows that she's in the hospital. Depressed affect better PERRL. EOMI. CN: no focal findings. Muscle tone: normal. Muscle strength: 4/5 DTR: 1+ Plantar reflex: flexor Gait: not examined in bed. Sensory exam: no abnormal findings. Cerebellar: no abnormalities Review of Relevant I have reviewed the following items katherine (where applicable) has been applied. Labs Laboratory Tests Test 01/10/19 04:25 Sodium Level 143 mmol/L (136-145) Potassium Level 4.0 mmol/L (3.5-5.1) Chloride Level 107 mmol/L (98-107) Carbon Dioxide Level 24 mmol/L (21-32) Anion Gap 12 (6-14) Blood Urea Nitrogen 16 mg/dL (7-20) Creatinine 0.6 mg/dL (0.6-1.0) Estimated GFR (Cockcroft-Gault) 108.6 Glucose Level 92 mg/dL (70-99) Calcium Level 9.5 mg/dL (8.5-10.1) Microbiology 12/27/18 - Final, Complete 12/27/18 - Final, Complete 12/27/18 - Final, Complete 12/27/18 Gram Stain Evaluation - Final, Complete 12/27/18 Sputum Culture - Final, Complete 12/27/18 Sputum Result 1 - Final, Complete Medications Current Medications Sodium Chloride 500 ml @ 500 mls/hr 1X ONCE IV Last administered on 12/27/18at 06:39; Start 12/27/18 at 06:30; Stop 12/27/18 at 07:29; Status DC Multivitamins 10 ml/Thiamine HCl 100 mg/Folic Acid 1 mg/Sodium Chloride 1,011.2 ml @ 125 mls/ hr DAILY IV Last administered on 12/31/18at 09:10; Start 12/27/18 at 09:00; Stop 12/31/18 at 17:06; Status DC Methylprednisolone Sodium Succinate (SOLU-Medrol 40MG VIAL) 40 mg Q8HRS IV Last administered on 12/28/18at 06:01; Start 12/27/18 at 14:00; Stop 12/28/18 at 09:45; Status DC Ceftriaxone Sodium (Rocephin) 1 gm Q24H IVP Last administered on 01/10/19at 09:36; Start 12/28/18 at 09:00; Stop 01/11/19 at 07:46; Status DC Azithromycin 250 mg/Sodium Chloride 250 ml @ 250 mls/hr Q24H IV Last administered on 12/30/18 09:15; Start 12/28/18 at 09:00; Stop 12/31/18 at 08:47; Status DC Sodium Chloride 1,000 ml @ 75 mls/hr [id number] IV Last administered on 12/28/18at 16:46; Start 12/27/18 at 11:00; Stop 12/29/18 at 08:51; Status DC Propofol 100 ml @ 1.041 mls/ hr CONT PRN IV SEE I/O RECORD Last administered on 01/04/19at 07:01; Start 12/27/18 at 06:45; Stop 01/04/19 at 16:52; Status DC Enoxaparin Sodium (Lovenox 40mg Syringe) 40 mg Q24H SQ Last administered on 01/11/19at 08:58; Start 12/27/18 at 09:00 Famotidine (Pepcid Vial) 20 mg BID IVP Last administered on 5/5/19at 09:39; Start 12/27/18 at 09:00; Stop 01/10/19 at 11:26; Status DC Fentanyl Citrate 30 ml @ 0 mls/hr CONT PRN PRN IV PER PROTOCOL Last administered on 01/03/19 21:16; Start 12/27/18 at 08:15; Stop 01/04/19 at 16:52; Status DC Sodium Chloride 500 ml @ 500 mls/hr 1X ONCE IV Last administered on 12/27/18at 17:08; Start 12/27/18 at 17:30; Stop 12/27/18 at 18:29; Status DC Nystatin (Nystatin Oral Susp) 5 ml Q6HRS SWSW Last administered on 01/04/19at 11:54; Start 12/28/18 at 19:00; Stop 01/04/19 at 16:52; Status DC Acetaminophen (Tylenol) 650 mg PRN Q6HRS PRN PEG MILD PAIN / TEMP; Start at 19:15 Sodium Chloride 500 ml @ 500 mls/hr 1X ONCE IV Last administered on 12/28/18at 03:21; Start 12/28/18 at 03:15; Stop 12/28/18 at 04:14; Status DC Potassium Chloride (KCl Oral Soln) 40 meq BID PEG Last administered on 12/30/18 08:03; Start 12/28/18 at 09:00; Stop 12/30/18 at 14:56; Status DC Potassium Chloride (KCl Oral Soln) 40 meq 1X ONCE PEG ; Start 12/28/18 at 09:30; Stop 12/28/18 at 09:31; Status UNV Methylprednisolone Sodium Succinate (SOLU-Medrol 40MG VIAL) 30 mg Q12HR IV Last administered on 01/07/19 08:41; Start 12/28/18 at 21:00; Stop 01/07/19 at 11:59; Status DC Potassium Chloride/Dextrose/ Sod Cl 1,000 ml @ 75 mls/hr [id number] IV Last administered on 12/31/18 03:18; Start 12/29/18 at 09:30; Stop 12/31/18 at 08:47; Status DC Dexmedetomidine HCl 200 mcg/ Sodium Chloride 50 ml @ 0 mls/hr CONT PRN IV PER PROTOCOL Last administered on 01/05/19 03:54; Start 12/29/18 at 09:00; Stop 01/06/19 at 14:33; Status DC Sodium Chloride 500 ml @ 500 mls/hr 1X PRN PRN IV SEE COMMENTS; Start 12/29/18 at 09:00 Atropine Sulfate (ATROPINE 0.5mg SYRINGE) 0.5 mg PRN Q5MIN PRN IV SEE COMMENTS; Start 12/29/18 at 09:00; Stop 01/10/19 at 11:25; Status DC Magnesium Sulfate/ Dextrose 100 ml @ 100 mls/hr 1X ONCE IV Last administered on 12/29/18at 10:01; Start 12/29/18 at 09:30; Stop 12/29/18 at 10:29; Status DC Fentanyl Citrate (Fentanyl 2ml Vial) 100 mcg STK-MED ONCE .ROUTE ; Start 12/30/18 at 10:17; Stop 12/30/18 at 10:18; Status DC Haloperidol Lactate (Haldol Inj) 5 mg PRN Q6HRS PRN IVP AGITATION Last administered on 01/04/19at 18:18; Start 12/30/18 at 16:30; Stop 01/10/19 at 08:05; Status DC Lorazepam (Ativan) 2 mg PRN Q2HR PRN IV ANXIETY. Last administered on 01/09/19 09:37; Start 12/31/18 at 20:30; Stop 01/10/19 at 08:05; Status DC Levetiracetam 500 mg/Dextrose 105 ml @ 420 mls/hr Q12HR IV Last administered on 01/07/19at 08:42; Start 12/31/18 at 21:00; Stop 01/07/19 at 14:15; Status DC Magnesium Sulfate 50 ml @ 25 mls/hr 1X ONCE IV Last administered on 01/01/19at 08:26; Start 01/01/19 at 07:45; Stop 01/01/19 at 09:44; Status DC Acetaminophen (Tylenol) 650 mg PRN Q6HRS PRN PO TEMP > 100.4F Last administered on 01/07/19at 10:26; Start 01/01/19 at 08:45 Acetaminophen (Tylenol Supp) 650 mg PRN Q4HRS PRN MN TEMP > 100.4F; Start 01/01/19 at 08:45 Aspirin (Ecotrin) 325 mg [id number] PO Last administered on 01/11/19 08:56; Start 01/01/19 at 09:00 Aspirin (Aspirin) 300 mg PRN DAILY PRN MN IF UNABLE TO TAKE PO Last administered on 01/05/19 09:03; Start 01/01/19 at 08:45 Vecuronium Burton (Norcuron Bolus) 10 mg 1X ONCE IV Last administered on 01/01/19 11:47; Start 01/01/19 at 11:45; Stop 01/01/19 at 11:46; Status DC Multivitamins 10 ml/Thiamine HCl 100 mg/Folic Acid 1 mg/Sodium Chloride 1,011.2 ml @ 100 mls/ hr DAILY IV Last administered on 01/06/19 08:26; Start 01/02/19 at 15:30; Stop 01/06/19 at 19:07; Status DC Fentanyl Citrate (Fentanyl 2ml Vial) 50 mcg PRN Q3HRS PRN IV PAIN Last administered on 01/07/19 19:33; Start 01/04/19 at 15:00 Haloperidol Lactate (Haldol Inj) 10 mg Q8HRS IVP Last administered on 01/10/19 06:23; Start 01/05/19 at 06:00; Stop 01/10/19 at 08:03; Status DC Haloperidol Lactate (Haldol Inj) 5 mg 1X ONCE IVP Last administered on 01/04/19 20:45; Start 01/04/19 at 21:00; Stop 01/04/19 at 21:01; Status DC Diphenhydramine HCl (Benadryl) 25 mg PRN Q6HRS PRN IVP EPS symptoms Last administered on 01/04/19 22:20; Start 01/04/19 at 20:30; Stop 01/05/19 at 14:09; Status DC Diphenhydramine HCl (Benadryl) 25 mg Q6HRS IVP Last administered on 01/10/19 06:23; Start 01/05/19 at 14:30; Stop 01/10/19 at 08:03; Status DC Lactobacillus Rhamnosus (Culturelle) 1 cap BID PO Last administered on 01/10/19 21:08; Start 01/05/19 at 21:00 Barium Sulfate (Varibar Thin Liquid Apple) 148 gm 1X ONCE PO Last administered on 01/06/19at 12:15; Start 01/06/19 at 12:15; Stop 01/06/19 at 12:16; Status DC Methylprednisolone Sodium Succinate (SOLU-Medrol 40MG VIAL) 40 mg DAILY IV Last administered on 01/09/19at 07:54; Start 01/08/19 at 09:00; Stop 01/10/19 at 08:05; Status DC Potassium Chloride/Dextrose/ Sod Cl 1,000 ml @ 75 mls/hr [id number] IV Last administered on 01/08/19at 21:35; Start 01/07/19 at 12:00; Stop 01/09/19 at 12:35; Status DC Lidocaine (Lidoderm) 2 patch DAILY TD Last administered on 01/11/19at 09:00; Start 01/08/19 at 09:00 Topiramate (Topamax) 100 mg BID PO Last administered on 01/11/19at 08:57; Start 01/07/19 at 21:00 Albuterol Sulfate (Ventolin Neb Soln) 40 mg PRN Q6HRS PRN INH SHORTNESS OF BREATH; Start 01/08/19 at 09:00; Stop 01/08/19 at 09:57; Status DC Vitamin D (Vitamin D3) 2,000 unit DAILY PO Last administered on 01/11/19at 08:58; Start 01/08/19 at 10:00 Duloxetine HCl (Cymbalta) 30 mg DAILY PO Last administered on 01/11/19at 08:56; Start 01/08/19 at 10:00 Non-Formulary Medication (Lidocaine ) 1 each PRN DAILY PRN TP PAIN; Start 01/08/19 at 09:00; Status UNV Non-Formulary Medication (Linaclotide (Linzess)) 290 mcg DAILY07 PO ; Start 01/09/19 at 07:00; Stop 01/10/19 at 17:24; Status DC Olanzapine (ZyPREXA) 5 mg QHS PO Last administered on 01/10/19at 21:09; Start 01/08/19 at 21:00 Non-Formulary Medication (Ranitidine Hcl ) 1 cap DAILY PO ; Start 01/08/19 at 09:00; Status UNV Sumatriptan Succinate (Imitrex) 100 mg PRN Q2HR PRN PO MIGRAINE HEADACHE Last administered on 01/10/19 19:44; Start 01/08/19 at 09:15 Vitamin B Complex (Anthony B) 1 tab DAILY PO Last administered on 01/11/19 08:57; Start 01/08/19 at 10:00 Potassium Chloride (Klor-Con) 20 meq TIDWMEALS PO Last administered on 01/11/19 08:56; Start 01/08/19 at 10:00 Oxycodone HCl (Roxicodone) 10 mg TID PO Last administered on 01/11/19 08:57; Start 01/08/19 at 10:00 Albuterol Sulfate (Ventolin Neb Soln) 2.5 mg PRN Q6HRS PRN INH SHORTNESS OF BREATH; Start 01/08/19 at 09:57 Famotidine (Pepcid) 20 mg BID PO Last administered on 01/11/19 08:57; Start 01/10/19 at 21:00 Active Scripts Active Reported Potassium Citrate 10 Meq Tablet.er 99 Mg PO DAILY Sm Natural Balanced B-100 Tab (Vit B Complex 100 Cmb #2/Herbs) 100 Mg Tablet 100 Mg PO DAILY Vitamin D3 (Cholecalciferol (Vitamin D3)) 1,000 Unit Tablet 1,250 Mg PO DAILY Proair Hfa Inhaler (Albuterol Sulfate) 8.5 Gm Hfa.aer.ad 1 Puff INH PRN Q6HRS PRN Gabapentin 300 Mg Capsule 600 Mg PO TID Symbicort 160-4.5 Mcg Inhaler (Budesonide/Formoterol Fumarate) 10.2 Gm Hfa.aer.ad 2 Puff IH BID Maxalt (Rizatriptan Benzoate) 10 Mg Tablet 10 Mg PO PRN PRN Lidocaine 1 Each Adh..patch 1 Each TP PRN DAILY PRN Topiramate 100 Mg Tablet 1 Tab PO BID Linzess (Linaclotide) 290 Mcg Capsule 290 Mcg PO DAILY07 Cymbalta (Duloxetine Hcl) 30 Mg Capsule.dr 1 Cap PO DAILY Ranitidine Hcl 300 Mg Capsule 1 Cap PO DAILY Olanzapine 5 Mg Tablet 1 Tab PO QHS Robaxin (Methocarbamol) 500 Mg Tablet 750 Mg PO TID PRN Tizanidine Hcl 4 Mg Tablet 4 Mg PO TID PRN Percocet 10-325 Mg Tablet (Oxycodone/Acetaminophen) 1 Each Tablet 1 Tab PO TID Vitals/I & O Vital Sign - Last 24 Hours 01/10/19 01/10/19 01/10/19 01/10/19 14:45 15:00 19:00 20:03 Temp 98.0 98.7 98.0 98.7 Pulse 106 84 Resp 18 17 18 B/P (MAP) 135/85 (102) 105/68 (80) Pulse Ox 93 93 O2 Delivery Room Air Nasal Cannula Nasal Cannula Room Air O2 Flow Rate 2.0 2.0 01/10/19 01/10/19 01/10/19 01/11/19 21:08 22:08 23:00 03:00 Temp 98.8 98.9 98.8 98.9 Pulse 83 88 Resp 18 18 18 18 B/P (MAP) 128/85 (99) 124/85 (98) Pulse Ox 95 91 O2 Delivery Room Air Room Air Room Air O2 Flow Rate 2.0 2.0 01/11/19 01/11/19 01/11/19 01/11/19 07:00 08:00 08:57 09:57 Temp 98.7 98.7 Pulse 123 Resp 18 B/P (MAP) 119/89 (99) Pulse Ox 95 O2 Delivery Room Air Room Air Room Air Room Air 01/11/19 11:00 Temp 98.6 98.6 Pulse 107 Resp 18 B/P (MAP) 117/80 (92) Pulse Ox 92 O2 Delivery Room Air Intake and Output 01/10/19 01/10/19 01/11/19 15:00 23:00 07:00 Intake Total 460 ml 100 ml Balance 460 ml 100 ml MAGDI LANGSTON MD January 11, 2019 11:56
--- NOTE | 2019-01-11 12:48 | NUR ---
MARY KAY following pt. Pt wants to go home with home health. MARY KAY phoned and faxed orders to [facility] . A nurse will visit pt in the next 48 hours. Pt agreeable with plans and reported her will pick her up. RODRIGUE CARVER.
--- NOTE | 2019-01-11 14:58 | NUR ---
Discharge Note: ANGELICA WEBB [place]REM[place] Discharge instructions and discharge home medications reviewed with Patient and a copy given. All questions have been answered and understanding verbalized. The following instructions and handouts were given: patient visit report, medication information, detailed information re: honey thick liquids, education on dyspahsia diet and ARDS. Gave patient 4 honey thick juices and 3 honey thick packets to take home with her. Discontinued lines and drains: peripheral IV, tip intact. Patient discharged to home with home health via private vehicle.
--- NOTE | 2019-01-11 18:48 | DS ---
DATE OF DISCHARGE: 01/11/2019 HISTORY OF PRESENT ILLNESS: The patient is a 43-year-old female patient who was initially seen at [facility] Emergency Room with a complaint of altered mental status. She apparently has had cold, started having fevers and chills, took a couple of pain medications, also a couple of alcohol drinks and by the time she arrived to the Emergency Room, she appeared to be oversedated. She had bilateral rhonchi and crackles and she was hypoxic on room air and it was felt that she had an overdose of her pain medication with alcohol. She does continue to smoke; however, she requires noxious stimuli to respond and according to her , she continued to smoke and is known to have chronic back pain. An attempt was made to treat her with the BiPAP, but apparently according to ER physician, continued to be hypoxic and she ended up being intubated and as her blood gas showed worsening of her acidosis with a pH of 7.26, pCO2 of 56, pO2 of 44 and oxygen saturation was 72% and therefore, she was intubated, sedated and was transferred to [facility] ICU, was continued on mechanical ventilation. She was also found to have left lower lobe infiltrate for which she was started on Rocephin and Zithromax. She had a prolonged stay in the ICU as she was unable to be extubated and has been very restless, agitated and required sedation with propofol, Precedex and fentanyl. She had had an MRI done on 01/01/2019, which showed the patient has fairly symmetric areas of vasogenic edema are seen involving the occipital, parietal and frontoparietal lobes bilaterally along with the left cerebellar hemisphere consistent most likely with a posterior reversible encephalopathy syndrome. The patient's level of consciousness gradually improved and was successfully extubated. She did well on her video swallowing evaluation and also, her mobility has improved gradually, and she is now able to eat and drink and her ambulation started to improve. A decision was made to discharge her home with home health. She was seen in consultation by the pipe bowls paint trimmer and her oxycodone was resumed. Did have a CT scan of the lumbar spine, which did show that she has no acute lumbar spine fracture identified. There is a grade 1 anterior spondylolisthesis at L4-L5 at which there is facet degenerative changes. There is suspected mild narrowing of the far lateral recess bilaterally at L4-L5. PHYSICAL EXAMINATION: GENERAL: When I saw her today, she looked well and was clearly in no apparent respiratory distress. No pallor or jaundice, cyanosis or thyromegaly. No jugular venous distension. No lower limb edema. VITAL SIGNS: Her heart rate was 123, blood pressure was 119/89, temperature was 98.7, respiratory rate was 18 and oxygen saturation was 95% on room air. HEAD, EYES, EARS, NOSE AND THROAT: Showed normocephalic, atraumatic. NECK: Supple. HEART: Showed normal first and second sounds. No gallop, rub or murmur. CHEST: Clear to auscultation. No crepitation or rhonchi. ABDOMEN: Distended, soft, nontender. NEUROLOGIC: She is awake, alert, responding appropriately. All cranial nerves are intact. She moves extremities without difficulty. Her intake and output were incompletely recorded. LABORATORY DATA: Her most recent lab work showed a white cell count of 10,500, hemoglobin 13, hematocrit 39, MCV 100 and platelet count 328,000. Serum sodium was 143, potassium 4, chloride 107, bicarbonate 24, anion gap of 12, BUN 16, creatinine 0.6, estimated GFR was 180 mL per minute. Her glucose was 92, calcium was 9.5. Her influenza A and B were negative. Her nasal screen for MRSA with PCR was negative. DISCHARGE MEDICATIONS: She was discharged home to continue on following medications: Oxycodone immediate release 10 mg 3 times a day, albuterol sulfate 1 puff every 6 hours, Symbicort 2 puffs twice a day, cholecalciferol for vitamin D 1000 international units once a day, duloxetine for Cymbalta 30 mg once a day, gabapentin 600 mg 3 times a day, Lidoderm patch topically on for 12 hours and off for 12 hours. She is on linaclotide for Linzess 290 mcg daily, Robaxin 750 mg 3 times a day, olanzapine 5 mg at bedtime, potassium citrate 10 mEq daily, ranitidine 300 mg daily, rizatriptan for Maxalt 10 mg daily, topiramate 100 mg twice a day, vitamin B complex once a day. FINAL DISCHARGE DIAGNOSES: 1. Altered mental status, felt initially to be due to overdose of her chronic pain medication as well as alcohol; however, MRI showed that she has findings consistent with posterior reversible encephalopathy syndrome. The patient has made a remarkable improvement. She is now more awake, alert, responding appropriately. 2. Acute hypoxic hypercapnic respiratory failure for which the patient was intubated and mechanically ventilated; however, she was successfully extubated after a prolonged ventilation and she is now maintaining her oxygen saturation at 95% on room air. 3. She has multiple other medical problems including: A. Chronic back pain. B. Chronic obstructive pulmonary disease. C. Seizure disorder. D. Essential tremors. E. She did have breakthrough seizure for which she was started on Keppra that was discontinued and she was put back on her topiramate. F. Hypokalemia that has resolved. Her potassium is up to 4 mEq per liter. The patient will be discharged home with home health. TEODORO THAPA MD DR: MARY JANE/dyana JOB#: [id number] / [id number]
== END 2019-01-11 14:35 | disposition home health service (06) | DRG 870 ==
LOC: 1 WEST ICU 05:54 → 5 NORTH 01-06 13:42
PROVIDERS: ADMIT Internal Medicine; ATTEND Internal Medicine
PROC: 5A1955Z Respiratory Ventilation, Greater than 96 Consecutive Hours (ICD-10-PCS; principal; 2018-12-27)
PROC: 5A09357 Assistance with Respiratory Ventilation, Less than 24 Consecutive Hours, Continuous Positive Airway Pressure (ICD-10-PCS; 2018-12-27)
PROC: 5A09357 Assistance with Respiratory Ventilation, Less than 24 Consecutive Hours, Continuous Positive Airway Pressure (ICD-10-PCS; 2019-01-06)
PROC: 0BH17EZ Insertion of Endotracheal Airway into Trachea, Via Natural or Artificial Opening (ICD-10-PCS; 2019-01-07)
DX: A41.9 Sepsis, unspecified organism (principal); J18.9 Pneumonia, unspecified organism; J96.01 Acute respiratory failure with hypoxia; J96.02 Acute respiratory failure with hypercapnia; G92 Toxic encephalopathy; G93.6 Cerebral edema; I67.83 Posterior reversible encephalopathy syndrome; G40.89 Other seizures; J44.0 Chronic obstructive pulmonary disease with (acute) lower respiratory infection; F10.239 Alcohol dependence with withdrawal, unspecified; T50.991A Poisoning by other drugs, medicaments and biological substances, accidental (unintentional), initial encounter; G89.29 Other chronic pain; M54.5 Low back pain; G25.0 Essential tremor; F10.20 Alcohol dependence, uncomplicated; E87.6 Hypokalemia; F17.200 Nicotine dependence, unspecified, uncomplicated; G43.909 Migraine, unspecified, not intractable, without status migrainosus; J20.9 Acute bronchitis, unspecified; K21.9 Gastro-esophageal reflux disease without esophagitis; M43.16 Spondylolisthesis, lumbar region; R13.10 Dysphagia, unspecified; Z86.73 Personal history of transient ischemic attack (TIA), and cerebral infarction without residual deficits; Z90.710 Acquired absence of both cervix and uterus; Z91.410 Personal history of adult physical and sexual abuse; Z88.8 Allergy status to other drugs, medicaments and biological substances; Z90.49 Acquired absence of other specified parts of digestive tract; Z79.899 Other long term (current) drug therapy; Y92.89 Other specified places as the place of occurrence of the external cause; T51.0X1A Toxic effect of ethanol, accidental (unintentional), initial encounter
CPT/HCPCS: 36415; 36600; 70450; 70551; 71045; 72131; 74230; 80048; 80053; 80061; 81025; 82805; 83605; 83735; 84145; 85027; 87070; 87205; 87641; 87804; 93306; 93880; 94003; 94660; 94760; J0456; J0696; J1200; J1630; J1650; J1953; J2060; J2704; J2920; J3010; J3475; J3490; J7030; J7040; J7042; J7050; 92526; 92610; 92611; 97110; 97116; 97530; 97535

== ENCOUNTER → 2019-08-06 | Outpatient (CLI) | payer OTHER ==
[~2019-08-06] MED LIST changes: +ALBU2.5V8 INH; +BUDE10.2 IH; +CHOL10003 PO; +DULO30CA2 PO; +GABA300C9 PO; +LIDO700A21 TP; +LINZESS290 MCG PO; +OLAN5TAB9 PO; +OXYC10TA PO; +POTA10TA17 PO; +RANI300C PO; +RIZA10TA PO; -TIZA4TAB PO; +TIZA4TAB2 PO; +TOPI100T8 PO; +VIT100TA2 PO
--- NOTE | 2019-08-09 11:24 | EEG ---
DATE OF SERVICE: 08/06/2019 STUDY: Electroencephalogram. EEG NUMBER: [id number] OBJECTIVE: The patient is a 43-year-old female with history of seizure since childhood. DESCRIPTION: This is a digital study. Electrodes are placed according to international 10-20 system. Bipolar and referential montages are available. Activation procedures typically include hyperventilation and intermittent photic stimulation. INTERPRETATION: The waking background consists of 8-9 Hz, 50-100 microvolt activity, symmetrically distributed over parietooccipital regions and reactive to eye opening. Most of the record consists of stage 2 and stage 3 sleep with normal patterns. Computer identified abnormalities are all related to vertex sharp waves, which of course are physiological. Hyperventilation is poorly performed. Intermittent photic stimulation is noncontributory. IMPRESSION: This electroencephalogram with the patient awake, but mostly asleep, is within normal limits. There is no focal, paroxysmal, or epileptiform activity. Thank you for letting us help with the patient's care. MAGDI LANGSTON MD DR: OMAR/dyana JOB#: [id number] / [id number] Stephanie Hooks MD, AHMED MD
== END | disposition home or self-care (01) ==
LOC: EEG 12:54
PROVIDERS: ATTEND Internal Medicine Pulmonary Disease
DX: R56.9 Unspecified convulsions (principal)
CPT/HCPCS: 95816

== ENCOUNTER 2020-03-14 13:29 | Emergency (ER) | payer MEDICAID ==
[~2020-03-14] VITALS: Ht 162.6 cm; Wt 70.4 kg
[2020-03-14 13:58] VITALS: BP 125/79
--- NOTE | 2020-03-14 14:01 | PHYS DOC ---
Past Medical History Smoking Status: Current Every Day Smoker General Adult EDM: Chief Complaint: OTHER COMPLAINTS HPI: HPI: Patient is a 44 year old female who presents with patient was brought here today by her because he woke her up off of the couch and she got up but then decided she was so tired so she went and lay back down. She is here because the is worried that shes too sleepy. Patient was seen for this a year ago at and was admitted and they decided that it was due to all of her pain medication. Patient takes 10 mg of oxycodone code own 3 times a day, gabapentin, Robaxin of which she states is for her degenerative disc disease. She also supposed to wear oxygen at night which the says she did not wear for her COPD. Patient is a smoker. Patient states that she feels fine and has no complaints. Patient denies pain, nausea, vomiting, fever, abdominal pain, chest pain, shortness of breath, dizziness, headache, syncope, confusion, vision changes, numbness or tingling, focal weakness, generalized weakness. states that she is not acting normal for herself. Patient states that after the visit her doctor did reevaluate her pain medication readjusted it. Review of Systems: Review of Systems: Constitutional: Denies fever or chills. Sleepiness. [] Eyes: Denies change in visual acuity. [] HENT: Denies nasal congestion or sore throat. [] Respiratory: Denies cough or shortness of breath. [] Cardiovascular: Denies chest pain or edema. [] GI: Denies abdominal pain, nausea, vomiting, bloody stools or diarrhea. [] : Denies dysuria. [] Musculoskeletal: Denies back pain or joint pain. [] Integument: Denies rash. [] Neurologic: Denies headache, focal weakness or sensory changes. [] Endocrine: Denies polyuria or polydipsia. [] Lymphatic: Denies swollen glands. [] Psychiatric: Denies depression or anxiety. [] Heart Score: Risk Factors: Risk Factors: DM, Current or recent (<one month) smoker, HTN, HLP, family history of CAD, obesity. Risk Scores: Score 0 - 3: 2.5% MACE over next 6 weeks - Discharge Home Score 4 - 6: 20.3% MACE over next 6 weeks - Admit for Clinical Observation Score 7 - 10: 72.7% MACE over next 6 weeks - Early Invasive Strategies Allergies: Allergies: Allergies Coded Allergies Type Severity Reaction Last Updated Verified tegaserod Allergy Severe Swelling 12/29/18 Yes buprenorphine Allergy Intermediate Itching 12/29/18 Yes Physical Exam: PE: Constitutional: Well developed, well nourished, no acute distress, non-toxic appearance. [] HENT: Normocephalic, atraumatic, bilateral external ears normal, oropharynx moist, no oral exudates, nose normal. [] Eyes: PERRLA, EOMI, conjunctiva normal, no discharge. [] Neck: Normal range of motion, no tenderness, supple, no stridor. [] Cardiovascular:Heart rate regular rhythm, no murmur [] Lungs & Thorax: Bilateral breath sounds clear to auscultation [] Abdomen: Bowel sounds normal, soft, no tenderness, no masses, no pulsatile masses. [] Skin: Warm, dry, no erythema, no rash. [] Back: No tenderness, no CVA tenderness. [] Extremities: No tenderness, no cyanosis, no clubbing, ROM intact, no edema. [] Neurologic: Alert and oriented X 3, normal motor function, normal sensory function, no focal deficits noted. [] Psychologic: Affect normal, judgement normal, mood normal. Normal Physical Exam[] EKG: EK and read by Dr Gonsales as Sinus Rhythm and no STEMI] Radiology/Procedures: Radiology/Procedures: [] Impression: [facility] [address] [facility] [place], [place] [id number] IMAGING REPORT Signed PATIENT: YANE WEBB ACCOUNT: [id number] : 1975 LOCATION: ER AGE: 44 SEX: F EXAM STATUS: REG ER ORD. PHYSICIAN: MARIPOSA LAGOS APRN REASON: lethargy PROCEDURE: PORTABLE CHEST 1V AP chest. HISTORY: Lethargy AP view was taken of the chest. Lungs are clear. Heart is normal in size without heart failure. There is no effusion. IMPRESSION: 1. No acute chest disease. Electronically signed by: Marshall Araiza MD (03/14/2020 2:35 PM) [facility] DICTATED and SIGNED BY: MARSHALL ARAIZA MD DATE: 03/14/20 1435 Course & Med Decision Making: Course & Med Decision Making Pertinent Labs and Imaging studies reviewed. (See chart for details) Alert and oriented. Speaks in full complete sentences. Vital signs within normal limits. Lungs are clear to auscultation all lobes. Skin pink warm and dry. No extremity edema. Patient potassium was 2.7. She was given 60 p.o. potassium. After 45-minutes the medication been given a potassium was drawn and is 3.0. She also has a urinary tract infection. Patient will follow-up with her primary care provider and continue taking her potassium supplement. [] Dragon Disclaimer: Dragon Disclaimer: This electronic medical record was generated, in whole or in part, using a voice recognition dictation system. Departure Departure Impression: Primary Impression: Hypokalemia Additional Impression: UTI (urinary tract infection) Qualified Codes: N39.0 - Urinary tract infection, site not specified; R31.9 - Hematuria, unspecified Disposition: HOME, SELF-CARE Condition: STABLE Referrals: BONIFACIO FRAZIER (PCP) Patient Instructions: Hypokalemia, Urinary Tract Infection Additional Instructions: Follow-up with primary care provider soon as possible. Continue taking your potassium supplement. Take medication as prescribed. Scripts Cephalexin (KEFLEX) 500 Mg Capsule 1 CAP PO BID for 7 Days, #14 CAP 0 Refills Prov: MARIPOSA LAGOS APRN 03/14/20 Justicifation of Admission Dx: Justifications for Admission: Justification of Admission Dx: N/A MAIRPOSA LAGOS APRN Mar 14, 2020 14:01
--- NOTE | 2020-03-14 14:32 | EKG ---
[facility] [address] [place] [address] Test Date: 2020-03-14 Test Time: 14:02:39 Pat Name: YANE WEBB Department: Room: Gender: F Emergency Management Consultant: : 1975 Requested By: MARIPOSA LAGOS Order Number: [id number] Reading MD: Measurements Intervals Belt Rate: 62 P: 52 IA: 138 QRS: 42 QRSD: 82 T: 78 QT: 438 QTc: 447 Interpretive Statements SINUS RHYTHM NO SPECIFIC ECG ABNORMALITIES RI6.01 No previous ECG available for comparison
[2020-03-14 14:36] LABS: BASO # 0.1 x10^3/uL (0.0-0.2); BASO % 1 % (0-3); EOS # 0.1 x10^3/uL (0.0-0.7); EOS % 1 % (0-3); HEMATOCRIT 34.4 % (36.0-47.0); HEMOGLOBIN 11.7 g/dL (12.0-15.5); LYMPH # 2.9 x10^3/uL (1.0-4.8); LYMPH % 24 % (24-48); MEAN CORPUSCULAR HEMOGLOBIN 34 pg (25-35); MEAN CORPUSCULAR HGB CONC 34 g/dL (31-37); MEAN CORPUSCULAR VOLUME 100 fL (79-100); MONO % 8 % (0-9); NEUT # 7.9 x10^3/uL (1.8-7.7); NEUT % 66 % (31-73); PLATELET COUNT 252 x10^3/uL (140-400); RED BLOOD COUNT 3.44 x10^6/uL (3.50-5.40); RED CELL DISTRIBUTION WIDTH 13.9 % (11.5-14.5); WHITE BLOOD COUNT 11.9 x10^3/uL (4.0-11.0)
--- NOTE | 2020-03-14 14:38 | RAD ---
AP chest. HISTORY: Lethargy AP view was taken of the chest. Lungs are clear. Heart is normal in size without heart failure. There is no effusion. IMPRESSION: 1. No acute chest disease. Electronically signed by: Marshall Araiza MD (03/14/2020 2:35 PM) [facility]
[2020-03-14 14:45] LABS: PROTHROMBIN TIME PATIENT 12.5 SEC (11.7-14.0)
[2020-03-14 14:56] LABS: ALBUMIN/GLOBULIN RATIO 0.9 (1.0-1.7); CALCIUM 7.8 mg/dL (8.5-10.1); CREATININE 0.9 mg/dL (0.6-1.0); GFR 67.7; TOTAL BILIRUBIN 0.2 mg/dL (0.2-1.0); TOTAL PROTEIN 6.2 g/dL (6.4-8.2)
[2020-03-14 15:05] LABS: POTASSIUM 2.7 mmol/L (3.5-5.1)
[2020-03-14] MEDS ORDERED: ONDANSETRON PF 4 MG/2 ML VIAL. IVP ONE (15:30)
[2020-03-14] MEDS ORDERED: POTASSIUM CHLORIDE 20 MEQ TABLET.ER. PO ONE ×2 (15:30→15:45)
[2020-03-14] MEDS ORDERED: fentaNYL PF VIAL 100 MCG/2 ML VIAL IVP ONE (15:45)
[2020-03-14] MEDS ORDERED: POTASSIUM CHLORIDE 10MEQ 100 ML IV SCH (16:00)
[2020-03-14 16:07] LABS: BILIRUBIN,URINE NEGATIVE (NEG); CLARITY,URINE CLOUDY; COLOR,URINE YELLOW; NITRITE,URINE NEGATIVE (NEG); PROTEIN,URINE NEGATIVE (NEG-TRACE); UROBILINOGEN,URINE 0.2 mg/dL (0.2 mg/dL)
[2020-03-14 16:25] LABS: BACTERIA,URINE MODERATE /HPF (0-FEW); SQUAMOUS EPITHELIAL CELL,UR MOD /LPF
[2020-03-14] MEDS ORDERED: CEPH-264 PO (16:51)
== END 2020-03-14 17:40 | disposition home or self-care (01) ==
LOC: ER 13:29
DX: N39.0 Urinary tract infection, site not specified (principal); R31.9 Hematuria, unspecified; E87.6 Hypokalemia; F17.200 Nicotine dependence, unspecified, uncomplicated; Z88.8 Allergy status to other drugs, medicaments and biological substances
CPT/HCPCS: 36415; 71045; 80053; 81001; 84132; 84443; 84484; 85025; 85610; 87086; 93005; 96374; 99285; J2405

== ENCOUNTER 2020-06-11 14:19 | Emergency (ER) | payer MEDICAID ==
[~2020-06-11] VITALS: Ht 162.6 cm; Wt 70.4 kg
[~2020-06-11 14:19] MED LIST changes: +CEPH-264 PO
--- NOTE | 2020-06-11 15:04 | PHYS DOC ---
Past Medical History Past Medical History: COPD Additional Past Medical Histor: EPILEPSY, DDD Past Surgical History: Cholecystectomy, Hysterectomy, Other Additional Past Surgical Histo: L. SHOULDER Smoking Status: Current Every Day Smoker Additional Information: 0.5/PPD Alcohol Use: None General Adult EDM: Chief Complaint: FATIGUE HPI: HPI: Patient is a 44 year old female who presents to the emergency department today with complaints of feeling fatigued for the last 3 days. She reports that she also feels nauseated at this time. The patient states that she has a history of hypokalemia and that she feels this way when her potassium is low. She reports that she vomited 4 times yesterday but denies any vomiting today. She denies any fever, abdominal pain, diarrhea, shortness of breath, chest pain, palpitations, dizziness, or syncope. She currently complains of chronic back pain that she rates 8 out of 10 on the pain scale, patient states she has not taken her pain medication oxycodone 10/325 mg tablets since 8:00 this morning. Review of Systems: Review of Systems: Constitutional: Denies fever or chills. [] Eyes: Denies change in visual acuity. [] HENT: Denies nasal congestion or sore throat. [] Respiratory: Denies shortness of breath; reports chronic COPD cough, denies any changes Cardiovascular: Denies chest pain, palpitations, or edema. [] GI: See HPI : Denies dysuria. [] Musculoskeletal: Denies back pain or joint pain. [] Integument: Denies rash. [] Neurologic: Denies headache, focal weakness or sensory changes. [] Psychiatric: Denies depression or anxiety. [] Heart Score: Risk Factors: Risk Factors: DM, Current or recent (<one month) smoker, HTN, HLP, family history of CAD, obesity. Risk Scores: Score 0 - 3: 2.5% MACE over next 6 weeks - Discharge Home Score 4 - 6: 20.3% MACE over next 6 weeks - Admit for Clinical Observation Score 7 - 10: 72.7% MACE over next 6 weeks - Early Invasive Strategies Allergies: Allergies: Allergies Coded Allergies Type Severity Reaction Last Updated Verified tegaserod Allergy Severe Swelling 12/29/18 Yes buprenorphine Allergy Intermediate Itching 12/29/18 Yes Physical Exam: PE: Constitutional: Well developed, well nourished, no acute distress, non-toxic appearance. [] HENT: Normocephalic, atraumatic, bilateral external ears normal, nose normal. [] Eyes: PERRLA, EOMI, conjunctiva normal, no discharge. [] Neck: Normal range of motion, no stridor. [] Cardiovascular:Heart rate regular rhythm Lungs & Thorax: Respirations even and unlabored, no retractions, no respiratory distress Abdomen: soft, no tenderness Skin: Warm, dry, no erythema, no rash. [] Extremities: No cyanosis, ROM intact, no edema. [] Neurologic: Alert and oriented X 3, no focal deficits noted. [] Psychologic: Affect normal, judgement normal, mood normal. [] Current Patient Data: Vital Signs: Vital Signs Date Time Temp Pulse Resp B/P (MAP) Pulse Ox O2 Delivery O2 Flow Rate FiO2 06/11/20 14:45 98.1 71 12 143/85 (104) 96 Room Air 98.1 EKG: EKG: [] Radiology/Procedures: Radiology/Procedures: [] Course & Med Decision Making: Course & Med Decision Making Pertinent Labs and Imaging studies reviewed. (See chart for details) 44-year-old female presents emergency department with complaints of fatigue and nausea. CBC was unremarkable; CMP revealed a potassium of 3.3, chloride of 108, glucose 109, calcium of 8.4, otherwise unremarkable; UA revealed 1-4 white blood cells but moderate squames, patient denied any urinary symptoms. Patient was given 1 L normal saline and 4 mg of Zofran in the emergency department she was also given 110/325 mg of oxycodone for her chronic back pain. Patient's vital signs were stable throughout her emergency department visit. She reported feeling better after interventions. Encouraged patient to follow- up with her primary care doctor in the next 1 to 2 days return to the ER if symptoms worsen. Patient verbalized an understanding of home care, medications, follow-up, and return to ED instructions and was in agreement with the plan of care. [] Dragon Disclaimer: Dragon Disclaimer: This electronic medical record was generated, in whole or in part, using a voice recognition dictation system. Departure Departure Impression: Primary Impression: Hypokalemia Disposition: HOME, SELF-CARE Condition: STABLE Referrals: BONIFACIO FRAZIER (PCP) Patient Instructions: Hypokalemia-Brief, Potassium Content of Foods Additional Instructions: Diet as tolerated. Follow-up with your primary care doctor in 1 to 2 days for reevaluation. Return to the ER if symptoms worsen. SAWYER SHEPHERD APRN Jun 11, 2020 15:04
[2020-06-11] MEDS ORDERED: ONDANSETRON PF 4 MG/2 ML VIAL. IV ONE (15:30)
[2020-06-11] MEDS ORDERED: oxyCODONE/APAP 10/325 1 TAB TABLET PO ONE (15:30)
[2020-06-11] MEDS ORDERED: IV NORMAL SALINE 1000ML BAG 1,000 ML IV ONE (15:30)
[2020-06-11 15:45] LABS: BASO # 0.1 x10^3/uL (0.0-0.2); BASO % 1 % (0-3); EOS # 0.4 x10^3/uL (0.0-0.7); EOS % 3 % (0-3); HEMATOCRIT 44.3 % (36.0-47.0); HEMOGLOBIN 14.9 g/dL (12.0-15.5); LYMPH # 2.6 x10^3/uL (1.0-4.8); LYMPH % 25 % (24-48); MEAN CORPUSCULAR HEMOGLOBIN 33 pg (25-35); MEAN CORPUSCULAR HGB CONC 34 g/dL (31-37); MEAN CORPUSCULAR VOLUME 99 fL (79-100); MONO # 0.9 x10^3/uL (0.0-1.1); MONO % 9 % (0-9); NEUT # 6.5 x10^3/uL (1.8-7.7); NEUT % 62 % (31-73); PLATELET COUNT 295 x10^3/uL (140-400); RED CELL DISTRIBUTION WIDTH 13.7 % (11.5-14.5); WHITE BLOOD COUNT 10.5 x10^3/uL (4.0-11.0)
[2020-06-11 16:49] LABS: CALCIUM 8.4 mg/dL (8.5-10.1); CREATININE 0.7 mg/dL (0.6-1.0); GFR 90.5; POTASSIUM 3.3 mmol/L (3.5-5.1)
[2020-06-11 16:54] LABS: ALBUMIN 3.3 g/dL (3.4-5.0); TOTAL BILIRUBIN 0.3 mg/dL (0.2-1.0); TOTAL PROTEIN 6.6 g/dL (6.4-8.2)
[2020-06-11 18:08] LABS: BILIRUBIN,URINE NEGATIVE (NEG); CLARITY,URINE CLEAR; COLOR,URINE YELLOW; NITRITE,URINE NEGATIVE (NEG); PH,URINE 6.5 (<5.0-8.0); PROTEIN,URINE NEGATIVE (NEG-TRACE); UROBILINOGEN,URINE 0.2 mg/dL (0.2 mg/dL)
[2020-06-11 18:13] LABS: BACTERIA,URINE FEW /HPF (0-FEW); RBC,URINE 0 /HPF (0-2)
[2020-06-11 18:16] VITALS: BP 120/72
== END 2020-06-11 18:30 | disposition home or self-care (01) ==
LOC: ER 14:19
DX: E87.6 Hypokalemia (principal); R11.2 Nausea with vomiting, unspecified; G40.909 Epilepsy, unspecified, not intractable, without status epilepticus; J44.9 Chronic obstructive pulmonary disease, unspecified; Z90.49 Acquired absence of other specified parts of digestive tract; Z90.710 Acquired absence of both cervix and uterus; F17.200 Nicotine dependence, unspecified, uncomplicated; Z88.8 Allergy status to other drugs, medicaments and biological substances
CPT/HCPCS: 36415; 80053; 81001; 81025; 85025; 96361; 96374; 99285; J2405; J7030

== ENCOUNTER 2020-06-24 11:45 | Observation (INO) | payer MEDICAID ==
[~2020-06-24] VITALS: Ht 162.6 cm; Wt 66.0 kg
--- NOTE | 2020-06-24 11:50 | ED.ADGEN ---
Past Medical History Past Medical History: COPD Additional Past Medical Histor: EPILEPSY, DDD Past Surgical History: Cholecystectomy, Hysterectomy, Other Additional Past Surgical Histo: L. SHOULDER Smoking Status: Current Every Day Smoker Alcohol Use: None General Adult EDM: Chief Complaint: NAUSEA/VOMITING/DIARRHA HPI: HPI: Patient is a 44-year-old female with multiple medical problems who presents to the emergency room with multiple complaints. Patient is a poor historian. She states she is having lower abdominal pain which have been ongoing for several days. She has been having watery stools but feels like she is constipated. She states she has had some nausea and vomiting. She is on chronic medication for constipation at home. She is also on chronic narcotics. Review of Systems: Review of Systems: General: Denies fever, chills, sweats. Reports fatigue Eyes: Denies drainage, blurred vision, eye redness HENT: Denies rhinorrhea, sore throat, earache Respiratory: Denies cough, shortness of breath, wheezing Cardiac: Denies edema, palpitations, chest pain GI: Reports abdominal pain, Nausea, vomiting MSK: Denies back pain, neck pain Skin: Denies rash, jaundice Neuro: Denies headache, dizziness Psychiatric: Denies SI/HI Current Medications: Current Medications Medications (Trade) Dose Ordered Sig/Orion Start Time Stop Time Status Last Admin Dose Admin Magnesium Citrate (Citroma) 296 ml 1X ONCE 06/24/20 14:15 06/24/20 14:16 DC 06/24/20 15:20 296 ML Ondansetron HCl (Zofran) 4 mg 1X ONCE 06/24/20 15:00 06/24/20 15:01 DC 06/24/20 15:20 4 MG Allergies: Allergies: Allergies Coded Allergies Type Severity Reaction Last Updated Verified tegaserod Allergy Severe Swelling 12/29/18 Yes buprenorphine Allergy Intermediate Itching 12/29/18 Yes Physical Exam: PE: General: Lethargic, NAD. Well Nourished, well hydrated. Cooperative HEENT: Atraumatic, EOMI, PERRL, airway patent, moist oral mucosa Neck: Supple, trachea midline Respiratory: CTA bilaterally, normal effort, no wheezing/crackles CV: RRR, no murmur, cap refill <2 GI: Soft, nondistended, mild lower abdominal tenderness, no masses MSK: No obvious deformities Skin: Warm, dry, intact Neuro: A&O x3, speech NL, sensory and motor grossly intact, no focal deficits Psych: Normal affect, normal mood, not suicidal or homicidal Current Patient Data: Labs: Laboratory Tests Test 06/24/20 12:15 06/24/20 14:45 White Blood Count 13.7 x10^3/uL (4.0-11.0) H Red Blood Count 5.37 x10^6/uL (3.50-5.40) Hemoglobin 17.3 g/dL (12.0-15.5) H Hematocrit 52.4 % (36.0-47.0) H Mean Corpuscular Volume 98 fL (79-100) Mean Corpuscular Hemoglobin 32 pg (25-35) Mean Corpuscular Hemoglobin Concent 33 g/dL (31-37) Red Cell Distribution Width 14.1 % (11.5-14.5) Platelet Count 249 x10^3/uL (140-400) Neutrophils (%) (Auto) 60 % (31-73) Lymphocytes (%) (Auto) 28 % (24-48) Monocytes (%) (Auto) 10 % (0-9) H Eosinophils (%) (Auto) 2 % (0-3) Basophils (%) (Auto) 1 % (0-3) Neutrophils # (Auto) 8.2 x10^3/uL (1.8-7.7) H Lymphocytes # (Auto) 3.9 x10^3/uL (1.0-4.8) Monocytes # (Auto) 1.3 x10^3/uL (0.0-1.1) H Eosinophils # (Auto) 0.2 x10^3/uL (0.0-0.7) Basophils # (Auto) 0.1 x10^3/uL (0.0-0.2) Sodium Level 141 mmol/L (136-145) Potassium Level 3.3 mmol/L (3.5-5.1) L Chloride Level 100 mmol/L (98-107) Carbon Dioxide Level 28 mmol/L (21-32) Anion Gap 13 (6-14) Blood Urea Nitrogen 14 mg/dL (7-20) Creatinine 1.1 mg/dL (0.6-1.0) H Estimated GFR (Cockcroft-Gault) 53.7 Glucose Level 117 mg/dL (70-99) H Calcium Level 9.9 mg/dL (8.5-10.1) Magnesium Level 2.5 mg/dL (1.8-2.4) H Urine Collection Type Void Urine Color Yellow Urine Clarity Clear Urine pH 5.5 (<5.0-8.0) Urine Specific [place] 1.015 (1.000-1.030) Urine Protein Negative mg/dL (NEG-TRACE) Urine Glucose (UA) Negative mg/dL (NEG) Urine Ketones (Stick) Trace mg/dL (NEG) Urine Blood Negative (NEG) Urine Nitrite Negative (NEG) Urine Bilirubin Negative (NEG) Urine Urobilinogen Dipstick 0.2 mg/dL (0.2 mg/dL) Urine Leukocyte Esterase Moderate (NEG) Urine RBC 0 /HPF (0-2) Urine WBC 5-10 /HPF (0-4) Urine Squamous Epithelial Cells Many /LPF Urine Bacteria Mod /HPF (0-FEW) Urine Opiates Screen Neg (NEG) Urine Methadone Screen Neg (NEG) Urine Barbiturates Neg (NEG) Urine Phencyclidine Screen Neg (NEG) Urine Amphetamine/Methamphetamine Neg (NEG) Urine Benzodiazepines Screen Neg (NEG) Urine Cocaine Screen Neg (NEG) Urine Cannabinoids Screen Neg (NEG) Urine Ethyl Alcohol Neg (NEG) Laboratory Tests 06/24/20 12:15 Laboratory Tests 06/24/20 12:15 Vital Signs: Vital Signs Date Time Temp Pulse Resp B/P (MAP) Pulse Ox O2 Delivery O2 Flow Rate FiO2 06/24/20 11:52 98.8 84 18 138/94 (109) 92 Room Air 98.8 EKG: EKG: [] Heart Score: Risk Factors: Risk Factors: DM, Current or recent (<one month) smoker, HTN, HLP, family history of CAD, obesity. Risk Scores: Score 0 - 3: 2.5% MACE over next 6 weeks - Discharge Home Score 4 - 6: 20.3% MACE over next 6 weeks - Admit for Clinical Observation Score 7 - 10: 72.7% MACE over next 6 weeks - Early Invasive Strategies Radiology/Procedures: Radiology/Procedures: [] Course & Med Decision Making: Course & Med Decision Making Pertinent Labs and Imaging studies reviewed. (See chart for details) Patient is 44-year-old chronically ill female who presents to the emergency room with constipation with nausea vomiting. She has had this multiple times in the past. She is on chronic medications at home and has not tried anything additional. Acute abdominal series was done and shows constipation without impaction. She was given magnesium citrate. She continued to have abdominal pain and was lethargic. She was admitted to the hospital and a CT abdomen pe lvis was ordered. Dragon Disclaimer: Dragon Disclaimer: This electronic medical record was generated, in whole or in part, using a voice recognition dictation system. Departure Departure Impression: Primary Impression: Constipation Disposition: 09 ADMITTED INPT THIS HOSP Condition: IMPROVED Referrals: BONIFACIO FRAZIER (PCP) Patient Instructions: Constipation, Adult BRIAN DILL MD Jun 24, 2020 11:50
[2020-06-24 12:47] LABS: CALCIUM 9.9 mg/dL (8.5-10.1); CREATININE 1.1 mg/dL (0.6-1.0); GFR 53.7; MAGNESIUM 2.5 mg/dL (1.8-2.4); POTASSIUM 3.3 mmol/L (3.5-5.1)
[2020-06-24 12:49] LABS: BASO # 0.1 x10^3/uL (0.0-0.2); BASO % 1 % (0-3); EOS # 0.2 x10^3/uL (0.0-0.7); EOS % 2 % (0-3); HEMATOCRIT 52.4 % (36.0-47.0); HEMOGLOBIN 17.3 g/dL (12.0-15.5); LYMPH # 3.9 x10^3/uL (1.0-4.8); LYMPH % 28 % (24-48); MEAN CORPUSCULAR HEMOGLOBIN 32 pg (25-35); MEAN CORPUSCULAR HGB CONC 33 g/dL (31-37); MEAN CORPUSCULAR VOLUME 98 fL (79-100); MONO # 1.3 x10^3/uL (0.0-1.1); MONO % 10 % (0-9); NEUT # 8.2 x10^3/uL (1.8-7.7); NEUT % 60 % (31-73); PLATELET COUNT 249 x10^3/uL (140-400); RED BLOOD COUNT 5.37 x10^6/uL (3.50-5.40); RED CELL DISTRIBUTION WIDTH 14.1 % (11.5-14.5); WHITE BLOOD COUNT 13.7 x10^3/uL (4.0-11.0)
--- NOTE | 2020-06-24 12:52 | RAD ---
PROCEDURE: ACUTE ABDOMEN SERIES STUDY DATE: 06/24/2020 CLINICAL INDICATION / HISTORY: Reason: constipation . TECHNIQUE: Single AP image of the abdomen was obtained. Formed stool is present in the rectal vault. COMPARISON: No relevant comparisons currently available FINDINGS: The lung bases are not included. A nonobstructive bowel gas pattern is present. As the gas-filled loop of large bowel, likely the sigmoid colon projecting in the left upper quadrant abdomen. It appears nondistended. No organomegaly or pathologic calcifications are identified. No acute osseous abnormality. IMPRESSION: Formed stool in the rectal vault, compatible with constipation in the appropriate clinical context. Electronically signed by: Gianfranco Mitchell MD (06/24/2020 12:49 PM) [id number]
[2020-06-24] MEDS ORDERED: MAGNESIUM CITRATE 296 ML SOLUTION. PO ONE (14:15)
[2020-06-24] MEDS ORDERED: ONDANSETRON PF 4 MG/2 ML VIAL. IVP ONE (15:00)
[2020-06-24 15:17] LABS: BILIRUBIN,URINE NEGATIVE (NEG); CLARITY,URINE CLEAR; COLOR,URINE YELLOW; NITRITE,URINE NEGATIVE (NEG); PH,URINE 5.5 (<5.0-8.0); PROTEIN,URINE NEGATIVE (NEG-TRACE); UROBILINOGEN,URINE 0.2 mg/dL (0.2 mg/dL)
[2020-06-24 15:20] LABS: BARBITURATES NEG (NEG); BENZODIAZEPINES NEG (NEG); CANNABINOIDS NEG (NEG); COCAINE NEG (NEG); METHADONE NEG (NEG); OPIATES NEG (NEG); PHENCYCLIDINE NEG (NEG)
[2020-06-24 15:25] LABS: AMPHETAMINE/METHAMPHETAMINE NEG (NEG)
[2020-06-24 15:31] LABS: BACTERIA,URINE MOD /HPF (0-FEW); RBC,URINE 0 /HPF (0-2)
[2020-06-24] MEDS ORDERED: CONTRAST GIVEN. MC PRN (18:00)
[2020-06-24] MEDS ORDERED: IOHEXOL 240 MG/ML 50ML VIAL. PO ONE (18:00)
[2020-06-24] MEDS ORDERED: IOHEXOL 300 MG/ML 100ML VIAL. IV ONE (18:00)
--- NOTE | 2020-06-24 19:30 | RAD ---
CT scan of the abdomen and pelvis with contrast 06/24/2020 CLINICAL HISTORY: Abdominal pain. TECHNIQUE: After the oral and intravenous administration of contrast, contiguous, 5 mm axial sections were obtained through the abdomen and pelvis. 60 cc of Omnipaque 300 were administered intravenously during examination. One or more of the following individualized dose reduction techniques were utilized for this study: 1. Automated exposure control. 2. Adjustment of the mA and/or kV according to patient size. 3. Use of iterative reconstruction technique. FINDINGS: Images through the lung bases demonstrate minimal dependent subsegmental atelectasis bilaterally. A 9 mm calcified granuloma is seen involving the lateral aspect of the left lower lobe. The liver, spleen, pancreas, adrenal glands and kidneys are within normal limits. Atherosclerotic calcification of the abdominal aorta is seen. The abdominal aorta tapers normally. Surgical clips are seen within the gallbladder fossa consistent with a cholecystectomy. No free fluid or free air is seen within the abdomen. There is no evidence of bowel obstruction. The appendix is well-visualized and is within normal limits. Images through the pelvis demonstrate the urinary bladder to be contracted. Calcifications are seen within the pelvis consistent with phleboliths. No free fluid is seen. The patient appears to be post hysterectomy. No adnexal mass is noted. Very mild S-shaped curvature of the thoracolumbar spine is seen. IMPRESSION: No acute abnormality is seen. Electronically signed by: Duane Mason MD (06/24/2020 7:27 PM) [id number]
[2020-06-24 20:13] VITALS: BP 131/90
[2020-06-25] MEDS ORDERED: traMADol 50 MG TABLET PO PRN (20:30)
[2020-06-25] MEDS ORDERED: POTASSIUM CHLORIDE 10MEQ 100 ML IV SCH (20:30)
[2020-06-25] MEDS ORDERED: IV NORMAL SALINE 1000ML BAG 1,000 ML IV SCH (20:30)
[2020-06-25] MEDS ORDERED: hydrOXYzine 25 MG TABLET PO PRN (20:30)
[2020-06-25] MEDS ORDERED: IBUPROFEN 400 MG TABLET. PO PRN (20:45)
[2020-06-25] MEDS ORDERED: MAG HYDROX/ALUMINUM HYD/SIMETH 30 ML ORAL.SUSP PO PRN (20:45)
[2020-06-25] MEDS ORDERED: PROCHLORPERAZINE 10 MG/2 ML VIAL. IVP PRN (20:45)
[2020-06-25] MEDS ORDERED: PROCHLORPERAZINE 25 MG SUPP.RECT. PR PRN (20:45)
[2020-06-25] MEDS ORDERED: LIDOCAINE (700MG/PATCH) PATCH. TP PRN (20:45)
[2020-06-25] MEDS ORDERED: NICOTINE 21MG PATCH. TD PRN (20:45)
[2020-06-25] MEDS ORDERED: ONDANSETRON PF 4 MG/2 ML VIAL. IVP PRN (20:45)
[2020-06-25] MEDS ORDERED: METHOCARBAMOL 750 MG TABLET PO PRN (20:45)
[2020-06-25] MEDS ORDERED: MORPHINE SULFATE 2 MG/ML VIAL. IV PRN ×2 (20:45)
[2020-06-25] MEDS ORDERED: oxyCODONE IR 5 MG TABLET PO PRN (20:45)
[2020-06-25] MEDS ORDERED: ACETAMINOPHEN 325 MG TABLET. PO PRN (20:45)
[2020-06-25] MEDS ORDERED: RIZATRIPTAN BENZOATE 10 MG PO PRN (20:45)
[2020-06-25] MEDS ORDERED: MAGNESIUM HYDROXIDE 2,400 MG/30 ML ORAL.SUSP. PO PRN (20:45)
[2020-06-25] MEDS ORDERED: BISACODYL 10 MG SUPP.RECT. PR PRN (20:45)
[2020-06-25] MEDS ORDERED: CALCIUM CARBONATE 500 MG TAB.CHEW PO PRN (20:45)
--- NOTE | 2020-06-25 20:45 | PDOC1 ---
History and Physical Date of Admission Date of Admission DATE: 06/25/20 TIME: 20:31 Identification/Chief Complaint Chief Complaint Nausea, vomiting, diarrhea Source Source: Patient History of Present Illness History of Present Illness Patient is a 44-year-old female, with past medical history migraines and seizures, who presents to the ER with complaint of nausea, vomiting, diarrhea for the past 3 days. She denies any fever or known sick contacts. Potassium on admission was 2.7, hemoglobin 17.3, hematocrit 52.4, WBC 13, sodium 131, creatinine 1.1. Was asked to admit patient for further evaluation and treatment. Past Medical History Pulmonary: Bronchitis CENTRAL NERVOUS SYSTEM: Migraine, Seizure GI: Constipation, GERD, Hemorrhoids Psych: Addictions, Other Musculoskeletal: low back pain Renal/: Other Past Surgical History Past Surgical History: Cholecystectomy, , Hysterectomy, Other Family History Family History Denies any significant family history Social History Smoke: 1 pack per day ALCOHOL: none Drugs: None Current Problem List Problem List Problems Medical Problems: (1) Constipation Status: Acute Current Medications Current Medications Current Medications Magnesium Citrate (Citroma) 296 ml 1X ONCE PO Last administered on 06/24/20at 15:20; Start 06/24/20 at 14:15; Stop 06/24/20 at 14:16; Status DC Ondansetron HCl (Zofran) 4 mg 1X ONCE IVP Last administered on 06/24/20at 15:20; Start 06/24/20 at 15:00; Stop 06/24/20 at 15:01; Status DC Iohexol (Omnipaque 300 Mg/ml) 75 ml 1X ONCE IV Last administered on 06/24/20at 18:50; Start 06/24/20 at 18:00; Stop 06/24/20 at 18:01; Status DC Iohexol (Omnipaque 240 Mg/ml) 30 ml 1X ONCE PO Last administered on 06/24/20at 18:50; Start 06/24/20 at 18:00; Stop 06/24/20 at 18:01; Status DC Info (CONTRAST GIVEN -- Rx MONITORING) 1 each PRN DAILY PRN MC SEE COMMENTS; Start 06/24/20 at 18:00; Stop 06/26/20 at 17:59 Tramadol HCl (Ultram) 50 mg PRN Q6HRS PRN PO PAIN; Start 06/25/20 at 20:30 Hydroxyzine HCl (Atarax) 25 mg QHS PRN PO INSOMNIA; Start 06/25/20 at 20:30; Status UNV Sodium Chloride 1,000 ml @ 125 mls/hr Q8H IV ; Start 06/25/20 at 20:30 Active Scripts Active Keflex (Cephalexin) 500 Mg Capsule 1 Cap PO BID 7 Days Oxycodone Hcl Immed.release (Oxycodone Hcl) 10 Mg Tablet 10 Mg PO Q8H PRN 30 Days Reported Potassium Citrate 10 Meq Tablet.er 99 Mg PO DAILY Sm Natural Balanced B-100 Tab (Vit B Complex 100 Cmb #2/Herbs) 100 Mg Tablet 100 Mg PO DAILY Vitamin D3 (Cholecalciferol (Vitamin D3)) 1,000 Unit Tablet 1,250 Mg PO DAILY Proair Hfa Inhaler (Albuterol Sulfate) 8.5 Gm Hfa.aer.ad 1 Puff INH PRN Q6HRS PRN Gabapentin 300 Mg Capsule 600 Mg PO TID Symbicort 160-4.5 Mcg Inhaler (Budesonide/Formoterol Fumarate) 10.2 Gm Hfa.aer.ad 2 Puff IH BID Maxalt (Rizatriptan Benzoate) 10 Mg Tablet 10 Mg PO PRN PRN Lidocaine PATCH (Lidocaine) 1 Each Adh..patch 1 Each TP PRN DAILY PRN Topiramate 100 Mg Tablet 1 Tab PO BID Linzess (Linaclotide) 290 Mcg Capsule 290 Mcg PO DAILY07 Cymbalta (Duloxetine Hcl) 30 Mg Capsule.dr 1 Cap PO DAILY Ranitidine Hcl 300 Mg Capsule 1 Cap PO DAILY Olanzapine 5 Mg Tablet 1 Tab PO QHS Robaxin (Methocarbamol) 500 Mg Tablet 750 Mg PO TID PRN Allergies Allergies: Coded Allergies: tegaserod (Verified Allergy, Severe, Swelling, 12/29/18) buprenorphine (Verified Allergy, Intermediate, Itching, 12/29/18) ROS Review of System GENERAL: No history of weight change, weakness or fevers. SKIN: No bruising, hair changes or rashes. EYES: No blurred, double or loss of vision. NOSE AND THROAT: No history of nosebleeds, hoarseness or sore throat. HEART: Denies chest pain, denies palpitations. LUNGS: Denies cough, hemoptysis, wheezing or shortness of breath. GASTROINTESTINAL: Nausea, vomiting, diarrhea. Denies abdominal pain.. GENITOURINARY: Denies dysuria, frequency, urgency, hematuria. NEUROLOGIC: Denies history of numbness, tingling, tremor or weakness. PSYCHIATRIC: Denies anxiety, denies depression. ENDOCRINE: No history of heat or cold intolerance, polyuria or polydipsia. EXTREMITIES: Denies muscle weakness, joint pain, pain on walking or stiffness. Physical Exam Physical Exam General: Alert, Oriented X3, Cooperative, No acute distress HEENT: PERRLA, EOMI Lungs: Clear to auscultation, Normal air movement Heart: RRR, no murmurs Cardiovascular: S1, S2 Abdomen: Normal bowel sounds, Soft, No tenderness Extremities: No clubbing, No cyanosis Skin: No rashes, No significant lesion Neuro: Normal speech, Normal tone, Sensation intact Psych/Mental Status: Mental status NL, Mood NL Vitals Vitals Vital Signs Date Time Temp Pulse Resp B/P (MAP) Pulse Ox O2 Delivery O2 Flow Rate FiO2 06/24/20 20:13 84 16 131/90 (104) 96 Room Air 06/24/20 11:52 98.8 98.8 Labs Labs Laboratory Tests Test 06/24/20 12:15 06/24/20 14:45 White Blood Count 13.7 x10^3/uL (4.0-11.0) Red Blood Count 5.37 x10^6/uL (3.50-5.40) Hemoglobin 17.3 g/dL (12.0-15.5) Hematocrit 52.4 % (36.0-47.0) Mean Corpuscular Volume 98 fL (79-100) Mean Corpuscular Hemoglobin 32 pg (25-35) Mean Corpuscular Hemoglobin Concent 33 g/dL (31-37) Red Cell Distribution Width 14.1 % (11.5-14.5) Platelet Count 249 x10^3/uL (140-400) Neutrophils (%) (Auto) 60 % (31-73) Lymphocytes (%) (Auto) 28 % (24-48) Monocytes (%) (Auto) 10 % (0-9) Eosinophils (%) (Auto) 2 % (0-3) Basophils (%) (Auto) 1 % (0-3) Neutrophils # (Auto) 8.2 x10^3/uL (1.8-7.7) Lymphocytes # (Auto) 3.9 x10^3/uL (1.0-4.8) Monocytes # (Auto) 1.3 x10^3/uL (0.0-1.1) Eosinophils # (Auto) 0.2 x10^3/uL (0.0-0.7) Basophils # (Auto) 0.1 x10^3/uL (0.0-0.2) Sodium Level 141 mmol/L (136-145) Potassium Level 3.3 mmol/L (3.5-5.1) Chloride Level 100 mmol/L (98-107) Carbon Dioxide Level 28 mmol/L (21-32) Anion Gap 13 (6-14) Blood Urea Nitrogen 14 mg/dL (7-20) Creatinine 1.1 mg/dL (0.6-1.0) Estimated GFR (Cockcroft-Gault) 53.7 Glucose Level 117 mg/dL (70-99) Calcium Level 9.9 mg/dL (8.5-10.1) Magnesium Level 2.5 mg/dL (1.8-2.4) Urine Collection Type Void Urine Color Yellow Urine Clarity Clear Urine pH 5.5 (<5.0-8.0) Urine Specific [place] 1.015 (1.000-1.030) Urine Protein Negative mg/dL (NEG-TRACE) Urine Glucose (UA) Negative mg/dL (NEG) Urine Ketones (Stick) Trace mg/dL (NEG) Urine Blood Negative (NEG) Urine Nitrite Negative (NEG) Urine Bilirubin Negative (NEG) Urine Urobilinogen Dipstick 0.2 mg/dL (0.2 mg/dL) Urine Leukocyte Esterase Moderate (NEG) Urine RBC 0 /HPF (0-2) Urine WBC 5-10 /HPF (0-4) Urine Squamous Epithelial Cells Many /LPF Urine Bacteria Mod /HPF (0-FEW) Urine Opiates Screen Neg (NEG) Urine Methadone Screen Neg (NEG) Urine Barbiturates Neg (NEG) Urine Phencyclidine Screen Neg (NEG) Urine Amphetamine/Methamphetamine Neg (NEG) Urine Benzodiazepines Screen Neg (NEG) Urine Cocaine Screen Neg (NEG) Urine Cannabinoids Screen Neg (NEG) Urine Ethyl Alcohol Neg (NEG) VTE Prophylaxis Ordered VTE Prophylaxis Devices: Yes VTE Pharmacological Prophylaxi: No Assessment/Plan Assessment/Plan Gastroenteritis Hypokalemia Dehydration ABRAHAM Plan: Continue with IV normal saline We will replace potassium IV Zofran PRN nausea Leukocytosis likely reactive from gastroenteritis Hemoglobin and hematocrit consult for hemoconcentration Potassium within normal range may discharge tomorrow Resume home meds FEN -clear liquid diet PPX -SCDs FULL CODE Dispo -observation for above Justifications for Admission Other Justification DEENA LUO MD Jun 25, 2020 20:45
[2020-06-25] MEDS ORDERED: NON FORMULARY ITEM (Budesonide/Formoterol Fumarate (Symbicort 160-4.5 Mcg Inhaler) 2 PUFF) IH SCH (21:00)
[2020-06-25] MEDS ORDERED: GABAPENTIN 300 MG CAPSULE. PO SCH (21:00)
[2020-06-25] MEDS ORDERED: TOPIRAMATE 100 MG TABLET. PO SCH (21:00)
[2020-06-25] MEDS ORDERED: OLANZapine 5 MG TABLET PO SCH (21:00)
[2020-06-26] MEDS ORDERED: NON FORMULARY ITEM (Linaclotide (Linzess) 290 MCG) PO SCH (07:00)
[2020-06-26] MEDS ORDERED: POTASSIUM CITRATE 10 MEQ TABLET.ER PO SCH (09:00)
[2020-06-26] MEDS ORDERED: [UNRECOGNIZED DRUG - OTHER] PO SCH (09:00)
[2020-06-26] MEDS ORDERED: DULoxetine HCL 30 MG CAPSULE.DR PO SCH (09:00)
[2020-06-26] MEDS ORDERED: VIT B COMPLEX PO SCH (09:00)
[2020-06-26] MEDS ORDERED: HERBS PO SCH (09:00)
== END 2020-06-24 20:27 | disposition left against medical advice (07) ==
LOC: ER 11:45 → ED HOLD 17:46
PROVIDERS: ADMIT Internal Medicine; ATTEND Internal Medicine
DX: K59.00 Constipation, unspecified (principal); K52.9 Noninfective gastroenteritis and colitis, unspecified; G40.909 Epilepsy, unspecified, not intractable, without status epilepticus; E87.6 Hypokalemia; E86.0 Dehydration; N17.9 Acute kidney failure, unspecified; J44.9 Chronic obstructive pulmonary disease, unspecified; F17.210 Nicotine dependence, cigarettes, uncomplicated; Z79.891 Long term (current) use of opiate analgesic; Z90.710 Acquired absence of both cervix and uterus
CPT/HCPCS: 36415; 74022; 74177; 80048; 80307; 81001; 83735; 85025; 96374; 99284; G0378; J2405; Q9966; Q9967; G0379

== ENCOUNTER 2020-06-25 15:12 | Observation (INO) | payer MEDICAID ==
[~2020-06-25] VITALS: Ht 162.6 cm; Wt 68.2 kg
[2020-06-25 17:12] LABS: BASO # 0.1 x10^3/uL (0.0-0.2); BASO % 1 % (0-3); EOS # 0.3 x10^3/uL (0.0-0.7); EOS % 2 % (0-3); HEMATOCRIT 49.1 % (36.0-47.0); HEMOGLOBIN 16.5 g/dL (12.0-15.5); LYMPH # 3.2 x10^3/uL (1.0-4.8); LYMPH % 24 % (24-48); MEAN CORPUSCULAR HEMOGLOBIN 33 pg (25-35); MEAN CORPUSCULAR HGB CONC 34 g/dL (31-37); MEAN CORPUSCULAR VOLUME 97 fL (79-100); MONO % 8 % (0-9); NEUT # 8.8 x10^3/uL (1.8-7.7); NEUT % 65 % (31-73); PLATELET COUNT 240 x10^3/uL (140-400); RED BLOOD COUNT 5.06 x10^6/uL (3.50-5.40); RED CELL DISTRIBUTION WIDTH 13.7 % (11.5-14.5); WHITE BLOOD COUNT 13.5 x10^3/uL (4.0-11.0)
[2020-06-25 17:30] LABS: ALBUMIN 4.3 g/dL (3.4-5.0); ALBUMIN/GLOBULIN RATIO 1.1 (1.0-1.7); CALCIUM 9.4 mg/dL (8.5-10.1); CREATININE 0.9 mg/dL (0.6-1.0); GFR 67.7; TOTAL BILIRUBIN 0.5 mg/dL (0.2-1.0); TOTAL PROTEIN 8.1 g/dL (6.4-8.2)
[2020-06-25 17:33] LABS: POTASSIUM 2.7 mmol/L (3.5-5.1)
[2020-06-25 17:37] LABS: PLT ESTIMATE ADEQUATE (ADEQUATE)
[2020-06-25] MEDS ORDERED: POTASSIUM CHLORIDE 20 MEQ TABLET.ER. PO ONE (18:15)
--- NOTE | 2020-06-25 18:18 | ED.ADGEN ---
Past Medical History Past Medical History: Constipation, COPD Additional Past Medical Histor: EPILEPSY, DDD Past Surgical History: Cholecystectomy, Hysterectomy, Other Additional Past Surgical Histo: L. SHOULDER Smoking Status: Current Every Day Smoker Alcohol Use: None General Adult EDM: Chief Complaint: TREMORS HPI: HPI: Patient is a 44 year old female who presents to the emergency department with complaints of having uncontrollable tremors all over her body. Patient states that she was seen here yesterday for abdominal pain and given medication to help her poop. Patient states that she was supposed to be admitted but then she decided she did not want to stay so she signed out AMA. Patient denies any chest pain, palpitations, shortness of breath, numbness, tingling, weakness, headache, vision changes, or fever. She currently denies any abdominal pain, nausea, or vomiting. She states that she has had several loose stools today but denies any blood in her stools. Patient states that she generally does not feel well. She currently rates her pain a 10 out of 10 on the pain scale and states that she hurts everywhere. Review of Systems: Review of Systems: Complete ROS is negative unless otherwise stated in the HPI. Current Medications: Current Medications Medications (Trade) Dose Ordered Sig/Orion Start Time Stop Time Status Last Admin Dose Admin Potassium Chloride (Klor-Con) 40 meq 1X ONCE 06/25/20 18:15 06/25/20 18:16 DC 06/25/20 18:15 40 MEQ Allergies: Allergies: Allergies Coded Allergies Type Severity Reaction Last Updated Verified tegaserod Allergy Severe Swelling 12/29/18 Yes buprenorphine Allergy Intermediate Itching 12/29/18 Yes Physical Exam: PE: Constitutional: Well developed, well nourished, no acute distress, non-toxic appearance. [] HENT: Normocephalic, atraumatic, bilateral external ears normal, nose normal. [] Eyes: PERRLA, EOMI, conjunctiva normal, no discharge. [] Neck: Normal range of motion, no stridor. [] Cardiovascular:Heart rate regular rhythm, no murmur [] Lungs & Thorax: Bilateral breath sounds clear to auscultation, my lungs [] Abdomen: soft, no tenderness Skin: Warm, dry, no erythema, no rash. [] Extremities: Intentional jerking of extremities x4 noted patient is able to stop with verbal commands, there is no fine tremors. Extremities x4 nontender, without cyanosis, deformity, or edema\ Neurologic: Alert and oriented X 3, normal motor function, normal sensory function, no focal deficits noted. [] Psychologic: Affect normal, judgement normal, mood normal. [] Current Patient Data: Labs: Laboratory Tests Test 06/25/20 16:55 White Blood Count 13.5 x10^3/uL (4.0-11.0) H Red Blood Count 5.06 x10^6/uL (3.50-5.40) Hemoglobin 16.5 g/dL (12.0-15.5) H Hematocrit 49.1 % (36.0-47.0) H Mean Corpuscular Volume 97 fL (79-100) Mean Corpuscular Hemoglobin 33 pg (25-35) Mean Corpuscular Hemoglobin Concent 34 g/dL (31-37) Red Cell Distribution Width 13.7 % (11.5-14.5) Platelet Count 240 x10^3/uL (140-400) Neutrophils (%) (Auto) 65 % (31-73) Lymphocytes (%) (Auto) 24 % (24-48) Monocytes (%) (Auto) 8 % (0-9) Eosinophils (%) (Auto) 2 % (0-3) Basophils (%) (Auto) 1 % (0-3) Neutrophils # (Auto) 8.8 x10^3/uL (1.8-7.7) H Lymphocytes # (Auto) 3.2 x10^3/uL (1.0-4.8) Monocytes # (Auto) 1.0 x10^3/uL (0.0-1.1) Eosinophils # (Auto) 0.3 x10^3/uL (0.0-0.7) Basophils # (Auto) 0.1 x10^3/uL (0.0-0.2) Platelet Estimate Adequate (ADEQUATE) Large Platelets Few Giant Platelets Occ Sodium Level 131 mmol/L (136-145) L Potassium Level 2.7 mmol/L (3.5-5.1) *L Chloride Level 92 mmol/L (98-107) L Carbon Dioxide Level 28 mmol/L (21-32) Anion Gap 11 (6-14) Blood Urea Nitrogen 11 mg/dL (7-20) Creatinine 0.9 mg/dL (0.6-1.0) Estimated GFR (Cockcroft-Gault) 67.7 BUN/Creatinine Ratio 12 (6-20) Glucose Level 105 mg/dL (70-99) H Calcium Level 9.4 mg/dL (8.5-10.1) Magnesium Level 2.6 mg/dL (1.8-2.4) H Total Bilirubin 0.5 mg/dL (0.2-1.0) Aspartate Amino Transferase (AST) 19 U/L (15-37) Alanine Aminotransferase (ALT) 28 U/L (14-59) Alkaline Phosphatase 128 U/L (46-116) H Total Protein 8.1 g/dL (6.4-8.2) Albumin 4.3 g/dL (3.4-5.0) Albumin/Globulin Ratio 1.1 (1.0-1.7) Laboratory Tests 06/25/20 16:55 Laboratory Tests 06/25/20 16:55 Vital Signs: Vital Signs Date Time Temp Pulse Resp B/P (MAP) Pulse Ox O2 Delivery O2 Flow Rate FiO2 06/25/20 19:31 62 108/78 (88) 95 Room Air 06/25/20 16:34 98.0 18 98.0 EKG: EKG: [] Heart Score: Risk Factors: Risk Factors: DM, Current or recent (<one month) smoker, HTN, HLP, family history of CAD, obesity. Risk Scores: Score 0 - 3: 2.5% MACE over next 6 weeks - Discharge Home Score 4 - 6: 20.3% MACE over next 6 weeks - Admit for Clinical Observation Score 7 - 10: 72.7% MACE over next 6 weeks - Early Invasive Strategies Radiology/Procedures: Radiology/Procedures: [] Course & Med Decision Making: Course & Med Decision Making Pertinent Labs and Imaging studies reviewed. (See chart for details) 1805-spoke with Dr. Peter who is the admitting physician, and care was assumed following discussion of patient. Will admit patient to med telemetry for hypokalemia, diarrhea, and tremors Patient's vital signs stable. Patient remains afebrile, appears nontoxic, respirations even and unlabored. Patient will be admitted to the med/telemetry floor. Patient's case and plan of care also discussed with Dr. Rodriguez [] Kevin Disclaimer: Kevin Disclaimer: This electronic medical record was generated, in whole or in part, using a voice recognition dictation system. Departure Departure Impression: Primary Impression: Hypokalemia Additional Impressions: Tremor Gastroenteritis Disposition: 09 ADMITTED INPT THIS HOSP Condition: STABLE Referrals: BONIFACIO FRAZIER (PCP) Problem Qualifiers SAWYER SHEPHERD APRN Jun 25, 2020 18:18
--- NOTE | 2020-06-25 21:29 | PDOC1 ---
History and Physical Date of Admission Date of Admission DATE: 06/25/20 TIME: 21:28 Identification/Chief Complaint Chief Complaint Nausea, vomiting, diarrhea Source Source: Patient History of Present Illness History of Present Illness Patient is a 44-year-old female, with past medical history migraines and seizures, who presents to the ER with complaint of nausea, vomiting, diarrhea for the past 3 days. She denies any fever or known sick contacts. Potassium on admission was 2.7, hemoglobin 17.3, hematocrit 52.4, WBC 13, sodium 131, creatinine 1.1. Was asked to admit patient for further evaluation and treatment. Past Medical History Pulmonary: Bronchitis CENTRAL NERVOUS SYSTEM: Migraine, Seizure GI: Constipation, GERD, Hemorrhoids Psych: Addictions, Other Musculoskeletal: low back pain Renal/: Other Past Surgical History Past Surgical History: Cholecystectomy, , Hysterectomy, Other Family History Family History Denies significant family history Social History Smoke: 1 pack per day ALCOHOL: none Drugs: None Current Problem List Problem List Problems Medical Problems: (1) Hypokalemia Status: Acute (2) Tremor Status: Acute Current Medications Current Medications Current Medications Potassium Chloride (Klor-Con) 40 meq 1X ONCE PO Last administered on 06/25/20at 18:15; Start 06/25/20 at 18:15; Stop 06/25/20 at 18:16; Status DC Active Scripts Active Keflex (Cephalexin) 500 Mg Capsule 1 Cap PO BID 7 Days Oxycodone Hcl Immed.release (Oxycodone Hcl) 10 Mg Tablet 10 Mg PO Q8H PRN 30 Days Reported Potassium Citrate 10 Meq Tablet.er 99 Mg PO DAILY Sm Natural Balanced B-100 Tab (Vit B Complex 100 Cmb #2/Herbs) 100 Mg Tablet 100 Mg PO DAILY Vitamin D3 (Cholecalciferol (Vitamin D3)) 1,000 Unit Tablet 1,250 Mg PO DAILY Proair Hfa Inhaler (Albuterol Sulfate) 8.5 Gm Hfa.aer.ad 1 Puff INH PRN Q6HRS PRN Gabapentin 300 Mg Capsule 600 Mg PO TID Symbicort 160-4.5 Mcg Inhaler (Budesonide/Formoterol Fumarate) 10.2 Gm Hfa.aer.ad 2 Puff IH BID Maxalt (Rizatriptan Benzoate) 10 Mg Tablet 10 Mg PO PRN PRN Lidocaine PATCH (Lidocaine) 1 Each Adh..patch 1 Each TP PRN DAILY PRN Topiramate 100 Mg Tablet 1 Tab PO BID Linzess (Linaclotide) 290 Mcg Capsule 290 Mcg PO DAILY07 Cymbalta (Duloxetine Hcl) 30 Mg Capsule.dr 1 Cap PO DAILY Ranitidine Hcl 300 Mg Capsule 1 Cap PO DAILY Olanzapine 5 Mg Tablet 1 Tab PO QHS Robaxin (Methocarbamol) 500 Mg Tablet 750 Mg PO TID PRN Allergies Allergies: Coded Allergies: tegaserod (Verified Allergy, Severe, Swelling, 12/29/18) buprenorphine (Verified Allergy, Intermediate, Itching, 12/29/18) ROS Review of System GENERAL: No history of weight change, weakness or fevers. SKIN: No bruising, hair changes or rashes. EYES: No blurred, double or loss of vision. NOSE AND THROAT: No history of nosebleeds, hoarseness or sore throat. HEART: Denies chest pain, denies palpitations. LUNGS: Denies cough, hemoptysis, wheezing or shortness of breath. GASTROINTESTINAL: Nausea, vomiting, diarrhea. Denies abdominal pain.. GENITOURINARY: Denies dysuria, frequency, urgency, hematuria. NEUROLOGIC: Denies history of numbness, tingling, tremor or weakness. PSYCHIATRIC: Denies anxiety, denies depression. ENDOCRINE: No history of heat or cold intolerance, polyuria or polydipsia. EXTREMITIES: Denies muscle weakness, joint pain, pain on walking or stiffness. Physical Exam Physical Exam General: Alert, Oriented X3, Cooperative, No acute distress HEENT: PERRLA, EOMI Lungs: Clear to auscultation, Normal air movement Heart: RRR, no murmurs Cardiovascular: S1, S2 Abdomen: Normal bowel sounds, Soft, No tenderness Extremities: No clubbing, No cyanosis Skin: No rashes, No significant lesion Neuro: Normal speech, Normal tone, Sensation intact Psych/Mental Status: Mental status NL, Mood NL Vitals Vitals Vital Signs Date Time Temp Pulse Resp B/P (MAP) Pulse Ox O2 Delivery O2 Flow Rate FiO2 06/25/20 20:31 68 103/69 (80) 96 Room Air 06/25/20 16:34 98.0 18 98.0 Labs Labs Laboratory Tests Test 06/25/20 16:55 White Blood Count 13.5 x10^3/uL (4.0-11.0) Red Blood Count 5.06 x10^6/uL (3.50-5.40) Hemoglobin 16.5 g/dL (12.0-15.5) Hematocrit 49.1 % (36.0-47.0) Mean Corpuscular Volume 97 fL (79-100) Mean Corpuscular Hemoglobin 33 pg (25-35) Mean Corpuscular Hemoglobin Concent 34 g/dL (31-37) Red Cell Distribution Width 13.7 % (11.5-14.5) Platelet Count 240 x10^3/uL (140-400) Neutrophils (%) (Auto) 65 % (31-73) Lymphocytes (%) (Auto) 24 % (24-48) Monocytes (%) (Auto) 8 % (0-9) Eosinophils (%) (Auto) 2 % (0-3) Basophils (%) (Auto) 1 % (0-3) Neutrophils # (Auto) 8.8 x10^3/uL (1.8-7.7) Lymphocytes # (Auto) 3.2 x10^3/uL (1.0-4.8) Monocytes # (Auto) 1.0 x10^3/uL (0.0-1.1) Eosinophils # (Auto) 0.3 x10^3/uL (0.0-0.7) Basophils # (Auto) 0.1 x10^3/uL (0.0-0.2) Platelet Estimate Adequate (ADEQUATE) Large Platelets Few Giant Platelets Occ Sodium Level 131 mmol/L (136-145) Potassium Level 2.7 mmol/L (3.5-5.1) Chloride Level 92 mmol/L (98-107) Carbon Dioxide Level 28 mmol/L (21-32) Anion Gap 11 (6-14) Blood Urea Nitrogen 11 mg/dL (7-20) Creatinine 0.9 mg/dL (0.6-1.0) Estimated GFR (Cockcroft-Gault) 67.7 BUN/Creatinine Ratio 12 (6-20) Glucose Level 105 mg/dL (70-99) Calcium Level 9.4 mg/dL (8.5-10.1) Magnesium Level 2.6 mg/dL (1.8-2.4) Total Bilirubin 0.5 mg/dL (0.2-1.0) Aspartate Amino Transf (AST/SGOT) 19 U/L (15-37) Alanine Aminotransferase (ALT/SGPT) 28 U/L (14-59) Alkaline Phosphatase 128 U/L (46-116) Total Protein 8.1 g/dL (6.4-8.2) Albumin 4.3 g/dL (3.4-5.0) Albumin/Globulin Ratio 1.1 (1.0-1.7) Laboratory Tests Test 06/25/20 16:55 White Blood Count 13.5 x10^3/uL (4.0-11.0) Red Blood Count 5.06 x10^6/uL (3.50-5.40) Hemoglobin 16.5 g/dL (12.0-15.5) Hematocrit 49.1 % (36.0-47.0) Mean Corpuscular Volume 97 fL (79-100) Mean Corpuscular Hemoglobin 33 pg (25-35) Mean Corpuscular Hemoglobin Concent 34 g/dL (31-37) Red Cell Distribution Width 13.7 % (11.5-14.5) Platelet Count 240 x10^3/uL (140-400) Neutrophils (%) (Auto) 65 % (31-73) Lymphocytes (%) (Auto) 24 % (24-48) Monocytes (%) (Auto) 8 % (0-9) Eosinophils (%) (Auto) 2 % (0-3) Basophils (%) (Auto) 1 % (0-3) Neutrophils # (Auto) 8.8 x10^3/uL (1.8-7.7) Lymphocytes # (Auto) 3.2 x10^3/uL (1.0-4.8) Monocytes # (Auto) 1.0 x10^3/uL (0.0-1.1) Eosinophils # (Auto) 0.3 x10^3/uL (0.0-0.7) Basophils # (Auto) 0.1 x10^3/uL (0.0-0.2) Platelet Estimate Adequate (ADEQUATE) Large Platelets Few Giant Platelets Occ Sodium Level 131 mmol/L (136-145) Potassium Level 2.7 mmol/L (3.5-5.1) Chloride Level 92 mmol/L (98-107) Carbon Dioxide Level 28 mmol/L (21-32) Anion Gap 11 (6-14) Blood Urea Nitrogen 11 mg/dL (7-20) Creatinine 0.9 mg/dL (0.6-1.0) Estimated GFR (Cockcroft-Gault) 67.7 BUN/Creatinine Ratio 12 (6-20) Glucose Level 105 mg/dL (70-99) Calcium Level 9.4 mg/dL (8.5-10.1) Magnesium Level 2.6 mg/dL (1.8-2.4) Total Bilirubin 0.5 mg/dL (0.2-1.0) Aspartate Amino Transf (AST/SGOT) 19 U/L (15-37) Alanine Aminotransferase (ALT/SGPT) 28 U/L (14-59) Alkaline Phosphatase 128 U/L (46-116) Total Protein 8.1 g/dL (6.4-8.2) Albumin 4.3 g/dL (3.4-5.0) Albumin/Globulin Ratio 1.1 (1.0-1.7) VTE Prophylaxis Ordered VTE Prophylaxis Devices: Yes VTE Pharmacological Prophylaxi: No Assessment/Plan Assessment/Plan Gastroenteritis Hypokalemia Dehydration ABRAHAM Plan: Continue with IV normal saline We will replace potassium IV Zofran PRN nausea Leukocytosis likely reactive from gastroenteritis Hemoglobin and hematocrit consult for hemoconcentration Potassium within normal range may discharge tomorrow Resume home meds FEN -clear liquid diet PPX -SCDs FULL CODE Dispo -observation for above Justifications for Admission Other Justification DEENA LUO MD Jun 25, 2020 21:29
[2020-06-25] MEDS ORDERED: ONDANSETRON PF 4 MG/2 ML VIAL. IVP PRN (21:45)
[2020-06-25] MEDS ORDERED: MAGNESIUM HYDROXIDE 2,400 MG/30 ML ORAL.SUSP. PO PRN (21:45)
[2020-06-25] MEDS ORDERED: METHOCARBAMOL 750 MG TABLET PO PRN (21:45)
[2020-06-25] MEDS ORDERED: IBUPROFEN 400 MG TABLET. PO PRN (21:45)
[2020-06-25] MEDS ORDERED: IV NORMAL SALINE 1000ML BAG 1,000 ML IV SCH (21:45)
[2020-06-25] MEDS ORDERED: CALCIUM CARBONATE 500 MG TAB.CHEW PO PRN (21:45)
[2020-06-25] MEDS ORDERED: BISACODYL 10 MG SUPP.RECT. PR PRN (21:45)
[2020-06-25] MEDS ORDERED: MAG HYDROX/ALUMINUM HYD/SIMETH 30 ML ORAL.SUSP PO PRN (21:45)
[2020-06-25] MEDS ORDERED: hydrOXYzine 25 MG TABLET PO PRN (21:45)
[2020-06-25] MEDS ORDERED: PROCHLORPERAZINE 10 MG/2 ML VIAL. IVP PRN (21:45)
[2020-06-25] MEDS ORDERED: NICOTINE 14MG PATCH. TD PRN (21:45)
[2020-06-25] MEDS ORDERED: MORPHINE SULFATE 2 MG/ML VIAL. IV PRN ×2 (21:45)
[2020-06-25] MEDS ORDERED: ACETAMINOPHEN 325 MG TABLET. PO PRN (21:45)
[2020-06-25 21:48] VITALS: BP 130/83
--- NOTE | 2020-06-25 21:53 | NUR ---
Pt. just arrived from ED via w/c w hypokalemia. She is A/O x4 and will make most needs known.
[2020-06-25] MEDS ORDERED: OLANZapine 5 MG TABLET PO SCH (22:00)
[2020-06-25] MEDS ORDERED: LIDOCAINE (700MG/PATCH) PATCH. TP PRN (22:00)
[2020-06-25] MEDS: IV NORMAL SALINE 1000ML BAG 1,000 ML IV SCH (22:15)
[2020-06-25] MEDS: POTASSIUM CHLORIDE 10MEQ 100 ML IV SCH ×2 (22:16→23:40)
[2020-06-25] MEDS: GABAPENTIN 300 MG CAPSULE. PO SCH (22:58)
[2020-06-25] MEDS: TOPIRAMATE 100 MG TABLET. PO SCH (22:59)
[2020-06-25] MEDS: oxyCODONE IR 5 MG TABLET PO PRN (23:00)
[2020-06-25] MEDS: NICOTINE 21MG PATCH. TD PRN (23:06)
[2020-06-25 23:36] LABS: U PREG PATIENT NEGATIVE (NEG)
[2020-06-26] MEDS: POTASSIUM CHLORIDE 10MEQ 100 ML IV SCH ×2 (00:39→02:18)
[2020-06-26 03:00] VITALS: BP 118/65
[2020-06-26] MEDS: IV NORMAL SALINE 1000ML BAG 1,000 ML IV SCH (06:40)
[2020-06-26 07:00] VITALS: BP 92/58
[2020-06-26] MEDS ORDERED: NON FORMULARY ITEM (Linaclotide (Linzess) 290 MCG) PO SCH (07:00)
[2020-06-26] MEDS: ALBUTEROL SULFATE 2.5 MG/3 ML NEBU. NEB SCH ×3 (07:37→16:05)
[2020-06-26] MEDS ORDERED: BUDESONIDE 0.5 MG/2 ML NEBU. NEB SCH (08:00)
[2020-06-26] MEDS ORDERED: NON FORMULARY ITEM (Budesonide/Formoterol Fumarate (Symbicort 160-4.5 Mcg Inhaler) 2 PUFF) IH SCH (09:00)
[2020-06-26] MEDS ORDERED: POTASSIUM CITRATE 10 MEQ TABLET.ER PO SCH (09:00)
[2020-06-26] MEDS ORDERED: DULoxetine HCL 30 MG CAPSULE.DR PO SCH (09:00)
[2020-06-26] MEDS: NICOTINE 21MG PATCH. TD PRN (09:37)
[2020-06-26] MEDS: GABAPENTIN 300 MG CAPSULE. PO SCH ×2 (09:38→15:01)
[2020-06-26] MEDS: TOPIRAMATE 100 MG TABLET. PO SCH (09:39)
[2020-06-26] MEDS: oxyCODONE IR 5 MG TABLET PO PRN (09:42)
[2020-06-26 09:47] LABS: CALCIUM 8.5 mg/dL (8.5-10.1); CREATININE 0.5 mg/dL (0.6-1.0); GFR 133.4; MAGNESIUM 2.8 mg/dL (1.8-2.4)
[2020-06-26 10:01] LABS: POTASSIUM 4.7 mmol/L (3.5-5.1)
[2020-06-26 10:44] VITALS: BP 98/62
--- NOTE | 2020-06-26 13:39 | NUR ---
SW following. Spoke with RN and reviewed chart. Pt from home. Pt currently on IV medications for pain and nausea. Pt to discharge home self-care, when stable. No SW needs for discharge identified. Addendum: 06/27/20 at 1219 by POLLY MUÑIZ Pt discharge home, self-care.
[2020-06-26 15:00] VITALS: BP 99/64
--- NOTE | 2020-06-26 15:32 | DISCH ---
DISCHARGE INSTRUCTIONS Condition on Discharge Condition on Discharge: Stable Activity After Discharge Activity Instructions for Disc: Activity as tolerated Exercise Instruction after Dis: Progress as tolerated Driving Instructions after Dis: Do not drive Weight Bearing Status after Di: As tolerated Diet after Discharge Diet after Discharge: Level III Dysph, Chopped Diet Texture: Regular Liquid Texture: Honey-thick Follow-Up Follow up with: PCP within 2 weeks of discharge Treatment/Equipment after DC Adaptive Equipment Issued: None NAA ABARCA MD Jun 26, 2020 15:32
[2020-06-26] MEDS ORDERED: LUBIPROSTONE 24 MCG CAPSULE PO SCH (17:00)
--- NOTE | 2020-06-26 18:41 | NUR ---
Discharge Note: Patient was discharged home with self care. Patients IV was discontinued without any complications per JORGE. Patient tolerated a regular tray. Patients at the bedside at the time of discharge instructions. Patient was given discharge summary/instructions, follow-ups, and educational materials. Patient did not have any further questions or concerns. Patient was taken down to the main entrance via wheelchair with all personal belongings accompanied by JORGE Corrigan, where her was waiting for her to take her home.
--- NOTE | 2020-06-26 22:15 | PDOC3 ---
[facility]-Discharge Summary Date of Admission: Date of Admission: Jun 25, 2020 Date of Discharge: Date of Discharge: Jun 26, 2020 Admission Diagnosis: Admitting Diagnosis: Gastroenteritis Hypokalemia Dehydration ABRAHAM Discharge Diagnosis: Discharge Diagnosis: Gastroenteritis Hypokalemia Dehydration ABRAHAM Hospital Course: Hospital Course: 44-year-old female, with past medical history migraines and seizures, who presents to the ER with complaint of nausea, vomiting, diarrhea for the past 3 days. She denies any fever or known sick contacts. Potassium on admission was 2.7, hemoglobin 17.3, hematocrit 52.4, WBC 13, sodium 131, creatinine 1.1. Was asked to admit patient for further evaluation and treatment. Patient was able to tolerate clears and she did not have any more N/V or diarrhea. Her electrolytes were replaced. She will need routine f/u with her PCP. The rest of her hospital course was uneventful. Disposition: Disposition/Orders: D/C to Home Activity: Activity: Resume previous activity Diet: Diet: Regular Medications: Home Meds Reported Medications Potassium Citrate (POTASSIUM CITRATE) 10 Meq Tablet.er, 99 MG PO DAILY for supplement, TAB.SR 12/28/18 Vit B Complex 100 Cmb #2/Herbs (SM NATURAL BALANCED B-100 TAB) 100 Mg Tablet, 100 MG PO DAILY for supplement, TAB 12/28/18 Cholecalciferol (Vitamin D3) (VITAMIN D3) 1,000 Unit Tablet, 1250 MG PO DAILY for supplement, TAB 12/28/18 Albuterol Sulfate (PROAIR HFA INHALER) 8.5 Gm Hfa.aer.ad, 1 PUFF INH PRN Q6HRS PRN for SHORTNESS OF BREATH, INHALER 0 Refills 12/28/18 Gabapentin (Gabapentin) 300 Mg Capsule, 600 MG PO TID for spasms, CAP 12/28/18 Budesonide/Formoterol Fumarate (SYMBICORT 160-4.5 MCG INHALER) 10.2 Gm Hfa.aer.ad, 2 PUFF IH BID for breathing, #10.6 GM 3 Refills 12/28/18 Rizatriptan Benzoate (MAXALT) 10 Mg Tablet, 10 MG PO PRN PRN for PAIN, TAB 12/28/18 Lidocaine (Lidocaine PATCH ) 1 Each Adh..patch, 1 EACH TP PRN DAILY PRN for PAIN, PATCH 12/28/18 Topiramate (TOPIRAMATE) 100 Mg Tablet, 1 TAB PO BID for seizures, #60 TAB 1 Refill 12/28/18 Linaclotide (LINZESS) 290 Mcg Capsule, 290 MCG PO DAILY07 for IRRITABLE BOWEL, CAP 12/28/18 Duloxetine Hcl (CYMBALTA) 30 Mg Capsule.dr, 1 CAP PO DAILY for nerves, #30 CAP 5 Refills 12/28/18 Olanzapine (OLANZAPINE) 5 Mg Tablet, 1 TAB PO QHS for nerves, #30 TAB 2 Refills 12/28/18 Methocarbamol (ROBAXIN) 500 Mg Tablet, 750 MG PO TID PRN for MUSCLE SPASMS, TAB 06/22/14 Discontinued Scripts Oxycodone Hcl (OXYCODONE HCL IMMED.RELEASE) 10 Mg Tablet, 10 MG PO Q8H PRN for heduled for 30 Days, #90 TAB 0 Refills Prov:TEODORO THAPA MD 01/11/19 Scheduled Budesonide/Formoterol Fumarate (Symbicort 160-4.5 Mcg Inhaler), 2 PUFF IH BID, (Reported) Cholecalciferol (Vitamin D3) (Vitamin D3), 1,250 MG PO DAILY, (Reported) Duloxetine Hcl (Cymbalta), 1 CAP PO DAILY, (Reported) Gabapentin (Gabapentin), 600 MG PO TID, (Reported) Linaclotide (Linzess), 290 MCG PO DAILY07, (Reported) Olanzapine (Olanzapine), 1 TAB PO QHS, (Reported) Potassium Citrate (Potassium Citrate), 99 MG PO DAILY, (Reported) Topiramate (Topiramate), 1 TAB PO BID, (Reported) Vit B Complex 100 Cmb #2/Herbs (Sm Natural Balanced B-100 Tab), 100 MG PO DAILY, (Reported) Scheduled PRN Albuterol Sulfate (Proair Hfa Inhaler), 1 PUFF INH PRN Q6HRS PRN for SHORTNESS OF BREATH, (Reported) Lidocaine (Lidocaine PATCH ), 1 EACH TP PRN DAILY PRN for PAIN, (Reported) Methocarbamol (Robaxin), 750 MG PO TID PRN for MUSCLE SPASMS, (Reported) Rizatriptan Benzoate (Maxalt), 10 MG PO PRN PRN for PAIN, (Reported) Discontinued Medications Oxycodone Hcl (Oxycodone Hcl Immed.release), 10 MG PO Q8H PRN for heduled Total Time: Total Time: Total time spent was 25 minutes in preparing scripts, discharge planning with SW and RN, and preparing this discharge summary. Patient seen and examined on day of discharge. Justicifation of Admission Dx: Justifications for Admission: Justification of Admission Dx: N/A NAA ABARCA MD Jun 26, 2020 22:15
== END 2020-06-26 18:45 | disposition home or self-care (01) ==
LOC: ER 15:12 → 5 NORTH 19:25 → ED HOLD 19:36 → INTOOBSV 19:36 → 5 NORTH 21:20
PROVIDERS: ADMIT Family Medicine; ATTEND Family Medicine
DX: K52.9 Noninfective gastroenteritis and colitis, unspecified (principal); N17.9 Acute kidney failure, unspecified; E86.0 Dehydration; E87.6 Hypokalemia; R25.1 Tremor, unspecified; G43.909 Migraine, unspecified, not intractable, without status migrainosus; K59.00 Constipation, unspecified; K21.9 Gastro-esophageal reflux disease without esophagitis; K64.9 Unspecified hemorrhoids; F17.210 Nicotine dependence, cigarettes, uncomplicated; G40.909 Epilepsy, unspecified, not intractable, without status epilepticus; J44.9 Chronic obstructive pulmonary disease, unspecified; M51.9 Unspecified thoracic, thoracolumbar and lumbosacral intervertebral disc disorder; Z90.49 Acquired absence of other specified parts of digestive tract; Z90.710 Acquired absence of both cervix and uterus; Z98.891 History of uterine scar from previous surgery
CPT/HCPCS: 36415; 80048; 80053; 81025; 83735; 85025; 94640; 94760; 96361; 96365; 96366; 99284; G0378; J3480; J7030; J7613; J7626; 99285; G0379

== ENCOUNTER → 2020-07-05 | Outpatient (CLI) | payer MEDICAID ==
[2020-06-26 15:00] VITALS: BP 99/64
[2020-07-05 09:31] LABS: BASO # 0.1 x10^3/uL (0.0-0.2); BASO % 1 % (0-3); EOS # 0.3 x10^3/uL (0.0-0.7); EOS % 3 % (0-3); HEMATOCRIT 46.9 % (36.0-47.0); HEMOGLOBIN 15.7 g/dL (12.0-15.5); LYMPH # 2.8 x10^3/uL (1.0-4.8); LYMPH % 31 % (24-48); MEAN CORPUSCULAR HEMOGLOBIN 33 pg (25-35); MEAN CORPUSCULAR HGB CONC 34 g/dL (31-37); MEAN CORPUSCULAR VOLUME 98 fL (79-100); MONO # 0.9 x10^3/uL (0.0-1.1); MONO % 9 % (0-9); NEUT % 55 % (31-73); PLATELET COUNT 258 x10^3/uL (140-400); RED BLOOD COUNT 4.79 x10^6/uL (3.50-5.40); RED CELL DISTRIBUTION WIDTH 13.6 % (11.5-14.5); WHITE BLOOD COUNT 9.1 x10^3/uL (4.0-11.0)
[2020-07-05 09:32] LABS: BILIRUBIN,URINE NEGATIVE (NEG); CLARITY,URINE CLEAR; COLOR,URINE YELLOW; NITRITE,URINE NEGATIVE (NEG); PH,URINE 5.5 (<5.0-8.0); PROTEIN,URINE NEGATIVE (NEG-TRACE)
[2020-07-05 09:47] LABS: BACTERIA,URINE MODERATE /HPF (0-FEW)
[2020-07-05 09:48] LABS: RBC,URINE OCC /HPF (0-2)
== END ==
LOC: ONCLAB 09:01
PROVIDERS: ATTEND Internal Medicine Hematology & Oncology
DX: D72.829 Elevated white blood cell count, unspecified (principal)
CPT/HCPCS: 36415; 81001; 82607; 82746; 85025; 86140; 87086

== ENCOUNTER 2020-08-10 12:45 | Emergency (ER) | payer MEDICAID ==
[~2020-08-10] VITALS: Ht 162.6 cm; Wt 66.8 kg
[~2020-08-10 12:45] MED LIST changes: +LEVE250T30 PO; +NALO25TA4 PO; +PROP40TA PO
[2020-08-10 13:43] VITALS: BP 112/73
[2020-08-10 14:28] LABS: BASO # 0.1 x10^3/uL (0.0-0.2); BASO % 1 % (0-3); EOS # 1.5 x10^3/uL (0.0-0.7); EOS % 12 % (0-3); HEMATOCRIT 44.5 % (36.0-47.0); HEMOGLOBIN 14.9 g/dL (12.0-15.5); LYMPH # 2.7 x10^3/uL (1.0-4.8); LYMPH % 22 % (24-48); MEAN CORPUSCULAR HEMOGLOBIN 32 pg (25-35); MEAN CORPUSCULAR HGB CONC 34 g/dL (31-37); MEAN CORPUSCULAR VOLUME 95 fL (79-100); MONO % 8 % (0-9); NEUT # 6.8 x10^3/uL (1.8-7.7); NEUT % 57 % (31-73); PLATELET COUNT 539 x10^3/uL (140-400); RED BLOOD COUNT 4.67 x10^6/uL (3.50-5.40); RED CELL DISTRIBUTION WIDTH 14.6 % (11.5-14.5); WHITE BLOOD COUNT 12.1 x10^3/uL (4.0-11.0)
[2020-08-10 14:36] LABS: CALCIUM 8.9 mg/dL (8.5-10.1); CREATININE 0.5 mg/dL (0.6-1.0); GFR 133.4; POTASSIUM 3.3 mmol/L (3.5-5.1)
[2020-08-10 14:42] LABS: ALBUMIN 2.8 g/dL (3.4-5.0); ALBUMIN/GLOBULIN RATIO 0.6 (1.0-1.7); MAGNESIUM 2.1 mg/dL (1.8-2.4); TOTAL BILIRUBIN 0.3 mg/dL (0.2-1.0); TOTAL PROTEIN 7.2 g/dL (6.4-8.2)
[2020-08-10 14:56] LABS: BILIRUBIN,URINE SMALL (NEG); CLARITY,URINE CLEAR; COLOR,URINE YELLOW; NITRITE,URINE NEGATIVE (NEG); PROTEIN,URINE 30 mg/dL (NEG-TRACE)
[2020-08-10 15:02] LABS: BACTERIA,URINE FEW /HPF (0-FEW); RBC,URINE 0 /HPF (0-2)
[2020-08-10 15:14] LABS: % ATYL 4 % (0-0)
[2020-08-10 15:15] LABS: % BANDS 14 % (0-9); % EOS 14 % (0-5); % LYMPHS 19 % (24-48); % MONOS 8 % (0-10); % SEGS 41 % (35-66); PLT ESTIMATE INCREASED (ADEQUATE)
[2020-08-10] MEDS ORDERED: ONDANSETRON PF 4 MG/2 ML VIAL. IV ONE (15:45)
[2020-08-10] MEDS ORDERED: IV NORMAL SALINE 1000ML BAG 1,000 ML IV ONE (15:45)
[2020-08-10] MEDS ORDERED: fentaNYL PF VIAL 100 MCG/2 ML VIAL IV ONE (16:30)
--- NOTE | 2020-08-10 17:26 | RAD ---
INDICATION: Reason: llq abd pain, hx of previous L ovarian cyst 07/28/[address] / Spl. Instructions: / History: COMPARISON: July 28, 2020 TECHNIQUE: Grayscale and color ultrasound images uterus and adnexa. Transabdominal and transvaginal images obtained. Transvaginal images were needed to better visualize structures that were limited on transabdominal imaging. FINDINGS: Secondary to overlying structures the ovaries are not visualized on this examination. The patient is status post hysterectomy. Multiple loops of bowel obscuring the pelvis. IMPRESSION: * Nonvisualization of the ovaries secondary to bowel gas obscuring. Electronically signed by: Hayes Anderson MD (08/10/2020 5:23 PM) [id number]
--- NOTE | 2020-08-10 17:39 | ED.ADGEN ---
Past Medical History Past Medical History: Constipation, COPD Additional Past Medical Histor: EPILEPSY, DDD Past Surgical History: Cholecystectomy, Hysterectomy, Other Additional Past Surgical Histo: L. SHOULDER Smoking Status: Current Every Day Smoker Alcohol Use: None General Adult EDM: Chief Complaint: NAUSEA/VOMITING/DIARRHA HPI: HPI: Patient is a 44 year old female who presents emergency department with complaints of nausea and vomiting x2 in last 24 hours and lower abdominal pain.. She denies any blood in her vomit. Patient denies any fever, cough, sore throat, chest pain, palpitations, shortness of breath. She reports that her last bowel movement was today and it was normal. Patient states that she was admitted here recently for pancreatitis. She denies any alcohol use. She states during her admission she had been diagnosed with elevated liver enzymes. She states she has been taking the medications as previously prescribed. She states that she feels like she does not have an appetite. She currently rates her discomfort a 10 out of 10 on the pain scale, she denies any alleviating factors, pain is worse with palpation. Patient states she has tried taking ibuprofen and oxycodone at 830 this morning for relief of the pain with no benefit. Review of Systems: Review of Systems: Complete ROS is negative unless otherwise noted in HPI. Current Medications: Current Medications Medications (Trade) Dose Ordered Sig/[facility] Start Time Stop Time Status Last Admin Dose Admin Fentanyl Citrate (Fentanyl 2ml Vial) 50 mcg 1X ONCE 08/10/20 16:30 08/10/20 16:31 DC 08/10/20 16:48 50 MCG Ondansetron HCl (Zofran) 4 mg 1X ONCE 08/10/20 15:45 08/10/20 15:46 DC 08/10/20 15:51 4 MG Sodium Chloride 1,000 ml @ 1,000 mls/hr 1X ONCE 08/10/20 15:45 08/10/20 16:44 DC 08/10/20 15:51 1,000 MLS/HR Allergies: Allergies: Allergies Coded Allergies Type Severity Reaction Last Updated Verified tegaserod Allergy Severe Swelling 12/29/18 Yes buprenorphine Allergy Intermediate Itching 12/29/18 Yes Physical Exam: PE: See Above Constitutional: Well developed, well nourished, no acute distress, non-toxic appearance. [] HENT: Normocephalic, atraumatic, bilateral external ears normal, nose normal. [] Eyes: PERRLA, EOMI, conjunctiva normal, no discharge. [] Neck: Normal range of motion, no stridor. [] Cardiovascular:Heart rate regular rhythm Lungs & Thorax: Respirations even and unlabored, no retractions, no respiratory distress Abdomen: soft, lower left quadrant tenderness to palpation, no rebound tenderness, no guarding; mild epigastric tenderness to palpation without rebound tenderness or guarding; right side tender and soft. Skin: Warm, dry, no erythema, no rash. [] Extremities: No cyanosis, ROM intact, no edema. [] Neurologic: Alert and oriented X 3, no focal deficits noted. [] Psychologic: Affect normal, judgement normal, mood normal. [] Current Patient Data: Labs: Laboratory Tests Test 08/10/20 14:00 08/10/20 14:44 08/10/20 14:46 White Blood Count 12.1 x10^3/uL (4.0-11.0) H Red Blood Count 4.67 x10^6/uL (3.50-5.40) Hemoglobin 14.9 g/dL (12.0-15.5) Hematocrit 44.5 % (36.0-47.0) Mean Corpuscular Volume 95 fL (79-100) Mean Corpuscular Hemoglobin 32 pg (25-35) Mean Corpuscular Hemoglobin Concent 34 g/dL (31-37) Red Cell Distribution Width 14.6 % (11.5-14.5) H Platelet Count 539 x10^3/uL (140-400) H Neutrophils (%) (Auto) 57 % (31-73) Lymphocytes (%) (Auto) 22 % (24-48) L Monocytes (%) (Auto) 8 % (0-9) Eosinophils (%) (Auto) 12 % (0-3) H Basophils (%) (Auto) 1 % (0-3) Neutrophils # (Auto) 6.8 x10^3/uL (1.8-7.7) Lymphocytes # (Auto) 2.7 x10^3/uL (1.0-4.8) Monocytes # (Auto) 1.0 x10^3/uL (0.0-1.1) Eosinophils # (Auto) 1.5 x10^3/uL (0.0-0.7) H Basophils # (Auto) 0.1 x10^3/uL (0.0-0.2) Segmented Neutrophils % 41 % (35-66) Band Neutrophils % 14 % (0-9) H Lymphocytes % 19 % (24-48) L Atypical Lymphocytes % (Manual) 4 % (0-0) H Monocytes % 8 % (0-10) Eosinophils % 14 % (0-5) H Platelet Estimate Increased (ADEQUATE) Sodium Level 137 mmol/L (136-145) Potassium Level 3.3 mmol/L (3.5-5.1) L Chloride Level 102 mmol/L (98-107) Carbon Dioxide Level 21 mmol/L (21-32) Anion Gap 14 (6-14) Blood Urea Nitrogen 9 mg/dL (7-20) Creatinine 0.5 mg/dL (0.6-1.0) L Estimated GFR (Cockcroft-Gault) 133.4 BUN/Creatinine Ratio 18 (6-20) Glucose Level 93 mg/dL (70-99) Calcium Level 8.9 mg/dL (8.5-10.1) Magnesium Level 2.1 mg/dL (1.8-2.4) Total Bilirubin 0.3 mg/dL (0.2-1.0) Aspartate Amino Transferase (AST) 48 U/L (15-37) H Alanine Aminotransferase (ALT) 58 U/L (14-59) Alkaline Phosphatase 391 U/L (46-116) H Total Protein 7.2 g/dL (6.4-8.2) Albumin 2.8 g/dL (3.4-5.0) L Albumin/Globulin Ratio 0.6 (1.0-1.7) L Lipase 245 U/L (73-393) Urine Collection Type Unknown Urine Color Yellow Urine Clarity Clear Urine pH 6.0 (<5.0-8.0) Urine Specific [place] 1.020 (1.000-1.030) Urine Protein 30 mg/dL (NEG-TRACE) Urine Glucose (UA) Negative mg/dL (NEG) Urine Ketones (Stick) >=80 mg/dL (NEG) Urine Blood Negative (NEG) Urine Nitrite Negative (NEG) Urine Bilirubin Small (NEG) Urine Urobilinogen Dipstick 1.0 mg/dL (0.2 mg/dL) Urine Leukocyte Esterase Negative (NEG) Urine RBC 0 /HPF (0-2) Urine WBC 1-4 /HPF (0-4) Urine Squamous Epithelial Cells Mod /LPF Urine Bacteria Few /HPF (0-FEW) Urine Mucus Mod /LPF POC Urine HCG, Qualitative Hcg negative (Negative) Laboratory Tests 08/10/20 14:00 Laboratory Tests 08/10/20 14:00 Vital Signs: Vital Signs Date Time Temp Pulse Resp B/P (MAP) Pulse Ox O2 Delivery O2 Flow Rate FiO2 08/10/20 16:48 97 08/10/20 13:43 97.6 98 16 112/73 (86) Room Air 97.6 EKG: EKG: [] Heart Score: Risk Factors: Risk Factors: DM, Current or recent (<one month) smoker, HTN, HLP, family history of CAD, obesity. Risk Scores: Score 0 - 3: 2.5% MACE over next 6 weeks - Discharge Home Score 4 - 6: 20.3% MACE over next 6 weeks - Admit for Clinical Observation Score 7 - 10: 72.7% MACE over next 6 weeks - Early Invasive Strategies Radiology/Procedures: Radiology/Procedures: PROCEDURE: PELVIS ULTRASOUND INDICATION: Reason: llq abd pain, hx of previous L ovarian cyst 07/28/[address] on [address] / Spl. Instructions: / History: COMPARISON: July 28, 2020 TECHNIQUE: Grayscale and color ultrasound images uterus and adnexa. Transabdominal and transvaginal images obtained. Transvaginal images were needed to better visualize structures that were limited on transabdominal imaging. FINDINGS: Secondary to overlying structures the ovaries are not visualized on this examination. The patient is status post hysterectomy. Multiple loops of bowel obscuring the pelvis. IMPRESSION: * Nonvisualization of the ovaries secondary to bowel gas obscuring.[] Course & Med Decision Making: Course & Med Decision Making Pertinent Labs and Imaging studies reviewed. (See chart for details) 44-year-old female presented emergency department with recurrent nausea and vomiting and new onset of left lower quadrant abdominal pain. Patient has been seen here twice within the last 2 weeks for similar problems. She was admitted for pancreatitis during 1 of those visits. Patient states she has been taking medication as it was prescribed to her. Work-up included labs, and ultrasound. CBC revealed a white blood cell count of 12.1, elevated platelets of 529 otherwise unremarkable; CMP revealed a AST of 48, alk phos of 391, potassium of 3.3 it was otherwise unremarkable, the patient's lipase was not elevated; UA revealed a small amount of bilirubin and greater than 80 ketones was otherwise unremarkable. The patient denied any urinary complaints. I advised the patient that she is not having pancreatitis at this time. I informed her that there was no emergent condition identified in today's visit. Instructed the patient to continue taking meds as previously prescribed. Recommend a bland diet avoiding rich fatty meals and to avoid alcohol use. I encouraged her to follow-up with her primary care doctor I also recommended that she follows up with gastroenterology, Dr. Alford who evaluated her during her previous stay in the hospital. I encouraged her to return to the ER if fever develops or symptoms worsen. Patient's vital signs were stable throughout her visit. Patient verbalized an understanding of home care, medications, follow-up, and return to ED instructions. Dragon Disclaimer: Dragon Disclaimer: This electronic medical record was generated, in whole or in part, using a voice recognition dictation system. Departure Departure Impression: Primary Impression: Left lower quadrant abdominal pain Additional Impression: Elevated liver enzymes Disposition: 01 DC HOME SELF CARE/HOMELESS Condition: STABLE Referrals: BONIFACIO FRAZIER (PCP) THERESE ALFORD MD Patient Instructions: Abdominal Pain (Nonspecific) Additional Instructions: Continue taking meds as previously prescribed. Recommend a bland diet avoiding rich fatty meals and to avoid alcohol use. Follow-up with your primary care doctor in the next 1 to 2 days. I also recommend that you follow-up with gastroenterology, Dr. Alford who evaluated you here in the emergency department.for further evaluation and treatment of reoccurring abdominal pain and elevated liver enzymes. Problem Qualifiers SAWYER SHEPHERD NURSE [employer] Aug 10, 2020 17:39
== END 2020-08-10 18:06 | disposition home or self-care (01) ==
LOC: ER 12:45
DX: R10.32 Left lower quadrant pain (principal); R11.2 Nausea with vomiting, unspecified; R74.8 Abnormal levels of other serum enzymes; J44.9 Chronic obstructive pulmonary disease, unspecified; G40.909 Epilepsy, unspecified, not intractable, without status epilepticus; F17.200 Nicotine dependence, unspecified, uncomplicated; Z90.49 Acquired absence of other specified parts of digestive tract; Z90.710 Acquired absence of both cervix and uterus; Z88.8 Allergy status to other drugs, medicaments and biological substances
CPT/HCPCS: 36415; 76856; 80053; 81001; 81025; 83690; 83735; 85007; 85025; 96361; 96374; 96375; 99284; J2405; J3010; J7030

== ENCOUNTER 2020-08-26 15:05 | Emergency (ER) | payer MEDICAID ==
[~2020-08-26] VITALS: Ht 162.6 cm; Wt 62.0 kg
[2020-08-26] MEDS ORDERED: IV NORMAL SALINE 1000ML BAG 1,000 ML IV SCH (15:15)
--- NOTE | 2020-08-26 15:21 | PHYS DOC ---
Past Medical History Past Medical History: Constipation, COPD Additional Past Medical Histor: EPILEPSY, DDD Past Surgical History: Cholecystectomy, Hysterectomy, Other Additional Past Surgical Histo: L. SHOULDER Smoking Status: Current Every Day Smoker Alcohol Use: None General Adult EDM: Chief Complaint: ABDOMINAL PAIN HPI: HPI: Patient is a 44 year old female who has chronic abdominal pain presents with a couple day history of left lower quadrant pain that radiates to the left hip and into the back. Patient's had some nausea as well. Patient is a history of pancreatitis and symptoms are similar to when she had pancreatitis. Patient denies any fever, chills, or shortness of breath. Patient is a chronic cough from smoking. Pain is 10 out of 10 and worse with palpation. Pain is sharp and stabbing in nature. Review of Systems: Review of Systems: Constitutional: Denies fever or chills. [] Eyes: Denies change in visual acuity. [] HENT: Denies nasal congestion or sore throat. [] Respiratory: Complains of chronic cough but no shortness of breath. [] Cardiovascular: Denies chest pain or edema. [] GI: Patient complains abdominal pain and nausea but denies blood in her stool : Denies dysuria. [] Musculoskeletal: Complains of back pain that radiates from the abdomen or joint pain. [] Integument: Denies rash. [] Neurologic: Denies headache, focal weakness or sensory changes. [] Endocrine: Denies polyuria or polydipsia. [] Lymphatic: Denies swollen glands. [] Psychiatric: Denies depression or anxiety. [] Heart Score: Risk Factors: Risk Factors: DM, Current or recent (<one month) smoker, HTN, HLP, family history of CAD, obesity. Risk Scores: Score 0 - 3: 2.5% MACE over next 6 weeks - Discharge Home Score 4 - 6: 20.3% MACE over next 6 weeks - Admit for Clinical Observation Score 7 - 10: 72.7% MACE over next 6 weeks - Early Invasive Strategies Current Medications: Active Scripts Active Keppra (Levetiracetam) 250 Mg Tablet 750 Mg PO BID 30 Days Reported Propranolol Hcl 40 Mg Tablet 1 Tab PO BID Movantik (Naloxegol Oxalate) 25 Mg Tablet 1 Tab PO DAILY Oxycodone Hcl Immed.release (Oxycodone Hcl) 10 Mg Tablet 1 Tab PO PRN Q8HRS PRN Potassium Citrate 10 Meq Tablet.er 99 Mg PO DAILY Sm Natural Balanced B-100 Tab (Vit B Complex 100 Cmb #2/Herbs) 100 Mg Tablet 100 Mg PO DAILY Vitamin D3 (Cholecalciferol (Vitamin D3)) 1,000 Unit Tablet 1,250 Mg PO DAILY Proair Hfa Inhaler (Albuterol Sulfate) 8.5 Gm Hfa.aer.ad 1 Puff INH PRN Q6HRS PRN Gabapentin 300 Mg Capsule 600 Mg PO TID Symbicort 160-4.5 Mcg Inhaler (Budesonide/Formoterol Fumarate) 10.2 Gm Hfa.aer.ad 2 Puff IH BID Maxalt (Rizatriptan Benzoate) 10 Mg Tablet 10 Mg PO PRN PRN Lidocaine PATCH (Lidocaine) 1 Each Adh..patch 1 Each TP PRN DAILY PRN Topiramate 100 Mg Tablet 1 Tab PO BID Linzess (Linaclotide) 290 Mcg Capsule 290 Mcg PO DAILY07 Cymbalta (Duloxetine Hcl) 30 Mg Capsule.dr 1 Cap PO DAILY Olanzapine 5 Mg Tablet 1 Tab PO QHS Robaxin (Methocarbamol) 500 Mg Tablet 750 Mg PO TID PRN Allergies: Allergies: Allergies Coded Allergies Type Severity Reaction Last Updated Verified tegaserod Allergy Severe Swelling 12/29/18 Yes buprenorphine Allergy Intermediate Itching 12/29/18 Yes Physical Exam: PE: Constitutional: Well developed, well nourished, no acute distress, non-toxic appearance. [] HENT: Normocephalic, atraumatic, bilateral external ears normal, no trismus nose normal. [] Eyes: PERRLA, EOMI, conjunctiva normal, no discharge. [] Neck: Normal range of motion, no tenderness, supple, no stridor. [] Cardiovascular:Heart rate regular rhythm, peripheral pulse intact cap refill is brisk Lungs & Thorax: Bilateral breath sounds clear, no respiratory distress Abdomen: Abdomen is soft with left lower quadrant tenderness with some voluntary guarding without rebound, no masses, no pulsatile masses. [] Skin: Warm, dry, no erythema, no rash. [] Back: No tenderness, no CVA tenderness. [] Extremities: No tenderness, no cyanosis, no clubbing, ROM intact, no edema. [] Neurologic: Alert and oriented X 3, normal motor function, normal sensory function, no focal deficits noted. [] Psychologic: Affect normal, judgement normal, mood normal. [] Current Patient Data: Labs: Laboratory Tests Test 08/26/20 15:10 08/26/20 15:35 Urine Collection Type Unknown Urine Color Mine Urine Clarity Clear Urine pH 6.0 Urine Specific Dyer >=1.030 Urine Protein Negative mg/dL Urine Glucose (UA) Negative mg/dL Urine Ketones (Stick) Negative mg/dL Urine Blood Negative Urine Nitrite Negative Urine Bilirubin Small Urine Urobilinogen Dipstick 1.0 mg/dL Urine Leukocyte Esterase Negative Urine RBC 0 /HPF Urine WBC Occ /HPF Urine Squamous Epithelial Cells Many /LPF Urine Bacteria Moderate /HPF Urine Mucus Marked /LPF White Blood Count 6.9 x10^3/uL Red Blood Count 4.41 x10^6/uL Hemoglobin 14.3 g/dL Hematocrit 42.9 % Mean Corpuscular Volume 97 fL Mean Corpuscular Hemoglobin 33 pg Mean Corpuscular Hemoglobin Concent 33 g/dL Red Cell Distribution Width 15.6 % Platelet Count 208 x10^3/uL Neutrophils (%) (Auto) 34 % Lymphocytes (%) (Auto) 38 % Monocytes (%) (Auto) 10 % Eosinophils (%) (Auto) 18 % Basophils (%) (Auto) 0 % Neutrophils # (Auto) 2.4 x10^3/uL Lymphocytes # (Auto) 2.6 x10^3/uL Monocytes # (Auto) 0.7 x10^3/uL Eosinophils # (Auto) 1.3 x10^3/uL Basophils # (Auto) 0.0 x10^3/uL Platelet Estimate Pending Sodium Level 146 mmol/L Potassium Level 3.7 mmol/L Chloride Level 109 mmol/L Carbon Dioxide Level 30 mmol/L Anion Gap 7 Blood Urea Nitrogen 11 mg/dL Creatinine 0.5 mg/dL Estimated GFR (Cockcroft-Gault) 133.4 BUN/Creatinine Ratio 22 Glucose Level 106 mg/dL Calcium Level 8.9 mg/dL Total Bilirubin 0.2 mg/dL Aspartate Amino Transf (AST/SGOT) 32 U/L Alanine Aminotransferase (ALT/SGPT) 24 U/L Alkaline Phosphatase 145 U/L Total Protein 6.6 g/dL Albumin 3.1 g/dL Albumin/Globulin Ratio 0.9 Lipase 336 U/L Current Medications Medications (Trade) Dose Ordered Sig/Orion Route PRN Reason Start Time Stop Time Status Last Admin Dose Admin Morphine Sulfate (Morphine Sulfate) 4 mg PRN Q15MIN PRN IV/SQ PAIN GREATER THAN 3/10 08/26/20 15:15 08/27/20 15:14 08/26/20 16:23 Sodium Chloride 1,000 ml @ 1,000 mls/hr Q1H IV 08/26/20 15:15 08/26/20 16:14 DC 08/26/20 15:44 Ondansetron HCl (Zofran) 4 mg 1X ONCE IVP 08/26/20 15:45 08/26/20 15:46 DC 08/26/20 15:44 EKG: EKG: [] Radiology/Procedures: Radiology/Procedures: [][facility] [address] [place] [address] IMAGING REPORT Signed PATIENT: YANE WEBB ACCOUNT: [id number] : 1975 LOCATION: ER AGE: 44 SEX: F EXAM STATUS: PRE ER ORD. PHYSICIAN: YUAN SPRING MD REASON: llq pain, recent cyst PROCEDURE: PELVIS W/TV Transabdominal and transvaginal pelvic ultrasound 08/26/2020 CLINICAL HISTORY: Left pelvic pain. Colon distended urinary bladder as a sonographic window, a real-time ultrasound examination of pelvis was performed. Additionally attempt to better evaluate the uterus and adnexa, a transvaginal ultrasound study was performed. Multiple images were obtained. FINDINGS: Comparison is made to patient's pelvic ultrasound dated 08/10/2020. Additional comparison is made to patient's CT scan abdomen and pelvis dated 07/28/2020. The uterus is not visualized consistent with a hysterectomy. The right ovary is normal in size. It measures 4.5 x 4.1 x 2.2 cm in size. Two oval-shaped predominantly anechoic structure which likely represent follicles are seen within the right ovary. These measure 2.2 and 2.3 cm in size. The left ovary is not visualized. No adnexal mass is seen. No free fluid is seen. IMPRESSION: 1. Post hysterectomy. 2. No adnexal mass is seen. Electronically signed by: Duane Mason MD (08/26/2020 4:28 PM) [id number] DICTATED and SIGNED BY: DUANE MASON MD DATE: 08/26/20 [id number] 0 Course & Med Decision Making: Course & Med Decision Making Pertinent Labs and Imaging studies reviewed. (See chart for details) [] 44-year-old female presents with lower abdominal pain. Patient underwent ultrasound to rule out ovarian pathology which was unremarkable. Patient's labs are reassuring. Patient has no evidence of pancreatitis on her laboratory evaluation. Patient reassessed at 4:50 and clinically improved. resting comfortably. Abdomen is soft and nonsurgical. Patient be treated with pain medicine and follow-up with Dr. Lucero on the . Return precautions given. Dragon Disclaimer: Dragon Disclaimer: This electronic medical record was generated, in whole or in part, using a voice recognition dictation system. Departure Departure Impression: Primary Impression: Left lower quadrant abdominal pain Disposition: DC HOME SELF CARE/HOMELESS Referrals: BONIFACIO FRAZIER (PCP) YUAN MICHAEL MD 2-3 days Patient Instructions: Abdominal Pain Additional Instructions: EMERGENCY DEPARTMENT GENERAL DISCHARGE INSTRUCTIONS THANK YOU for coming to [facility] Emergency Department (ED) today and trusting us with your care. We trust that you had a positive experience in our Emergency Department. If you wish to speak to the department Management you can contact the department coordinator at . YOUR FOLLOW UP INSTRUCTIONS ARE FOLLOWS: Do you have a private doctor? If you do not have a private doctor, please ask for a resource list of physicians or clinics that may be able to assist you with follow up care. The Emergency Physician has interpreted your x-rays. The X-ray specialist will also review them. If there is a change in the findings you will be notified in 48 hours when at all possible. A lab test or lab culture may have been done, your results will be reviewed and you will be notified if you need a change in treatment. ADDITIONAL INSTRUCTIONS AND INFORMATION Your care today has been supervised by a physician who is specially trained in emergency care. Many problems require more than one evaluation for a complete diagnosis and treatment. We recommend that you schedule your follow up appointment as recommended to ensure complete treatment of your illness or injury. If you are unable to obtain follow up care and continue to have a problem, or if your condition worsens we recommend that you return to the ED. We are not able to safely determine your condition over the phone nor are we able to give sound medical advice over the phone. For these safety reasons, if you call for medical advice we will ask you to come to the ED for further evaluation If you have any questions regarding these discharge instructions please call the ED at . SAFETY INFORMATION In the interest of safety, wellness, and injury prevention; we encourage you to wear your seatbelt, if you smoke; quit smoking, and we encourage your family to use protective helmet for bicycling and other sporting events that present an increased risk for head injury. IF YOUR SYMPTOMS WORSEN OR NEW SYMPTOMS DEVELOP, OR YOU HAVE CONCERNS ABOUT YOUR CONDITION; OR IF YOUR CONDITION WORSENS WHILE YOU ARE WAITING FOR YOUR FOLLOW UP APPOINTM ENT; EITHER CONTACT YOUR PRIMARY CARE DOCTOR, THE PHYSICIAN WHOSE NAME AND NUMBER YOU WERE GIVEN, OR RETURN TO THE ED IMMEDIATELY. Scripts Hyoscyamine Sulfate (LEVSIN-SL) 0.125 Mg Tab.subl 0.125 MG SL Q6HRS PRN for ABDOMINAL PAIN, #20 TAB Prov: YUAN SPRING MD 08/26/20 Ondansetron Hcl (ZOFRAN) 4 Mg Tablet 1 TAB PO Q6HRS, #12 TAB Prov: YUAN SPRING MD 08/26/20 YUAN SPRING MD Aug 26, 2020 15:21
[2020-08-26 15:29] LABS: BILIRUBIN,URINE SMALL (NEG); CLARITY,URINE CLEAR; COLOR,URINE AMBER; NITRITE,URINE NEGATIVE (NEG); PROTEIN,URINE NEGATIVE (NEG-TRACE)
[2020-08-26 15:35] LABS: BACTERIA,URINE MODERATE /HPF (0-FEW); RBC,URINE 0 /HPF (0-2); WBC,URINE OCC /HPF (0-4)
[2020-08-26] MEDS: MORPHINE SULFATE 4 MG/ML VIAL. IV/SQ PRN ×3 (15:44→18:34)
[2020-08-26] MEDS ORDERED: ONDANSETRON PF 4 MG/2 ML VIAL. IVP ONE (15:45)
[2020-08-26 15:46] LABS: BASO % 0 % (0-3); EOS # 1.3 x10^3/uL (0.0-0.7); EOS % 18 % (0-3); HEMATOCRIT 42.9 % (36.0-47.0); HEMOGLOBIN 14.3 g/dL (12.0-15.5); LYMPH # 2.6 x10^3/uL (1.0-4.8); LYMPH % 38 % (24-48); MEAN CORPUSCULAR HEMOGLOBIN 33 pg (25-35); MEAN CORPUSCULAR HGB CONC 33 g/dL (31-37); MEAN CORPUSCULAR VOLUME 97 fL (79-100); MONO # 0.7 x10^3/uL (0.0-1.1); MONO % 10 % (0-9); NEUT # 2.4 x10^3/uL (1.8-7.7); NEUT % 34 % (31-73); PLATELET COUNT 208 x10^3/uL (140-400); RED BLOOD COUNT 4.41 x10^6/uL (3.50-5.40); RED CELL DISTRIBUTION WIDTH 15.6 % (11.5-14.5); WHITE BLOOD COUNT 6.9 x10^3/uL (4.0-11.0)
[2020-08-26 15:56] LABS: CALCIUM 8.9 mg/dL (8.5-10.1); CREATININE 0.5 mg/dL (0.6-1.0); GFR 133.4; POTASSIUM 3.7 mmol/L (3.5-5.1)
[2020-08-26 16:01] LABS: ALBUMIN 3.1 g/dL (3.4-5.0); ALBUMIN/GLOBULIN RATIO 0.9 (1.0-1.7); TOTAL BILIRUBIN 0.2 mg/dL (0.2-1.0); TOTAL PROTEIN 6.6 g/dL (6.4-8.2)
--- NOTE | 2020-08-26 16:31 | RAD ---
Transabdominal and transvaginal pelvic ultrasound 08/26/2020 CLINICAL HISTORY: Left pelvic pain. Colon distended urinary bladder as a sonographic window, a real-time ultrasound examination of pelvis was performed. Additionally attempt to better evaluate the uterus and adnexa, a transvaginal ultraso und study was performed. Multiple images were obtained. FINDINGS: Comparison is made to patient's pelvic ultrasound dated 08/10/2020. Additional comparison is made to patient's CT scan abdomen and pelvis dated 07/28/2020. The uterus is not visualized consistent with a hysterectomy. The right ovary is normal in size. It me asures 4.5 x 4.1 x 2.2 cm in size. Two oval-shaped predominantly anechoic structure which likely repr esent follicles are seen within the right ovary. These measure 2.2 and 2.3 cm in size. The left ovary is not visualized. No adnexal mass is seen. No free fluid is seen. IMPRESSION: 1. Post hysterectomy. 2. No adnexal mass is seen. Electronically signed by: Duane Mason MD (08/26/2020 4:28 PM) [id number]
[2020-08-26 17:01] LABS: % ATYL 2 % (0-0); % BANDS 1 % (0-9); % EOS 14 % (0-5); % LYMPHS 40 % (24-48); % MONOS 7 % (0-10); % SEGS 36 % (35-66); PLT ESTIMATE ADEQUATE (ADEQUATE)
[2020-08-26] MEDS ORDERED: ONDA4TAB7 PO (17:10)
[2020-08-26] MEDS ORDERED: HYOS0.1265 SL (17:10)
[2020-08-26 18:40] VITALS: BP 101/60
== END 2020-08-26 18:45 | disposition home or self-care (01) ==
LOC: ER 15:05
DX: R10.32 Left lower quadrant pain (principal); G89.29 Other chronic pain; M25.552 Pain in left hip; J44.9 Chronic obstructive pulmonary disease, unspecified; G40.909 Epilepsy, unspecified, not intractable, without status epilepticus; F17.200 Nicotine dependence, unspecified, uncomplicated; Z90.49 Acquired absence of other specified parts of digestive tract; Z90.710 Acquired absence of both cervix and uterus; Z88.8 Allergy status to other drugs, medicaments and biological substances
CPT/HCPCS: 36415; 76830; 76856; 80053; 81001; 83690; 85007; 85025; 87086; 96361; 96374; 96375; 96376; 99284; J2270; J2405; J7030

== ENCOUNTER 2020-08-27 20:15 | Emergency (ER) | payer MEDICAID ==
[~2020-08-27] VITALS: Ht 162.6 cm; Wt 61.3 kg
[~2020-08-27 20:15] MED LIST changes: +HYOS0.1265 SL; +ONDA4TAB7 PO
[2020-08-27 20:57] LABS: BASO # 0.1 x10^3/uL (0.0-0.2); BASO % 1 % (0-3); EOS # 1.1 x10^3/uL (0.0-0.7); EOS % 14 % (0-3); HEMATOCRIT 41.2 % (36.0-47.0); HEMOGLOBIN 13.5 g/dL (12.0-15.5); LYMPH # 3.4 x10^3/uL (1.0-4.8); LYMPH % 42 % (24-48); MEAN CORPUSCULAR HEMOGLOBIN 32 pg (25-35); MEAN CORPUSCULAR HGB CONC 33 g/dL (31-37); MEAN CORPUSCULAR VOLUME 99 fL (79-100); MONO # 0.8 x10^3/uL (0.0-1.1); MONO % 10 % (0-9); NEUT # 2.7 x10^3/uL (1.8-7.7); NEUT % 33 % (31-73); PLATELET COUNT 212 x10^3/uL (140-400); RED BLOOD COUNT 4.18 x10^6/uL (3.50-5.40); WHITE BLOOD COUNT 8.1 x10^3/uL (4.0-11.0)
[2020-08-27 21:08] LABS: CALCIUM 8.7 mg/dL (8.5-10.1); CREATININE 0.4 mg/dL (0.6-1.0); GFR 172.6; POTASSIUM 3.9 mmol/L (3.5-5.1)
[2020-08-27 21:13] LABS: ALBUMIN 2.7 g/dL (3.4-5.0); ALBUMIN/GLOBULIN RATIO 0.9 (1.0-1.7); TOTAL BILIRUBIN 0.2 mg/dL (0.2-1.0); TOTAL PROTEIN 5.6 g/dL (6.4-8.2)
[2020-08-27 21:40] LABS: % ATYL 1 % (0-0); % EOS 16 % (0-5); % LYMPHS 43 % (24-48); % MONOS 3 % (0-10); % SEGS 37 % (35-66); PLT ESTIMATE ADEQUATE (ADEQUATE)
--- NOTE | 2020-08-27 21:47 | ED.ADGEN ---
Past Medical History Past Medical History: Constipation, COPD, Pancreatitis Additional Past Medical Histor: EPILEPSY, DDD, ESSENTIAL TREMORS Past Surgical History: Cholecystectomy, Hysterectomy, Other Additional Past Surgical Histo: L. SHOULDER Smoking Status: Current Every Day Smoker Additional Information: Alcohol Use: None General Adult EDM: Chief Complaint: ALTERED MENTAL STATUS HPI: HPI: Patient is a 44 year old female who presents to the emergency department with complaints of tremors. Patient reports a history of essential tremors and states she has not missed any of her medications. She states she does not know why but she has just had increased tremors today she denies any fever, cough, sore throat, body aches, fatigue, rash, shortness of breath, chest pain, palpitations, abdominal pain, nausea, vomiting, diarrhea, or edema. Patient was seen here yesterday for abdominal pain, she states that that pain continues to be resolved. She currently denies any pain. She denies any headache, numbness, tingling, or weakness. States her only concern is the increase in her tremors. Review of Systems: Review of Systems: Complete ROS is negative unless otherwise noted in HPI. Current Medications: Current Medications Medications (Trade) Dose Ordered Sig/Orion Start Time Stop Time Status Last Admin Dose Admin Sodium Chloride 1,000 ml @ 1,000 mls/hr 1X ONCE 08/27/20 22:00 08/27/20 22:59 08/27/20 21:40 1,000 MLS/HR Allergies: Allergies: Allergies Coded Allergies Type Severity Reaction Last Updated Verified tegaserod Allergy Severe Swelling 12/29/18 Yes buprenorphine Allergy Intermediate Itching 12/29/18 Yes Physical Exam: PE: See Above Constitutional: Well developed, well nourished, no acute distress, non-toxic appearance. [] HENT: Normocephalic, atraumatic, bilateral external ears normal, dry mucous membranes, nose normal. [] Eyes: PERRLA, EOMI, conjunctiva normal, no discharge. [] Neck: Normal range of motion, no stridor. [] Cardiovascular:Heart rate regular rhythm Lungs & Thorax: Respirations even and unlabored, no retractions, no respiratory distress Abdomen: soft, no tenderness Skin: Warm, dry, no erythema, no rash. [] Extremities: No cyanosis, ROM intact, no edema, occasional nonspecific twitch of extremities x4. [] Neurologic: Alert and oriented X 3, normal sensation, normal motor, no focal deficits noted. [] Psychologic: Affect normal, judgement normal, mood normal. [] Current Patient Data: Labs: Laboratory Tests Test 08/27/20 20:45 White Blood Count 8.1 x10^3/uL (4.0-11.0) Red Blood Count 4.18 x10^6/uL (3.50-5.40) Hemoglobin 13.5 g/dL (12.0-15.5) Hematocrit 41.2 % (36.0-47.0) Mean Corpuscular Volume 99 fL (79-100) Mean Corpuscular Hemoglobin 32 pg (25-35) Mean Corpuscular Hemoglobin Concent 33 g/dL (31-37) Red Cell Distribution Width 16.0 % (11.5-14.5) H Platelet Count 212 x10^3/uL (140-400) Neutrophils (%) (Auto) 33 % (31-73) Lymphocytes (%) (Auto) 42 % (24-48) Monocytes (%) (Auto) 10 % (0-9) H Eosinophils (%) (Auto) 14 % (0-3) H Basophils (%) (Auto) 1 % (0-3) Neutrophils # (Auto) 2.7 x10^3/uL (1.8-7.7) Lymphocytes # (Auto) 3.4 x10^3/uL (1.0-4.8) Monocytes # (Auto) 0.8 x10^3/uL (0.0-1.1) Eosinophils # (Auto) 1.1 x10^3/uL (0.0-0.7) H Basophils # (Auto) 0.1 x10^3/uL (0.0-0.2) Segmented Neutrophils % 37 % (35-66) Lymphocytes % 43 % (24-48) Atypical Lymphocytes % (Manual) 1 % (0-0) H Monocytes % 3 % (0-10) Eosinophils % 16 % (0-5) H Platelet Estimate Adequate (ADEQUATE) Sodium Level 144 mmol/L (136-145) Potassium Level 3.9 mmol/L (3.5-5.1) Chloride Level 108 mmol/L (98-107) H Carbon Dioxide Level 30 mmol/L (21-32) Anion Gap 6 (6-14) Blood Urea Nitrogen 12 mg/dL (7-20) Creatinine 0.4 mg/dL (0.6-1.0) L Estimated GFR (Cockcroft-Gault) 172.6 BUN/Creatinine Ratio 30 (6-20) H Glucose Level 113 mg/dL (70-99) H Calcium Level 8.7 mg/dL (8.5-10.1) Magnesium Level 2.0 mg/dL (1.8-2.4) Total Bilirubin 0.2 mg/dL (0.2-1.0) Aspartate Amino Transferase (AST) 26 U/L (15-37) Alanine Aminotransferase (ALT) 27 U/L (14-59) Alkaline Phosphatase 125 U/L (46-116) H Total Protein 5.6 g/dL (6.4-8.2) L Albumin 2.7 g/dL (3.4-5.0) L Albumin/Globulin Ratio 0.9 (1.0-1.7) L Laboratory Tests 08/27/20 20:45 Laboratory Tests 08/27/20 20:45 Vital Signs: Vital Signs Date Time Temp Pulse Resp B/P (MAP) Pulse Ox O2 Delivery O2 Flow Rate FiO2 08/27/20 20:15 98.4 84 20 121/77 (92) 100 Room Air 98.4 EKG: EKG: [] Heart Score: Risk Factors: Risk Factors: DM, Current or recent (<one month) smoker, HTN, HLP, family history of CAD, obesity. Risk Scores: Score 0 - 3: 2.5% MACE over next 6 weeks - Discharge Home Score 4 - 6: 20.3% MACE over next 6 weeks - Admit for Clinical Observation Score 7 - 10: 72.7% MACE over next 6 weeks - Early Invasive Strategies Radiology/Procedures: Radiology/Procedures: [] Course & Med Decision Making: Course & Med Decision Making Pertinent Labs and Imaging studies reviewed. (See chart for details) 44-year-old female presents emergency department with complaints of increased tremors. Work-up included CBC and CMP. Patient has increased BUN/creatinine ratio, otherwise labs are unchanged from previous visit. Patient was given a liter of normal saline, she reported feeling better after this fluids. Patient was encouraged to continue taking her medications as prescribed and follow-up with her primary care doctor in 1 to 2 days. Return to the ER if fever develops or symptoms worsen. Patient verbalized an understanding of home care, medications, follow-up, and return to ED instructions and was in agreement with the plan of care. [] Dragon Disclaimer: Dragon Disclaimer: This electronic medical record was generated, in whole or in part, using a voice recognition dictation system. Departure Departure Impression: Primary Impression: Dehydration symptoms Additional Impression: Tremor Disposition: 01 DC HOME SELF CARE/HOMELESS Condition: STABLE Referrals: BONIFACIO FRAZIER (PCP) Patient Instructions: Dehydration, Adult, [id number], Tremor Additional Instructions: Continue taking your home meds as previously prescribed, increase clear fluids. Follow-up with your primary care doctor in 1 to 2 days, return to the ER if fever develops or your symptoms worsen. Thank you for choosing [facility] today! Problem Qualifiers SAWYER SHEPHERD APRN Aug 27, 2020 21:47
[2020-08-27] MEDS ORDERED: IV NORMAL SALINE 1000ML BAG 1,000 ML IV ONE (22:00)
[2020-08-27 22:27] VITALS: BP 107/65
== END 2020-08-27 22:35 | disposition home or self-care (01) ==
LOC: ER 20:15
DX: R25.1 Tremor, unspecified (principal); J44.9 Chronic obstructive pulmonary disease, unspecified; G40.909 Epilepsy, unspecified, not intractable, without status epilepticus; F17.200 Nicotine dependence, unspecified, uncomplicated; Z88.8 Allergy status to other drugs, medicaments and biological substances
CPT/HCPCS: 36415; 80053; 83735; 85007; 85025; 96360; 99285; J7030

== ENCOUNTER 2022-01-04 13:19 | Inpatient (IN) | payer MEDICAID ==
[~2022-01-04] VITALS: Ht 165.1 cm; Wt 63.2 kg
--- NOTE | 2022-01-04 01:13 | NUR ---
Attempted to ask admission questions and Patient keeps stating "1975." History pulled from prior admission, there is family history on past chart but Patient unable to verify. Unable to complete entire admission documentation. Will have day RN ask Patient if she becomes more alert or ask family if they come in.
[~2022-01-04 13:19] MED LIST changes: +EREN70AU SQ; +LEVE10007 PO; +MISO200T PO; +OLAN5TAB67 PO; -OLAN5TAB9 PO; +OMEP40CA7 PO; +TIZA-75 PO; -TIZA4TAB2 PO
[2022-01-04 13:53] LABS: BASO # 0.1 x10^3/uL (0.0-0.2); BASO % 1 % (0-3); EOS # 0.2 x10^3/uL (0.0-0.7); EOS % 1 % (0-3); HEMATOCRIT 38.8 % (36.0-47.0); LYMPH # 2.3 x10^3/uL (1.0-4.8); LYMPH % 21 % (24-48); MEAN CORPUSCULAR HEMOGLOBIN 33 pg (25-35); MEAN CORPUSCULAR HGB CONC 33 g/dL (31-37); MEAN CORPUSCULAR VOLUME 99 fL (79-100); MONO # 0.9 x10^3/uL (0.0-1.1); MONO % 8 % (0-9); NEUT # 7.4 x10^3/uL (1.8-7.7); NEUT % 68 % (31-73); PLATELET COUNT 208 x10^3/uL (140-400); RED BLOOD COUNT 3.93 x10^6/uL (3.50-5.40); RED CELL DISTRIBUTION WIDTH 13.8 % (11.5-14.5); WHITE BLOOD COUNT 10.9 x10^3/uL (4.0-11.0)
[2022-01-04 14:03] LABS: PROTHROMBIN TIME PATIENT 13.3 SEC (11.7-14.0)
[2022-01-04 14:28] LABS: RBC,URINE 0 /HPF (0-2)
[2022-01-04 14:29] LABS: CREATININE 0.6 mg/dL (0.6-1.0); GFR 107.2; POTASSIUM 4.7 mmol/L (3.5-5.1)
[2022-01-04 14:29] LABS: AMORPHOUS SEDIMENT,UR PRESENT /HPF; BACTERIA,URINE 0 /HPF (0-FEW); HYALINE CASTS, URINE MODERATE /HPF
[2022-01-04 14:33] LABS: ALBUMIN 3.6 g/dL (3.4-5.0); TOTAL BILIRUBIN 0.5 mg/dL (0.2-1.0); TOTAL PROTEIN 7.3 g/dL (6.4-8.2)
--- NOTE | 2022-01-04 14:35 | RAD ---
EXAMINATION: CT head and cervical spine without IV contrast INDICATION: Reason: pain s/p fall, altered mental status COMPARISON: None TECHNIQUE: Spiral acquisition of contiguous images from the skull base to the vertex were obtained. C T of the cervical spine was obtained using contiguous spiral imaging from the skull base to the upper thoracic level. Sagittal and coronal 2D reformatted series were provided by the technologist. Soft t issue and bone window algorithms were reviewed. The CT scan was acquired using radiation reduction te chniques, such automated exposure control, adjustment of the mA and/or kV according to the patient's size and use of iterative reconstruction techniques. FINDINGS: CT HEAD: The ventricles are normal in size. Neither mass, midline shift, intracranial hemorrhage, acute/subacu te ischemic changes, nor extraaxial fluid collections are seen. The brain parenchyma is normal in mona earance. Magna cisterna magna. The paranasal sinuses, mastoid air cells, and middle ears are clear. T he orbital contents appear within normal limits. CT CERVICAL SPINE: Loss of the normal cervical lordotic curvature, possibly positional. Neither fracture, subluxation, n or traumatic spondylolisthesis is seen. The vertebral body heights and intervertebral disk spaces are preserved. There is no evidence of a large intraspinal hematoma. The prevertebral and paravertebral soft tissues are within normal limits. There is a mild amount of mucus within the trachea. Visualized long apices are clear. IMPRESSION: CT HEAD: No evidence of acute intracranial abnormality. CT CERVICAL SPINE: No evidence of fracture or traumatic spondylolisthesis of the cervical spine. Electronically signed by: Adonay Polanco DO (01/04/2022 2:32 PM) [facility]
--- NOTE | 2022-01-04 14:57 | RAD ---
EXAMINATION: Chest radiograph. VIEWS: Single AP view of the chest COMPARISON: 10/20/2020 INDICATION:46 years, Female, altered mental status. FINDINGS: Normal cardiomediastinal silhouette. Patchy bilateral perihilar and bibasilar opacities. No pleural e ffusion or pneumothorax. No acute osseous process. IMPRESSION: Patchy bilateral airspace disease may represent atelectasis or developing infiltrates. Recommend foll ow-up to resolution. Electronically signed by: Adonay Polanco DO (01/04/2022 2:54 PM) [facility]
--- NOTE | 2022-01-04 14:58 | RAD ---
Exam Date: 01/04/2022 2:45 PM XR EXAM OF ANKLE_LEFT 3V Indication: Pain. Reason: pain/swelling, hx of fall / Spl. Instructions: / History: . FINDINGS/ IMPRESSION: There are mildly displaced acute fractures of the medial and lateral malleoli with overlying soft tis yury swelling. Near-anatomic alignment is maintained. Ankle mortise appears intact. Electronically signed by: Mike Aguila MD (01/04/2022 2:56 PM) [id number]
--- NOTE | 2022-01-04 14:58 | RAD ---
Exam Date: 01/04/2022 2:45 PM XR PELVIS 1-2V Indication: Pain. Reason: pain, hx of fall / Spl. Instructions: / History: . FINDINGS/ IMPRESSION: Postoperative changes are noted in the lower lumbar spine. No acute fracture or dislocation. Alignment and joint spaces are maintained. The soft tissues are w ithin normal limits. Electronically signed by: Mike Aguila MD (01/04/2022 2:55 PM) [id number]
--- NOTE | 2022-01-04 16:44 | PHYS DOC ---
Past Medical History Past Medical History: Constipation, COPD, Pancreatitis Additional Past Medical Histor: EPILEPSY, DDD, ESSENTIAL TREMORS Past Medical History hx limited due to AMS Past Surgical History: No Surgical History, Other Additional Past Surgical Histo: UNKNOWN SURGICAL HX Past Surgical History hx limited due to AMS Smoking Status: Unknown if ever smoked Alcohol Use: None Social History Narrative: hx limited due to AMS General Adult EDM: Chief Complaint: MECHANICAL FALL HPI: HPI: Patient is a 46 year old F who presents to the ED via EMS for a fall. Per EMS fell around 0600 daughter called for confusion after fall. Pt reports L ankle pain. HPI is limited secondary to AMS Review of Systems: Review of Systems: ROS limited due to AMS Heart Score: C/O Chest Pain: N/A Allergies: Allergies: Allergies Coded Allergies Type Severity Reaction Last Updated Verified tegaserod Allergy Severe Swelling 12/29/18 Yes buprenorphine Allergy Intermediate Itching 12/29/18 Yes divalproex sodium Allergy Intermediate 08/27/20 Yes Physical Exam: PE: Constitutional: Well developed, well nourished, no acute distress, non-toxic appearance. [] HENT: Normocephalic, atraumatic, bilateral external ears normal, oropharynx moist, no oral exudates, nose normal. [] Eyes: PERRLA, EOMI, conjunctiva normal, no discharge. [] Neck: Normal range of motion, no tenderness, supple, no stridor. [] Cardiovascular:Heart rate regular rhythm, no murmur [] Lungs & Thorax: Bilateral breath sounds clear to auscultation [] Abdomen: Bowel sounds normal, soft, no tenderness, no masses, no pulsatile masses. [] Skin: Warm, dry, no erythema, no rash. [] Back: No tenderness, no CVA tenderness. [] Extremities: No tenderness, no cyanosis, no clubbing, ROM intact, no edema. [] Neurologic: Alert and oriented X 3, normal motor function, normal sensory function, no focal deficits noted. [] Psychologic: Affect normal, judgement normal, mood normal. [] Current Patient Data: Labs: Laboratory Tests Test 01/04/22 13:45 01/04/22 14:00 White Blood Count 10.9 x10^3/uL (4.0-11.0) Red Blood Count 3.93 x10^6/uL (3.50-5.40) Hemoglobin 13.0 g/dL (12.0-15.5) Hematocrit 38.8 % (36.0-47.0) Mean Corpuscular Volume 99 fL (79-100) Mean Corpuscular Hemoglobin 33 pg (25-35) Mean Corpuscular Hemoglobin Concent 33 g/dL (31-37) Red Cell Distribution Width 13.8 % (11.5-14.5) Platelet Count 208 x10^3/uL (140-400) Neutrophils (%) (Auto) 68 % (31-73) Lymphocytes (%) (Auto) 21 % (24-48) L Monocytes (%) (Auto) 8 % (0-9) Eosinophils (%) (Auto) 1 % (0-3) Basophils (%) (Auto) 1 % (0-3) Neutrophils # (Auto) 7.4 x10^3/uL (1.8-7.7) Lymphocytes # (Auto) 2.3 x10^3/uL (1.0-4.8) Monocytes # (Auto) 0.9 x10^3/uL (0.0-1.1) Eosinophils # (Auto) 0.2 x10^3/uL (0.0-0.7) Basophils # (Auto) 0.1 x10^3/uL (0.0-0.2) Prothrombin Time 13.3 SEC (11.7-14.0) Prothrombin Time INR 1.0 (0.8-1.1) Activated Partial Thromboplast Time 25 SEC (24-38) Sodium Level 148 mmol/L (136-145) H Potassium Level 4.7 mmol/L (3.5-5.1) Chloride Level 112 mmol/L (98-107) H Carbon Dioxide Level 28 mmol/L (21-32) Anion Gap 8 (6-14) Blood Urea Nitrogen 11 mg/dL (7-20) Creatinine 0.6 mg/dL (0.6-1.0) Estimated GFR (Cockcroft-Gault) 107.2 BUN/Creatinine Ratio 18 (6-20) Glucose Level 93 mg/dL (70-99) Lactic Acid Level 0.7 mmol/L (0.4-2.0) Calcium Level 9.0 mg/dL (8.5-10.1) Magnesium Level 2.0 mg/dL (1.8-2.4) Total Bilirubin 0.5 mg/dL (0.2-1.0) Aspartate Amino Transferase (AST) 32 U/L (15-37) Alanine Aminotransferase (ALT) 20 U/L (14-59) Alkaline Phosphatase 88 U/L (46-116) Ammonia 27 mcmol/L (11-34) Creatine Kinase 154 U/L (26-192) Creatine Kinase MB (Mass) 1.4 ng/mL (0.0-3.6) Creatine Kinase MB Relative Index 0.9 % (0-4) Troponin I High Sensitivity 7 ng/L (4-50) Total Protein 7.3 g/dL (6.4-8.2) Albumin 3.6 g/dL (3.4-5.0) Albumin/Globulin Ratio 1.0 (1.0-1.7) Ethyl Alcohol Level < 10 mg/dL (0-10) Urine Collection Type Unknown Urine Color (Auto) Light yellow Urine Turbidity Clear Urine pH (Auto) 6.0 (<5.0-8.0) Urine Specific [place] 1.022 (1.000-1.030) Urine Protein (Auto) 30 mg/dL (Negative) Urine Glucose (Auto)(UA) Negative mg/dL (Negative) Urine Ketones (Auto) Negative mg/dL (Negative) Urine Blood (Auto) Negative (Negative) Urine Nitrite Negative (Negative) Urine Bilirubin (Auto) Negative (Negative) Urine Urobilinogen (Auto) Normal mg/dL (Normal) Urine Leukocyte Esterase (Auto) Negative (Negative) Urine RBC 0 /HPF (0-2) Urine WBC 1-4 /HPF (0-4) Urine Squamous Epithelial Cells Few /LPF Urine Amorphous Sediment Present /HPF Urine Bacteria 0 /HPF (0-FEW) Urine Hyaline Casts Moderate /HPF Urine Mucus Mod /LPF Laboratory Tests 01/04/22 13:45 Laboratory Tests 01/04/22 13:45 Vital Signs: Vital Signs Date Time Temp Pulse Resp B/P (MAP) Pulse Ox O2 Delivery O2 Flow Rate FiO2 01/04/22 13:33 97.7 60 18 147/96 (113) 96 Room Air 97.7 EKG: EKG: @[address] elevation rate 56 QT 472 QTc 458 Radiology/Procedures: Radiology/Procedures: PROCEDURE: PELVIS Exam Date: 01/04/2022 2:45 PM XR PELVIS 1-2V Indication: Pain. Reason: pain, hx of fall / Spl. Instructions: / History: . FINDINGS/ IMPRESSION: Postoperative changes are noted in the lower lumbar spine. No acute fracture or dislocation. Alignment and joint spaces are maintained. The soft tissues are within normal limits. Electronically signed by: Mike Aguila MD (01/04/2022 2:55 PM) [id number] PROCEDURE: CT HEAD AND CERVICAL SPINE WO EXAMINATION: CT head and cervical spine without IV contrast INDICATION: Reason: pain s/p fall, altered mental status COMPARISON: None TECHNIQUE: Spiral acquisition of contiguous images from the skull base to the vertex were obtained. CT of the cervical spine was obtained using contiguous spiral imaging from the skull base to the upper thoracic level. Sagittal and cor onal 2D reformatted series were provided by the technologist. Soft tissue and bone window algorithms were reviewed. The CT scan was acquired using radiation reduction techniques, such automated exposure control, adjustment of the mA and/or kV according to the patient's size and use of iterative reconstruction techniques. FINDINGS: CT HEAD: The ventricles are normal in size. Neither mass, midline shift, intracranial hemorrhage, acute/subacute ischemic changes, nor extraaxial fluid collections ar e seen. The brain parenchyma is normal in appearance. Magna cisterna magna. The paranasal sinuses, mastoid air cells, and middle ears are clear. The orbital contents appear within normal limits. CT CERVICAL SPINE: Loss of the normal cervical lordotic curvature, possibly positional. Neither fracture, subluxation, nor traumatic spondylolisthesis is seen. The vertebral body heights and intervertebral disk spaces are preserved. There is no evidence of a large intraspinal hematoma. The prevertebral and paravertebral soft tissues are within normal limits. There is a mild amount of mucus within the trachea. Visualized long apices are clear. IMPRESSION: CT HEAD: No evidence of acute intracranial abnormality. CT CERVICAL SPINE: No evidence of fracture or traumatic spondylolisthesis of the cervical spine. Electronically signed by: Adonay Polanco DO (01/04/2022 2:32 PM) [facility] PROCEDURE: PORTABLE CHEST 1V EXAMINATION: Chest radiograph. VIEWS: Single AP view of the chest COMPARISON: 10/20/2020 INDICATION:46 years, Female, altered mental status. FINDINGS: Normal cardiomediastinal silhouette. Patchy bilateral perihilar and bibasilar opacities. No pleural effusion or pneumothorax. No acute osseous process. IMPRESSION: Patchy bilateral airspace disease may represent atelectasis or developing infiltrates. Recommend follow-up to resolution. Electronically signed by: Adonay Polanco DO (01/04/2022 2:54 PM) [id number] PROCEDURE: ANKLE LEFT 3V Exam Date: 01/04/2022 2:45 PM XR EXAM OF ANKLE_LEFT 3V Indication: Pain. Reason: pain/swelling, hx of fall / Spl. Instructions: / History: . FINDINGS/ IMPRESSION: There are mildly displaced acute fractures of the medial and lateral malleoli with overlying soft tissue swelling. Near-anatomic alignment is maintained. Ankle mortise appears intact. Electronically signed by: Mike Aguila MD (01/04/2022 2:56 PM) [id number] Course & Med Decision Making: Course & Med Decision Making Pt is 46 yo F who presents to the ED via EMS for fall and confusion Concerns for seizure/head injury/metabolic snydrome/ankle fracture Labs unremarkable CT head/neck unremarkable L ankle XR shows mildly displaced bimalleolar fracture - splint applied Pertinent Labs and Imaging studies reviewed. (See chart for details) [] Dragon Disclaimer: Dragon Disclaimer: This electronic medical record was generated, in whole or in part, using a voice recognition dictation system. Departure Departure Referrals: BONIFACIO FRAZIER (PCP) TAYLOR SUAREZ DO Jan 04, 2022 16:43
[2022-01-04] MEDS ORDERED: ONDANSETRON PF 4 MG/2 ML VIAL. IVP PRN (18:15)
--- NOTE | 2022-01-04 20:55 | NUR ---
The patient, YANE WEBB, 46 y/o, F admitted by , was given written information regarding hospital policies, unit procedures and contact persons. Patient alert and oriented x1. Patient oriented to hospital, bed, call light, and POC, will reinforce teaching frequently. Splint intact to left ankle. Patient incontinent of urine upon arrival and cleaned. Coccyx intact. Upon trying to ask admission questions Patient keeps repeating birthday over and over. See assessment. Call light in reach, will monitor. Valuables were checked and Patient denies valuable, no family at bedside with Patient ..
[2022-01-04 21:00] VITALS: BP 125/69
--- NOTE | 2022-01-05 01:43 | NUR ---
Patient more alert and able to answer some admission questions at this time.
[2022-01-05 03:18] VITALS: BP 125/82
[2022-01-05 03:45] LABS: AMPHETAMINE/METHAMPHETAMINE NEG (NEG); BARBITURATES NEG (NEG); BENZODIAZEPINES POS (NEG); CANNABINOIDS NEG (NEG); COCAINE NEG (NEG); METHADONE NEG (NEG); OPIATES NEG (NEG); PHENCYCLIDINE NEG (NEG)
[2022-01-05 07:00] VITALS: BP 116/76
--- NOTE | 2022-01-05 08:07 | PDOC1 ---
History and Physical Date of Service: DOS: DATE: 01/05/22 TIME: 08:00 Chief Complaint: Chief Complain: Altered mental status and leg pain History of Present Illness: HPI: 46 year old F who presents to the ED via EMS for a fall. Per EMS fell around 0600 daughter called for confusion after fall. Pt reports L ankle pain. HPI is limited secondary to AMS Past Medical/Surgical History: PMH/PSH: Past Medical History: Constipation, COPD, Pancreatitis, EPILEPSY, DDD, ESSENTIAL TREMORS Past Surgical History: UNKNOWN SURGICAL HX History limited due to altered mental status Allergies: Allergies: Coded Allergies: tegaserod (Verified Allergy, Severe, Swelling, 12/29/18) buprenorphine (Verified Allergy, Intermediate, Itching, 12/29/18) divalproex sodium (Verified Allergy, Intermediate, 08/27/20) Family History: Family History: Reviewed in the chart with no relative findings, history limited due to altered mental status Social History: Social History: History limited due to altered mental status Current Medications: Current Medications Current Medications Ondansetron HCl (Zofran) 4 mg PRN Q8HRS PRN IVP NAUSEA/VOMITING; Start 01/04/22 at 18:15; Stop 01/05/22 at 18:14 Active Scripts Active Levsin-Sl (Hyoscyamine Sulfate) 0.125 Mg Tab.subl 0.125 Mg SL Q6HRS PRN Zofran (Ondansetron Hcl) 4 Mg Tablet 1 Tab PO Q6HRS Reported Aimovig Autoinjector (Erenumab-Aooe) 70 Mg/1 Ml Auto.injct 70 Mg SQ MONTHLY Omeprazole 40 Mg Capsule.dr 1 Cap PO DAILY Cytotec (Misoprostol) 200 Mcg Tablet 1 Tab PO BID Movantik (Naloxegol Oxalate) 25 Mg Tablet 25 Mg PO BID Levetiracetam 1,000 Mg Tablet 1 Tab PO BID 30 Days Propranolol Hcl 40 Mg Tablet 1 Tab PO BID Oxycodone Hcl Immed.release (Oxycodone Hcl) 10 Mg Tablet 1 Tab PO PRN Q8HRS PRN Sm Natural Balanced B-100 Tab (Vit B Complex 100 Cmb #2/Herbs) 100 Mg Tablet 100 Mg PO DAILY Vitamin D3 (Cholecalciferol (Vitamin D3)) 1,000 Unit Tablet 1,250 Mg PO DAILY Gabapentin 300 Mg Capsule 600 Mg PO TID Symbicort 160-4.5 Mcg Inhaler (Budesonide/Formoterol Fumarate) 10.2 Gm Hfa .aer.ad 2 Puff IH BID Maxalt (Rizatriptan Benzoate) 10 Mg Tablet 10 Mg PO PRN PRN Lidocaine PATCH (Lidocaine) 1 Each Adh..patch 1 Each TP PRN DAILY PRN Olanzapine 5 Mg Tablet 1 Tab PO QHS Robaxin (Methocarbamol) 500 Mg Tablet 750 Mg PO TID PRN ROS: Review of Systems Review of System REVIEW OF SYSTEMS: Limited due to altered mental status Physical Exam: Vital Signs: Vital Signs Date Time Temp Pulse Resp B/P (MAP) Pulse Ox O2 Delivery O2 Flow Rate FiO2 01/05/22 03:18 98.2 74 18 125/82 (96) 93 Room Air 98.2 Physcial Exam: General: Disheveled appearance. Tired HEENT: Pupils equally round and reactive to light, EOMI, no discharge, normal conjunctiva Neck: Supple, no nuchal rigidity, no JVD, trachea midline, no tenderness Cardiac: RRR, no murmurs, no gallops, no rubs Chest/Lungs: CTAB, no wheeze, no rhonchi, no crackles Abdomen: soft, non-distended, no guarding, no peritoneal signs, non-tender Back: No tenderness Extremities: no edema, pulses intact, non-tender,capillary refill <3 sec bilateral upper and lower extremities, Neuro: Alert and awake, no focal deficits, normal speech. Labs: Labs: Laboratory Tests Test 01/04/22 13:45 01/04/22 14:00 01/04/22 16:50 White Blood Count 10.9 x10^3/uL (4.0-11.0) Red Blood Count 3.93 x10^6/uL (3.50-5.40) Hemoglobin 13.0 g/dL (12.0-15.5) Hematocrit 38.8 % (36.0-47.0) Mean Corpuscular Volume 99 fL (79-100) Mean Corpuscular Hemoglobin 33 pg (25-35) Mean Corpuscular Hemoglobin Concent 33 g/dL (31-37) Red Cell Distribution Width 13.8 % (11.5-14.5) Platelet Count 208 x10^3/uL (140-400) Neutrophils (%) (Auto) 68 % (31-73) Lymphocytes (%) (Auto) 21 % (24-48) Monocytes (%) (Auto) 8 % (0-9) Eosinophils (%) (Auto) 1 % (0-3) Basophils (%) (Auto) 1 % (0-3) Neutrophils # (Auto) 7.4 x10^3/uL (1.8-7.7) Lymphocytes # (Auto) 2.3 x10^3/uL (1.0-4.8) Monocytes # (Auto) 0.9 x10^3/uL (0.0-1.1) Eosinophils # (Auto) 0.2 x10^3/uL (0.0-0.7) Basophils # (Auto) 0.1 x10^3/uL (0.0-0.2) Prothrombin Time 13.3 SEC (11.7-14.0) Prothromb Time International Ratio 1.0 (0.8-1.1) Activated Partial Thromboplast Time 25 SEC (24-38) Sodium Level 148 mmol/L (136-145) Potassium Level 4.7 mmol/L (3.5-5.1) Chloride Level 112 mmol/L (98-107) Carbon Dioxide Level 28 mmol/L (21-32) Anion Gap 8 (6-14) Blood Urea Nitrogen 11 mg/dL (7-20) Creatinine 0.6 mg/dL (0.6-1.0) Estimated GFR (Cockcroft-Gault) 107.2 BUN/Creatinine Ratio 18 (6-20) Glucose Level 93 mg/dL (70-99) Lactic Acid Level 0.7 mmol/L (0.4-2.0) Calcium Level 9.0 mg/dL (8.5-10.1) Magnesium Level 2.0 mg/dL (1.8-2.4) Total Bilirubin 0.5 mg/dL (0.2-1.0) Aspartate Amino Transf (AST/SGOT) 32 U/L (15-37) Alanine Aminotransferase (ALT/SGPT) 20 U/L (14-59) Alkaline Phosphatase 88 U/L (46-116) Ammonia 27 mcmol/L (11-34) Creatine Kinase 154 U/L (26-192) Creatine Kinase MB (Mass) 1.4 ng/mL (0.0-3.6) Creatine Kinase MB Relative Index 0.9 % (0-4) Troponin I High Sensitivity 7 ng/L (4-50) Total Protein 7.3 g/dL (6.4-8.2) Albumin 3.6 g/dL (3.4-5.0) Albumin/Globulin Ratio 1.0 (1.0-1.7) Ethyl Alcohol Level < 10 mg/dL (0-10) Urine Collection Type Unknown Urine Color (Auto) Light yellow Urine Turbidity Clear Urine pH (Auto) 6.0 (<5.0-8.0) Urine Specific [place] 1.022 (1.000-1.030) Urine Protein (Auto) 30 mg/dL (Negative) Urine Glucose (Auto)(UA) Negative mg/dL (Negative) Urine Ketones (Auto) Negative mg/dL (Negative) Urine Blood (Auto) Negative (Negative) Urine Nitrite Negative (Negative) Urine Bilirubin (Auto) Negative (Negative) Urine Urobilinogen (Auto) Normal mg/dL (Normal) Urine Leukocyte Esterase (Auto) Negative (Negative) Urine RBC 0 /HPF (0-2) Urine WBC 1-4 /HPF (0-4) Urine Squamous Epithelial Cells Few /LPF Urine Amorphous Sediment Present /HPF Urine Bacteria 0 /HPF (0-FEW) Urine Hyaline Casts Moderate /HPF Urine Mucus Mod /LPF Urine Opiates Screen Neg (NEG) Urine Methadone Screen Neg (NEG) Urine Barbiturates Neg (NEG) Urine Phencyclidine Screen Neg (NEG) Urine Amphetamine/Methamphetamine Neg (NEG) Urine Benzodiazepines Screen Pos (NEG) Urine Cocaine Screen Neg (NEG) Urine Cannabinoids Screen Neg (NEG) Urine Ethyl Alcohol Neg (NEG) Laboratory Tests Test 01/04/22 13:45 01/04/22 14:00 01/04/22 16:50 White Blood Count 10.9 x10^3/uL (4.0-11.0) Red Blood Count 3.93 x10^6/uL (3.50-5.40) Hemoglobin 13.0 g/dL (12.0-15.5) Hematocrit 38.8 % (36.0-47.0) Mean Corpuscular Volume 99 fL (79-100) Mean Corpuscular Hemoglobin 33 pg (25-35) Mean Corpuscular Hemoglobin Concent 33 g/dL (31-37) Red Cell Distribution Width 13.8 % (11.5-14.5) Platelet Count 208 x10^3/uL (140-400) Neutrophils (%) (Auto) 68 % (31-73) Lymphocytes (%) (Auto) 21 % (24-48) Monocytes (%) (Auto) 8 % (0-9) Eosinophils (%) (Auto) 1 % (0-3) Basophils (%) (Auto) 1 % (0-3) Neutrophils # (Auto) 7.4 x10^3/uL (1.8-7.7) Lymphocytes # (Auto) 2.3 x10^3/uL (1.0-4.8) Monocytes # (Auto) 0.9 x10^3/uL (0.0-1.1) Eosinophils # (Auto) 0.2 x10^3/uL (0.0-0.7) Basophils # (Auto) 0.1 x10^3/uL (0.0-0.2) Prothrombin Time 13.3 SEC (11.7-14.0) Prothromb Time International Ratio 1.0 (0.8-1.1) Activated Partial Thromboplast Time 25 SEC (24-38) Sodium Level 148 mmol/L (136-145) Potassium Level 4.7 mmol/L (3.5-5.1) Chloride Level 112 mmol/L (98-107) Carbon Dioxide Level 28 mmol/L (21-32) Anion Gap 8 (6-14) Blood Urea Nitrogen 11 mg/dL (7-20) Creatinine 0.6 mg/dL (0.6-1.0) Estimated GFR (Cockcroft-Gault) 107.2 BUN/Creatinine Ratio 18 (6-20) Glucose Level 93 mg/dL (70-99) Lactic Acid Level 0.7 mmol/L (0.4-2.0) Calcium Level 9.0 mg/dL (8.5-10.1) Magnesium Level 2.0 mg/dL (1.8-2.4) Total Bilirubin 0.5 mg/dL (0.2-1.0) Aspartate Amino Transf (AST/SGOT) 32 U/L (15-37) Alanine Aminotransferase (ALT/SGPT) 20 U/L (14-59) Alkaline Phosphatase 88 U/L (46-116) Ammonia 27 mcmol/L (11-34) Creatine Kinase 154 U/L (26-192) Creatine Kinase MB (Mass) 1.4 ng/mL (0.0-3.6) Creatine Kinase MB Relative Index 0.9 % (0-4) Troponin I High Sensitivity 7 ng/L (4-50) Total Protein 7.3 g/dL (6.4-8.2) Albumin 3.6 g/dL (3.4-5.0) Albumin/Globulin Ratio 1.0 (1.0-1.7) Ethyl Alcohol Level < 10 mg/dL (0-10) Urine Collection Type Unknown Urine Color (Auto) Light yellow Urine Turbidity Clear Urine pH (Auto) 6.0 (<5.0-8.0) Urine Specific [place] 1.022 (1.000-1.030) Urine Protein (Auto) 30 mg/dL (Negative) Urine Glucose (Auto)(UA) Negative mg/dL (Negative) Urine Ketones (Auto) Negative mg/dL (Negative) Urine Blood (Auto) Negative (Negative) Urine Nitrite Negative (Negative) Urine Bilirubin (Auto) Negative (Negative) Urine Urobilinogen (Auto) Normal mg/dL (Normal) Urine Leukocyte Esterase (Auto) Negative (Negative) Urine RBC 0 /HPF (0-2) Urine WBC 1-4 /HPF (0-4) Urine Squamous Epithelial Cells Few /LPF Urine Amorphous Sediment Present /HPF Urine Bacteria 0 /HPF (0-FEW) Urine Hyaline Casts Moderate /HPF Urine Mucus Mod /LPF Urine Opiates Screen Neg (NEG) Urine Methadone Screen Neg (NEG) Urine Barbiturates Neg (NEG) Urine Phencyclidine Screen Neg (NEG) Urine Amphetamine/Methamphetamine Neg (NEG) Urine Benzodiazepines Screen Pos (NEG) Urine Cocaine Screen Neg (NEG) Urine Cannabinoids Screen Neg (NEG) Urine Ethyl Alcohol Neg (NEG) Images: Images PROCEDURE: ANKLE LEFT 3V Exam Date: 01/04/2022 2:45 PM XR EXAM OF ANKLE_LEFT 3V Indication: Pain. Reason: pain/swelling, hx of fall / Spl. Instructions: / History: . FINDINGS/ IMPRESSION: There are mildly displaced acute fractures of the medial and lateral malleoli with overlying soft tissue swelling. Near-anatomic alignment is maintained. Ankle mortise appears intact. PROCEDURE: PELVIS Exam Date: 01/04/2022 2:45 PM XR PELVIS 1-2V Indication: Pain. Reason: pain, hx of fall / Spl. Instructions: / History: . FINDINGS/ IMPRESSION: Postoperative changes are noted in the lower lumbar spine. No acute fracture or dislocation. Alignment and joint spaces are maintained. The soft tissues are within normal limits. PROCEDURE: CT HEAD AND CERVICAL SPINE WO EXAMINATION: CT head and cervical spine without IV contrast INDICATION: Reason: pain s/p fall, altered mental status COMPARISON: None TECHNIQUE: Spiral acquisition of contiguous images from the skull base to the vertex were obtained. CT of the cervical spine was obtained using contiguous spiral imaging from the skull base to the upper thoracic level. Sagittal and coronal 2D reformatted series were provided by the technologist. Soft tissue and bone window algorithms were reviewed. The CT scan was acquired using radiation reduction techniques, such automated exposure control, adjustment of the mA and /or kV according to the patient's size and use of iterative reconstruction techniques. FINDINGS: CT HEAD: The ventricles are normal in size. Neither mass, midline shift, intracranial hemorrhage, acute/subacute ischemic changes, nor extraaxial fluid collections are seen. The brain parenchyma is normal in appearance. Magna cisterna magna. The paranasal sinuses, mastoid air cells, and middle ears are clear. The orbital contents appear within normal limits. CT CERVICAL SPINE: Loss of the normal cervical lordotic curvature, possibly positional. Neither fracture, subluxation, nor traumatic spondylolisthesis is seen. The vertebral body heights and intervertebral disk spaces are preserved. There is no evidence of a large intraspinal hematoma. The prevertebral and paravertebral soft tissues are within normal limits. There is a mild amount of mucus within the trachea. Visualized long apices are clear. IMPRESSION: CT HEAD: No evidence of acute intracranial abnormality. CT CERVICAL SPINE: No evidence of fracture or traumatic spondylolisthesis of the cervical spine. PROCEDURE: PORTABLE CHEST 1V EXAMINATION: Chest radiograph. VIEWS: Single AP view of the chest COMPARISON: 10/20/2020 INDICATION:46 years, Female, altered mental status. FINDINGS: Normal cardiomediastinal silhouette. Patchy bilateral perihilar and bibasilar opacities. No pleural effusion or pneumothorax. No acute osseous process. IMPRESSION: Patchy bilateral airspace disease may represent atelectasis or developing infiltrates. Recommend follow-up to resolution. Assessment/Plan Assessment/Plan Left ankle bimalleolar are fracture Acute metabolic encephalopathy, possible toxic related to benzodiazepine positivity Acute electrolyte derangementhypernatremia, hyperchloremia suggestive of dehydration Benzodiazepine positivity History of epilepsy History of pancreatitis History of degenerative joint disease History of pancreatitis Admit to hospitalist service for further management Ortho consult Continue IV fluids PT OT Nonweightbearing to left lower extremity Fall precautions Avoid centrally acting medications Hold on her narcotics Lovenox for the postoperative period and will defer to orthopedic surgery for outpatient DVT prophylaxis NPO CODE STATUS full Discussed with RN and SW Disposition pending Ortho evaluation DPOA: Mother Justifications for Admission Other Justification Acute seizures,Gastroenteritis, hypokalemia NAA ABARCA MD Jan 05, 2022 08:07
[2022-01-05] MEDS ORDERED: MORPHINE SULFATE 2 MG/ML INJ. IV PRN (08:15)
[2022-01-05] MEDS ORDERED: SENNOSIDES 8.6 MG TABLET PO PRN (08:15)
[2022-01-05] MEDS ORDERED: diphenhydrAMINE 50 MG/ML VIAL IVP PRN (08:15)
[2022-01-05] MEDS ORDERED: LORazepam 0.5 MG TABLET PO PRN (08:15)
[2022-01-05] MEDS ORDERED: ONDANSETRON PF 4 MG/2 ML VIAL. IVP PRN (08:15)
[2022-01-05] MEDS: ENOXAPARIN 40 MG/0.4 ML SYRINGE. SQ SCH (08:15)
[2022-01-05] MEDS ORDERED: DEXTROSE 50% 25 GM / 50ML DISP.SYRIN. IV PRN (08:15)
[2022-01-05] MEDS ORDERED: PROCHLORPERAZINE 10 MG/2 ML VIAL. IV PRN (08:15)
[2022-01-05] MEDS ORDERED: ACETAMINOPHEN 325 MG TABLET. PO PRN (08:15)
[2022-01-05] MEDS ORDERED: diphenhydrAMINE HCL 25 MG CAPSULE PO PRN ×2 (08:15)
[2022-01-05] MEDS: IV NORMAL SALINE 1000ML BAG 1,000 ML IV SCH ×2 (08:15→18:15)
[2022-01-05] MEDS ORDERED: ZOLPIDEM 5 MG TABLET. PO PRN (08:15)
[2022-01-05] MEDS ORDERED: DOCUSATE SODIUM 100 MG CAPSULE. PO PRN (08:15)
--- NOTE | 2022-01-05 08:54 | NUR ---
Patient assessed; patient knows name and date, current year, and that she is at [facility]. Patient stated to THERAPY TEACHER "I'm going to walk out of here." When assessed patient is refusing physical therapy, a meal, and care in general- stated to me "I'm going home." Patient also refused IV fluids. - Per elopement policy; patient is deemed an elopement risk even with a fractured ankle. Patient is close to desk. Will monitor closely.
--- NOTE | 2022-01-05 09:01 | NUR ---
Spoke with ortho on telephone, is not going to see patient- recommends follow up as outpatient. Non-weight bearing to L ankle. Recommended PT work with patient.
[2022-01-05 11:00] VITALS: BP 115/75
[2022-01-05] MEDS ORDERED: RIZA10TA91 PO (11:02)
[2022-01-05] MEDS ORDERED: MISO200T16 PO (11:02)
[2022-01-05] MEDS ORDERED: HYDR25TA10 PO (11:02)
[2022-01-05] MEDS ORDERED: GABA400C7 PO (11:02)
[2022-01-05] MEDS ORDERED: PANT40TA6 PO (11:02)
[2022-01-05] MEDS ORDERED: LEVE250T4 PO (11:02)
[2022-01-05] MEDS ORDERED: PROP60CA44 PO (11:02)
[2022-01-05] MEDS ORDERED: IBUP800T19 PO (11:02)
[2022-01-05] MEDS ORDERED: ZONI100C26 PO (11:02)
[2022-01-05] MEDS: oxyCODONE/APAP 5/325 1 TAB TABLET PO PRN ×2 (11:07→17:29)
[2022-01-05] MEDS ORDERED: miSOPROStol 200 MCG TABLET. PO PRN (11:30)
[2022-01-05] MEDS: VITAMIN B COMPLEX TABLET. PO SCH (11:59)
[2022-01-05] MEDS: levETIRAcetam 250 MG TABLET PO SCH ×2 (11:59→20:54)
[2022-01-05] MEDS: ZONISAMIDE 100 MG CAPSULE. PO SCH ×2 (12:00→20:54)
[2022-01-05] MEDS: PANTOPRAZOLE 40 MG TABLET.DR. PO SCH (12:00)
[2022-01-05] MEDS: MORPHINE SULFATE 2 MG/ML INJ. IVP PRN ×2 (12:00→18:29)
[2022-01-05] MEDS: PROPRANOLOL ER 60 MG CAP.SA.24H. PO SCH ×2 (12:00→20:55)
[2022-01-05] MEDS: ALBUTEROL SULFATE 2.5 MG/3 ML NEBU. NEB SCH ×3 (12:55→20:31)
[2022-01-05] MEDS: BUDESONIDE 0.5 MG/2 ML NEBU. NEB SCH ×2 (12:55→20:31)
[2022-01-05] MEDS: GABAPENTIN 400 MG CAPSULE. PO SCH ×2 (13:49→20:54)
[2022-01-05] MEDS: METHOCARBAMOL 750 MG TABLET PO PRN ×2 (13:50→21:04)
[2022-01-05 15:00] VITALS: BP 98/70
[2022-01-05 19:00] VITALS: BP 103/67
[2022-01-05] MEDS ORDERED: OLANZapine 5 MG TABLET PO SCH (21:00)
[2022-01-05] MEDS ORDERED: METHOCARBAMOL 750 MG TABLET PO PRN (21:37)
[2022-01-05] MEDS ORDERED: levETIRAcetam 500 MG TABLET PO ONE (21:45)
[2022-01-05 23:37] VITALS: BP 101/60
[2022-01-06 03:28] VITALS: BP 100/59
[2022-01-06] MEDS: IV NORMAL SALINE 1000ML BAG 1,000 ML IV SCH ×2 (04:15→11:35)
[2022-01-06] MEDS: oxyCODONE/APAP 5/325 1 TAB TABLET PO PRN ×3 (06:04→15:51)
[2022-01-06] MEDS: GABAPENTIN 400 MG CAPSULE. PO SCH ×2 (06:04→14:37)
[2022-01-06 07:00] VITALS: BP 99/70
[2022-01-06] MEDS: ALBUTEROL SULFATE 2.5 MG/3 ML NEBU. NEB SCH ×3 (07:42→15:17)
[2022-01-06] MEDS: BUDESONIDE 0.5 MG/2 ML NEBU. NEB SCH (07:42)
[2022-01-06] MEDS: PANTOPRAZOLE 40 MG TABLET.DR. PO SCH (07:51)
[2022-01-06] MEDS: MORPHINE SULFATE 2 MG/ML INJ. IVP PRN (07:51)
[2022-01-06] MEDS: ENOXAPARIN 40 MG/0.4 ML SYRINGE. SQ SCH (08:15)
[2022-01-06 08:33] LABS: BASO % 0 % (0-3); EOS # 0.3 x10^3/uL (0.0-0.7); EOS % 4 % (0-3); HEMATOCRIT 35.5 % (36.0-47.0); HEMOGLOBIN 12.1 g/dL (12.0-15.5); LYMPH % 26 % (24-48); MEAN CORPUSCULAR HEMOGLOBIN 33 pg (25-35); MEAN CORPUSCULAR HGB CONC 34 g/dL (31-37); MEAN CORPUSCULAR VOLUME 98 fL (79-100); MONO # 0.7 x10^3/uL (0.0-1.1); MONO % 9 % (0-9); NEUT # 4.7 x10^3/uL (1.8-7.7); NEUT % 61 % (31-73); PLATELET COUNT 197 x10^3/uL (140-400); RED BLOOD COUNT 3.63 x10^6/uL (3.50-5.40); RED CELL DISTRIBUTION WIDTH 13.1 % (11.5-14.5); WHITE BLOOD COUNT 7.7 x10^3/uL (4.0-11.0)
[2022-01-06] MEDS ORDERED: levETIRAcetam 500 MG TABLET PO SCH (09:00)
[2022-01-06] MEDS: VITAMIN B COMPLEX TABLET. PO SCH (09:01)
[2022-01-06] MEDS: PROPRANOLOL ER 60 MG CAP.SA.24H. PO SCH (09:01)
[2022-01-06] MEDS: ZONISAMIDE 100 MG CAPSULE. PO SCH (09:02)
[2022-01-06 09:09] LABS: CALCIUM 8.5 mg/dL (8.5-10.1); CREATININE 0.7 mg/dL (0.6-1.0); GFR 89.7; MAGNESIUM 1.8 mg/dL (1.8-2.4); PHOSPHORUS 4.1 mg/dL (2.6-4.7)
[2022-01-06 09:42] LABS: POTASSIUM 2.6 mmol/L (3.5-5.1)
[2022-01-06 11:00] VITALS: BP 115/72
[2022-01-06] MEDS ORDERED: POTASSIUM CHLORIDE 20 MEQ TABLET.ER. PO ONE (11:15)
--- NOTE | 2022-01-06 11:19 | DISCH ---
DISCHARGE INSTRUCTIONS Condition on Discharge Condition on Discharge: Stable Activity After Discharge Activity Instructions for Disc: Activity as tolerated Lifting Instructions after Dis: No heavy lifting, Do not lift >10 pounds Exercise Instruction after Dis: Progress as tolerated Driving Instructions after Dis: Do not drive Weight Bearing Status after Di: As tolerated, Non weight bearing Diet after Discharge Diet after Discharge: Regular Diet Texture: Regular Liquid Texture: Thin Liquid Swallowing Supervision: None needed Follow-Up Follow up with: PCP within 2 weeks of discharge Follow Up With: Orthopedic surgery within 2 weeks for repeat x-rays Treatment/Equipment after DC Adaptive Equipment Issued: None NAA ABARCA MD January 06, 2022 11:19
[2022-01-06] MEDS: POTASSIUM CHLORIDE 10MEQ 100 ML IV SCH ×4 (11:35→14:36)
--- NOTE | 2022-01-06 12:03 | PDOC ---
PROGRESS NOTES Date of Service DATE: 01/06/22 TIME: 11:59 Subjective Subjective Ankle fx Objective Vital Signs Vital Signs Date Time Temp Pulse Resp B/P (MAP) Pulse Ox O2 Delivery O2 Flow Rate FiO2 01/06/22 11:34 Room Air 01/06/22 11:14 97 01/06/22 11:00 98.2 60 18 115/72 (86) 98.2 Physical Exam LLE: elevated, nvi, splint in place; moderate/severe onychomycosis of nails Overall: interacts appropriately, poor dentition Labs Laboratory Tests Test 01/04/22 13:45 01/04/22 14:00 01/04/22 16:50 01/06/22 07:45 White Blood Count 10.9 x10^3/uL (4.0-11.0) 7.7 x10^3/uL (4.0-11.0) Red Blood Count 3.93 x10^6/uL (3.50-5.40) 3.63 x10^6/uL (3.50-5.40) Hemoglobin 13.0 g/dL (12.0-15.5) 12.1 g/dL (12.0-15.5) Hematocrit 38.8 % (36.0-47.0) 35.5 % (36.0-47.0) Mean Corpuscular Volume 99 fL (79-100) 98 fL (79-100) Mean Corpuscular Hemoglobin 33 pg (25-35) 33 pg (25-35) Mean Corpuscular Hemoglobin Concent 33 g/dL (31-37) 34 g/dL (31-37) Red Cell Distribution Width 13.8 % (11.5-14.5) 13.1 % (11.5-14.5) Platelet Count 208 x10^3/uL (140-400) 197 x10^3/uL (140-400) Neutrophils (%) (Auto) 68 % (31-73) 61 % (31-73) Lymphocytes (%) (Auto) 21 % (24-48) 26 % (24-48) Monocytes (%) (Auto) 8 % (0-9) 9 % (0-9) Eosinophils (%) (Auto) 1 % (0-3) 4 % (0-3) Basophils (%) (Auto) 1 % (0-3) 0 % (0-3) Neutrophils # (Auto) 7.4 x10^3/uL (1.8-7.7) 4.7 x10^3/uL (1.8-7.7) Lymphocytes # (Auto) 2.3 x10^3/uL (1.0-4.8) 2.0 x10^3/uL (1.0-4.8) Monocytes # (Auto) 0.9 x10^3/uL (0.0-1.1) 0.7 x10^3/uL (0.0-1.1) Eosinophils # (Auto) 0.2 x10^3/uL (0.0-0.7) 0.3 x10^3/uL (0.0-0.7) Basophils # (Auto) 0.1 x10^3/uL (0.0-0.2) 0.0 x10^3/uL (0.0-0.2) Prothrombin Time 13.3 SEC (11.7-14.0) Prothromb Time International Ratio 1.0 (0.8-1.1) Activated Partial Thromboplast Time 25 SEC (24-38) Sodium Level 148 mmol/L (136-145) 143 mmol/L (136-145) Potassium Level 4.7 mmol/L (3.5-5.1) 2.6 mmol/L (3.5-5.1) Chloride Level 112 mmol/L (98-107) 106 mmol/L (98-107) Carbon Dioxide Level 28 mmol/L (21-32) 27 mmol/L (21-32) Anion Gap 8 (6-14) 10 (6-14) Blood Urea Nitrogen 11 mg/dL (7-20) 18 mg/dL (7-20) Creatinine 0.6 mg/dL (0.6-1.0) 0.7 mg/dL (0.6-1.0) Estimated GFR (Cockcroft-Gault) 107.2 89.7 BUN/Creatinine Ratio 18 (6-20) Glucose Level 93 mg/dL (70-99) 76 mg/dL (70-99) Lactic Acid Level 0.7 mmol/L (0.4-2.0) Calcium Level 9.0 mg/dL (8.5-10.1) 8.5 mg/dL (8.5-10.1) Magnesium Level 2.0 mg/dL (1.8-2.4) 1.8 mg/dL (1.8-2.4) Total Bilirubin 0.5 mg/dL (0.2-1.0) Aspartate Amino Transf (AST/SGOT) 32 U/L (15-37) Alanine Aminotransferase (ALT/SGPT) 20 U/L (14-59) Alkaline Phosphatase 88 U/L (46-116) Ammonia 27 mcmol/L (11-34) Creatine Kinase 154 U/L (26-192) Creatine Kinase MB (Mass) 1.4 ng/mL (0.0-3.6) Creatine Kinase MB Relative Index 0.9 % (0-4) Troponin I High Sensitivity 7 ng/L (4-50) Total Protein 7.3 g/dL (6.4-8.2) Albumin 3.6 g/dL (3.4-5.0) Albumin/Globulin Ratio 1.0 (1.0-1.7) Ethyl Alcohol Level < 10 mg/dL (0-10) Urine Collection Type Unknown Urine Color (Auto) Light yellow Urine Turbidity Clear Urine pH (Auto) 6.0 (<5.0-8.0) Urine Specific [place] 1.022 (1.000-1.030) Urine Protein (Auto) 30 mg/dL (Negative) Urine Glucose (Auto)(UA) Negative mg/dL (Negative) Urine Ketones (Auto) Negative mg/dL (Negative) Urine Blood (Auto) Negative (Negative) Urine Nitrite Negative (Negative) Urine Bilirubin (Auto) Negative (Negative) Urine Urobilinogen (Auto) Normal mg/dL (Normal) Urine Leukocyte Esterase (Auto) Negative (Negative) Urine RBC 0 /HPF (0-2) Urine WBC 1-4 /HPF (0-4) Urine Squamous Epithelial Cells Few /LPF Urine Amorphous Sediment Present /HPF Urine Bacteria 0 /HPF (0-FEW) Urine Hyaline Casts Moderate /HPF Urine Mucus Mod /LPF Urine Opiates Screen Neg (NEG) Urine Methadone Screen Neg (NEG) Urine Barbiturates Neg (NEG) Urine Phencyclidine Screen Neg (NEG) Urine Amphetamine/Methamphetamine Neg (NEG) Urine Benzodiazepines Screen Pos (NEG) Urine Cocaine Screen Neg (NEG) Urine Cannabinoids Screen Neg (NEG) Urine Ethyl Alcohol Neg (NEG) Phosphorus Level 4.1 mg/dL (2.6-4.7) Laboratory Tests Test 01/06/22 07:45 White Blood Count 7.7 x10^3/uL (4.0-11.0) Red Blood Count 3.63 x10^6/uL (3.50-5.40) Hemoglobin 12.1 g/dL (12.0-15.5) Hematocrit 35.5 % (36.0-47.0) Mean Corpuscular Volume 98 fL (79-100) Mean Corpuscular Hemoglobin 33 pg (25-35) Mean Corpuscular Hemoglobin Concent 34 g/dL (31-37) Red Cell Distribution Width 13.1 % (11.5-14.5) Platelet Count 197 x10^3/uL (140-400) Neutrophils (%) (Auto) 61 % (31-73) Lymphocytes (%) (Auto) 26 % (24-48) Monocytes (%) (Auto) 9 % (0-9) Eosinophils (%) (Auto) 4 % (0-3) Basophils (%) (Auto) 0 % (0-3) Neutrophils # (Auto) 4.7 x10^3/uL (1.8-7.7) Lymphocytes # (Auto) 2.0 x10^3/uL (1.0-4.8) Monocytes # (Auto) 0.7 x10^3/uL (0.0-1.1) Eosinophils # (Auto) 0.3 x10^3/uL (0.0-0.7) Basophils # (Auto) 0.0 x10^3/uL (0.0-0.2) Sodium Level 143 mmol/L (136-145) Potassium Level 2.6 mmol/L (3.5-5.1) Chloride Level 106 mmol/L (98-107) Carbon Dioxide Level 27 mmol/L (21-32) Anion Gap 10 (6-14) Blood Urea Nitrogen 18 mg/dL (7-20) Creatinine 0.7 mg/dL (0.6-1.0) Estimated GFR (Cockcroft-Gault) 89.7 Glucose Level 76 mg/dL (70-99) Calcium Level 8.5 mg/dL (8.5-10.1) Phosphorus Level 4.1 mg/dL (2.6-4.7) Magnesium Level 1.8 mg/dL (1.8-2.4) Assessment Assessment L bimall ankle fx, very minimally displaced Plan Plan of Care NWB x6-8 weeks. F/u within 2 wks for new xrays and casting. Too swollen to cast acutely. Justicifation of Admission Dx: Justifications for Admission: Justification of Admission Dx: N/A LUZ MARIA RICHARDSON MD January 06, 2022 12:03
[2022-01-06 15:00] VITALS: BP 101/66
--- NOTE | 2022-01-06 17:30 | NUR ---
Discharge Note: YANE WEBB Discharge instructions and discharge home medications reviewed with Patient and a copy given. All questions have been answered and understanding verbalized. The following instructions and handouts were given: discharge instructions, education and follow up recommendations. Discontinued lines and drains: Peripheral IV discontinued intact. 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
--- NOTE | 2022-01-07 06:10 | EKG ---
[facility] [address] [place] [address] Test Date: 2022-01-04 Test Time: 14:22:39 Pat Name: YANE WEBB Department: Room: Gender: F Clam [employer]: : 1975 Requested By: TAYLOR SUAREZ Order Number: [id number] Reading MD: Measurements Intervals [place] Rate: 56 P: 47 VT: 132 QRS: 58 QRSD: 82 T: 74 QT: 472 QTc: 458 Interpretive Statements SINUS RHYTHM NO SPECIFIC ECG ABNORMALITIES RI6.02 No previous ECG available for comparison
== END 2022-01-06 17:30 | disposition home or self-care (01) | DRG 562 ==
LOC: ER 13:19 → 5 NORTH 18:07
PROVIDERS: ADMIT Family Medicine; ATTEND Family Medicine
DX: S82.842A Displaced bimalleolar fracture of left lower leg, initial encounter for closed fracture (principal); G93.41 Metabolic encephalopathy; Z79.01 Long term (current) use of anticoagulants; E87.6 Hypokalemia; G25.0 Essential tremor; G40.909 Epilepsy, unspecified, not intractable, without status epilepticus; J44.9 Chronic obstructive pulmonary disease, unspecified; K52.9 Noninfective gastroenteritis and colitis, unspecified; M19.90 Unspecified osteoarthritis, unspecified site; W18.39XA Other fall on same level, initial encounter; Y93.89 Activity, other specified; Y92.89 Other specified places as the place of occurrence of the external cause; Y99.8 Other external cause status
CPT/HCPCS: 36415; 70450; 71045; 72125; 72170; 73610; 80048; 80053; 80307; 81001; 82140; 82553; 83605; 83735; 84100; 84132; 84484; 85025; 85610; 85730; 93005; 94640; 94760; G0480; J2270; J3480; J7030; 97110-GP; 97116-GP; 97535-GO; 99285-25; G0378; J7613; J7626